=== PATIENT | male | born 1935 | race Asian ===

== ENCOUNTER 2018-10-07 18:24 | Emergency (ER) | payer MEDICARE, OTHER, SELFPAY ==
[2018-10-07 18:35] VITALS: BP 152/98; PULSE 96; RESP 18; O2SAT 98
--- NOTE | 2018-10-07 18:37 | ED.HEATRA ---
HPI - Head Injury General Chief complaint: Trauma Stated complaint: Fell and hit head on concrete Time Seen by Provider: 10/07/18 18:37 Source: patient Mode of arrival: ambulatory Limitations: no limitations History of Present Illness HPI Narrative: The patient was attempting to step across a small wall along the edge of his driveway at home prior to arrival. He slipped and fell backwards. He struck his head against the pavement. The tenderness is in the right occipital area. There is no bleeding the site. He has no LOC. Initial dizziness has improved. He has no confusion, visual changes, or neck pain. He denies trauma to the back, or extremities. Is alert and ambulatory. He is anticoagulated. He has AFib and has a pacer in place. Related Data Home Medications Medication Instructions Recorded Confirmed warfarin 3 mg PO QDAY #0 08/27/11 fluticasone [Flonase Allergy 2 spray INTRANASAL BID #0 09/05/11 Relief] alfuzosin [Uroxatral] 10 mg PO QDAY #0 05/22/17 calcium carbonate-vitamin D3 1 tab PO BID #0 05/22/17 [Oyster Shell Calcium-Vit D3] clobetasol 1 marry TOPICAL BID #0 05/22/17 diclofenac sodium [Voltaren] 1 marry TOPICAL QIDP PRN #0 05/22/17 folic acid 1 mg PO QDAY #0 05/22/17 triamcinolone acetonide 1 marry TOPICAL #0 05/22/17 warfarin [Coumadin] #0 05/22/17 Allergies Allergy/AdvReac Type Severity Reaction Status Date / Time amiodarone [AMIODARONE] Allergy Severe FACIAL Unverified 11/12/17 11:52 SWELLING codeine [CODEINE] AdvReac Intermediate N/V Unverified 11/12/17 11:52 hydromorphone [HYDROMORPHONE] AdvReac Intermediate N/V Unverified 11/12/17 11:52 oxycodone [OXYCODONE] AdvReac Intermediate N/V Unverified 11/12/17 11:52 latex [LATEX] AdvReac Mild RASH Unverified 11/12/17 11:52 Review of Systems Review of Systems ROS Unobtainable: All systems reviewed & are unremarkable except as noted in HPI and below Constitutional Denies chills, Denies lethargy, Denies weakness and Reports other (Occipital head pain) Eyes Denies change in vision and Denies loss of vision ENT Ears, Nose, Mouth, and Throat: Denies change in voice, Denies ear discharge and Denies neck pain Cardiovascular Denies chest pain, Denies irregular heart rhythm, Denies lightheadedness, Denies palpitations, Denies dyspnea and Denies dyspnea on exertion Respiratory Denies cough, Denies dyspnea, Denies dyspnea on exertion and Denies wheezing Gastrointestinal Gastrointestinal: Denies abdominal pain, Denies change in bowel habits, Denies diarrhea, Denies nausea and Denies vomiting Musculoskeletal Denies back pain, Denies neck pain, Denies numbness and Denies stiffness Integumentary/Breasts Denies rash and Denies wounds Neurologic Denies loss of vision, Denies numbness and Denies weakness Endocrine Denies palpitations Allergic/Immunologic Denies wheezing PFSH Medical History Atrial fibrillation (Acute) Hyperglycemia (Acute) Hypertension (Acute) Migraines (Acute) Pacemaker (Acute) Social History Smoking Status: Never smoker Exam Initial Vital Signs Initial Vital Signs: Vital Signs Pulse Rate 96 H 10/07/18 18:35 Respiratory Rate 18 10/07/18 18:35 Blood Pressure 152/98 H 10/07/18 18:35 Pulse Oximetry 98 10/07/18 18:35 Const General: cooperative, healthy appearing and well developed Nutritional Appearance: well nourished Orientation: alert, awake, oriented x3 and not confused [facility] Head: normal to inspection, normocephalic, No abrasion and contusion (right occipital area) Ears: TM's normal bilaterally Nose: nares normal Face and sinus: normal facial exam and sinuses tender Mouth: oral mucosae normal Throat: posterior oropharynx normal Eyes General: appearance normal, both eyes and all related structures Eyelids: eyelids normal Conjunctivae: conjunctivae normal Sclera: sclerae normal Pupils: PERRL EOM: EOM intact bilaterally Neck Neck: normal visual inspection, trachea midline, No lymphadenopathy, No midline deformity and No JVD Chest Chest: normal inspection of the chest Resp Effort & Inspection: normal respiratory effort, able to speak in complete sentences, no respiratory distress and no use of accessory muscles Auscultation: clear to auscultation bilaterally, no rales, no rhonchi and no wheezes Cardio Rate: regular rate Rhythm: regular rhythm Heart Sounds: no click, no gallops, no murmurs and no rubs Pulses: normal peripheral pulses Back/Spine/Pelvis Back: No back tenderness and No ecchymosis Skin General: no rashes or lesions noted Neuro General: alert, oriented x3 and gait normal Speech: speech normal Motor: muscle tone normal throughout Sensory Exam: no sensory deficits noted Extrem General: normal to inspection and full ROM Psych Appearance: grossly normal Course Orders Ordered: ED Orders 10/07/18 18:39 CT head/brain wo con Stat 10/07/18 19:04 Basic Metabolic Panel Stat Complete Blood Count AUTO DIFF Stat Prothrombin Time INR Stat Vital Signs - 8 hr 10/07/18 18:35 10/07/18 19:17 Pulse Rate 96 H 71 Respiratory Rate 18 18 Blood Pressure 152/98 H Blood Pressure [Left Arm] 173/86 H Pulse Oximetry 98 97 MDM - Head Injury Lab Data Result diagrams: 10/07/18 19:04 10/07/18 19:04 Lab Results 10/07/18 10/07/18 10/07/18 Range/Units 19:04 19:04 19:04 WBC 6.7 (4.5-11.0) X10^3/uL RBC 4.28 L (4.5-5.9) X10^6/uL Hgb 13.1 L (13.5-17.5) g/dL Hct 40.4 L (41-53) % MCV 94.2 (80-100) fL MCH 30.7 (26-34) PG MCHC 32.6 (30-36) % RDW 13.7 (11.6-14.8) % Plt Count 170 (150-400) X10^3/uL Neut % (Auto) 67.8 (50-75) % Lymph % (Auto) 16.1 L (25-40) % [place] % (Auto) 8.9 (3-14) % Eos % (Auto) 6.5 H (2-4) % Baso % (Auto) 0.7 (0-2) % Neut # (Auto) 4500 (3249-4327) /uL Lymph # (Auto) 1100 (8208-7251) /uL [place] # (Auto) 600 (0-900) /uL Eos # (Auto) 400 (0-450) /uL Baso # (Auto) 0 (0-100) /uL PT 23.8 H (10.1-12.7) SECONDS INR 2.0 H (0.9-1.3) Sodium 135 L (137-145) mmol/L Potassium 4.9 (3.4-5.1) mmol/L Chloride 98 (98-107) mmol/L Carbon Dioxide 25 (22-32) mmol/L BUN 18 (9-20) mg/dL Creatinine 1.10 (0.66-1.25) mg/dL Estimated GFR > 60.0 (>60) mL/min BUN/Creatinine Ratio 16.4 (6-22) Glucose 186 H (80-110) mg/dL Calcium 9.5 (8.4-10.2) mg/dL Imaging Data CT scan - head: Radiologist's impression: [address] [address] [address] Scan Report Signed Patient: Benjamin Lubin R#: [id number] : 5Acct:[id number] Age/Sex: 83 / MDate of Service: 10/07/18 Loc: ED Accession Number: [id number] Procedure: CT head/brain wo con Ordering Provider: Ash Obregon M.D. PROCEDURE: CT HEAD/BRAIN WO CON INDICATIONS: GLF hit head, warfarin TECHNIQUE: Noncontrast 4.5 mm thick angled axial sections acquired from the foramen magnum to the vertex, with coronal and sagittal reformats. For radiation dose reduction, the following was used: automated exposure control, adjustment of mA and/or kV according to patient size. COMPARISON: [facility], CT, HEAD WITHOUT CONTRAST, 08/04/2017, 13:18. FINDINGS: Image quality: Excellent. CSF spaces: Basal cisterns are patent. No extra-axial fluid collections. The ventricles are symmetric in size and shape. Brain: No intracranial bleeds or masses. There is cerebral volume loss for age, with resultant ventricular and sulcal prominence. There are periventricular and deep white matter chronic small vessel ischemic changes. There is intracranial internal carotid artery atherosclerosis. Skull and face: Calvarium and visualized facial bones appear intact, without suspicious lesions. Sinuses: Visualized sinuses and mastoids are clear. IMPRESSION: No acute intracranial abnormality. Dictated by: Merari Marley M.D. on 10/07/2018 at 19:05 Approved by: Merari Marley M.D. on 10/07/2018 at 19:06 Discharge Plan Departure Patient Disposition: Home Clinical Impression: Contusion of scalp Qualifiers: Encounter type: initial encounter Qualified Code(s): S00.03XA - Contusion of scalp, initial encounter Discharge Date/Time: 10/07/18 19:31 Interventions: ED Discharge Assessment Last Done: 10/07/18 19:30 Instructions: DI for Closed Head Injury Activity Restrictions/Additional Instructions: Apply ice packs to the back of her head as needed. Tylenol 2 tabs every 4 hr as needed for head pain. Return the ER for worsening head pain, confusion, or other concerning changes. Prescriptions: No Action warfarin 1 MG tablet 3 mg PO QDAY Qty: 0 RF: 0 fluticasone [Flonase Allergy Relief] 9.9 ML spray,suspension 2 spray Intranasal BID Qty: 0 RF: 0 clobetasol 0.05 % ointment 1 marry Topical BID Qty: 0 RF: 0 alfuzosin [Uroxatral] 10 MG tablet extended release 24 hr 10 mg PO QDAY Qty: 0 RF: 0 triamcinolone acetonide 0.025 % ointment 1 marry Topical Qty: 0 RF: 0 diclofenac sodium [Voltaren] 1 % gel 1 marry Topical QIDP PRNQty: 0 RF: 0 calcium carbonate-vitamin D3 [Oyster Shell Calcium-Vit D3] 500 MG/200 IU tablet 1 tab PO BID Qty: 0 RF: 0 folic acid 1 MG tablet 1 mg PO QDAY Qty: 0 RF: 0 warfarin [Coumadin] 2 MG tablet Qty: 0 RF: 0 Referrals: Elvira Tijerina MD [Primary Care Provider] -
[2018-10-07 19:09] LABS: Add Manual Diff / Slide Review NO; Basophils Absolute Auto 0 /uL (0-100); Basophils Percent Auto 0.7 % (0-2); Eosinophils Absolute Auto 400 /uL (0-450); Eosinophils Percent Auto 6.5 % (2-4); Hematocrit 40.4 % (41-53); Hemoglobin 13.1 g/dL (13.5-17.5); Lymphocytes Absolute Auto 1100 /uL (1100-4500); Lymphocytes Percent Auto 16.1 % (25-40); Mean Corpuscular HGB Conc 32.6 % (30-36); Mean Corpuscular Hemoglobin 30.7 PG (26-34); Mean Corpuscular Volume 94.2 fL (80-100); Monocytes Absolute Auto 600 /uL (0-900); Monocytes Percent Auto 8.9 % (3-14); Neutrophils Absolute Auto 4500 /uL (1500-7000); Neutrophils Percent Auto 67.8 % (50-75); Platelet Count 170 X10^3/uL (150-400); Red Blood Cell Count 4.28 X10^6/uL (4.5-5.9); Red Cell Distribution Width 13.7 % (11.6-14.8); White Blood Cell Count 6.7 X10^3/uL (4.5-11.0)
[2018-10-07 19:17] VITALS: BP 173/86; PULSE 71; RESP 18; O2SAT 97
[2018-10-07 19:33] LABS: Prothrombin Time 23.8 SECONDS (10.1-12.7)
[2018-10-07 19:40] LABS: BUN Creatinine Ratio 16.4 (6-22); Blood Urea Nitrogen 18 mg/dL (9-20); Calcium 9.5 mg/dL (8.4-10.2); Carbon Dioxide 25 mmol/L (22-32); Chloride 98 mmol/L (98-107); Estimated Glomerular Filt Rate > 60.0 mL/min (>60); Glucose 186 mg/dL (80-110); HEMOLYSIS 26 (0-50); Potassium 4.9 mmol/L (3.4-5.1); Sodium 135 mmol/L (137-145)
== END 2018-10-07 19:31 | disposition home or self-care (01) ==
PROVIDERS: Emergency Provider Emergency Medicine; Family Provider Family Medicine; PCP Family Medicine
DX: S00.03XA Contusion of scalp, initial encounter (principal); W01.0XXA Fall on same level from slipping, tripping and stumbling without subsequent striking against object, initial encounter
CPT/HCPCS: 70450; 80048; 85025; 85610; 99282; 99283; 99284

== ENCOUNTER 2018-10-17 17:18 | Emergency (ER) | payer MEDICARE, OTHER, SELFPAY ==
--- NOTE | 2018-10-17 17:25 | DI.CT.S_ITS ---
PROCEDURE: CT HEAD/BRAIN WO CON INDICATIONS: fell on coumadin TECHNIQUE: Noncontrast 4.5 mm thick angled axial sections acquired from the foramen magnum to the vertex, with coronal and sagittal reformats. For radiation dose reduction, the following was used: automated exposure control, adjustment of mA and/or kV according to patient size. COMPARISON: [facility], CT, CT HEAD/BRAIN WO CON, 10/07/2018, 18:37. FINDINGS: Image quality: Excellent. CSF spaces: Basal cisterns are patent. No extra-axial fluid collections. The ventricles are symmetric in size and shape. Brain: No intracranial bleeds or masses. There is cerebral volume loss for age, with resultant ventricular and sulcal prominence. There are periventricular and deep white matter chronic small vessel ischemic changes. There is intracranial internal carotid artery and vertebral artery atherosclerosis. Skull and face: Calvarium and visualized facial bones appear intact, without suspicious lesions. Sinuses: Visualized sinuses and mastoids are clear. IMPRESSION: No acute intracranial disease process. Dictated by: Josiane Vargas MD, PhD on 10/17/2018 at 18:13 Approved by: Josiane Vargas MD, PhD on 10/17/2018 at 18:15
[2018-10-17 17:26] VITALS: BP 156/88; PULSE 72; RESP 18; TEMP 36.9; O2SAT 99
[2018-10-17 18:11] LABS: Add Manual Diff / Slide Review NO; Basophils Absolute Auto 100 /uL (0-100); Basophils Percent Auto 0.9 % (0-2); Eosinophils Absolute Auto 400 /uL (0-450); Eosinophils Percent Auto 6.2 % (2-4); Hematocrit 38.5 % (41-53); Hemoglobin 12.7 g/dL (13.5-17.5); Lymphocytes Absolute Auto 1000 /uL (1100-4500); Lymphocytes Percent Auto 16.4 % (25-40); Mean Corpuscular Hemoglobin 30.8 PG (26-34); Mean Corpuscular Volume 93.6 fL (80-100); Monocytes Absolute Auto 600 /uL (0-900); Monocytes Percent Auto 9.9 % (3-14); Neutrophils Absolute Auto 4200 /uL (1500-7000); Neutrophils Percent Auto 66.6 % (50-75); Platelet Count 190 X10^3/uL (150-400); Red Blood Cell Count 4.11 X10^6/uL (4.5-5.9); Red Cell Distribution Width 13.6 % (11.6-14.8); White Blood Cell Count 6.4 X10^3/uL (4.5-11.0)
[2018-10-17 18:21] LABS: INR 2.2 (0.9-1.3); Prothrombin Time 25.6 SECONDS (10.1-12.7)
[2018-10-17 18:26] LABS: BUN Creatinine Ratio 18.3 (6-22); Blood Urea Nitrogen 22 mg/dL (9-20); Calcium 9.7 mg/dL (8.4-10.2); Carbon Dioxide 23 mmol/L (22-32); Chloride 100 mmol/L (98-107); Estimated Glomerular Filt Rate 57.8 mL/min (>60); Glucose 128 mg/dL (80-110); HEMOLYSIS < 15 (0-50); Potassium 4.7 mmol/L (3.4-5.1); Sodium 135 mmol/L (137-145)
--- NOTE | 2018-10-17 19:34 | ED.TRAUMA ---
HPI - Trauma General Chief Complaint: Trauma Stated Complaint: FALL, HIT BACK OF HIS HEAD Time Seen by Provider: 10/17/18 19:31 Source: patient and family Mode of arrival: ambulatory Limitations: no limitations History of Present Illness HPI narrative: Patient is a 83-year-old male presents after his ground level fall. He said he was in his garden picking up the garlic with this pain when he fell backwards hitting his head. No loss of consciousness no neck pain no numbness tingling nausea vomiting. He is on Coumadin for atrial fibrillation. This is actually his 2nd fall this month as he fell on 10/07/[address]. He denies any chest pain dizziness lightheadedness is or shortness of breath. He thinks he just lost his balance and fell backwards. Related Data Home Medications Medication Instructions Recorded Confirmed warfarin 3 mg PO QDAY #0 08/27/11 fluticasone [Flonase Allergy 2 spray INTRANASAL BID #0 09/05/11 Relief] alfuzosin [Uroxatral] 10 mg PO QDAY #0 05/22/17 calcium carbonate-vitamin D3 1 tab PO BID #0 05/22/17 [Oyster Shell Calcium-Vit D3] clobetasol 1 marry TOPICAL BID #0 05/22/17 diclofenac sodium [Voltaren] 1 marry TOPICAL QIDP PRN #0 05/22/17 folic acid 1 mg PO QDAY #0 05/22/17 triamcinolone acetonide 1 marry TOPICAL #0 05/22/17 warfarin [Coumadin] #0 05/22/17 Allergies Allergy/AdvReac Type Severity Reaction Status Date / Time amiodarone [AMIODARONE] Allergy Severe FACIAL Verified 10/17/18 17:32 SWELLING codeine [CODEINE] AdvReac Intermediate N/V Verified 10/17/18 17:32 hydromorphone [HYDROMORPHONE] AdvReac Intermediate N/V Verified 10/17/18 17:32 oxycodone [OXYCODONE] AdvReac Intermediate N/V Verified 10/17/18 17:32 latex [LATEX] AdvReac Mild RASH Verified 10/17/18 17:32 Review of Systems Review of Systems ROS Unobtainable: All systems reviewed & are unremarkable except as noted in HPI and below Constitutional Denies chills, Denies fever(s), Denies lethargy and Denies weakness Eyes Denies change in vision, Denies eye discharge, Denies irritation and Denies loss of vision Cardiovascular Denies chest pain, Reports irregular heart rhythm (Atrial fibrillation on Coumadin), Denies lightheadedness, Denies palpitations, Denies dyspnea, Denies dyspnea on exertion and Denies orthopnea Respiratory Denies cough, Denies dyspnea, Denies dyspnea on exertion and Denies wheezing Gastrointestinal Gastrointestinal: Denies abdominal pain, Denies change in bowel habits, Denies diarrhea, Denies nausea and Denies vomiting Musculoskeletal Denies back pain, Denies muscle weakness, Denies numbness and Denies tingling Integumentary/Breasts Comments: Abrasion noted posterior scalp Neurologic Denies loss of vision, Denies numbness, Denies tingling and Denies weakness Endocrine Denies palpitations Allergic/Immunologic Denies wheezing [facility] Medical History Atrial fibrillation (Acute) Hyperglycemia (Acute) Hypertension (Acute) Migraines (Acute) Pacemaker (Acute) Social History Smoking Status: Never smoker Social History Smoking Status: Never smoker Comment: PCP: Dr. Tijerina Exam Initial Vital Signs Initial Vital Signs: Vital Signs Temperature 98.5 F 10/17/18 17:26 Pulse Rate 72 10/17/18 17:26 Respiratory Rate 18 10/17/18 17:26 Blood Pressure 156/88 H 10/17/18 17:26 Pulse Oximetry 99 10/17/18 17:26 GENERAL: Pleasant well-appearing alert elderly male no acute distress HEENT: Head contusion noted posteriorly no depressions no crepitations, EOMI NECK: Full flexion extension and rotation no vertebral tenderness no step-offs CARDIOVASCULAR: Regular rate and rhythm without murmurs, rubs or gallops. RESPIRATORY: Breath sounds equal bilaterally, no wheezes rales or rhonchi. ABDOMEN: Soft, nontender. Normoactive bowel sounds all 4 quadrants. No guarding or rebound. EXTREMITIES: Normal range of motion, no clubbing or edema. Neurovascularly intact NEUROLOGICAL: Alert and oriented x4.Normal gait and speech. Cranial nerves II through XII grossly intact. 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 SKIN: Warm, dry, no laceration, no petechiae, no rashes or lesions. Course Orders Ordered: ED Orders 10/17/18 17:25 CT head/brain wo con Stat 10/17/18 17:55 Basic Metabolic Panel Stat Complete Blood Count AUTO DIFF Stat Prothrombin Time INR Stat Discontinued Medications Acetaminophen (Tylenol) 975 mg PO NOW ONE Stop: 10/17/18 19:40 Last Admin: 10/17/18 19:52 Dose: 975 mg Vital Signs - 8 hr 10/17/18 17:26 10/17/18 19:51 Temperature 98.5 F Pulse Rate 72 89 Respiratory Rate 18 17 Blood Pressure 156/88 H Blood Pressure [Left Arm] 137/81 Pulse Oximetry 99 97 MDM - Trauma Medical Records Attestation: I reviewed the patient's medical records. Lab Data Attestation: I reviewed the patient's lab results. Result diagrams: 10/17/18 17:55 10/17/18 17:55 Lab Results 10/17/18 10/17/18 10/17/18 Range/Units 17:55 17:55 17:55 WBC 6.4 (4.5-11.0) X10^3/uL RBC 4.11 L (4.5-5.9) X10^6/uL Hgb 12.7 L (13.5-17.5) g/dL Hct 38.5 L (41-53) % MCV 93.6 (80-100) fL MCH 30.8 (26-34) PG MCHC 33.0 (30-36) % RDW 13.6 (11.6-14.8) % Plt Count 190 (150-400) X10^3/uL Neut % (Auto) 66.6 (50-75) % Lymph % (Auto) 16.4 L (25-40) % [place] % (Auto) 9.9 (3-14) % Eos % (Auto) 6.2 H (2-4) % Baso % (Auto) 0.9 (0-2) % Neut # (Auto) 4200 (5455-2308) /uL Lymph # (Auto) 1000 L (2500-4520) /uL [place] # (Auto) 600 (0-900) /uL Eos # (Auto) 400 (0-450) /uL Baso # (Auto) 100 (0-100) /uL PT 25.6 H (10.1-12.7) SECONDS INR 2.2 H (0.9-1.3) Sodium 135 L (137-145) mmol/L Potassium 4.7 (3.4-5.1) mmol/L Chloride 100 (98-107) mmol/L Carbon Dioxide 23 (22-32) mmol/L BUN 22 H (9-20) mg/dL Creatinine 1.20 (0.66-1.25) mg/dL Estimated GFR 57.8 L (>60) mL/min BUN/Creatinine Ratio 18.3 (6-22) Glucose 128 H (80-110) mg/dL Calcium 9.7 (8.4-10.2) mg/dL Imaging Data CT scan - head: Radiologist's impression: PROCEDURE: CT HEAD/BRAIN WO CON INDICATIONS: fell on coumadin TECHNIQUE: Noncontrast 4.5 mm thick angled axial sections acquired from the foramen magnum to the vertex, with coronal and sagittal reformats. For radiation dose reduction, the following was used: automated exposure control, adjustment of mA and/or kV according to patient size. COMPARISON: [facility], CT, CT HEAD/BRAIN WO CON, 10/07/2018, 18:37. FINDINGS: Image quality: Excellent. CSF spaces: Basal cisterns are patent. No extra-axial fluid collections. The ventricles are symmetric in size and shape. Brain: No intracranial bleeds or masses. There is cerebral volume loss for age, with resultant ventricular and sulcal prominence. There are periventricular and deep white matter chronic small vessel ischemic changes. There is intracranial internal carotid artery and vertebral artery atherosclerosis. Skull and face: Calvarium and visualized facial bones appear intact, without suspicious lesions. Sinuses: Visualized sinuses and mastoids are clear. IMPRESSION: No acute intracranial disease process. Dictated by: Josiane Vargas MD, PhD on 10/17/2018 at 18:13 MDM Narrative Medical decision making narrative: This is patient's 2nd mechanical fall this month on Coumadin striking his head. He has no gross deficits both seem to be is mechanical. Blood work today is reassuring INR is 2.2. He has no complaints other than a slight headache. I discussed both with he and his being up more careful. Discharge Plan Departure Patient Disposition: Home Clinical Impression: Closed head injury Qualifiers: Encounter type: initial encounter Qualified Code(s): S09.90XA - Unspecified injury of head, initial encounter Discharge Date/Time: 10/17/18 20:05 Interventions: ED Discharge Assessment Last Done: 10/17/18 20:04 Instructions: DI for Concussion Activity Restrictions/Additional Instructions: *You have been diagnosed with closed head injury *What to do: INR today is 2.2. Try to be more careful. Avoid ladders and high risk activity *Continue to take medications as directed Tylenol 650 mg every 4-6 hours if needed for pain *Follow up with your primary care provider in 2-3 days *Return to ER if you should have worsening headache, confusion, persistent vomiting or any new, worsening or concerning symptoms Prescriptions: No Action warfarin 1 MG tablet 3 mg PO QDAY Qty: 0 RF: 0 fluticasone [Flonase Allergy Relief] 9.9 ML spray,suspension 2 spray Intranasal BID Qty: 0 RF: 0 clobetasol 0.05 % ointment 1 marry Topical BID Qty: 0 RF: 0 alfuzosin [Uroxatral] 10 MG tablet extended release 24 hr 10 mg PO QDAY Qty: 0 RF: 0 triamcinolone acetonide 0.025 % ointment 1 marry Topical Qty: 0 RF: 0 diclofenac sodium [Voltaren] 1 % gel 1 marry Topical QIDP PRNQty: 0 RF: 0 calcium carbonate-vitamin D3 [Oyster Shell Calcium-Vit D3] 500 MG/200 IU tablet 1 tab PO BID Qty: 0 RF: 0 folic acid 1 MG tablet 1 mg PO QDAY Qty: 0 RF: 0 warfarin [Coumadin] 2 MG tablet Qty: 0 RF: 0 Referrals: Elvira Tijerina MD [Primary Care Provider] -
[2018-10-17 19:51] VITALS: BP 137/81; PULSE 89; RESP 17; O2SAT 97
[2018-10-17] MEDS: ACETAMINOPHEN 325 MG TABLET 975 MG PO (19:52)
--- NOTE | 2018-10-17 19:52 | PC.NURSE ---
Charting vitals for BETH Kwon
== END 2018-10-17 20:05 | disposition home or self-care (01) ==
PROVIDERS: Emergency Medicine; Emergency Provider Emergency Medicine; Family Provider Family Medicine; PCP Family Medicine
DX: S09.90XA Unspecified injury of head, initial encounter (principal); W18.30XD Fall on same level, unspecified, subsequent encounter; Z79.01 Long term (current) use of anticoagulants
CPT/HCPCS: 36415; 70450; 80048; 85025; 85610; 99282; 99284

== ENCOUNTER → 2019-05-06 12:49 | Outpatient (CLI) | payer MEDICARE, OTHER, SELFPAY ==
--- NOTE | 2019-05-06 | DI.ECHO.S_ITS ---
[facility] +---------+ [facility] +---------+ : : [address] : : : : [id number] : : : : Phone: [phone]+ Echocardiogram Report + + :Name: ANNIE JOYCE Study Date: 05/06/2019 Height: 62 in : :[facility] Exam Location: IS Weight: 132 lb : : Gender: Male BSA: 1.6 m2 : :: 1935 Age: 84 yrs BP: 142/68 mmHg: :Reason For Study: MR : : Performed By: Nehemias Bob : :Referring: MYLES WOOD : + + Interpretation Summary The left ventricle is normal in size. The ejection fraction is estimated to be 55-60%. There is a moderate dyssynchronous contraction pattern due to the paced rhythm. There has been no significant change since the previous study. Diastolic function could not be accurately assessed due to paced rhythm. The right ventricle is mildly dilated. Right ventricular systolic function is at the lower limits of normal. Right ventricular systolic function has increased since previous exam. The right ventricular systolic pressure is estimated to be at least 31 mmHg based on an estimated right atrial pressure of 3 mm Hg. Compared to the prior echo exam, there has been no change in the severity of pulmonary hypertension. Both atria are severely dilated. There is moderate mitral regurgitation. MR has slightly increased since prior study. There is mild aortic stenosis. The peak aortic velocity is 1.48 m/sec. The calculated aortic valve area is 1.2 cm2. There is severe tricuspid regurgitation. TR has mildly increased since prior study. The ascending aorta is mildly enlarged. Procedure: A two-dimensional transthoracic echocardiogram with color flow and Doppler was performed. The study quality was technically good. Comparison is made with the echocardiogram of 12/25/15. The patient was in atrial fibrillation with controlled ventricular rate during the exam. The patient had a heart rate of 55-84 beats per minute. Left Ventricle: The left ventricle is normal in size. There is normal left ventricular wall thickness. The ejection fraction is estimated to be 55-60%. There has been no significant change since the previous study. There is a moderate dyssynchronous contraction pattern due to the paced rhythm. Diastolic function could not be accurately assessed due to paced rhythm. Right Ventricle: The right ventricle is mildly dilated. Right ventricular systolic function is at the lower limits of normal. Right ventricular systolic function has increased since previous exam. Atria: Both atria are severely dilated. The interatrial septum is intact with no evidence for an atrial septal defect. Mitral Valve: There is mild mitral annular calcification. There is moderate mitral regurgitation. Aortic Valve: The aortic valve is trileaflet. The aortic valve is mildly calcified. There is mildly reduced leaflet mobility. There is mild aortic stenosis. The peak aortic velocity is 1.48 m/sec. The aortic valve mean gradient is 5.1 mmHg. The calculated aortic valve area is 1.2 cm2. There is trace aortic regurgitation. Tricuspid Valve: The tricuspid valve is normal in structure and function. There is severe tricuspid regurgitation. The right ventricular systolic pressure is estimated to be at least 31 mmHg based on an estimated right atrial pressure of 3 mm Hg. Compared to the prior echo exam, there has been no change in the severity of pulmonary hypertension. Pulmonic Valve: The pulmonic valve is normal in structure and function. There is trace pulmonic regurgitation. Great Vessels: The aortic root is normal size. The ascending aorta is mildly enlarged. The pulmonary artery is normal size. The IVC is of normal diameter and collapses greater than 50% with a sniff. This suggests a low right atrial pressure of 3 mm Hg. Pericardium/ Pleura There is no pericardial effusion. There is no pleural effusion. MMode/2D Measurements & Calculations LVIDd: 4.0 cm LVOT diam: 1.9 cm LVIDs: 2.7 cm Ao root diam: 3.3 cm FS: 31.7 % Aortic Jxn: 2.6 cm EPSS: 0.54 cm asc Aorta Diam: 3.6 cm IVSd: 0.95 cm LVPWd: 0.80 cm LV fuller. diameter/BSA (cm/m^2): 2.5 LV sys. diameter/BSA (cm/m^2): 1.7 LA dimension: 5.0 cm RA long axis: 6.8 cm LA A2 area: 30.0 cm2 RA area: 31.7 cm2 LA A4 area: 28.3 cm2 RA vol: 124.9 ml LA length (vol): 7.3 cm RA : 78.0 ml/m2 LA vol: 98.9 ml IVC diam: 2.0 cm LA vol index: 61.8 ml/m2 RVD1 (basal): 4.2 cm RVD2 (mid): 3.5 cm DANITA (plan): 1.5 cm2 Doppler Measurements & Calculations Ao V2 max: 148.4 cm/sec LVOT Max Leo: 59.5 cm/sec Ao V2 mean: 110.5 cm/sec LV V1 max P.4 mmHg Ao max P.8 mmHg LV V1 VTI: 12.8 cm Ao mean P.1 mmHg DANITA(I,D): 1.1 cm2 Ao V2 VTI: 34.2 cm DANITA(V,D): 1.2 cm2 sev ratio: 0.37 DANITA indexed to BSA (cm^2/m^2): 0.69 MV E max leo: 70.5 cm/sec TR max leo: 264.1 cm/sec MV A max leo: 1.4 cm/sec TR max P.1 mmHg MV E/A: 49.3 PA V2 max: 64.6 cm/sec Med Peak E' Leo: 6.8 cm/sec PA V2 mean: 39.5 cm/sec E/E' med: 10.3 PA mean P.74 mmHg Lat Peak E' Leo: 13.4 cm/sec PA pr(Accel): 34.1 mmHg E/E' lat: 5.3 PA Accel Time: 0.09 sec E/e' average: 7.8 MV dec time: 0.19 sec SV(LVOT): 37.9 ml Reading Physician:07:12 PM
== END ==
PROVIDERS: Family Provider Family Medicine; PCP Family Medicine; Visit Provider Specialist
DX: I08.3 Combined rheumatic disorders of mitral, aortic and tricuspid valves (principal); I77.89 Other specified disorders of arteries and arterioles
CPT/HCPCS: 93306

== ENCOUNTER 2019-07-30 17:36 | Inpatient (IN) | payer MEDICARE, OTHER, SELFPAY ==
[2019-07-30 17:42] VITALS: BP 164/98; PULSE 87; RESP 18; TEMP 36.3; O2SAT 96
--- NOTE | 2019-07-30 18:40 | ED.EXTPRO ---
HPI - Extremity Problem General Chief complaint: Extremity Problem,Nontraumatic Stated complaint: left hand is swollen Time Seen by Provider: 07/30/19 17:54 Source: patient and family Mode of arrival: Ambulatory Limitations: no limitations History of Present Illness HPI Narrative: 84-year-old male nonsmoker with history of AFib with a pacemaker on Coumadin presents with a chief complaint of gradually worsening left hand pain, swelling and redness over the past day or 2. He states he thinks it happened when he was lifting a bag of few days ago but now is beginning to feel sick and has had a fever as high as 101. He denies any scratches, bites or obvious dental infections. He denies any history of the same. He has severe pain with any range of motion and cannot close his fist MD Complaint: extremity pain and extremity swelling Onset (ago): day(s) Pain Consistency: constant Location: right Quality: aching Radiation: none Associated symptoms: fever Related Data Home Medications Medication Instructions Recorded Confirmed warfarin 3 mg PO QDAY #0 08/27/11 07/31/19 fluticasone propionate [Flonase 2 spray INTRANASAL BID #0 09/05/11 07/31/19 Allergy Relief] alfuzosin [Uroxatral] 10 mg PO QDAY #0 05/22/17 07/31/19 calcium carbonate-vitamin D3 1 tab PO BID #0 05/22/17 07/31/19 [Oyster Shell Calcium-Vit D3] clobetasol 1 marry TOPICAL BID #0 05/22/17 07/31/19 diclofenac sodium [Voltaren] 1 marry TOPICAL QIDP PRN #0 MDD 1 05/22/17 07/31/19 warfarin [Coumadin] #0 05/22/17 Allergies Allergy/AdvReac Type Severity Reaction Status Date / Time amiodarone [AMIODARONE] Allergy Severe FACIAL Verified 07/30/19 17:47 SWELLING codeine [CODEINE] AdvReac Intermediate N/V Verified 07/30/19 17:47 hydromorphone [HYDROMORPHONE] AdvReac Intermediate N/V Verified 07/30/19 17:47 oxycodone [OXYCODONE] AdvReac Intermediate N/V Verified 07/30/19 17:47 latex [LATEX] AdvReac Mild RASH Verified 07/30/19 17:47 Review of Systems Constitutional Constitutional: Denies chills, Denies fatigue, Reports fever(s), Denies frequent falls, Denies lethargy and Reports weakness Eyes Eyes: Denies change in vision, Denies eye discharge, Denies irritation and Denies loss of vision ENT Ears, Nose, Mouth, and Throat: Denies change in voice, Denies dizziness, Denies neck pain, Denies sore throat and Denies throat swelling Cardiovascular Cardiovascular: Denies chest pain, Denies irregular heart rhythm, Denies lightheadedness, Denies palpitations, Denies dyspnea, Denies dyspnea on exertion and Denies orthopnea Respiratory Respiratory: Denies cough, Denies dyspnea, Denies dyspnea on exertion and Denies wheezing Gastrointestinal Gastrointestinal: Denies abdominal pain, Denies change in bowel habits, Denies diarrhea, Denies nausea and Denies vomiting Genitourinary Genitourinary: Denies hematuria, Denies flank pain, Denies urinary incontinence and Denies urinary urgency Musculoskeletal Musculoskeletal: Denies back pain, Denies muscle weakness, Denies neck pain, Denies numbness and Denies tingling Integumentary/Breasts Skin/Breast: Denies pruritus, Reports erythema, Denies rash, Reports skin pain, Reports skin swelling and Denies wounds Neurologic Neurologic: Denies behavioral changes, Denies confusion, Denies dizziness, Denies frequent falls, Denies loss of vision, Denies numbness, Denies tingling and Reports weakness Psychiatric Psychiatric: Denies anxiety, Denies behavioral changes, Denies confusion, Denies depression, Denies homicidal ideation and Denies suicidal ideation Endocrine Endocrine: Denies fatigue, Denies flushing and Denies palpitations Hematologic/Lymphatic Hematologic/Lymphatic: Denies easy bruising Allergic/Immunologic Allergic/Immunologic: Denies urticaria, Denies throat swelling and Denies wheezing Patient History Medical History Atrial fibrillation (Acute) Hyperglycemia (Acute) Hypertension (Acute) Migraines (Acute) Pacemaker (Acute) Social History household members: spouse Smoking Status: Never smoker Smoking Status: Never smoker alcohol intake frequency: 0-2 drinks per day Substance Use Type: does not use Exam Narrative Exam Narrative: GENERAL: [] year old patient appears stated age. Well-nourished, well-developed patient, in mild distress. HEAD: Atraumatic. Normocephalic. EYES: Pupils equal round and reactive. Extraocular motions intact. No scleral icterus. No injection or drainage. ENT: Nose without bleeding, purulent drainage. Throat without erythema, tonsillar hypertrophy or exudate. Airway patent. NECK: Trachea midline. Non tender CARDIOVASCULAR: Regular rate and rhythm without murmurs, gallops, or rubs. RESPIRATORY: Clear to auscultation. Breath sounds equal bilaterally. No wheezes, rales, or rhonchi. GASTROINTESTINAL: Abdomen soft, non-tender, nondistended. EXTREMITIES: Dorsum of left hand from wrist to MCP is erythematous and edematous and tender to palpate. It is warm to the touch. Palpation on palmar surface elicit significant pain. Patient cannot make a fist due to the pain. Fingers are spared and no signs of flexor tenosynovitis. No evidence of cuts, scrapes or breaks in the skin No edema or joint tenderness. BACK: Nontender without deformity or crepitance. No flank tenderness. NEURO: AOx3. SKIN: No rash or erythema of visible areas other than that which is mentioned above Initial Vital Signs Initial Vital Signs: Vital Signs Temperature 97.4 F L 07/30/19 17:42 Pulse Rate 87 07/30/19 17:42 Respiratory Rate 18 07/30/19 17:42 Blood Pressure 164/98 H 07/30/19 17:42 Pulse Oximetry 96 07/30/19 17:42 Course Orders Ordered: ED Orders 07/30/19 20:14 Blood Culture Stat 07/31/19 05:00 Basic Metabolic Panel Stat Complete Blood Count AUTO DIFF Stat Prothrombin Time INR Stat Sodium Chloride (Normal Saline 0.9%) 1,000 mls @ 80 mls/hr IV CONT ROLY Last Admin: 07/31/19 01:46 Dose: 80 mls/hr Documented by: GERMAN Nafcillin Sodium 1 gm/ Sodium (Chloride) 100 mls @ 200 mls/hr IV Q4H ROLY Sodium Chloride (Normal Saline 0.9% Flush) 10 ml IV PRN PRN PRN Reason: Flush Last Admin: 07/31/19 01:47 Dose: 10 ml Documented by: GERMAN Sodium Chloride (Normal Saline 0.9% Flush) 10 ml IV BID ROLY Discontinued Medications Nafcillin Sodium 2 gm/ Sodium (Chloride) 100 mls @ 200 mls/hr IV NOW ONE Stop: 07/30/19 21:42 Last Infusion: 07/30/19 22:27 Dose: 0 mls/hr Documented by: Admin: 07/30/19 21:53 Dose: 200 mls/hr Documented by: JUANITO Nafcillin Sodium 1 gm/ Sodium (Chloride) 100 mls @ 200 mls/hr IV Q4H ROLY Last Admin: 07/31/19 02:34 Dose: 200 mls/hr Documented by: GERMAN Taylor Consultation #1: Early discussion with Orthopedics regarding concern for deep space infection. We agree that CT scan with IV contrast will help determine abscess versus cellulitis, he asked that I hold off on antibiotics until receipt of CT scan. I did call him back after only cellulitis noted, he recommends nafcillin and admission to hospitalist Consultation #2: Dr. Simmons happy to accept on his service Vital Signs Vital signs: Vital Signs - 8 hr 07/30/19 21:34 07/30/19 22:51 Pulse Rate 77 87 Blood Pressure [Left Arm] 125/65 Pulse Oximetry 99 99 MDM - Extremity (Nontraumatic) Lab Data Result diagrams: 07/30/19 18:43 07/30/19 18:43 Labs: Lab Results 07/30/19 07/30/19 07/30/19 Range/Units 18:43 18:43 18:43 WBC 12.4 H (4.5-11.0) X10^3/uL RBC 3.95 L (4.5-5.9) X10^6/uL Hgb 12.1 L (13.5-17.5) g/dL Hct 36.4 L (41-53) % MCV 92.2 (80-100) fL MCH 30.5 (26-34) PG MCHC 33.1 (30-36) % RDW 14.4 (11.6-14.8) % Plt Count 198 (150-400) X10^3/uL Neut % (Auto) 75.4 H (50-75) % Lymph % (Auto) 10.3 L (25-40) % Bulloch % (Auto) 12.7 (3-14) % Eos % (Auto) 1.3 L (2-4) % Baso % (Auto) 0.3 (0-2) % Neut # (Auto) 9300 H (4179-8889) /uL Lymph # (Auto) 1300 (3325-3666) /uL Bulloch # (Auto) 1600 H (0-900) /uL Eos # (Auto) 200 (0-450) /uL Baso # (Auto) 0 (0-100) /uL ESR 42 H (0-15) MM/HR PT 52.2 H (10.1-12.7) SECONDS INR 4.4 H (0.9-1.3) Sodium 132 L (137-145) mmol/L Potassium 5.6 H (3.4-5.1) mmol/L Chloride 95 L (98-107) mmol/L Carbon Dioxide 26 (22-32) mmol/L BUN 19 (9-20) mg/dL Creatinine 1.00 (0.66-1.25) mg/dL Estimated GFR > 60.0 (>60) mL/min BUN/Creatinine Ratio 19.0 (6-22) Glucose 154 H (80-110) mg/dL Lactate (0.7-2.1) mmol/L Uric Acid 5.8 (3.5-8.5) mg/dL Calcium 9.6 (8.4-10.2) mg/dL C-Reactive Protein 5.3 H (<1.0) mg/dL 07/30/19 Range/Units 18:43 WBC (4.5-11.0) X10^3/uL RBC (4.5-5.9) X10^6/uL Hgb (13.5-17.5) g/dL Hct (41-53) % MCV (80-100) fL MCH (26-34) PG MCHC (30-36) % RDW (11.6-14.8) % Plt Count (150-400) X10^3/uL Neut % (Auto) (50-75) % Lymph % (Auto) (25-40) % Bulloch % (Auto) (3-14) % Eos % (Auto) (2-4) % Baso % (Auto) (0-2) % Neut # (Auto) (0558-6054) /uL Lymph # (Auto) (6109-4419) /uL Bulloch # (Auto) (0-900) /uL Eos # (Auto) (0-450) /uL Baso # (Auto) (0-100) /uL ESR (0-15) MM/HR PT (10.1-12.7) SECONDS INR (0.9-1.3) Sodium (137-145) mmol/L Potassium (3.4-5.1) mmol/L Chloride (98-107) mmol/L Carbon Dioxide (22-32) mmol/L BUN (9-20) mg/dL Creatinine (0.66-1.25) mg/dL Estimated GFR (>60) mL/min BUN/Creatinine Ratio (6-22) Glucose (80-110) mg/dL Lactate 1.8 (0.7-2.1) mmol/L Uric Acid (3.5-8.5) mg/dL Calcium (8.4-10.2) mg/dL C-Reactive Protein (<1.0) mg/dL Imaging Data Left Hand CT: Radiologist's Impression: Benjamin Lubin 84 M 1935 [place] [address] CT Scan Report Signed Patient: Benjamin Lubin UMR#: [id number] : 5Acct:[id number] Age/Sex: 84 / MDate of Service: 07/30/19 Loc: ED Accession Number: [id number] Procedure: CT UE LT w con Ordering Provider: Hiram Sales D.O. PROCEDURE: CT UE LT W CON INDICATIONS: pain, swelling, concern for deep space infection hand TECHNIQUE: After the administration of intravenous contrast, 3 mm axial sections acquired of the left hand and distal forearm, with coronal and sagittal reformats. COMPARISON: None. FINDINGS: Image quality: Excellent. Bones: No fracture or dislocation. Degenerative changes are present. Soft tissues: There is diffuse soft tissue edema, consistent with cellulitis. No organized fluid collection to suggest abscess. IMPRESSION: 1. Diffuse soft tissue edema consistent with cellulitis. 2. No abscess. Dictated by: Barbara Abbasi M.D. on 07/30/2019 at 20:58 Approved by: Barbara Abbasi M.D. on 07/30/2019 at 21:04 Discharge Plan Departure Patient Disposition: Admitted As Inpatient Clinical Impression: Cellulitis of hand, left Discharge Date/Time: 07/31/19 00:11 Admit Date/Time: 07/30/19 23:01 Admit Provider: Juanito Simmons
[2019-07-30 18:54] LABS: Add Manual Diff / Slide Review NO; Basophils Absolute Auto 0 /uL (0-100); Basophils Percent Auto 0.3 % (0-2); Eosinophils Absolute Auto 200 /uL (0-450); Eosinophils Percent Auto 1.3 % (2-4); Hematocrit 36.4 % (41-53); Hemoglobin 12.1 g/dL (13.5-17.5); Lymphocytes Absolute Auto 1300 /uL (1100-4500); Lymphocytes Percent Auto 10.3 % (25-40); Mean Corpuscular HGB Conc 33.1 % (30-36); Mean Corpuscular Hemoglobin 30.5 PG (26-34); Mean Corpuscular Volume 92.2 fL (80-100); Monocytes Absolute Auto 1600 /uL (0-900); Monocytes Percent Auto 12.7 % (3-14); Neutrophils Absolute Auto 9300 /uL (1500-7000); Neutrophils Percent Auto 75.4 % (50-75); Platelet Count 198 X10^3/uL (150-400); Red Blood Cell Count 3.95 X10^6/uL (4.5-5.9); Red Cell Distribution Width 14.4 % (11.6-14.8); White Blood Cell Count 12.4 X10^3/uL (4.5-11.0)
[2019-07-30 19:04] LABS: INR 4.4 (0.9-1.3); Prothrombin Time 52.2 SECONDS (10.1-12.7)
[2019-07-30 19:05] VITALS: BP 121/69; PULSE 78; O2SAT 99
[2019-07-30 19:09] LABS: Blood Urea Nitrogen 19 mg/dL (9-20); Calcium 9.6 mg/dL (8.4-10.2); Carbon Dioxide 26 mmol/L (22-32); Chloride 95 mmol/L (98-107); Estimated Glomerular Filt Rate > 60.0 mL/min (>60); Glucose 154 mg/dL (80-110); Sodium 132 mmol/L (137-145); Uric Acid 5.8 mg/dL (3.5-8.5)
[2019-07-30 19:10] LABS: HEMOLYSIS 119 (0-50)
[2019-07-30 19:11] LABS: Potassium 5.6 mmol/L (3.4-5.1)
[2019-07-30 19:20] LABS: C-Reactive Protein Quant 5.3 mg/dL (<1.0); Erythrocyte Sedimentation Rate 42 MM/HR (0-15)
--- NOTE | 2019-07-30 19:52 | DI.CT.S_ITS ---
PROCEDURE: CT UE LT W CON INDICATIONS: pain, swelling, concern for deep space infection hand TECHNIQUE: After the administration of intravenous contrast, 3 mm axial sections acquired of the left hand and distal forearm, with coronal and sagittal reformats. COMPARISON: None. FINDINGS: Image quality: Excellent. Bones: No fracture or dislocation. Degenerative changes are present. Soft tissues: There is diffuse soft tissue edema, consistent with cellulitis. No organized fluid collection to suggest abscess. IMPRESSION: 1. Diffuse soft tissue edema consistent with cellulitis. 2. No abscess. Dictated by: Barbara Abbasi M.D. on 07/30/2019 at 20:58 Approved by: Barbara Abbasi M.D. on 07/30/2019 at 21:04
[2019-07-30 20:05] LABS: Lactate (Lactic Acid) 1.8 mmol/L (0.7-2.1)
--- NOTE | 2019-07-30 20:13 | PC.NURSE ---
second set of cultures drawn by lab
[2019-07-30 21:34] VITALS: PULSE 77; O2SAT 99
[2019-07-30] MEDS: NAFCILLIN 2 GM in SODIUM CHLORIDE 0.9% 100 ML 200 ML IV (21:53)
[2019-07-30 22:51] VITALS: BP 125/65; PULSE 87; O2SAT 99
[2019-07-31] VITALS (7 sets, daily range): BP systolic 115–136; BP diastolic 71–79; PULSE 66–85; RESP 16–20; TEMP 36.4–37.1; O2SAT 96–98; BMI 21.9
[2019-07-31] MEDS: SODIUM CHLORIDE 0.9% 1,000 ML 80 ML IV ×2 (01:46→16:18)
[2019-07-31] MEDS: SODIUM CHLORIDE 0.9% FLUSH 10 ML IV (01:47)
[2019-07-31] MEDS: SODIUM CHLORIDE 0.9% IV ×6 (02:34→22:48)
[2019-07-31] MEDS: NAFCILLIN IV ×6 (02:34→22:48)
--- NOTE | 2019-07-31 05:17 | PC.NURSE ---
Pt admitted from ER at 0030 for cellulitis of left hand. Pt reports pain OK, denies need for pain medication, left arm elevated on pillow. Pt tagalog speaking, understands latvian easily. Pt A&Ox4. Denies SOB, lung sounds clear. Denies chest pain or palpitations. Heart rate regular. Pt with implanted pacemaker. Will confirm need for tele monitoring while inpt. Pt skin intact, no open areas, rashes, old scars are well healed. Pt on coumadin for AFib, PT/INR elevated. Await next value at 0500. Pt high fall risk and high risk for injury if falls. Yellow gown on, red socks on. Red door marker place. Strong discussion with pt and spouse at bedside regarding risk of fall, how to use call light, and bed alarm on for safety. Pt did make one attempt to get OOB unassisted. Needs strong reminders to call for assist. Pt NPO, con't IVF of NS @80cc/hr. On q4hr IV Nafcillin for cellulitis. Monitor for increased infection, sepsis, uncontrolled pain at left hand, bleeding due to elevated PT/INR.
[2019-07-31 05:45] LABS: Add Manual Diff / Slide Review NO; Basophils Absolute Auto 0 /uL (0-100); Basophils Percent Auto 0.3 % (0-2); Eosinophils Absolute Auto 200 /uL (0-450); Eosinophils Percent Auto 1.8 % (2-4); Hematocrit 34.2 % (41-53); Hemoglobin 11.5 g/dL (13.5-17.5); Lymphocytes Absolute Auto 1600 /uL (1100-4500); Lymphocytes Percent Auto 17.9 % (25-40); Mean Corpuscular HGB Conc 33.6 % (30-36); Mean Corpuscular Hemoglobin 30.6 PG (26-34); Mean Corpuscular Volume 91.1 fL (80-100); Monocytes Absolute Auto 1200 /uL (0-900); Neutrophils Absolute Auto 5800 /uL (1500-7000); Platelet Count 160 X10^3/uL (150-400); Red Blood Cell Count 3.76 X10^6/uL (4.5-5.9); Red Cell Distribution Width 14.2 % (11.6-14.8); White Blood Cell Count 8.7 X10^3/uL (4.5-11.0)
[2019-07-31 05:47] LABS: INR 3.6 (0.9-1.3); Prothrombin Time 42.2 SECONDS (10.1-12.7)
[2019-07-31 05:49] LABS: Blood Urea Nitrogen 17 mg/dL (9-20); Carbon Dioxide 29 mmol/L (22-32); Chloride 98 mmol/L (98-107); Estimated Glomerular Filt Rate > 60.0 mL/min (>60); Glucose 134 mg/dL (80-110); HEMOLYSIS < 15 (0-50); Potassium 4.3 mmol/L (3.4-5.1); Sodium 134 mmol/L (137-145)
--- NOTE | 2019-07-31 10:46 | PM.HP.1 ---
History of Present Illness History of Present Illness Date Patient Seen: 07/31/19 Time Patient Seen: 10:00 Chief complaint: left hand is swollen Narrative: Patient is a 84-year-old gentleman nonsmoker with chronic atrial fibrillation controlled with pacemaker in Coumadin neck presented to the emergency room with severe left hand pain worsening over 2 days to 3 days prior to arrival. He has had a fever as high as 101 no trauma or wound to the hand no bites that he is aware of denies night sweats is has been nauseous. Primarily as really swollen red hot and extremely painful left hand. Lab work showed elevated white blood count in the emergency room blood pressure stable other labs showed no evidence of sepsis and he was evaluated with extremity CT scan with contrast which showed no abscess or clots. Reviewed with orthopedics who suggested the BN on IV nafcillin and would follow in case there were any need for surgical drainage or invasive procedures. Patient was kept NPO overnight case something worsened and needed in vent intervention Patient also on Coumadin and pacemaker for his atrial fibrillation denies any bleeding or bruising. No INR is at 3.6 Patient has family history positive for some blood sugar abnormalities and coronary artery disease negative otherwise Social history patient lives at home with spouse well tended by family members and functional within the home and safe Patient History Medical History Atrial fibrillation (Acute) Hyperglycemia (Acute) Hypertension (Acute) Migraines (Acute) Pacemaker (Acute) Family & Social History Social History: household members spouse Prior Living Arrangements House Safety & Behavioral: Feels Safe in Current Yes Environment Been Physically Hurt or No Threatened By a Person Suicidal Ideation Description None Suicide Plan Description No Plan Tobacco & Substance use: Smoking Status Never smoker alcohol intake frequency 0-2 drinks per day Substance Use Type does not use Meds Home Medications and Allergies Home Medications Medication Instructions Recorded Confirmed Type warfarin 3 mg PO QDAY #0 08/27/11 07/31/19 History fluticasone propionate [Flonase 2 spray INTRANASAL BID #0 09/05/11 07/31/19 History Allergy Relief] alfuzosin [Uroxatral] 10 mg PO QDAY #0 05/22/17 07/31/19 History calcium carbonate-vitamin D3 1 tab PO BID #0 05/22/17 07/31/19 History [Oyster Shell Calcium-Vit D3] clobetasol 1 marry TOPICAL BID #0 05/22/17 07/31/19 History diclofenac sodium [Voltaren] 1 marry TOPICAL QIDP PRN #0 MDD 1 05/22/17 07/31/19 History warfarin [Coumadin] #0 05/22/17 History Allergies Allergy/AdvReac Type Severity Reaction Status Date / Time amiodarone [AMIODARONE] Allergy Severe FACIAL Verified 07/30/19 17:47 SWELLING codeine [CODEINE] AdvReac Intermediate N/V Verified 07/30/19 17:47 hydromorphone [HYDROMORPHONE] AdvReac Intermediate N/V Verified 07/30/19 17:47 oxycodone [OXYCODONE] AdvReac Intermediate N/V Verified 07/30/19 17:47 latex [LATEX] AdvReac Mild RASH Verified 07/30/19 17:47 Review of Systems Review of Systems Narrative: Patient reports a constitutional symptoms with fever weakness pain and is been quite fatigued Eyes not had any change in vision ENT has no change in voice swallowing ear pain or throat pain Cardiovascular no chest pain lightheadedness shortness of breath doesn't report palpitations but is in chronic atrial fibrillation GI no abdominal pain nausea vomiting diarrhea or mass Musculoskeletal without back pain muscle weakness. Patient does have left hand and wrist swelling redness and heat with per some very severe pain negative CT scan for abscess or blood clot Neuro patient is alert and and doesn't complain of confusion disorientation focal neurologic finding her weakness Hematology G no bleeding or bruising although he is on Coumadin for his atrial fibrillation Social history tended by his spouse lives at home caring family involved All other review of systems categories are reviewed and discussed and negative except as mentioned above Exam Vital Signs (past 8 hours): - 07/31/19 05:23 07/31/19 10:00 Temperature 98.2 F 98.6 F Pulse Rate 66 85 Respiratory Rate 17 16 Blood Pressure 116/71 121/74 Pulse Oximetry 96 98 Oxygen Delivery Method Room Air Oxygen Flow Rate 0 Narrative Exam Narrative: Comfortable gentleman lying in bed breathing easily speaking clearly. PERRLA EOMs intact ENT shows no mass swelling ear pain Skin redness Neck without node is supple and rotates and moves with good range of motion for age next heart shows irregular rate and rhythm we does have pacer in place is so not his Sir irregularity in terms of his fib no significant edema Lungs to auscultation and percussion GI abdomen is nontender no hepatosplenomegaly or mass no rebound or guarding Back no abnormality soreness pain or significant inappropriate decrease in range of motion in skin left wrist is extremely hot to touch and with significant swelling. Patient has intact neuro tendon function and circulation distal to that. CT scan shows no abscess or mass there Neuro patient has sensation motor symmetrical and intact speech clear cranial nerves intact Neck except for his hand no abnormalities noted Psych his mental status seems good he is comfortable and asking for food and seems to be in a good mood overall Objective Labs Result Diagrams: 07/31/19 05:15 07/31/19 05:15 Labs: Laboratory Results - last 24 hr 07/30/19 07/30/19 07/30/19 18:43 18:43 18:43 WBC 12.4 H RBC 3.95 L Hgb 12.1 L Hct 36.4 L MCV 92.2 MCH 30.5 MCHC 33.1 RDW 14.4 Plt Count 198 Neut % (Auto) 75.4 H Lymph % (Auto) 10.3 L Burke % (Auto) 12.7 Eos % (Auto) 1.3 L Baso % (Auto) 0.3 Neut # (Auto) 9300 H Lymph # (Auto) 1300 Burke # (Auto) 1600 H Eos # (Auto) 200 Baso # (Auto) 0 ESR 42 H PT 52.2 H INR 4.4 H Sodium 132 L Potassium 5.6 H Chloride 95 L Carbon Dioxide 26 BUN 19 Creatinine 1.00 Estimated GFR > 60.0 BUN/Creatinine Ratio 19.0 Glucose 154 H Lactate Uric Acid 5.8 Calcium 9.6 C-Reactive Protein 5.3 H 07/30/19 07/31/19 07/31/19 18:43 05:15 05:15 WBC 8.7 RBC 3.76 L Hgb 11.5 L Hct 34.2 L MCV 91.1 MCH 30.6 MCHC 33.6 RDW 14.2 Plt Count 160 Neut % (Auto) 66.0 Lymph % (Auto) 17.9 L Burke % (Auto) 14.0 Eos % (Auto) 1.8 L Baso % (Auto) 0.3 Neut # (Auto) 5800 Lymph # (Auto) 1600 Burke # (Auto) 1200 H Eos # (Auto) 200 Baso # (Auto) 0 ESR PT 42.2 H D INR 3.6 H Sodium Potassium Chloride Carbon Dioxide BUN Creatinine Estimated GFR BUN/Creatinine Ratio Glucose Lactate 1.8 Uric Acid Calcium C-Reactive Protein 07/31/19 05:15 WBC RBC Hgb Hct MCV MCH MCHC RDW Plt Count Neut % (Auto) Lymph % (Auto) Burke % (Auto) Eos % (Auto) Baso % (Auto) Neut # (Auto) Lymph # (Auto) Burke # (Auto) Eos # (Auto) Baso # (Auto) ESR PT INR Sodium 134 L Potassium 4.3 D Chloride 98 Carbon Dioxide 29 BUN 17 Creatinine 1.00 Estimated GFR > 60.0 BUN/Creatinine Ratio 17.0 Glucose 134 H Lactate Uric Acid Calcium 9.0 C-Reactive Protein Assessment & Plan Assessment & Plan narrative: Assessment 1. Left hand cellulitis. This is significant and and brings him in through the emergency room white count elevated to 12 8 and and severe pain. Workup showed no mass abscess clot on CT scan. Reviewed with orthopedist who suggest treating it as cellulitis with nafcillin that's initiated. Skin kept NPO overnight case invasive procedure to remove pressure at cetera was required. Assessment 2. Atrial fibrillation patient unable to take some AFib meds but has good rate control now with the his pacemaker is also on Coumadin. Current INR is 3.6 so will hold that for today. Patient not having chest pain or significant dyspnea secondary to this Assessment 3. History of hyperglycemia is not not inappropriate this point will continue to do AC glucose checks and if that rises we can institute insulin sliding scale at this point will watch closely. Assessment 3 hypertension patient's blood pressure good this morning will continue monitor if that increases will initiate antihypertensive medications but for now I think he has good worries that. Appropriate labs reviewed with patient and spouse Assessment 4. History of migraines no headache at this point. Have Tylenol ordered for mild pain and if he develops migraine and can treat acutely episodically. Time Spent With Patient Time with patient: Greater than 35 minutes Quality VTE Deep Vein Thrombosis/Pulmonary Embolism Present on Admission: No
--- NOTE | 2019-07-31 14:48 | CM.DANOTE ---
Addendum entered by Megan Zayas LPN 07/31/19 15:08: Met as planned with pt and his Brandy. Introduced self and role. Brandy says they are wondering what the source of his hand swelling is. She wonders about gout as she says he had the gout very badly in his R foot last month and it finally got better after taking oral medicine for a few weeks. She notes this all came on very suddenly but that at this time the hand does look much better. She confirms prior level of physical and mental function: says her does have some memory impairment but he does very well around the house and without use of assistive device. She manages all of his medication. She says they do have extended family in the area. Brandy has window bed made up in pt's room and will be spending the night. Agreed to check in again tomorrow and follow prn. P: at this point do expect pt will d/c to home setting once he is stable to leave the hospital. Original Note: Discharge Planning/Care Management DCP: assessment: case received, EMR reviewed and Discussed in Team Rounds. Pt is an 84 year old male who admitted last night 2300 to care of [facility] team. PCP: Dr. Elvira Simmons saw pt today. Payer: Medicare and [employer]. Admission status: INPT: confirmed by [facility] Senior. Pt is currently on IV antibiotics for painful and swollen and hot L hand. Dr. Simmons consulted orthopedic team/no consult note is available and reports that they will follow prn in case I&D or other procedure is needs. Dr. Simmons says they advise treating this as cellulitis at this time. P: Check in with pt and his Brandy Tristian: [phone] to continue the d/c plan assessment process. CM Discharge Assessment Start: 07/31/19 14:47 Freq: Status: Active Protocol: Document 07/31/19 14:47 ITV (Rec: 07/31/19 14:48 ITV [id number]) Discharge Planning Assessment Advance Directives? No History Provided By Medical Record Prior Living Arrangements House Household Members spouse White board Updated in Patient Room with Yes name and ext. # of Park Attendant Review Status In Process
[2019-07-31] MEDS: ACETAMINOPHEN 325 MG TABLET 650 MG PO (17:10)
--- NOTE | 2019-07-31 17:56 | PC.NURSE ---
Assumed care of pt at 1500. Pt resting in bed during bedside hand-off. Supportive at bedside. IVF infusing per orders. L. hand noted to have edema, erythema and warmth. Elevated on pillow. Denies numbness, able to wiggle fingers. H&P notes to state blood glucose fingersticks to be completed, no order in chart. Called Dr. Simmons to clarify, VTO rec. Pt states he is able to reposition independently in bed. Advised to do so for pressure injury prevention. Bed alarm on. Calling appropriately for needs.
[2019-07-31] MEDS: Alfuzosin [Uroxatral] 10 MG 10 EACH PO (20:19)
[2019-08-01] VITALS (12 sets, daily range): BP systolic 111–149; BP diastolic 61–89; PULSE 80–105; RESP 16–18; TEMP 36.4–37.3; O2SAT 95–99
[2019-08-01] MEDS: ACETAMINOPHEN 325 MG TABLET 650 MG PO ×3 (02:27→17:59)
[2019-08-01] MEDS: SODIUM CHLORIDE 0.9% IV ×6 (02:28→21:16)
[2019-08-01] MEDS: NAFCILLIN IV ×6 (02:28→21:16)
--- NOTE | 2019-08-01 03:21 | PC.NURSE ---
Patient complaining of pain 10/10 radiating up arm. Patient VSS, no fever. Dr. Simmons notified at 0320, Dr. Simmons gave verbal order for Q2 Morphine 1mg PRN. Patient also previously had not had cellulitis markings on hand, initiated markings for cellulitis boundaries.
[2019-08-01] MEDS: SODIUM CHLORIDE 0.9% 1,000 ML 80 ML IV (03:37)
[2019-08-01] MEDS: MORPHINE 2 MG/ML INJ 1 MG IV ×4 (03:37→15:53)
[2019-08-01 06:07] LABS: INR 3.1 (0.9-1.3); Prothrombin Time 36.7 SECONDS (10.1-12.7)
[2019-08-01 06:10] LABS: Add Manual Diff / Slide Review NO; Basophils Absolute Auto 100 /uL (0-100); Basophils Percent Auto 0.8 % (0-2); Eosinophils Absolute Auto 300 /uL (0-450); Eosinophils Percent Auto 3.6 % (2-4); Hematocrit 35.3 % (41-53); Hemoglobin 11.9 g/dL (13.5-17.5); Lymphocytes Absolute Auto 1300 /uL (1100-4500); Lymphocytes Percent Auto 14.5 % (25-40); Mean Corpuscular HGB Conc 33.8 % (30-36); Mean Corpuscular Volume 91.7 fL (80-100); Monocytes Absolute Auto 1000 /uL (0-900); Monocytes Percent Auto 10.8 % (3-14); Neutrophils Absolute Auto 6300 /uL (1500-7000); Neutrophils Percent Auto 70.3 % (50-75); Platelet Count 173 X10^3/uL (150-400); Red Blood Cell Count 3.85 X10^6/uL (4.5-5.9); Red Cell Distribution Width 13.9 % (11.6-14.8)
[2019-08-01 06:13] LABS: Alanine Aminotransferase 13 IU/L (<50); Albumin 3.6 g/dL (3.5-5.0); Albumin Globulin Ratio 1.2 (1.0-2.8); Alkaline Phosphatase 74 U/L (38-126); Aspartate Aminotransferase 18 IU/L (17-59); BUN Creatinine Ratio 15.5 (6-22); Blood Urea Nitrogen 17 mg/dL (9-20); Calcium 8.7 mg/dL (8.4-10.2); Carbon Dioxide 25 mmol/L (22-32); Chloride 99 mmol/L (98-107); Estimated Glomerular Filt Rate > 60.0 mL/min (>60); Globulin 3.1 g/dL (1.7-4.1); Glucose 150 mg/dL (80-110); HEMOLYSIS < 15 (0-50); Sodium 134 mmol/L (137-145); Total Protein 6.7 g/dL (6.3-8.2)
--- NOTE | 2019-08-01 10:31 | P.PN_ITS ---
Subjective Subjective Date Patient Seen: 08/01/19 Time Patient Seen: 10:00 Interval history: Patient 84-year-old male admitted with cellulitis of and seemed a little bit improved yesterday little bit more pain this morning. needed to initiate pain medications because of increasing pain. No Fever no chills white count continues to be low, no signs of abscess Oneil. CT scan in ER showed no abscess mass or other changes. Initiated and MS because of allergies to other pain meds. That helps some. Will try warm packs continue antibiotic today. Also patient's initial med listed not have on board and that he takes metformin and metoprolol for rate control. Current oxygenation is good. Blood sugars in the 150 range BC. Will initiate metformin. 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 No other complaints or changes. Vital signs are stable oxygen saturation good. Patient does have appearance of improvement in his left hand there's slight swelling less redness and less warmth but he is perceiving increased pain Lungs clear to auscultation percussion Cardiovascular shows in slightly irregular rate and rhythm no murmur no edema pulses good Abdomen nontender no mass no hepatosplenomegaly skin without changes except for the redness and swelling in his left hand Neuro shows patient alert oriented speech clear sensory and motor intact and symmetrical Psych shows patient tired tired this morning in apparent discourage mint. Back without any CVA area tenderness PERRLA EOMs are intact Speech clear Objective Labs Result Diagrams: 08/01/19 05:35 08/01/19 05:35 Labs: Laboratory Results - last 24 hr 08/01/19 08/01/19 08/01/19 05:35 05:35 05:35 WBC 9.0 RBC 3.85 L Hgb 11.9 L Hct 35.3 L MCV 91.7 MCH 31.0 MCHC 33.8 RDW 13.9 Plt Count 173 Neut % (Auto) 70.3 Lymph % (Auto) 14.5 L Power % (Auto) 10.8 Eos % (Auto) 3.6 Baso % (Auto) 0.8 Neut # (Auto) 6300 Lymph # (Auto) 1300 Power # (Auto) 1000 H Eos # (Auto) 300 Baso # (Auto) 100 PT 36.7 H D INR 3.1 H Sodium 134 L Potassium 4.0 Chloride 99 Carbon Dioxide 25 BUN 17 Creatinine 1.10 Estimated GFR > 60.0 BUN/Creatinine Ratio 15.5 Glucose 150 H Calcium 8.7 Total Bilirubin 1.0 AST 18 ALT 13 Alkaline Phosphatase 74 Total Protein 6.7 Albumin 3.6 Globulin 3.1 Albumin/Globulin Ratio 1.2 Assessment & Plan Assessment & Plan narrative: Assessment 1. Left arm cellulitis. Patient reports increased pain today although there seems to be slightly less swelling and redness and heat on exam. Tendon and neuro function intact distally into the fingers increased pain with with Puneet of finger stomach. Patient can't make a fist. No fever white count is stated 9 oxygen saturation excellent. Has required and MS for pain management this morning. Plan to continue with aggressive IV antibiotics as recommended by Orthopedics. If he worsens in terms of pain or other symptoms will have ortho re-evaluate. Assessment 2. Diabetes patient historically is on metformin this was not on his initial medication list. Reinstituting that today at his usual dose of 1000 mg b.i.d.. Will continue monitoring glucose as we have a.c. and HS. Assessment 3. Atrial fibrillation patient has been in good rate control slightly irregular but is asymptomatic. Will have him stay on a medicine that also was not on his presentation list from the emergency room which was metoprolol at 75 mg a day will continue that monitor pressure and heart rate. Will also get lab in the morning to look at renal function and electrolytes. Assessment 4. Anticoagulation patient's INR is still at 3.1 so will not give him Coumadin today look at his INR in the morning when he drops into the 2-3 range we can reinstitute that probably it is usual dose. His current level he is adequately protected against DVT is on calf compression devices as well. Assessment 5 no history of migraines no more migraine management at this point required. Assessment 6 increasing pain with apparent in improvement in his infection will by white count and exam I have initiated MS will watch closely for over-sedation and of any into of allergic reaction. Quality VTE Deep Vein Thrombosis/Pulmonary Embolism Present on Admission: No
[2019-08-01] MEDS: METOPROLOL ER 25 MG TABLET 75 MG PO (11:58)
[2019-08-01] MEDS: METFORMIN HCL 500 MG TABLET 1000 MG PO (16:50)
[2019-08-01] MEDS: Alfuzosin [Uroxatral] 10 MG 10 EACH PO (20:12)
[2019-08-01] MEDS: FLUTICASONE 120 SPRAY/16 GM SPRAY.SUSP NASAL (20:12)
[2019-08-01] MEDS: CLOBETASOL 0.05% OINTMENT 15 GM 1 APPLIC TOP (20:12)
[2019-08-01] MEDS: SODIUM CHLORIDE 0.9% FLUSH 10 ML IV (20:13)
[2019-08-01] MEDS: DOCUSATE 100 MG CAPSULE PO (23:24)
[2019-08-01] MEDS: SENNOSIDES 8.6 MG TABLET 17.2 MG PO (23:24)
[2019-08-02] VITALS (10 sets, daily range): BP systolic 109–136; BP diastolic 65–90; PULSE 76–105; RESP 16–18; TEMP 36.8–37.5; O2SAT 95–99; BMI 21.4
[2019-08-02] MEDS: SODIUM CHLORIDE 0.9% IV ×6 (02:10→22:13)
[2019-08-02] MEDS: NAFCILLIN IV ×6 (02:10→22:13)
[2019-08-02 06:14] LABS: Add Manual Diff / Slide Review NO; Basophils Absolute Auto 0 /uL (0-100); Basophils Percent Auto 0.3 % (0-2); Eosinophils Absolute Auto 300 /uL (0-450); Eosinophils Percent Auto 3.3 % (2-4); Hematocrit 32.9 % (41-53); Hemoglobin 10.8 g/dL (13.5-17.5); Lymphocytes Absolute Auto 1000 /uL (1100-4500); Mean Corpuscular HGB Conc 32.9 % (30-36); Mean Corpuscular Hemoglobin 30.3 PG (26-34); Mean Corpuscular Volume 92.1 fL (80-100); Monocytes Absolute Auto 1000 /uL (0-900); Monocytes Percent Auto 13.1 % (3-14); Neutrophils Absolute Auto 5300 /uL (1500-7000); Neutrophils Percent Auto 70.3 % (50-75); Platelet Count 169 X10^3/uL (150-400); Red Blood Cell Count 3.57 X10^6/uL (4.5-5.9); Red Cell Distribution Width 13.7 % (11.6-14.8); White Blood Cell Count 7.6 X10^3/uL (4.5-11.0)
[2019-08-02 06:15] LABS: INR 2.3 (0.9-1.3)
--- NOTE | 2019-08-02 06:16 | PC.NURSE ---
REAL Steele aware with orthostatic VS, ordered to bolus him with 500 cc NS bolus, will implement order once it's entered in E-MAR & verified with Night Pharmacist.
[2019-08-02 06:21] LABS: Alanine Aminotransferase 13 IU/L (<50); Albumin 3.4 g/dL (3.5-5.0); Albumin Globulin Ratio 1.2 (1.0-2.8); Alkaline Phosphatase 72 U/L (38-126); Aspartate Aminotransferase 21 IU/L (17-59); Bilirubin Total 1.2 mg/dL (0.2-1.3); Blood Urea Nitrogen 13 mg/dL (9-20); Calcium 8.4 mg/dL (8.4-10.2); Carbon Dioxide 26 mmol/L (22-32); Chloride 99 mmol/L (98-107); Estimated Glomerular Filt Rate > 60.0 mL/min (>60); Globulin 2.9 g/dL (1.7-4.1); Glucose 135 mg/dL (80-110); HEMOLYSIS < 15 (0-50); Potassium 3.9 mmol/L (3.4-5.1); Sodium 133 mmol/L (137-145); Total Protein 6.3 g/dL (6.3-8.2)
[2019-08-02] MEDS: ACETAMINOPHEN 325 MG TABLET 650 MG PO ×2 (07:00→14:42)
[2019-08-02] MEDS: METFORMIN HCL 500 MG TABLET 1000 MG PO ×2 (08:21→17:08)
[2019-08-02] MEDS: METOPROLOL ER 25 MG TABLET 75 MG PO (08:22)
[2019-08-02] MEDS: DOCUSATE 100 MG CAPSULE PO (08:23)
[2019-08-02] MEDS: POLYETHYLENE GLYCOL 3350 17 GM POWD.PACK PO (08:24)
--- NOTE | 2019-08-02 08:58 | PC.NURSE ---
Addendum entered by Teri Tian R.N. 08/02/19 14:50: MS/PAIN/PO - pt becoming restless in bed, wanted scd off, slowly repositioned to dangle, pt is weak and leaning backward, stood, voided and took few steps to chair, per spouse, pt is weaker than his baseline home, pt denied pain but did wince with mobilization, did agree to tylenol 650mg po given and enc sips water, po intake. Original Note: AM NOTE - awakens easily at bedside shift report, l hand elev pillow support w/ice pack, edema hand and fingers , hrnoted, warm to touch, pink has receded from previous marking, hr irreg 62, active bt, given miralax and stool softener this am and later up x1 person assist w/fww, general weakness, to br w/large bm, ret to chair w/l arm supported.
[2019-08-02] MEDS: SODIUM CHLORIDE 0.9% 1,000 ML 80 ML IV (09:26)
--- NOTE | 2019-08-02 13:38 | P.PN_ITS ---
Subjective Subjective Date Patient Seen: 08/02/19 Time Patient Seen: 13:38 Interval history: Patient is lying in hospital bed in no apparent distress. is at bedside. Met with both of them and reviewed the notes. They feel that his hand is better from yesterday. The morphine caused confusion and they do not want this any longer. Currently his pain is better and he is just being treated with Tylenol and has ice pack on. He is also having some left upper extremity pain and is also very weak diffusely. He denies any shortness of breath or chest pain. He did eat 100% of his lunch. His says he is not eating much. He has fluids running at 80 cc an hour. He is on IV nafcillin. Overall he is markedly better. There's no precipitating incident or injury other than caring a heavy bag for very short period of time prior to this occurring. Review of systems is negative other than HPI Exam Vital Signs (past 8 hours): - 08/02/19 05:58 08/02/19 07:00 08/02/19 07:05 Temperature 99.5 F 98.4 F Pulse Rate 105 H Respiratory Rate 16 Blood Pressure 136/90 Pulse Oximetry 96 97 08/02/19 08:00 08/02/19 12:00 Temperature 98.2 F 98.4 F Pulse Rate 87 76 Respiratory Rate 18 16 Blood Pressure 116/65 109/74 Pulse Oximetry 98 99 Oxygen Delivery Method Room Air Oxygen Flow Rate 0 Narrative Exam Narrative: Afebrile, vital signs are stable HEENT unremarkable Neck is supple Chest: Clear to auscultation without wheezes Rhonchi or crackles Cor: Irregularly irregular rhythm at a well-controlled rate in the 70s. Distant S1-S2 Abdomen: Positive bowel sounds soft nontender nondistended Extremities: No lower extremity edema, pulses intact, left upper extremity with sub cutaneous nodules unclear if this is muscle or some other soft tissue abnormality. No swelling of the left upper extremity but his left hand show significant swelling over the dorsum as well as all fingers there is minimal erythema and this seems diminished from where the markings were placed. He has good mobility of all the digits as well as the wrist without pain. Normal sensation and strength. Objective Labs Result Diagrams: 08/02/19 05:20 08/02/19 05:20 Labs: Laboratory Results - last 24 hr 1208/02/19 08/02/19 05:20 05:20 05:20 WBC 7.6 RBC 3.57 L Hgb 10.8 L Hct 32.9 L MCV 92.1 MCH 30.3 MCHC 32.9 RDW 13.7 Plt Count 169 Neut % (Auto) 70.3 Lymph % (Auto) 13.0 L [place] % (Auto) 13.1 Eos % (Auto) 3.3 Baso % (Auto) 0.3 Neut # (Auto) 5300 Lymph # (Auto) 1000 L [place] # (Auto) 1000 H Eos # (Auto) 300 Baso # (Auto) 0 PT 27.0 H D INR 2.3 H Sodium 133 L Potassium 3.9 Chloride 99 Carbon Dioxide 26 BUN 13 Creatinine 1.00 Estimated GFR > 60.0 BUN/Creatinine Ratio 13.0 Glucose 135 H Calcium 8.4 Total Bilirubin 1.2 AST 21 ALT 13 Alkaline Phosphatase 72 Total Protein 6.3 Albumin 3.4 L Globulin 2.9 Albumin/Globulin Ratio 1.2 Assessment & Plan Assessment & Plan narrative: 84-year-old male admitted for left hand cellulitis improving with IV nafcillin but still significant swelling Plan: Continue with IV nafcillin. Will stop IV fluids and push oral fluids. Assessment 2. Left proximal upper extremity with subcutaneous nodules that are painful unclear if this is muscular or other. Will do nonvascular ultrasound. He had a previous vascular ultrasound that rule out clot. Will apply heat. Assessment 3. Extreme deconditioning with diffuse degenerative joint disease and degenerative disc disease Plan: PT to evaluate and treat Assessment 4. Atrial fibrillation with well controlled rate on chronic anticoagulation now with a normal INR Plan: Continue same meds and restart Coumadin. Continue with daily INR Assessment 5. Type 2 diabetes well control Plan: Continue with diabetic diet as well as current medications and blood sugar monitoring Assessment 6. Hyperlipidemia without current issues Plan: Continue outpatient medications. Patient currently is very weak. We will consult PT but we may need to consider skilled care facility at discharge Quality VTE Deep Vein Thrombosis/Pulmonary Embolism Present on Admission: No
--- NOTE | 2019-08-02 13:40 | DI.US.S_ITS ---
PROCEDURE: US PERIPH VENOUS UP EXTREM LT INDICATIONS: EDEMA TECHNIQUE: Real-time imaging, as well as color and pulse Doppler interrogation, was performed of the left upper extremity deep veins from the inferior neck to the antecubital fossa. COMPARISON: [facility], CT, CT UE LT W CON, 07/30/2019, 20:07. FINDINGS: The internal jugular vein, visualized portions of the subclavian vein, axillary, and brachial veins are free of intraluminal thrombus. Where physically possible, the veins are normally compressible. Color and pulse Doppler demonstrate normal intraluminal flow, with expected phasicity and pulsatility. Additional scanning of the cephalic and basilic veins of the superficial system demonstrate normal compressibility, without thrombus. IMPRESSION: No deep venous thrombosis. Dictated by: Chaparrita Maxwell M.D. on 08/02/2019 at 14:28 Approved by: Chaparrita Maxwell M.D. on 08/02/2019 at 14:28
--- NOTE | 2019-08-02 14:16 | CM.DPC ---
Addendum entered by Gita Boggs R.N. 08/02/19 15:08: Was able to meet with in patient's room. Patient was semi-awake. Brought her Medicare Choice List, named some facilities in the area. Discussed benefit of potential custodial. stated, I'm not sure that he will go. She feels he is weaker since he has been mostly in bed. Mentioned [facility] and [facility]. stated, that would be better than having to drive to [facility] or [place]. Asked her if she had additional family support, and mentioned that they have a son that is also involved. Placed phone number of care management on Medicare Choice form for questions. At this time referrals are in. Original Note: DCP Cont: Attempted to go into room and speak to patient's . She was on the phone the first time, second time, patient having an ultra sound done. Went ahead and started initiating some referrals for custodial, and can follow up with . Spoke to Beth at [facility]. Stated that they do have availabilities, but unsure how many that they will be taking tomorrow. She will review referral. Let her know that this potential, still have to talk to . Dr. Tijerina indicated in today's note that patient is weak, and may need custodial. Spoke to Charity at [facility], since patient resides in [place]. They do have availabilities. Went ahead and faxed her over face sheet, today's prog note, and H&P, included print out of medication. Let both facilities know what current IV antibiotic he is on, but could change. P: DCP to follow closely, and will follow up with regarding need for custodial. Will also collaborate with P.T. team on findings. Gita Boggs RN/Plant Superintendent
--- NOTE | 2019-08-02 16:53 | PT.IIE ---
Current Diagnoses Cellulitis of left upper limb (07/30/19) Medical History (Last Reviewed 07/31/19 @ 04:54 by Hiram Sales DO) Atrial fibrillation (Acute) Hyperglycemia (Acute) Hypertension (Acute) Migraines (Acute) Pacemaker (Acute) Physical Therapy Inpatient Evaluation/Re-Eval M1 PT/OT-IP Prior Functional Status Start: 08/02/19 15:21 Freq: NEEDED Status: Active Protocol: Document 08/02/19 16:16 AW (Rec: 08/02/19 16:53 AW [id number]) Medical Review Prior Functional Status Medical History Reviewed Yes Communication Pt speaks Tagalog, Slovak is a second language. Mobility and Gait Pt reports he is an independent ambulator without assistive device but admits he tends to stay near furniture or gregory for support. Activities of Daily Living and IADL's Independent including cooking, shopping, driving. Social History Household Members spouse Living Arrangements House Number of Floors (Floors) Two Floors Number of Stairs To Enter/Railing? 3 TIP with narrow bilateral rails. Pt must climb 6 + 9 stairs inside the house but it is unclear if or where there are railings. 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 He lives with his spouse, Brandy, in [place]. M2 PT-IP Current Condition Start: 08/02/19 15:21 Freq: NEEDED Status: Active Protocol: Document 08/02/19 16:16 AW (Rec: 08/02/19 16:53 AW [id number]) Physical Therapy Current Condition Current Condition Evaluation Date 08/02/19 Treatment Diagnosis left hand cellulitis, impaired strength and balance, difficulty in walking Weight Bearing Status Weight Bearing Status Full Weight Bearing M3 PT-IP Subjective Start: 08/02/19 15:21 Freq: NEEDED Status: Active Protocol: Document 08/02/19 16:16 AW (Rec: 08/02/19 16:53 AW [id number]) Subjective Physical Therapy Visit Type Type Initial Evaluation Visit Start Time 15:40 Visit Stop Time 16:14 Total Visit Minutes 34 Physical Therapy Visit Comments Patient Comments I'm old but strong. Therapy Pain Assessment Pain When Pain Assessed During Mobility Pain Present Pain Present Pain Reported Location L shoulder Scale Used not quantified Pain Behaviors Facial Grimacing,Guarding, Holding Area,Wincing Pain Management Techniques Apply Heat M4 PT-IP Mobility and Gait Start: 08/02/19 15:21 Freq: NEEDED Status: Active Protocol: Document 08/02/19 16:16 AW (Rec: 08/02/19 16:53 AW [id number]) PT-Bed Mobility Assessment Supine to Sit Supine to Sit Contact Guard Assistance,1 Person Assistance Sit to Supine Sit to Supine Minimal Assistance,1 Person Assistance Scooting Scooting to Edge of Bed Contact Guard Assistance PT-Transfer Assessment Sit to and From Stand Sit to and from Stand Minimal Assistance Equipment Transfer Assistive Device Gait Belt Orthotic/Prosthetic Devices or Brace: No Transfers Transfer Destination Bed,Chair Transfer Technique pt ambulated with min A x 1, no AD Transfer Ability Level of Assist Contact Guard Assistance, Minimal Assistance Comments Mobility Comments Pt sitting up in chair upon therapist entry to room. He required min A x 1 for sit <> stand, requesting return to chair one minute after standing due to weakness. Subsequent sit to stand and transfer to bed also required min A x 1. Pt completed sit to supine with min A x 1 to move the legs toward the center of the bed and supine to sit CGA for seated balance. Pt stood again min A and ambulated in the room and hallway, returning to the chair after gait assessment. Pt was positioned reclined in the chair with alarm on for safety , call light and table within reach. Gait Assessment Gait Gait Assistance Required: Minimum Assistance Distance (Feet) 50 Able to Maintain Weight Bearing Status Yes During Gait Assistive Devices Assistive Device Gait Belt Orthotic/Prosthetic Devices or Brace: No Gait Deviations General Gait Pattern Antalgic,Decreased Stride Length,Decreased Feet Clearance,Flexed Trunk,Lateral Trunk Lean Factors Limiting Gait Function Factors Limiting Gait Function Decreased Activity Tolerance, Decreased Strength,Pain,Poor Balance,Poor Safety Awareness Comments Gait Comments Pt ambulated in the room and in the lima without assistive device but required min A x 1 for support/balance. He also had consistent need to contact the bed, sink, rail in hallway for support. He was markedly unsteady and unsafe even with UE support. Stair Climbing Assessment Comments Stair Climbing Comments Not assessed due to safety concerns PT-Balance Assessment Sitting Balance and Reactions Static Sitting Balance Ability Fair Dynamic Sitting Balance Ability Fair Standing Balance and Reactions Static Standing Balance Ability Poor Dynamic Standing Balance Ability Poor Device Used none M5 PT-IP Objective Assessments Start: 08/02/19 15:21 Freq: NEEDED Status: Active Protocol: Document 08/02/19 16:16 AW (Rec: 08/02/19 16:53 AW [id number]) Orientation Orientation/Cognition Level of Alertness Confusional State Orientation Name,Birthday,Place Language Function Ability Slovak as Second Language Safety Awareness Decreased Safety Awareness Memory Description Short Term Impaired,Driller'S Assistant Impaired Comments Pt repeatedly referenced his as if she were in the room, reported the year as 1930, and could not explain the reason for being in the hospital. Gross Range of Motion Upper Extremity ROM Assessment Left Impaired Impairments Pt unwilling to move left shoulder or elbow due to pain. R finger flexion painful with inability to form a fist. R wrist and hand WFL Lower Extremity ROM Assessment Within Functional Limits Strength Upper Extremity Strength Assessment Left Impaired Lower Extremity Strength Assessment Bilaterally Impaired Comments Strength Comments R UE grossly 4/5. B LE grossly 3+/5 to 4-/5 (right slightly weaker than left). Coordination Assessment Gross Coordination Gross Coordination WNL Sensation Assessment Sensation Gross Sensation WNL M6 PT-IP Treatment Start: 08/02/19 15:21 Freq: NEEDED Status: Active Protocol: Document 08/02/19 16:16 AW (Rec: 08/02/19 16:53 AW [id number]) Physical Therapy Treatment Education Education Provided Precautions,Safety Other Treatments Other Treatment Performed Educated pt on role of PT, plan of care, and safety with transfers/gait. M7 PT-IP Assessment and Plan Start: 08/02/19 15:21 Freq: NEEDED Status: Active Protocol: Document 08/02/19 16:16 AW (Rec: 08/02/19 16:53 AW [id number]) PT Summary Assessment and Plan Potential Rehabilitation Potential Good Status of Condition at Evaluation Evolving Summary Impairments Pain,ROM,Strength,Balance, Cognition,Bed Mobility, Transfers,Gait,Activity Tolerance Assessment Summary Benjamin is an 84 yo man admitted with left hand cellulitis. At baseline, he reports ambulation without assistive device but likely dependence on furniture or gregory for support. On evaluation, he required CGA to min assist for most mobility, was markedly unsteady during ambulation without AD, and demonstrated impaired B LE strength in addition to cognitive disturbance. In addition to limited range of motion with his left hand, he is limiting movement with his left shoulder and due to pain. It is unclear whether this L UE pain is new onset or more chronic in nature. With pt requiring assistance that exceeds his 's ability, PT is recommending SNF rehab for increased independence and improved strength in order to promote safe return to home. Goals Bed Mobility Goal Independent Transfer Goal Independent Gait Goal Standby Assistance Gait Distance 200 Other Goals - up/down 15 stairs with unilateral railing SBA Days to Meet Goals 10 Frequency of Treatment Frequency Of Treatment Once a Day Treatment Plan Physical Therapy Treatment Plan Bed Mobility Training,Transfer Training,Gait Training, Therapeutic Exercise,Balance Retraining,Discharge Planning, Hot or Cold Pack,Neuromuscular Re-ed Other Recommendations and Next Treatment - formal balance testing ( Focus consider Natalia) - gait training potentially with assistive device - trial stairs if able Recommendations To Nursing Amount of Assist Needed 1 Person Assist Discharge Recommendations PT Discharge Recommendations SNF Rehab Other Discharge Recommendations Recommendation for SNF at this time. Will continue to assess as pt progresses. Equipment Needed for Home Before assess for assistive device if Discharge d/c to home
[2019-08-02] MEDS: WARFARIN 3 MG TABLET 1.5 MG PO (17:08)
[2019-08-02] MEDS: Alfuzosin [Uroxatral] 10 MG 10 EACH PO (20:53)
[2019-08-02] MEDS: SENNOSIDES 8.6 MG TABLET 17.2 MG PO (20:53)
[2019-08-02] MEDS: SODIUM CHLORIDE 0.9% FLUSH 10 ML IV (20:54)
[2019-08-03] VITALS (11 sets, daily range): BP systolic 92–127; BP diastolic 56–79; PULSE 70–93; RESP 15–18; TEMP 36.4–36.9; O2SAT 94–100
[2019-08-03] MEDS: ACETAMINOPHEN 325 MG TABLET 650 MG PO ×2 (01:04→11:03)
[2019-08-03] MEDS: NAFCILLIN IV ×6 (02:38→22:20)
[2019-08-03] MEDS: SODIUM CHLORIDE 0.9% IV ×6 (02:38→22:20)
--- NOTE | 2019-08-03 03:50 | PC.NURSE ---
Patient VSS, Patient continues to have some pain in arm and hand 5/10. Medicated w/ Tylenol and allowed to sleep. Patient's is at bedside. SCD's applied, bed is low and locked, call light within reach, bed alarm on.
[2019-08-03 06:22] LABS: Add Manual Diff / Slide Review NO; Basophils Absolute Auto 100 /uL (0-100); Basophils Percent Auto 0.8 % (0-2); Eosinophils Absolute Auto 400 /uL (0-450); Eosinophils Percent Auto 6.1 % (2-4); Hematocrit 30.6 % (41-53); Hemoglobin 10.3 g/dL (13.5-17.5); Lymphocytes Absolute Auto 1500 /uL (1100-4500); Lymphocytes Percent Auto 21.1 % (25-40); Mean Corpuscular HGB Conc 33.6 % (30-36); Mean Corpuscular Hemoglobin 30.8 PG (26-34); Mean Corpuscular Volume 91.6 fL (80-100); Monocytes Absolute Auto 900 /uL (0-900); Monocytes Percent Auto 13.2 % (3-14); Neutrophils Absolute Auto 4200 /uL (1500-7000); Neutrophils Percent Auto 58.8 % (50-75); Platelet Count 168 X10^3/uL (150-400); Red Blood Cell Count 3.34 X10^6/uL (4.5-5.9); White Blood Cell Count 7.1 X10^3/uL (4.5-11.0)
[2019-08-03 06:36] LABS: Blood Urea Nitrogen 20 mg/dL (9-20); Calcium 8.2 mg/dL (8.4-10.2); Carbon Dioxide 26 mmol/L (22-32); Chloride 100 mmol/L (98-107); Estimated Glomerular Filt Rate > 60.0 mL/min (>60); Glucose 116 mg/dL (80-110); HEMOLYSIS < 15 (0-50); Potassium 3.9 mmol/L (3.4-5.1); Sodium 134 mmol/L (137-145)
[2019-08-03 08:16] LABS: Uric Acid 4.4 mg/dL (3.5-8.5)
[2019-08-03 08:50] LABS: INR 1.3 (0.9-1.3); Prothrombin Time 15.4 SECONDS (10.1-12.7)
--- NOTE | 2019-08-03 09:30 | PT.IPTN ---
Current Diagnoses Cellulitis of left upper limb (07/30/19) Physical Therapy Treatment Note M2 PT-IP Current Condition Start: 08/02/19 15:21 Freq: NEEDED Status: Active Protocol: Document 08/02/19 16:16 AW (Rec: 08/02/19 16:53 AW [id number]) Physical Therapy Current Condition Current Condition Evaluation Date 08/02/19 Treatment Diagnosis left hand cellulitis, impaired strength and balance, difficulty in walking Weight Bearing Status Weight Bearing Status Full Weight Bearing M3 PT-IP Subjective Start: 08/02/19 15:21 Freq: NEEDED Status: Active Protocol: Document 08/03/19 09:30 CLB (Rec: 08/03/19 11:33 CLB [id number]) Subjective Physical Therapy Visit Type Type Treatment Note Visit Start Time 09:30 Visit Stop Time 10:07 Total Visit Minutes 37 Notes Pt present for tx. Number of GENERAL LEDGER ACCOUNTANT Visits 1 Physical Therapy Visit Comments Patient Comments pt agreeable to do therapy. Pts states she wants to take pt home because she can't sleep with him at SNF. Therapy Pain Assessment Pain When Pain Assessed During Mobility Pain Present Pain Present Pain Reported Location L shoulder Scale Used not quantified Pain Behaviors Facial Grimacing,Guarding, Holding Area,Wincing Pain Management Techniques Apply Heat M4 PT-IP Mobility and Gait Start: 08/02/19 15:21 Freq: NEEDED Status: Active Protocol: Document 08/03/19 09:30 CLB (Rec: 08/03/19 11:33 CLB [id number]) PT-Transfer Assessment Sit to and From Stand Sit to and from Stand Contact Guard Assistance,1 Person Assistance,Use of Upper Extremities Equipment Transfer Assistive Device Gait Belt,Straight Cane,Front Wheeled Walker Orthotic/Prosthetic Devices or Brace: No Transfers Transfer Destination Chair Transfer Technique Stand Step Pivot Transfer Ability Level of Assist Contact Guard Assistance,1 Person Assistance,Use of Upper Extremities Comments Mobility Comments Pt required Min A to scoot to edge of chair, Pt the able to stand from chair CGA. Pt requires cues for hand placement able to only use RUE due to pain of LUE. Pt left in chair with legs reclined, chair alarm on and call light and all other needs within reach, present. Gait Assessment Gait Gait Assistance Required: Contact Guard Assist,Minimum Assistance,1 Person Assist Distance (Feet) 220 Able to Maintain Weight Bearing Status Yes During Gait Assistive Devices Assistive Device Gait Belt,Straight Cane,Front Wheeled Walker Orthotic/Prosthetic Devices or Brace: No Gait Deviations General Gait Pattern Antalgic,Decreased Stride Length,Decreased Feet Clearance,Flexed Trunk,Lateral Trunk Lean Factors Limiting Gait Function Factors Limiting Gait Function Decreased Activity Tolerance, Decreased Strength,Pain,Poor Balance,Poor Safety Awareness Comments Gait Comments Pt ambulated in room with SPC with Min A and cues for proper cane sequencing. Pt then ambulated in lima ~200ft with FWW/CGA with one standing rest break. Pt with improved posture, speed and step length while using FWW. Pt able to put LUE onto walker w/o increased pain in hand or shoulder. Recommend pt use FWW for home use to improve safety. Stair Climbing Assessment Comments Stair Climbing Comments not assessed M5 PT-IP Objective Assessments Start: 08/02/19 15:21 Freq: NEEDED Status: Active Protocol: Document 08/02/19 16:16 AW (Rec: 08/02/19 16:53 AW [id number]) Orientation Orientation/Cognition Level of Alertness Confusional State Orientation Name,Birthday,Place Language Function Ability Greenlandic as Second Language Safety Awareness Decreased Safety Awareness Memory Description Short Term Impaired,Jail Impaired Comments Pt repeatedly referenced his as if she were in the room, reported the year as 1930, and could not explain the reason for being in the hospital. Gross Range of Motion Upper Extremity ROM Assessment Left Impaired Impairments Pt unwilling to move left shoulder or elbow due to pain. R finger flexion painful with inability to form a fist. R wrist and hand WFL Lower Extremity ROM Assessment Within Functional Limits Strength Upper Extremity Strength Assessment Left Impaired Lower Extremity Strength Assessment Bilaterally Impaired Comments Strength Comments R UE grossly 4/5. B LE grossly 3+/5 to 4-/5 (right slightly weaker than left). Coordination Assessment Gross Coordination Gross Coordination WNL Sensation Assessment Sensation Gross Sensation WNL M6 PT-IP Treatment Start: 08/02/19 15:21 Freq: NEEDED Status: Active Protocol: Document 08/02/19 16:16 AW (Rec: 08/02/19 16:53 AW [id number]) Physical Therapy Treatment Education Education Provided Precautions,Safety Other Treatments Other Treatment Performed Educated pt on role of PT, plan of care, and safety with transfers/gait. M7 PT-IP Assessment and Plan Start: 08/02/19 15:21 Freq: NEEDED Status: Active Protocol: Document 08/03/19 09:30 CLB (Rec: 08/03/19 11:33 CLB [id number]) PT Summary Assessment and Plan Potential Rehabilitation Potential Good Status of Condition at Evaluation Evolving Summary Impairments Pain,ROM,Strength,Balance, Cognition,Bed Mobility, Transfers,Gait,Activity Tolerance Assessment Summary Pt with improved activity tolerance was able to ambulate in lima with FWW/CGA ~200ft requiring one standing rest break. Pt improved with sit- stand with cues for hand placement. Pt with improved posture, gait speed and step length with FWW with improved steadiness. Pt would benefit from using FWW for all transfers and ambulation. Pt would benefit from SNF rehab to improve strength and activity tolerance but pt would like to take him home. Pt will need to climb stairs before d/c home and CG training with . Goals Bed Mobility Goal Independent Transfer Goal Independent Gait Goal Standby Assistance Gait Distance 200 Other Goals - up/down 15 stairs with unilateral railing SBA Days to Meet Goals 10 Frequency of Treatment Frequency Of Treatment Once a Day Treatment Plan Physical Therapy Treatment Plan Bed Mobility Training,Transfer Training,Gait Training, Therapeutic Exercise,Balance Retraining,Discharge Planning, Hot or Cold Pack,Neuromuscular Re-ed Other Recommendations and Next Treatment gait with FWW Focus CG training if going home stair training before d/c home Recommendations To Nursing Amount of Assist Needed 1 Person Assist Discharge Recommendations PT Discharge Recommendations SNF Rehab Other Discharge Recommendations Pt would like to take pt home, if pt d/c home pt would benefit from HH. Equipment Needed for Home Before Pt has FWW but unsure if Discharge its proper height as pt is 5'1 .
--- NOTE | 2019-08-03 10:33 | CM.DPC ---
Addendum entered by Gita Boggs R.N. 08/03/19 13:55: Was able to speak to Dr. Tijerina, she called back. Inquired if patient could be discharged, medically stable? Let her know that two skilled facilities were willing to accept, but wanting to be with patient at all times. Let her know that patient has improved mobility with P.T, and that he passed stairs. Asked if patient would need to continue to be on IV antibiotics, labs improved? She mentioned, she is concerned, for patient has been weak, and that she is also concerned about his left arm. Let Dr. Tijerina know that home health can be ordered, and if she can sign a face to face. She stated that she would be coming by today to see patient and , and can sign then. It is uncertain if she will discharge patient today. Addendum entered by Gita Boggs R.N. 08/03/19 13:22: Have called over to Dr. Tijerina, message left on her cell phone regarding plan, to see if patient can discharge home today. At this point, home health would be feasible. In message also updated her on plan, that original was for skilled, which could have accepted, now, home health. Patient passed stairs according to P.T, and has been walking. ABO IV is in question, and inquiring if he can go home on oral antibiotics. Awaiting to hear back from provider. Original Note: DCP Cont: Have already confirmed acceptance to [facility], with January in admissions this morning. Confirmed acceptance with Charity at [facility] as well. Spoke to patient's , Brandy. She has been at patient's bedside continuous. She mentioned, we are always together, and I'm concerned about him going to a alf because I can't be with him all of the time. At this time, is unclear as to how long patient will need IV antibiotics. Discussed with , that if patient needs prolonged IV antibiotics, will need either skilled or outpatient infusion. mentioned that she had conversed early this morning with Dr. Tijerina, who stated, he should discharge home tomorrow. Patient will need a walker, and will have to be able to clear several stairs. Mentioned to the benefit of patient going to [facility], for short term, especially if he needs to use the stairs, and that he can be accepted to skilled today as well. stated, she will continue to think about it, but really wants him to go home. Mentioned home health as other option, which stated, she thinks is a good idea. P: DCP to continue to follow, patient can go to [facility] or [facility], and will also discuss with primary care provider regarding having a safe discharge plan for patient. Gita Boggs RN/Drug And Alcohol Counselor
--- NOTE | 2019-08-03 10:42 | DIET.PN ---
Dietary Progress Note RD f/u finding pt enjoying Jadon bid, drinking 100%, will continue while inpatient to support PRO intake and DM cellulitis.
[2019-08-03] MEDS: DOCUSATE 100 MG CAPSULE PO (10:56)
[2019-08-03] MEDS: METOPROLOL ER 25 MG TABLET 75 MG PO (10:56)
[2019-08-03] MEDS: POLYETHYLENE GLYCOL 3350 17 GM POWD.PACK PO (10:57)
[2019-08-03] MEDS: METFORMIN HCL 500 MG TABLET 1000 MG PO ×2 (11:02→17:07)
--- NOTE | 2019-08-03 11:40 | OT.IP.EVAL ---
Current Diagnoses Cellulitis of left upper limb (07/30/19) Past Medical History (Last Reviewed 07/31/19 @ 04:54 by Hiram Sales DO) Atrial fibrillation (Acute) Hyperglycemia (Acute) Hypertension (Acute) Migraines (Acute) Pacemaker (Acute) Occupational Therapy Inpatient Evaluation/Re-Eval M1 PT/OT-IP Prior Functional Status Start: 08/03/19 15:43 Freq: NEEDED Status: Active Protocol: Document 08/03/19 11:40 [facility] (Rec: 08/03/19 16:06 [facility] [id number]) Medical Review Prior Functional Status Medical History Reviewed Yes Communication Pt speaks Tagalog, Japanese is a second language. Mobility and Gait Pt reports he is an independent ambulator without assistive device but admits he tends to stay near furniture or gregory for support. Activities of Daily Living and IADL's Independent including cooking, shopping, driving. Social History Household Members spouse Living Arrangements House Number of Floors (Floors) Two Floors Number of Stairs To Enter/Railing? 3 TIP with narrow bilateral rails. Pt must climb 6 + 9 stairs inside the house but it is unclear if or where there are railings. 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 He lives with his spouse, Brandy, in [place]. M2 OT-IP Current Condition Start: 08/03/19 15:43 Freq: Status: Active Protocol: Document 08/03/19 11:40 [facility] (Rec: 08/03/19 16:06 [facility] [id number]) Occupational Therapy Current Condition Current Condition Evaluation Date 08/03/19 Treatment Diagnosis Left hand cellulitis Diagnosis Onset Date 07/30/19 M3 OT- IP Subjective and Pain Start: 08/03/19 15:43 Freq: Status: Active Protocol: Document 08/03/19 11:40 [facility] (Rec: 08/03/19 16:06 [facility] [id number]) OT- Subjective Occupational Therapy Visit Type Type Initial Evaluation Visit Start Time 11:40 Visit Stop Time 11:57 Total Visit Minutes 32 Notes Pt also seen from 1440 - 1455. Occupational Therapy Visit Comments Patient Comments Pt's present for OT eval. Pt not wanting to get up but able to assess pt's left UE and talk to pt's for OT needs. Patient/Caregiver Goals To go home. OT Pain Assessment Pain When Pain Assessed At Rest Pain Present Pain Present Pain Reported M4 OT- IP ADL's Start: 08/03/19 15:43 Freq: Status: Active Protocol: Document 08/03/19 11:40 [facility] (Rec: 08/03/19 16:06 [facility] [id number]) OT [id number] Comments OT Self-Feeding Comments Not at meal time. OT ADL-Grooming Comments OT Grooming Comments Pt declining at this time. OT ADL-Dressing General Eval Lower Body Dressing Ability Maximum Assistance Comments OT Dressing Comments Due to left hand swelling, stiffness and pain with left shoulder pt requires MAXA for LB dressing needs. Pt's states will be able to assist pt for needs at home. OT ADL-Toileting Comments OT Toileting Comments Pt not having to use the toilet. M5 OT- IP IADL's Start: 08/03/19 15:43 Freq: Status: Active Protocol: Document 08/03/19 11:40 [facility] (Rec: 08/03/19 16:06 [facility] [id number]) OT-Instrumental Activities of Daily Living Home Safety Awareness Home Safety Comments Pt's able to assist pt for all needs at home. M6 OT- IP Functional Cognition Start: 08/03/19 15:43 Freq: Status: Active Protocol: Document 08/03/19 11:40 [facility] (Rec: 08/03/19 16:06 [facility] [id number]) Cognitive Factors Limiting Selfcare Function Cognitive Ability Level of Alertness Alert Patient Orientation Name,Place,Situation Attention Span Ability Capable of Focused Attention, Capable of Sustained Attention Cognitive Comments Cognitive Assessment Comments Japanese is pt's second language, but able to follow commands for OT eval. OT- Vision and Hearing OT- Hearing Assessment OT- Hearing Assessment WFL M7 OT- IP Mobility and Balance Start: 08/03/19 15:43 Freq: Status: Active Protocol: Document 08/03/19 11:40 [facility] (Rec: 08/03/19 16:06 [facility] [id number]) OT-Transfer Assessment Comments Mobility Comments Not able to assess due to pt's too tired to get up at this time. Per PT notes, pt requiring CGA with FWW. Pt's states has a walker but may not be youth size. Asked if pt wanted to get youth walker through the hospital and states will just use the one from home. Pt's was worried that the FWW would not be covered by insurance. Spoke to case management and she suggested to have them call their insurance to see if Youth FWW is covered or not. Passed information on to the pt and . M8 OT- IP Objective Assessments Start: 08/03/19 15:43 Freq: Status: Active Protocol: Document 08/03/19 11:40 [facility] (Rec: 08/03/19 16:06 [facility] [id number]) OT Gross Range of Motion Upper Extremity Range of Motion Assessment Bilaterally Impaired ROM Impairments RUE 0-100 shoulder flexion, pt not able to move LUE against gravity due to pain and weakness. OT Strength Comments Strength Comments RUE 4-/5, LUE 3-/5 shoulder flexion. OT- Coordination Assessment Comments Coordination Comments Arthritic changes in hands. Pt unable to fully close right hand 80%. Left hand not able to bend his fingers at all at this time. OT Sensation Assessment Edema Edema Present Edema Comments Left hand swollen. Able to work with pt on AAROM to left shoulder and left hand. After gentle carpal mobs and AAROM for pt help pt with shoulder flexion and horizontal abduction, pt able to close his fist 50% and shoulder flexion LUE 0-60 now. M9 OT- IP Assessment and Plan Start: 08/03/19 15:43 Freq: Status: Active Protocol: Document 08/03/19 11:40 [facility] (Rec: 08/03/19 16:06 [facility] [id number]) OT Summary Assessment and Plan Potential Rehabilitation Potential Good Analytic Complexity at Evaluation Low Summary OT Impairments Pain,Range of Motion,Strength, Grooming,Dressing,Toileting, Bathing,Toilet Transfers, Shower Transfers Progress Towards Goals Progressing Toward Goals,Slow Progress due to Medical Issues Assessment Summary Pt low complexity and main barriers are swelling, stiffness in left hand and shoulder which results in needing more assist for ADl and functional mobility needs. Pt's adamant for pt to go home and able to provide assist for pt for all needs. Recommended since pt refusing skilled rehab to have home health OT to help regain AROM/ strength for LUE so able to return to being independent for all ADL and IADL needs. Goals Grooming Goal Independent Dressing Goal Independent Toileting Goal Independent Bathing Goal Standby Assistance Toilet Transfer Goal Independent Shower Transfer Goal Contact Guard Assistance Patient/Caregiver Education Goal Caregiver Independent Assisting Patient Days to Meet Goals 5 Frequency of Treatment Frequency Of Treatment Once a Day Treatment Plan OT Treatment Plan ADL Training,Functional Mobility,Therapeutic Exercises ,Patient/Family Education, Discharge Planning Other Treatment Recommendations and Next shower, FMS for LUE Treatment Focus Discharge Recommendations OT Discharge Recommendations Home with Assistance,Home Health
--- NOTE | 2019-08-03 12:35 | PT.IPTN ---
Current Diagnoses Cellulitis of left upper limb (07/30/19) Physical Therapy Treatment Note M2 PT-IP Current Condition Start: 08/02/19 15:21 Freq: NEEDED Status: Active Protocol: Document 08/02/19 16:16 AW (Rec: 08/02/19 16:53 AW [id number]) Physical Therapy Current Condition Current Condition Evaluation Date 08/02/19 Treatment Diagnosis left hand cellulitis, impaired strength and balance, difficulty in walking Weight Bearing Status Weight Bearing Status Full Weight Bearing M3 PT-IP Subjective Start: 08/02/19 15:21 Freq: NEEDED Status: Active Protocol: Document 08/03/19 12:35 [facility] (Rec: 08/03/19 13:09 [facility] [id number]) Subjective Physical Therapy Visit Type Type Treatment Note Visit Start Time 12:35 Visit Stop Time 12:56 Total Visit Minutes 21 Notes Second therapy session required for stair training as pt may d/c home today. Number of VETERINARY ASSISTANT TECHNICIAN Visits 2 Physical Therapy Visit Comments Patient Comments pt agreeable to do therapy. Pts states she wants to take pt home because she can't sleep with him at SNF. Therapy Pain Assessment Pain When Pain Assessed During Mobility Pain Present Pain Present Pain Reported Location L shoulder Scale Used not quantified Pain Behaviors Facial Grimacing,Guarding, Holding Area,Wincing Pain Management Techniques Apply Heat M4 PT-IP Mobility and Gait Start: 08/02/19 15:21 Freq: NEEDED Status: Active Protocol: Document 08/03/19 12:35 [facility] (Rec: 08/03/19 13:09 [facility] [id number]) PT-Transfer Assessment Sit to and From Stand Sit to and from Stand Contact Guard Assistance Equipment Transfer Assistive Device Gait Belt,Front Wheeled Walker Orthotic/Prosthetic Devices or Brace: No Transfers Transfer Destination Chair,Toilet Transfer Technique Stand Step Pivot Transfer Ability Level of Assist Contact Guard Assistance Comments Mobility Comments Pt required CGA for sit<>stand from chair and toilet. Pt required assist with brief due to inability to use LUE. Pt required cues to push FWW in front of sink and stand inside walker while washing hands. Pt able to reach for faucet, soap and paper towel w/o LOB. Pt left in chair with all needs within reach, alarm on and present. Gait Assessment Gait Gait Assistance Required: Contact Guard Assist Distance (Feet) 220 Able to Maintain Weight Bearing Status Yes During Gait Assistive Devices Assistive Device Gait Belt,Front Wheeled Walker Gait Deviations General Gait Pattern Antalgic,Decreased Stride Length,Decreased Feet Clearance,Flexed Trunk,Lateral Trunk Lean Factors Limiting Gait Function Factors Limiting Gait Function Decreased Activity Tolerance, Decreased Strength,Pain,Poor Balance,Poor Safety Awareness Comments Gait Comments Pt climbed stairs then ambulated around [facility] ~220ft. Pt able to provide CGA with ambulation . Stair Climbing Assessment Evaluation Level of Assist On Stairs Contact Guard Assistance Devices Stair Climbing Assistive Devices Right Railing Technique/Endurance Stair Climbing Direction Ascend and Descend Stair Climbing Technique Step to Step Number of Steps Climbed 3 Stair Climbing Set # Repetitions (reps) 2 Comments Stair Climbing Comments Pt able to climb steps once with therapist for demonstration then able to assist pt with CGA. M5 PT-IP Objective Assessments Start: 08/02/19 15:21 Freq: NEEDED Status: Active Protocol: Document 08/02/19 16:16 AW (Rec: 08/02/19 16:53 AW [id number]) Orientation Orientation/Cognition Level of Alertness Confusional State Orientation Name,Birthday,Place Language Function Ability Mongolian as Second Language Safety Awareness Decreased Safety Awareness Memory Description Short Term Impaired,Intermediate Impaired Comments Pt repeatedly referenced his as if she were in the room, reported the year as 1930, and could not explain the reason for being in the hospital. Gross Range of Motion Upper Extremity ROM Assessment Left Impaired Impairments Pt unwilling to move left shoulder or elbow due to pain. R finger flexion painful with inability to form a fist. R wrist and hand WFL Lower Extremity ROM Assessment Within Functional Limits Strength Upper Extremity Strength Assessment Left Impaired Lower Extremity Strength Assessment Bilaterally Impaired Comments Strength Comments R UE grossly 4/5. B LE grossly 3+/5 to 4-/5 (right slightly weaker than left). Coordination Assessment Gross Coordination Gross Coordination WNL Sensation Assessment Sensation Gross Sensation WNL M6 PT-IP Treatment Start: 08/02/19 15:21 Freq: NEEDED Status: Active Protocol: Document 08/02/19 16:16 AW (Rec: 08/02/19 16:53 AW [id number]) Physical Therapy Treatment Education Education Provided Precautions,Safety Other Treatments Other Treatment Performed Educated pt on role of PT, plan of care, and safety with transfers/gait. M7 PT-IP Assessment and Plan Start: 08/02/19 15:21 Freq: NEEDED Status: Active Protocol: Document 08/03/19 12:35 [facility] (Rec: 08/03/19 13:09 [facility]B [id number]) PT Summary Assessment and Plan Potential Rehabilitation Potential Good Status of Condition at Evaluation Evolving Summary Impairments Pain,ROM,Strength,Balance, Cognition,Bed Mobility, Transfers,Gait,Activity Tolerance Assessment Summary Pt with improved activity tolerance was able to ambulate in [place] with FWW/CGA ~200ft requiring one standing rest break. Pt improved with sit- stand with cues for hand placement. Pt with improved posture, gait speed and step length with FWW with improved steadiness. Pt would benefit from using FWW for all transfers and ambulation. Pt would benefit from SNF rehab to improve strength and activity tolerance but pt would like to take him home. Pt will need to climb stairs before d/c home and CG training with . Goals Bed Mobility Goal Independent Transfer Goal Independent Gait Goal Standby Assistance Gait Distance 200 Other Goals - up/down 15 stairs with unilateral railing SBA Days to Meet Goals 10 Frequency of Treatment Frequency Of Treatment Twice a Day Treatment Plan Physical Therapy Treatment Plan Bed Mobility Training,Transfer Training,Gait Training, Therapeutic Exercise,Balance Retraining,Discharge Planning, Hot or Cold Pack,Neuromuscular Re-ed Other Recommendations and Next Treatment gait, stairs, bed mobility Focus Recommendations To Nursing Amount of Assist Needed 1 Person Assist Discharge Recommendations PT Discharge Recommendations SNF Rehab Other Discharge Recommendations Pt would like to take pt home, if pt d/c home pt would benefit from HH. Equipment Needed for Home Before Pt has FWW but unsure if Discharge its proper height as pt is 5'1 .
--- NOTE | 2019-08-03 14:24 | CM.DPC ---
Addendum entered by Gita Boggs R.N. 08/03/19 14:55: Attempted to see Dr. Tijerina to have her sign face to face. Nurse, Sushila, stated that Dr. Tijerina was already here, and is planning on patient being here tonight for one more IV antibiotic, and will discharge home tomorrow on p.o antibiotic, which is being ordered at [facility]. Will leave face to face behind face sheet, and Jasmyne will be at DCP desk tomorrow and will send over early with patient's chart for signature. Jadyn has already received referral, pending face to face, orders, and DC summary. O.T. is working on getting patient a walker, and has asked if covers. Encouraged her to have contact [facility] to see if covered. Would potentially need notes from P.T. for coverage. Original Note: DCP Cont: Had Barb call and check status on home health agencies, to see when the soonest visits could be. [facility] does not have any openings until 08/11. [facility] does not have availabilities until Friday, if nursing is needed. Jadyn has opening in the next 24-48 hours. Will have Barb send H&P to [facility], and face sheet, to start referral. Face to face not yet signed. P: DCP to continue to follow. Dr. Tijerina should be here to see patient. Will have her sign face to face. Gita Boggs RN/Hospital Recruiter
--- NOTE | 2019-08-03 14:34 | P.PN_ITS ---
Subjective Subjective Date Patient Seen: 08/03/19 Time Patient Seen: 08:00 Interval history: Met with patient and his today was at bedside. Patient lying in hospital bed. He states that the pain in his hand is better but he is having lot of pain in his left shoulder and difficulty with movement. He had a venous Doppler which was negative for clot yesterday. He is using heat the area in the not seem smaller. He still is having difficulty with mobility of his left hand. He met with physical therapy yesterday and did ambulate in the hallway. He had a bowel movement yesterday. He is eating but not much of an appetite. T-max was 99.0? Review of systems is negative other than above Exam Vital Signs (past 8 hours): - 08/03/19 08:00 08/03/19 08:49 08/03/19 08:56 Temperature 97.6 F Pulse Rate 83 76 Respiratory Rate 18 Blood Pressure 92/67 123/79 Pulse Oximetry 98 97 08/03/19 10:40 08/03/19 10:56 08/03/19 11:27 Temperature 98.3 F Pulse Rate 91 H 93 H 81 Respiratory Rate 18 Blood Pressure 125/69 125/69 127/62 Pulse Oximetry 99 Oxygen Delivery Method Room Air Oxygen Flow Rate 0 Narrative Exam Narrative: Patient is alert and oriented x3 but sleepy and slow to answer. Blood pressure in the low 90s over 60s. Fasting blood sugar today is 100 Mucous membranes moist and pink Neck is supple without adenopathy or jugular venous distention Chest: Clear to auscultation without wheezes rhonchi or crackles Cor: Regular rate and rhythm with distant S1-S2 Abdomen: Positive bowel sounds, soft, nontender, nondistended Extremities: Bilateral lower extremities show no edema and pulses 2+ bilaterally. Left hand she still shows significant swelling of the dorsum of the hand and the digits. It is slightly less than yesterday. Erythema is decreased. Left upper extremity area of what felt like muscular spasm is d ecreased and less tender.. Sensations intact to light touch. There's no swelling of the forearm or the upper arm Objective Labs Result Diagrams: 08/03/19 06:00 08/03/19 06:00 Labs: Laboratory Results - last 24 hr 08/03/19 08/03/19 08/03/19 06:00 06:00 06:00 WBC 7.1 RBC 3.34 L Hgb 10.3 L Hct 30.6 L MCV 91.6 MCH 30.8 MCHC 33.6 RDW 14.0 Plt Count 168 Neut % (Auto) 58.8 Lymph % (Auto) 21.1 L Swisher % (Auto) 13.2 Eos % (Auto) 6.1 H Baso % (Auto) 0.8 Neut # (Auto) 4200 Lymph # (Auto) 1500 Swisher # (Auto) 900 Eos # (Auto) 400 Baso # (Auto) 100 PT INR Sodium 134 L Potassium 3.9 Chloride 100 Carbon Dioxide 26 BUN 20 Creatinine 1.00 Estimated GFR > 60.0 BUN/Creatinine Ratio 20.0 Glucose 116 H Uric Acid 4.4 Calcium 8.2 L 08/03/19 08:30 WBC RBC Hgb Hct MCV MCH MCHC RDW Plt Count Neut % (Auto) Lymph % (Auto) Swisher % (Auto) Eos % (Auto) Baso % (Auto) Neut # (Auto) Lymph # (Auto) Swisher # (Auto) Eos # (Auto) Baso # (Auto) PT 15.4 H D INR 1.3 Sodium Potassium Chloride Carbon Dioxide BUN Creatinine Estimated GFR BUN/Creatinine Ratio Glucose Uric Acid Calcium Assessment & Plan Assessment & Plan narrative: 84-year-old type 2 diabetic admitted with a cellulitis of the hand done precipitated. Assessment 1. Cellulitis. Uric acid is negative. Story is a little atypical and he is very slow to improve. He is showing very slow improvement but is improving. He requires continued inpatient due to need for further IV antibiotics. The plan will be to give another 24 hours of IV antibiotics and if he is continues to show improvement then will discharge home tomorrow. His white count has stabilized. He has not had a significant fever. Assessment 2. Left upper arm pain I think this is muscular. It's improved with a warm pack. We will continue the same. A venous Doppler yesterday ruled out blood clot. Assessment 3. Atrial fibrillation with well-controlled rate but subtherapeutic INR Plan will give 3 mg of Coumadin today. Will continue on same other medications. Will recheck INR tomorrow. Will hold metoprolol for systolic blood pressure less than 90 or heart rate less than 60 Assessment 4. Type 2 diabetes with stable blood sugars Plan: Continue on same medications. Continue to monitor. Continue on diabetic diet Assessment 5. Hypo magnesemia Plan continue same replacement. Assessment 6. Deconditioning Plan continue with physical therapy. May need home health physical therapy Quality VTE Deep Vein Thrombosis/Pulmonary Embolism Present on Admission: No
[2019-08-03] MEDS: WARFARIN 3 MG TABLET PO (17:07)
[2019-08-03] MEDS: Alfuzosin [Uroxatral] 10 MG 10 EACH PO (20:29)
[2019-08-03] MEDS: SODIUM CHLORIDE 0.9% FLUSH 10 ML IV (20:30)
[2019-08-03] MEDS: SENNOSIDES 8.6 MG TABLET 17.2 MG PO (20:32)
[2019-08-04] VITALS: BP 121/74; PULSE 79; RESP 16; TEMP 37.2; O2SAT 97
[2019-08-04] MEDS: SODIUM CHLORIDE 0.9% IV ×3 (02:45→10:16)
[2019-08-04] MEDS: NAFCILLIN IV ×3 (02:45→10:16)
--- NOTE | 2019-08-04 03:01 | PC.NURSE ---
PERSONAL INJURY LITIGATION PARALEGAL note: I saw something at pt's door. I thought it was Trinity, his , at the door. I walked in, patient was outside of bed, wandering around bedside with SCDs dismantled. Patient's was in the day bed asleep. Patient's bed alarm wasn't on, because patient's has been sleeping at bedside and requests alarm not to be on. Patient's IV pole was still attached to the wall. I got him unplugged from wall, patient needed to void. Got him to the bathroom, patient's woke up. Patient told me this looks like my room when I was at the hospital. I said you are at the hospital. He nodded oh yeah. Patient voided. Called AVA Emerson to note what happened. Showed her the SCDs he took apart. Was taking patient back to bed when he said this looks like my bed when I was at the hospital. Got him back into his bed. He told his don't get mad don't get mad. Patient's told him You could've fallen on the cement. He kept saying don't get mad. Call light within reach, bed alarm on. RN alerted.
[2019-08-04 06:00] VITALS: BP 105/57; PULSE 65; RESP 16; TEMP 36.8; O2SAT 97
[2019-08-04 06:21] LABS: Add Manual Diff / Slide Review NO; Basophils Absolute Auto 0 /uL (0-100); Basophils Percent Auto 0.5 % (0-2); Eosinophils Absolute Auto 500 /uL (0-450); Eosinophils Percent Auto 6.3 % (2-4); Hematocrit 30.9 % (41-53); Hemoglobin 10.4 g/dL (13.5-17.5); Lymphocytes Absolute Auto 1200 /uL (1100-4500); Mean Corpuscular HGB Conc 33.8 % (30-36); Mean Corpuscular Hemoglobin 30.8 PG (26-34); Mean Corpuscular Volume 91.3 fL (80-100); Monocytes Absolute Auto 900 /uL (0-900); Monocytes Percent Auto 11.5 % (3-14); Neutrophils Absolute Auto 5100 /uL (1500-7000); Neutrophils Percent Auto 66.7 % (50-75); Platelet Count 204 X10^3/uL (150-400); Red Blood Cell Count 3.39 X10^6/uL (4.5-5.9); Red Cell Distribution Width 14.3 % (11.6-14.8); White Blood Cell Count 7.7 X10^3/uL (4.5-11.0)
[2019-08-04 06:29] LABS: Alanine Aminotransferase 12 IU/L (<50); Albumin 3.3 g/dL (3.5-5.0); Albumin Globulin Ratio 1.1 (1.0-2.8); Alkaline Phosphatase 67 U/L (38-126); Aspartate Aminotransferase 17 IU/L (17-59); Bilirubin Total 0.9 mg/dL (0.2-1.3); Blood Urea Nitrogen 17 mg/dL (9-20); Calcium 8.3 mg/dL (8.4-10.2); Carbon Dioxide 25 mmol/L (22-32); Chloride 100 mmol/L (98-107); Estimated Glomerular Filt Rate > 60.0 mL/min (>60); Globulin 2.9 g/dL (1.7-4.1); Glucose 119 mg/dL (80-110); HEMOLYSIS < 15 (0-50); Potassium 3.8 mmol/L (3.4-5.1); Sodium 134 mmol/L (137-145); Total Protein 6.2 g/dL (6.3-8.2)
[2019-08-04 08:00] VITALS: BP 90/56; PULSE 83; RESP 16; TEMP 37.2; O2SAT 97
[2019-08-04] MEDS: SODIUM CHLORIDE 0.9% FLUSH 10 ML IV ×2 (08:24→10:17)
[2019-08-04 08:26] VITALS: BP 110/64; PULSE 87
[2019-08-04] MEDS: POLYETHYLENE GLYCOL 3350 17 GM POWD.PACK PO (08:26)
[2019-08-04] MEDS: METOPROLOL ER 25 MG TABLET 75 MG PO (08:26)
[2019-08-04] MEDS: METFORMIN HCL 500 MG TABLET 1000 MG PO (08:26)
--- NOTE | 2019-08-04 08:50 | PC.NURSE ---
Patient up to chair this morning for breakfast with walker and assistance. Denies pain at this time. LEft hand remains swollen, mild erythemia and warmth remain within previously outlined borders, skin in area is intact. Patient's is at bedside assisting her . Chair alarm in place for safety, with call light within reach. Patient's states patient is suppose to go home today. Continue to monitor
--- NOTE | 2019-08-04 09:19 | P.DS_ITS ---
History of Present Illness History of Present Illness Chief complaint: left hand is swollen Discharge Providers Provider Date of admission: 07/30/19 23:01 Discharge Date: 08/04/19 Primary care physician: Elvira Tijerina MD Consults: 07/31/19 02:08 Consult to Dietitian, Adult Routine Comment: per pt Reason For Exam: diet change to diabetic 08/02/19 13:33 Consult to Physical Therapy Evaluate & Treat Comment: deconditioning Physician Instructions: Evaluate and Treat 08/03/19 09:50 Consult to Occupational Therapy Evaluate & Treat Comment: Physician Instructions: Evaluate and treat Discharge provider: Elvira Tijerina MD Summary Hospital Course Discharge Diagnosis: Left upper extremity cellulitis Deltoid muscle spasm Atrial fibrillation with well controlled rate on chronic anticoagulation Hypertension Hyperlipidemia Anemia Type 2 diabetes, stable no issues during hospitalization Hospital Course: Patient was found have a left upper extremity cellulitis on presentation to ER. Phone consultation was done with orthopedics. Patient was started on nafcillin. Patient had slow improvement and developed left shoulder spasm and pain. Patient was immobile the 1st 48 hours in the hospital and received morphine for pain and had cognitive dysfunction secondary to this. This has cleared. He continued to slowly progress with IV nafcillin and was maintained on his outpatient medications for his other chronic medical problems. His INR was supratherapeutic when he came in and his Coumadin was held. Unf ortunately his INR recur turn to close to normal. He was restarted on outpatient dosing. INR is pending today. Patient will be discharged home on Augmentin 875 mg twice daily for 10 days. He already has a prescription. He will take Tylenol for pain. He will continue all his outpatient medications. He will have home health come in. PT and OT. He will follow-up with me next week with CBC, BMP and INR Status at Discharge Cognitive/behavioral status at discharge: oriented Functional status at discharge: uses cane/walker Overall status at discharge: patient is progressing back to baseline Time Spent with Patient Time spent: Greater than 30 minutes Exam Vital Signs (past 8 hours): - 08/04/19 06:00 08/04/19 08:00 08/04/19 08:26 Temperature 98.2 F 99.0 F Pulse Rate 65 83 87 Respiratory Rate 16 16 Blood Pressure 105/57 L 90/56 L 110/64 Pulse Oximetry 97 97 Oxygen Delivery Method Room Air Oxygen Flow Rate 0 Narrative Exam Narrative: Patient alert and awake sitting in hospital chair eating breakfast. He is feeling much better today. He is cognitively is more clear. He passed stairs with physical therapy yesterday. His hand is not painful for t he most part and swelling is decreased. HEENT unremarkable Neck is supple without adenopathy or thyromegaly Chest: Clear to auscultation without wheezes rhonchi or crackles Cor: Irregularly irregular rhythm with a well-controlled rate with distant S1- S2 Abdomen: Positive bowel sounds, soft, nontender, nondistended Extremities: Trace lower extremity edema, nonpitting, pulses intact. Left upper extremity shows no tenderness to palpation. Shows increased mobility of fingers. Shows decreased swelling. Shows no erythema. The muscular spasm in the distal deltoid is markedly improved and no longer tender. No pain to palpation of the left shoulder. Skin: Unremarkable Objective Labs Result Diagrams: 08/04/19 05:54 08/04/19 05:54 Labs: Laboratory Results - last 24 hr 08/04/19 08/04/19 05:54 05:54 WBC 7.7 RBC 3.39 L Hgb 10.4 L Hct 30.9 L MCV 91.3 MCH 30.8 MCHC 33.8 RDW 14.3 Plt Count 204 Neut % (Auto) 66.7 Lymph % (Auto) 15.0 L [place] % (Auto) 11.5 Eos % (Auto) 6.3 H Baso % (Auto) 0.5 Neut # (Auto) 5100 Lymph # (Auto) 1200 [place] # (Auto) 900 Eos # (Auto) 500 H Baso # (Auto) 0 Sodium 134 L Potassium 3.8 Chloride 100 Carbon Dioxide 25 BUN 17 Creatinine 1.00 Estimated GFR > 60.0 BUN/Creatinine Ratio 17.0 Glucose 119 H Calcium 8.3 L Total Bilirubin 0.9 AST 17 ALT 12 Alkaline Phosphatase 67 Total Protein 6.2 L Albumin 3.3 L Globulin 2.9 Albumin/Globulin Ratio 1.1 Discharge Plan Discharge Plan Patient Disposition: Home Health Service Discharge orders & Medications Prescriptions: Continued warfarin 1 MG tablet 1.5 mg PO SEEINSTR Qty: 0 RF: 0 fluticasone propionate [Flonase Allergy Relief] 9.9 ML spray,suspension 2 spray Intranasal BID Qty: 0 RF: 0 alfuzosin [Uroxatral] 10 MG tablet extended release 24 hr 10 mg PO QDAY Qty: 0 RF: 0 Move Free [facility] Health 750 mg-100 mg- 1.65 mg-108 mg Tablet 2 tab PO DAILY RF: 0 cholecalciferol (vitamin D3) [Vitamin D3] 1,000 unit Capsule 1,000 unit PO DAILY RF: 0 cyanocobalamin (vitamin B-12) [Vitamin B-12] 100 mcg Tablet 100 mcg PO BID RF: 0 magnesium citrate 100 mg Tablet 500 mg PO BID RF: 0 metoprolol succinate 25 mg Tablet Extended Release 24 Hr 75 mg PO DAILY RF: 0 metformin 1,000 mg Tablet 1,000 mg PO BID RF: 0 atorvastatin 10 mg Tablet 10 mg PO BEDTIME RF: 0 ferrous sulfate 324 mg (65 mg iron) Tablet,Delayed Release (Dr/Ec) 324 mg PO DAILY RF: 0 calcium carbonate-vitamin D3 [Calcium 500 + D] 500 mg(1,250mg) -400 unit Tablet 1 tab PO BID RF: 0 warfarin 3 mg Tablet 3 mg PO SEEINSTR RF: 0 Follow up/Referrals: Elvira Tijerina MD [Primary Care Provider] - Diet/Activity/Treatments Diet: Carb-consistent/Diabetic, Low-sodium and Low-cholesterol Visit Report/Discharge Packet Instructions: Cellulitis Discharge Data Primary Care Provider: Elvira Tijerina Quality VTE Deep Vein Thrombosis/Pulmonary Embolism Present on Admission: No
[2019-08-04 09:52] LABS: INR 1.6 (0.9-1.3); Prothrombin Time 18.4 SECONDS (10.1-12.7)
--- NOTE | 2019-08-04 10:25 | CM.DPC ---
Addendum entered by MAXI Rankin 08/04/19 11:07: ADD: SW met bedside with pt and spouse and updated that [facility] aware that they will be d/c home today and they confirm that they are still comfortable with plan of d/c home with [facility] to begin providing service. SW provided them with the pt's Medicare Rights and they acknowledged understanding and pt's spouse signed his Medicare Message again. BF Original Note: DCP Discharge Home with HH Per MD, pt stable for d/c home on oral Abx and HH with no identified barriers to discharge and signed the F2F for HH. SW called [facility] with update on pt d/c today and they confirm that they are set to open pt to service and SW faxed signed F2F, MD orders, and d/c summary to [facility] to review. Plan: Pt to d/c home via family POV today and [facility] to open the pt to service. MAXI Rankin
[2019-08-04] MEDS: ACETAMINOPHEN 325 MG TABLET 650 MG PO (11:38)
--- NOTE | 2019-08-04 12:21 | PT.IPTN ---
Current Diagnoses Cellulitis of left upper limb (07/30/19) Physical Therapy Treatment Note M2 PT-IP Current Condition Start: 08/02/19 15:21 Freq: NEEDED Status: Discharge Protocol: Document 08/02/19 16:16 AW (Rec: 08/02/19 16:53 AW [id number]) Physical Therapy Current Condition Current Condition Evaluation Date 08/02/19 Treatment Diagnosis left hand cellulitis, impaired strength and balance, difficulty in walking Weight Bearing Status Weight Bearing Status Full Weight Bearing M3 PT-IP Subjective Start: 08/02/19 15:21 Freq: NEEDED Status: Discharge Protocol: Document 08/04/19 12:03 SP (Rec: 08/04/19 12:54 SP [id number]) Subjective Physical Therapy Visit Type Type Treatment Note Visit Start Time 12:03 Visit Stop Time 12:21 Total Visit Minutes 18 Physical Therapy Visit Comments Patient Comments Pt agreeable to PT today. Patient Goals Go home today with his . Therapy Pain Assessment Pain When Pain Assessed During Mobility Pain Present Pain Present Pain Reported Location L shoulder Scale Used not quantified Pain Behaviors Facial Grimacing,Guarding, Holding Area Pain Management Techniques Re-positioning L hand Scale Used not quantifed Description Tender,Tightness Pain Behaviors Facial Grimacing Pain Management Techniques Re-positioning M4 PT-IP Mobility and Gait Start: 08/02/19 15:21 Freq: NEEDED Status: Discharge Protocol: Document 08/04/19 12:03 SP (Rec: 08/04/19 12:54 SP [id number]) PT-Bed Mobility Assessment Supine to Sit Supine to Sit Standby Assistance,Head of Bed Elevated Sit to Supine Sit to Supine Standby Assistance Scooting Scooting to Edge of Bed Standby Assistance Scooting Up and Down in Bed Standby Assistance PT-Transfer Assessment Sit to and From Stand Sit to and from Stand Standby Assistance Equipment Transfer Assistive Device Gait Belt,Front Wheeled Walker Orthotic/Prosthetic Devices or Brace: No Transfers Transfer Destination Bed,Chair Transfer Technique Stand Step Pivot Transfer Ability Level of Assist Standby Assistance Comments Mobility Comments Pt was up in chair when arrived, in room. Pt completed caregiver training with including don/ doff gait belt use for safety, bed mob, transfer, gait and stair management. Pt was able to complete all mobility sit < > supine, sit to stand and step pivot transfer chair to bed using FWW and transfer to bed SBA with occasional cuing for safety hand placement prior to sitting. Pt reported L shld was hurting and L hand tight tender feeling and already called the nurse for some tylenol, no pain scale rating provided. Gait Assessment Gait Gait Assistance Required: Standby Assistance,Contact Guard Assist Distance (Feet) 240 Able to Maintain Weight Bearing Status Yes During Gait Assistive Devices Assistive Device Gait Belt,Front Wheeled Walker Orthotic/Prosthetic Devices or Brace: No Gait Deviations General Gait Pattern Antalgic,Decreased Stride Length,Decreased Feet Clearance,Flexed Trunk Factors Limiting Gait Function Factors Limiting Gait Function Decreased Activity Tolerance, Decreased Strength,Pain,Poor Balance,Poor Safety Awareness Comments Gait Comments Pt was able to ambulate L side of the bed to stairs and around the nursing quad hallway and back to his room chair approx 240ft using FWW and CGA- SBA provided by during career and transition teacher training. Pt took 2 stopped breaks secondary to decreased activity tolerance and decreased strength, demonstrated static standing with no hands on FWW with no LOB, stable during conversation of testing done for L hand swelling. Pt did require occasional cuing provided by for obstacle management with FWW around end of bed and in hallway nursing carts with good patient corrections. Stair Climbing Assessment Evaluation Level of Assist On Stairs Contact Guard Assistance Devices Stair Climbing Assistive Devices Right Railing Technique/Endurance Stair Climbing Direction Ascend and Descend Stair Climbing Technique Step to Step Number of Steps Climbed 3 Stair Climbing Set # Repetitions (reps) 5 Comments Stair Climbing Comments Pt was able to climb 15 steps using R HR to assimulate home (RUE only ascending, BUE descending) step to gait patterning CGA with no LOB or deviations. did cue patient safety foot placement fully on the step. PT-Balance Assessment Sitting Balance and Reactions Static Sitting Balance Ability Fair Dynamic Sitting Balance Ability Fair Standing Balance and Reactions Static Standing Balance Ability Fair Dynamic Standing Balance Ability Poor Device Used FWW M5 PT-IP Objective Assessments Start: 08/02/19 15:21 Freq: NEEDED Status: Discharge Protocol: Document 08/02/19 16:16 AW (Rec: 08/02/19 16:53 AW [id number]) Orientation Orientation/Cognition Level of Alertness Confusional State Orientation Name,Birthday,Place Language Function Ability Swedish as Second Language Safety Awareness Decreased Safety Awareness Memory Description Short Term Impaired,Chcf Impaired Comments Pt repeatedly referenced his as if she were in the room, reported the year as 1930, and could not explain the reason for being in the hospital. Gross Range of Motion Upper Extremity ROM Assessment Left Impaired Impairments Pt unwilling to move left shoulder or elbow due to pain. R finger flexion painful with inability to form a fist. R wrist and hand WFL Lower Extremity ROM Assessment Within Functional Limits Strength Upper Extremity Strength Assessment Left Impaired Lower Extremity Strength Assessment Bilaterally Impaired Comments Strength Comments R UE grossly 4/5. B LE grossly 3+/5 to 4-/5 (right slightly weaker than left). Coordination Assessment Gross Coordination Gross Coordination WNL Sensation Assessment Sensation Gross Sensation WNL M6 PT-IP Treatment Start: 08/02/19 15:21 Freq: NEEDED Status: Discharge Protocol: Document 08/02/19 16:16 AW (Rec: 08/02/19 16:53 AW [id number]) Physical Therapy Treatment Education Education Provided Precautions,Safety Other Treatments Other Treatment Performed Educated pt on role of PT, plan of care, and safety with transfers/gait. M7 PT-IP Assessment and Plan Start: 08/02/19 15:21 Freq: NEEDED Status: Discharge Protocol: Document 08/04/19 12:03 SP (Rec: 08/04/19 12:54 SP [id number]) PT Summary Assessment and Plan Potential Rehabilitation Potential Good Status of Condition at Evaluation Evolving Summary Impairments Pain,ROM,Strength,Balance, Cognition,Bed Mobility, Transfers,Gait,Activity Tolerance Assessment Summary Pt with improved activity tolerance was able to ambulate in [place] with FWW/CGA ~240ft requiring 2 standing rest break. Pt improved with sit- stand with one cues for hand placement prior to sitting. Pt with improved posture, gait speed and step length with FWW with improved steadiness. Pt would benefit from using FWW for all transfers and ambulation. Pt would benefit from home health improve strength and activity tolerance at home with his . Pt completed caregiver training with including bed mobility, tranfers, gait SBA and stairs CGA. Pt was sitting in chair with in room when left. Pt is ok to go home with services with his when medically stable . Goals Bed Mobility Goal Independent Transfer Goal Independent Gait Goal Standby Assistance Gait Distance 200 Other Goals - up/down 15 stairs with unilateral railing SBA Days to Meet Goals 10 Frequency of Treatment Frequency Of Treatment Twice a Day Treatment Plan Physical Therapy Treatment Plan Bed Mobility Training,Transfer Training,Gait Training, Therapeutic Exercise,Balance Retraining,Discharge Planning, Hot or Cold Pack,Neuromuscular Re-ed Other Recommendations and Next Treatment Recommend HH. Focus Recommendations To Nursing Amount of Assist Needed 1 Person Assist Discharge Recommendations PT Discharge Recommendations Home Health Other Discharge Recommendations Pt would benefit from HH services to improve strength and independence in mobility. Equipment Needed for Home Before Pt and stated his FWW at Discharge home is the same as here.
--- NOTE | 2019-08-04 12:41 | PC.NURSE ---
Discharge instructions and home care handout reviewed with patient and his , they state understanding and have no further questions at this time. Patient's states she will call Dr. Tijerina's office tomorrow to ensure follow up appointment and next INR level is scheduled. IV dc'd intact. picked up prescription for antibiotic yesterday, patient instructed to start this evening. Patient escorted out via wheelchair with all belongings by [employer] SEGMENT LEADER to be discharged to home with Home health and .
== END 2019-08-04 12:44 | disposition home health service (06) | DRG 603 ==
LOC: ED 22:37 → AC 23:03
PROVIDERS: Admitting Provider Family Medicine; Emergency Provider Emergency Medicine; Family Provider Family Medicine; PCP Family Medicine; Visit Provider Family Medicine
DX: L03.114 Cellulitis of left upper limb (principal); I48.20 Chronic atrial fibrillation, unspecified; Z79.01 Long term (current) use of anticoagulants; E11.9 Type 2 diabetes mellitus without complications; Z79.84 Long term (current) use of oral hypoglycemic drugs; Z95.0 Presence of cardiac pacemaker; I10 Essential (primary) hypertension; E78.5 Hyperlipidemia, unspecified; E83.42 Hypomagnesemia; R25.2 Cramp and spasm
CPT/HCPCS: 36415; 73201; 80048; 80053; 82962; 83605; 84550; 85025; 85610; 85651; 86140; 87040; 93971; 96365; 97110; 97116; 97162; 97165; 97530; 99284; J2270

== ENCOUNTER → 2019-08-10 15:50 | Outpatient (ROUT) | payer MEDICARE, OTHER, SELFPAY ==
[2019-07-31 01:53] VITALS: BMI 21.9
[2019-08-10 16:11] LABS: INR 2.4 (0.9-1.3); Prothrombin Time 27.8 SECONDS (10.1-12.7)
== END ==
PROVIDERS: Family Provider Family Medicine; PCP Family Medicine; Visit Provider Family Medicine
DX: I48.0 Paroxysmal atrial fibrillation (principal); L03.114 Cellulitis of left upper limb; Z95.0 Presence of cardiac pacemaker
CPT/HCPCS: 85610

== ENCOUNTER → 2020-05-03 13:05 | Outpatient (CLI) | payer MEDICARE, OTHER, SELFPAY ==
[2019-07-31 01:53] VITALS: BMI 21.9
--- NOTE | 2020-05-03 13:10 | DI.RAD.S_ITS ---
PROCEDURE: XR CHEST 2V INDICATIONS: SHORTNESS OF BREATH TECHNIQUE: 2 views of the chest were acquired. COMPARISON: [facility], , CHEST 1 VIEW, 05/22/2017, 12:04. FINDINGS: Surgical changes and devices: Partially visualized cervical spinal fixation. Dual lead cardiac pacer. Lungs and pleura: Lungs are clear. No pleural effusions or pneumothorax. Mediastinum: Mediastinal contours are normal. Heart size is normal. Bones and chest wall: No vertebral body compression fracture. Spondylytic changes and facet arthropathy. IMPRESSION: No acute disease Dictated by: Scooter Rizvi M.D. on 05/03/2020 at 14:13 Approved by: Scooter Rizvi M.D. on 05/03/2020 at 14:14
== END ==
PROVIDERS: Family Provider Family Medicine; PCP Family Medicine; Referring Provider Family Medicine; Visit Provider Family Medicine
DX: R06.02 Shortness of breath (principal); R06.2 Wheezing
CPT/HCPCS: 71046

== ENCOUNTER → 2020-10-10 12:15 | Outpatient (ROUT) | payer MEDICARE, OTHER, SELFPAY ==
[2019-07-31 01:53] VITALS: BMI 21.9
[2020-10-10 12:40] LABS: Prothrombin Time 34.5 SECONDS (10.1-12.7)
== END ==
PROVIDERS: Family Provider Family Medicine; PCP Family Medicine; Visit Provider Family Medicine
DX: Z79.01 Long term (current) use of anticoagulants (principal); I48.0 Paroxysmal atrial fibrillation; M10.9 Gout, unspecified; I10 Essential (primary) hypertension; E78.5 Hyperlipidemia, unspecified; E11.9 Type 2 diabetes mellitus without complications
CPT/HCPCS: 85610

== ENCOUNTER → 2020-11-22 08:31 | Outpatient (CLI) | payer MEDICARE, OTHER, SELFPAY ==
[2019-07-31 01:53] VITALS: BMI 21.9
--- NOTE | 2020-11-22 | DI.ECHO.S_ITS ---
[facility]---------+ [facility] +---------+ : : [address] [place] : : : : [id number] : : : : Phone: [phone] Echocardiogram Report + + :Name: ANNIE JOYCE Study Date: 11/22/2020 Height: 62 in : :[facility] ReadingLocation: Weight: 132 lb : : Gender: Male BSA: 1.6 m2 : :: 1935 Age: 85 yrs BP: 123/72 mmHg: :Reason For Study: MITRAL INSUFFICIENCY : :Ordering Physician: NINA, : :MYLES Performed By: Niesha Presley : :Referring: MYLES WOOD : + + Interpretation Summary Left ventricular systolic function remains normal with an estimated ejection fraction of 60 to 65% with a mild dyssynchronous contraction pattern but no significant regional wall motion abnormality and appears slightly more dynamic compared to the previous study. Left ventricular volumes remain normal with borderline LVH which is slightly more prominent. Diastolic function remains challenging to assess but there is no evidence for significantly elevated filling pressures and there has been no significant change since the previous study. The right ventricle appears borderline enlarged with systolic function at the lower limits of normal but slightly smaller and slightly more dynamic since the previous study. Right ventricular systolic pressure is estimated at 28 to 33 mmHg with a CVP likely between 3 and 8 mmHg and both are likely similar to the previous study. There is severe biatrial enlargement that is unchanged. There is mild to moderate mitral regurgitation and moderate to severe tricuspid regurgitation and both appear slightly less prominent compared to the previous study. The aortic valve is moderately calcified with minimal aortic stenosis that is slightly progressive with a peak velocity of 1.6 m/s and a mean gradient of 6 mmHg compared to 1.5 m/s and 5 mmHg previously. The severity ratio has decreased from 0.37 down to 0.34. There is trace aortic regurgitation. The ascending aorta is mildly enlarged at 3.7 cm but unchanged from the previous study. Procedure: A two-dimensional transthoracic echocardiogram with color flow and Doppler was performed. The study quality was technically adequate. Comparison is made with the echocardiogram of 05/06/2019. The patient has a paced rhythm. The heart rate ranged between 56-86 bpm during the study. Left Ventricle: The left ventricle is normal in size. There is borderline concentric left ventricular hypertrophy. Left ventricular systolic function appears normal without focal wall motion abnormalities. The ejection fraction is estimated to be 60-65%. Diastolic function could not be accurately assessed due to paced rhythm. This is unchanged compared to the previous study. There has been no significant change since the previous study. Right Ventricle: The right ventricle is normal in size and function. There is a pacemaker lead in the right ventricle. The right ventricle is borderline dilated. Right ventricular systolic function is at the lower limits of normal. This is slightly smaller and more dynamic compared to the previous study. Atria: Both atria are severely dilated. This is unchanged compared to the previous study. There is no Doppler evidence for an interatrial shunt. Mitral Valve: There is mild mitral annular calcification. The mitral valve leaflets appear mildly thickened, but open well. There is mild to moderate mitral regurgitation. This is less prominent compared to the previous study. Aortic Valve: The aortic valve is trileaflet. The aortic valve is moderately calcified. There is mildly reduced leaflet mobility. There is no hemodynamically significant valvular aortic stenosis. The peak aortic velocity is 1.6 m/sec. The aortic valve mean gradient is 5.5 mmHg. The calculated aortic valve area is 1.1 cm2. The severity ratio is 0.34 compared to 0.37 previously. There is trace aortic regurgitation. Tricuspid Valve: The tricuspid valve leaflets are thin and pliable. There is moderate to severe tricuspid regurgitation. This is slightly less prominent compared to the previous study. The right ventricular systolic pressure is estimated to be at least 28-33 mmHg based on an estimated right atrial pressure of 8 mm Hg. This is unchanged compared to the previous study. Pulmonic Valve: The pulmonic valve leaflets are thin and pliable; valve motion is normal. There is trace pulmonic regurgitation. Great Vessels: The aortic root is normal size. The ascending aorta is mildly enlarged. This is unchanged compared to the previous study. The IVC is dilated (diameter is greater than 2.1 cm) yet it collapses greater than 50% with a sniff. This suggests a right atrial pressure of 8 mm Hg. Pericardium/ Pleura There is no pericardial effusion. There is no pleural effusion. MMode/2D Measurements & Calculations LVIDd: 3.9 cm LVOT diam: 1.9 cm LVIDs: 2.8 cm Ao root diam: 3.2 cm FS: 29.9 % asc Aorta Diam: 3.7 cm EPSS: 0.74 cm Ao Arch Diam (Prox Trans): 2.7 cm IVSd: 1.1 cm LVPWd: 0.99 cm LV fuller. diameter/BSA (cm/m^2): 2.5 LV sys. diameter/BSA (cm/m^2): 1.7 LA A2 area: 25.5 cm2 RA long axis: 7.0 cm LA A4 area: 27.7 cm2 RA area: 31.5 cm2 LA length (vol): 6.7 cm RA vol: 120.1 ml LA vol: 89.8 ml RA : 75.0 ml/m2 LA vol index: 56.0 ml/m2 IVC diam: 2.2 cm RVD1 (basal): 3.1 cm TAPSE: 1.8 cm Doppler Measurements & Calculations Ao V2 max: 157.5 cm/sec LVOT Max Leo: 56.4 cm/sec Ao V2 mean: 110.6 cm/sec LV V1 max P.3 mmHg Ao max P.9 mmHg LV V1 VTI: 10.6 cm Ao mean P.5 mmHg DANITA(I,D): 0.99 cm2 Ao V2 VTI: 31.4 cm DANITA(V,D): 1.1 cm2 sev ratio: 0.34 DANITA indexed to BSA (cm^2/m^2): 0.62 MV E max leo: 69.9 cm/sec TR max leo: 249.6 cm/sec MV A max leo: 2.2 cm/sec TR max P.9 mmHg MV E/A: 31.1 PA V2 max: 76.9 cm/sec Med Peak E' Leo: 8.0 cm/sec PA V2 mean: 52.4 cm/sec E/E' med: 8.8 PA mean P.3 mmHg Lat Peak E' Leo: 12.4 cm/sec PA pr(Accel): 41.3 mmHg E/E' lat: 5.6 E/e' average: 7.2 MV dec time: 0.17 sec SV(LVOT): 31.0 ml Reading Physician:01:12 PM
== END ==
PROVIDERS: Family Provider Family Medicine; PCP Family Medicine; Referring Provider Family Medicine; Visit Provider Specialist
DX: I08.1 Rheumatic disorders of both mitral and tricuspid valves (principal); I77.89 Other specified disorders of arteries and arterioles; Z95.0 Presence of cardiac pacemaker
CPT/HCPCS: 93306

== ENCOUNTER → 2022-02-27 12:31 | Outpatient (CLI) | payer MEDICARE, OTHER, SELFPAY ==
[2019-07-31 01:53] VITALS: BMI 21.9
--- NOTE | 2022-02-27 12:35 | DI.ECHO.S_ITS ---
[facility]---------+ [facility] +---------+ : : [address] : : : : [id number] : : : : Phone: [phone]---------+ Echocardiogram Report + + :Name: ANNIE JOYCE Study Date: 02/27/2022 Height: 62 in : :[facility] ReadingLocation: Weight: 132 lb : : Gender: Male BSA: 1.6 m2 : :: 1935 Age: 86 yrs BP: 144/90 mmHg: :Reason For Study: NONRHEUMATIC TRICUSPID VALVE INSUFFICIENCY : :Ordering Physician: NINA, : :MYLES Performed By: Niesha Presley : :Referring: MYLES WOOD : + + Interpretation Summary Left ventricular systolic function remains normal with an estimated ejection fraction of 55 to 60% without any regional wall motion abnormality and appears unchanged from the previous study. Diastolic function remains challenging to assess but is likely unchanged from the previous exam. The right ventricle is mildly enlarged and mildly hypokinetic and appears slightly larger and less dynamic compared to the previous study. Right ventricular systolic pressure is estimated at 43 mmHg with a CVP of 8 mmHg, and is likely slightly higher compared to the previous exam. There is severe biatrial enlargement that is unchanged from the previous study. There is mild to moderate mitral valve regurgitation that appears unchanged. There is probable severe tricuspid regurgitation with hepatic vein systolic flow reversal and is likely unchanged from the previous exam. There is aortic valve calcific sclerosis with trivial aortic regurgitation but no aortic stenosis. The ascending aorta remains enlarged at 3.7 cm but is unchanged from the previous exam. Procedure: A two-dimensional transthoracic echocardiogram with color flow and Doppler was performed. The study quality was technically adequate. Comparison is made with the echocardiogram of 11/22/2020. The patient has a paced rhythm. The heart rate ranged between 60-83 bpm during the study. Left Ventricle: The left ventricle is normal in size and wall thickness. This is unchanged compared to the previous study. The ejection fraction is estimated to be 55-60%. Left ventricular systolic function appears normal without focal wall motion abnormalities. There is a mild dyssynchronous contraction pattern due to the paced rhythm. Diastolic function could not be accurately assessed due to atrial fibrillation. This is unchanged compared to the previous study. Right Ventricle: The right ventricle is mildly dilated. There is a pacemaker lead in the right ventricle. Right ventricular systolic function is mildly reduced. This is slightly larger and slightly less dynamic compared to the previous study. Atria: The left atrium is severely dilated. The right atrium is severely dilated. This is unchanged compared to the previous study. There is a catheter/pacemaker lead seen in the right atrium. The interatrial septum grossly appears intact with no obvious evidence for an atrial septal defect. There is no Doppler evidence for an interatrial shunt. Mitral Valve: The mitral valve leaflets appear moderately thickened, but open well. There is mild mitral annular calcification. There is mild to moderate mitral regurgitation. There is an eccentric jet of mitral regurgitation that is directed posteriorly. This is unchanged compared to the previous study. Aortic Valve: The aortic valve is trileaflet. There is moderate aortic valve sclerosis. The aortic valve is moderately calcified. There is mildly reduced leaflet mobility. There is no hemodynamically significant valvular aortic stenosis. There is trace aortic regurgitation. Tricuspid Valve: The tricuspid valve leaflets are thin and pliable. There is severe tricuspid regurgitation. This is likely unchanged compared to the previous study. The right ventricular systolic pressure is estimated to be at least 43 mmHg based on an estimated right atrial pressure of 8 mm Hg. This is likely higher compared to the previous study. Pulmonic Valve: The pulmonic valve leaflets are thin and pliable; valve motion is normal. There is trace pulmonic regurgitation. Great Vessels: The aortic root is normal size. The ascending aorta is mildly enlarged. This is unchanged compared to the previous study. The IVC is of normal diameter and collapses less than 50% with a sniff. This suggests a right atrial pressure of 8 mm Hg. Pericardium/ Pleura There is no pericardial effusion. There is no pleural effusion. MMode/2D Measurements & Calculations LVIDd: 3.9 cm LVOT diam: 2.1 cm LVIDs: 2.9 cm Ao root diam: 3.2 cm FS: 24.7 % asc Aorta Diam: 3.7 cm EPSS: 0.65 cm IVSd: 0.92 cm LVPWd: 0.98 cm LV fuller. diameter/BSA (cm/m^2): 2.4 LV sys. diameter/BSA (cm/m^2): 1.8 LA A2 area: 25.0 cm2 RA long axis: 6.9 cm LA A4 area: 27.6 cm2 RA area: 30.2 cm2 LA length (vol): 6.7 cm RA vol: 111.8 ml LA vol: 87.2 ml RA : 69.8 ml/m2 LA vol index: 54.4 ml/m2 IVC diam: 1.9 cm RVD1 (basal): 4.2 cm RVD2 (mid): 3.0 cm TAPSE: 1.6 cm Doppler Measurements & Calculations Ao V2 max: 144.1 cm/sec LVOT Max Leo: 54.5 cm/sec Ao V2 mean: 106.2 cm/sec LV V1 max P.2 mmHg Ao max P.3 mmHg LV V1 VTI: 11.5 cm Ao mean P.0 mmHg DANITA(I,D): 1.2 cm2 Ao V2 VTI: 31.1 cm DANITA(V,D): 1.3 cm2 sev ratio: 0.37 DANITA indexed to BSA (cm^2/m^2): 0.77 MV E max leo: 67.6 cm/sec TR max leo: 294.0 cm/sec MV A max leo: 12.3 cm/sec TR max P.6 mmHg MV E/A: 5.5 PA V2 max: 78.7 cm/sec Med Peak E' Leo: 8.9 cm/sec PA V2 mean: 56.9 cm/sec E/E' med: 7.6 PA mean P.4 mmHg Lat Peak E' Leo: 11.3 cm/sec PA pr(Accel): 39.6 mmHg E/E' lat: 6.0 E/e' average: 6.8 MV dec time: 0.24 sec SV(LVOT): 38.5 ml Reading Physician:[id number] PM
== END ==
PROVIDERS: Family Provider Family Medicine; PCP Family Medicine; Visit Provider Specialist
DX: I08.3 Combined rheumatic disorders of mitral, aortic and tricuspid valves (principal); I77.89 Other specified disorders of arteries and arterioles; Z95.0 Presence of cardiac pacemaker
CPT/HCPCS: 93306

== ENCOUNTER 2022-10-31 11:44 | Emergency (ER) | payer MEDICARE, OTHER, SELFPAY ==
[2019-07-31 01:53] VITALS: BMI 21.9
[2022-10-31] VITALS (12 sets, daily range): BP systolic 113–175; BP diastolic 67–87; PULSE 64–93; RESP 15–23; TEMP 36.4; O2SAT 98–100
--- NOTE | 2022-10-31 12:07 | DI.RAD.S_ITS ---
PROCEDURE: XR CHEST 1V INDICATIONS: chest pain TECHNIQUE: One view of the chest was acquired. COMPARISON: [facility], CT, CT ANGIO HEAD AND NECK, 10/31/2022, 12:47. [facility], CR, XR CHEST 2V, 05/03/2020, 12:59. [facility], CR, CHEST 1 VIEW, 05/22/2017, 12:04. FINDINGS: Surgical changes and devices: Cervical spine hardware. Left pacemaker with right atrial and right ventricular leads. Lungs and pleura: Lungs are clear. No pleural effusions or pneumothorax. Mediastinum: Mediastinal contours appear unchanged. Heart size is normal. Bones and chest wall: No suspicious bony lesions. Right shoulder DJD. Overlying soft tissues appear unremarkable. IMPRESSION: No acute cardiopulmonary abnormality. Dictated by: Ray Olivia M.D. on 10/31/2022 at 13:59 Approved by: Ray Olivia M.D. on 10/31/2022 at 14:00
--- NOTE | 2022-10-31 12:08 | DI.CT.S_ITS ---
PROCEDURE: CT ANGIO HEAD AND NECK INDICATIONS: confusion since last night TECHNIQUE: Pre-contrast 4.5 mm thick sections acquired from the foramen magnum to the vertex. After the administration of intravenous contrast, 1 mm thick sections acquired from the aortic arch through the [place] of [place]. Post-contrast 4.5 mm thick sections then re-acquired from the foramen magnum to the vertex. 3-dimensional uugsnrc-ihoxikekt-eskbxnumcr (MIP) and/or volume rendering reformats were acquired of the central intracranial vasculature and neck separately. For radiation dose reduction, the following was used: automated exposure control, adjustment of mA and/or kV according to patient size. COMPARISON: [facility], MR, STROKE PROTOCOL A, 03/26/2010, 19:35. [facility], CT, CT HEAD/BRAIN WO CON, 10/07/2018, 18:37. [facility], CT, CT HEAD/BRAIN WO CON, 10/17/2018, 17:34. FINDINGS: Image quality: Mild streak artifact can be seen through the skull base. BRAIN: CSF spaces: Ventricles are normal in size and shape. Basal cisterns are patent. No extra-axial fluid collections. Brain: No midline shift. No intracranial bleeds or masses. Araujo-white matter interface appears intact. Skull and face: Calvarium and facial bones appear intact, without suspicious lesions. Orbits appear normal. Sinuses: Sinuses and mastoids are clear. HEAD CT ANGIOGRAPHY: Anterior circulation: Intracranial internal carotid arteries are normal in size and flow. There is a diminutive left A1 segment, with a corresponding robust right A1 segment. This is considered to be a normal developmental variant of the [place], of typically no clinical consequence. The flow within the paired anterior cerebral arteries is otherwise within normal limits. The flow within the middle cerebral arteries is normal and symmetric, with note made of focal atherosclerotic calcification of the right M1 segment, as on series 9, image 89. The anterior communicating artery is seen. No aneurysms are seen. Posterior circulation: The right V4 segment is within normal limits. The left V4 segment largely terminates in the left posterior inferior cerebellar artery. There is a normal appearing basilar artery. Flow within the posterior cerebral arteries is normal and symmetric. No aneurysms are seen. NECK CT ANGIOGRAPHY: Carotid system: Atherosclerotic calcification is noted. The great vessels demonstrate a conventional anatomy as they arise from the aortic arch. The origins of the common carotid arteries appear patent. The common carotid arteries demonstrate normal caliber and courses. The bifurcation regions demonstrate generalized atherosclerotic irregularity and calcification, yet without a hemodynamically significant stenosis. The more distal internal carotid arteries demonstrate normal course and caliber. Posterior circulation: The origins of the vertebral arteries both appear widely patent. The more superior extracranial portions of both vertebral arteries also demonstrate normal courses and calibers. The right vertebral artery is dominant to the left. Soft tissues: Visualized neck soft tissues demonstrate no suspicious abnormalities. A left-sided pacer device is seen. Bones: No suspicious bony lesions. Visualized cervical spine appears normally aligned. Extensive postoperative and degenerative changes can be seen of the cervical spine. IMPRESSION: No acute intracranial process is seen. No significant intracranial arterial abnormality is seen. Within the arteries of the neck, no hemodynamically significant stenosis can be seen. Additional findings: Cdysns-ju-[id number] developmental anomalies Extensive cervical spine postoperative and degenerative change. Any quantitative measurements of stenosis were performed using NASCET criteria. Dictated by: Aldo Henry M.D. on 10/31/2022 at 12:25 Approved by: Aldo Henry M.D. on 10/31/2022 at 12:30
[2022-10-31 12:17] LABS: Add Manual Diff / Slide Review NO; Basophils Absolute Auto 100 /uL (0-100); Basophils Percent Auto 0.9 % (0-2); Eosinophils Absolute Auto 400 /uL (0-450); Eosinophils Percent Auto 6.5 % (2-4); Hematocrit 38.7 % (41-53); Lymphocytes Absolute Auto 1000 /uL (1100-4500); Lymphocytes Percent Auto 17.8 % (25-40); Mean Corpuscular HGB Conc 33.7 % (30-36); Mean Corpuscular Hemoglobin 32.7 PG (26-34); Monocytes Absolute Auto 500 /uL (0-900); Monocytes Percent Auto 9.1 % (3-14); Neutrophils Absolute Auto 3800 /uL (1500-7000); Neutrophils Percent Auto 65.7 % (50-75); Platelet Count 169 X10^3/uL (150-400); Red Blood Cell Count 3.98 X10^6/uL (4.5-5.9); Red Cell Distribution Width 14.4 % (11.6-14.8); White Blood Cell Count 5.8 X10^3/uL (4.5-11.0)
[2022-10-31 12:37] LABS: Alanine Aminotransferase 21 IU/L (<50); Albumin Globulin Ratio 1.3 (1.0-2.8); Alkaline Phosphatase 83 U/L (38-126); Aspartate Aminotransferase 30 IU/L (17-59); BUN Creatinine Ratio 23.6 (6-22); Blood Urea Nitrogen 29 mg/dL (9-20); Calcium 9.9 mg/dL (8.4-10.2); Carbon Dioxide 27 mmol/L (22-32); Chloride 99 mmol/L (98-107); Creatine Kinase 112 U/L (55-170); Estimated Glomerular Filt Rate 57 mL/min (>60); Glucose 145 mg/dL (80-110); Lactate (Lactic Acid) 2.6 mmol/L (0.7-2.1); Lipase 379 U/L (23-300); Potassium 4.7 mmol/L (3.4-5.1); Sodium 137 mmol/L (137-145)
[2022-10-31 12:38] LABS: HEMOLYSIS 56 (0-50)
--- NOTE | 2022-10-31 12:41 | ED.NEUROSD ---
HPI - Neuro Symptoms/Deficit General Chief Complaint: Neuro Symptoms/Deficit Stated Complaint: sent by DR oliva he had a stroke Time Seen by Provider: 10/31/22 12:07 Source: family Mode of arrival: Ambulatory History of Present Illness HPI Narrative: Patient 87-year-old male history of atrial fibrillation on warfarin, presents today with confusion that started last night. states that he may have some confusion however last night it got significantly worse seems to remain the same today. No fever chills he does not of any chest pain or shortness of breath. He is able to follow commands but is confused. No abdominal pain no nausea or vomiting. He apparently was sent here by his PCP for rule out of stroke On Anticoagulants: Yes Related Data Home Medications Medication Instructions Recorded Confirmed warfarin 1 mg tablet 1.5 mg PO SEEINSTR ##0 08/27/11 07/31/19 fluticasone propionate 50 2 spray intranasal BID ##0 09/05/11 07/31/19 mcg/actuation nasal spray,suspension (Flonase Allergy Relief) alfuzosin 10 mg tablet,extended 10 mg PO QDAY ##0 05/22/17 07/31/19 release 24 hr (Uroxatral) atorvastatin 10 mg tablet 10 mg PO BEDTIME 07/31/19 07/31/19 calcium carbonate 500 mg-vitamin 1 tab PO BID 07/31/19 07/31/19 D3 10 mcg (400 unit) tablet (Calcium 500 + D) cholecalciferol (vitamin D3) 25 1,000 unit PO DAILY 07/31/19 07/31/19 mcg (1,000 unit) capsule (Vitamin D3) cyanocobalamin (vitamin B-12) 100 100 mcg PO BID 07/31/19 07/31/19 mcg tablet (Vitamin B-12) ferrous sulfate 324 mg (65 mg 324 mg PO DAILY 07/31/19 07/31/19 iron) tablet,delayed release glucosam 750 mg-chondroi 100 2 tab PO DAILY 07/31/19 07/31/19 mg-hyalur 1.65 mg-CF borate 108 mg tablet (Move Free [email or web address]) magnesium citrate 100 mg tablet 500 mg PO BID 07/31/19 07/31/19 metformin 1,000 mg tablet 1,000 mg PO BID 07/31/19 07/31/19 metoprolol succinate 25 mg 75 mg PO DAILY 07/31/19 07/31/19 tablet,extended release 24 hr warfarin 3 mg tablet 3 mg PO SEEINSTR 07/31/19 07/31/19 Allergies Allergy/AdvReac Type Severity Reaction Status Date / Time amiodarone [AMIODARONE] Allergy Severe FACIAL Verified 07/30/19 17:47 SWELLING codeine [CODEINE] AdvReac Intermediate N/V Verified 07/30/19 17:47 hydromorphone [HYDROMORPHONE] AdvReac Intermediate N/V Verified 07/30/19 17:47 oxycodone [OXYCODONE] AdvReac Intermediate N/V Verified 07/30/19 17:47 latex [LATEX] AdvReac Mild RASH Verified 07/30/19 17:47 Review of Systems Review of Systems ROS Unobtainable: All systems reviewed & are unremarkable except as noted in HPI and below Hematologic/Lymphatic On Anticoagulants: Yes Patient History Medical History (Updated 10/31/22 @ 15:38 by Lou Ramírez DO) Atrial fibrillation Hyperglycemia Hypertension Migraines Pacemaker Social History household members: spouse Smoking Status: Never smoker Smoking Status: Never smoker alcohol intake frequency: 0-2 drinks per day Substance Use Type: does not use Exam Initial Vital Signs Initial Vital Signs: Vital Signs Temperature 97.6 F 10/31/22 11:55 Pulse Rate 80 10/31/22 11:55 Respiratory Rate 16 10/31/22 11:55 Blood Pressure 139/74 10/31/22 11:55 Pulse Oximetry 98 10/31/22 11:55 Oxygen Delivery Method Room Air 10/31/22 11:55 GENERAL: Alert pleasantly confused 87-year-old male and in no acute distress. HEENT: Head atraumatic,EOMI, pupils reactive, face symmetric, moist mucous membranes CARDIOVASCULAR: Regular rate and rhythm without murmurs, rubs or gallops. RESPIRATORY: Breath sounds equal bilaterally, no wheezes rales or rhonchi. ABDOMEN: Soft, nontender. Normoactive bowel sounds all 4 quadrants. No guarding or rebound. EXTREMITIES: Normal range of motion, no clubbing or edema. Neurovascularly intact NEUROLOGICAL: Alert and oriented x1.Normal gait and speech. Cranial nerves II through XII grossly intact. Good pkahcg-bl-mebg, good iryd-ml-tegp, strength equal bilaterally, no dysarthria or aphasia, sensation in tact to soft touch bilaterally, no visual changes, no facial droop SKIN: Warm, dry, no laceration, no petechiae, no rashes or lesions. Course Orders Ordered: ED Orders 10/31/22 12:02 EKG-12 Lead Stat 10/31/22 12:05 Complete Blood Count AUTO DIFF Stat Comprehensive Metabolic Panel Stat Lactate (Lactic Acid) Stat Lipase Stat PTT Partial Thromboplastin Chavez Stat Procalcitonin Stat Prothrombin Time INR Stat Troponin & CK Cardiac Panel Stat 10/31/22 12:07 XR chest 1V Stat 10/31/22 12:08 CT angio head and neck Stat 10/31/22 12:30 Blood Culture Stat 10/31/22 13:52 Urinalysis and Microscopic Stat Discontinued Medications Sodium Chloride (Normal Saline 0.9%) 1,000 mls @ 150 mls/hr IV CONT ROLY Last Infusion: 10/31/22 16:00 Dose: 0 mls/hr Documented By: Admin: 10/31/22 13:43 Dose: 150 mls/hr Documented By: DONALD Vital Signs Vital signs: Vital Signs - 8 hr 10/31/22 11:55 10/31/22 11:55 10/31/22 12:00 Temperature 97.6 F Pulse Rate 80 78 82 Respiratory Rate 16 18 18 Blood Pressure 139/74 Pulse Oximetry 98 99 99 Oxygen Delivery Method Room Air 10/31/22 12:30 10/31/22 12:30 10/31/22 13:00 Temperature Pulse Rate 72 68 Respiratory Rate 17 15 Blood Pressure 121/68 Pulse Oximetry 98 100 Oxygen Delivery Method Room Air 10/31/22 13:30 10/31/22 13:47 10/31/22 13:47 Temperature Pulse Rate 69 64 Respiratory Rate 23 16 Blood Pressure 113/71 Pulse Oximetry 100 100 Oxygen Delivery Method 10/31/22 14:00 10/31/22 14:00 10/31/22 14:30 Temperature Pulse Rate 70 Respiratory Rate 15 Blood Pressure 123/67 124/87 Pulse Oximetry 100 Oxygen Delivery Method 10/31/22 14:30 10/31/22 15:00 10/31/22 15:00 Temperature Pulse Rate 73 77 Respiratory Rate 17 17 Blood Pressure 136/80 Pulse Oximetry 100 99 Oxygen Delivery Method 10/31/22 15:21 10/31/22 15:21 10/31/22 15:30 Temperature Pulse Rate 93 H Respiratory Rate 22 Blood Pressure 175/77 H 134/72 Pulse Oximetry Oxygen Delivery Method 10/31/22 15:30 10/31/22 16:00 Temperature Pulse Rate 78 79 Respiratory Rate 15 19 Blood Pressure Pulse Oximetry 98 Oxygen Delivery Method MDM - Neuro Symptoms/Deficit Lab Data 10/31/22 12:05 10/31/22 12:05 Labs: Lab Results 10/31/22 10/31/22 10/31/22 Range/Units 12:05 12:05 12:05 WBC 5.8 (4.5-11.0) X10^3/uL RBC 3.98 L (4.5-5.9) X10^6/uL Hgb 13.0 L (13.5-17.5) g/dL Hct 38.7 L (41-53) % MCV 97.0 (80-100) fL MCH 32.7 (26-34) PG MCHC 33.7 (30-36) % RDW 14.4 (11.6-14.8) % Plt Count 169 (150-400) X10^3/uL Neut % (Auto) 65.7 (50-75) % Lymph % (Auto) 17.8 L (25-40) % [place] % (Auto) 9.1 (3-14) % Eos % (Auto) 6.5 H (2-4) % Baso % (Auto) 0.9 (0-2) % Neut # (Auto) 3800 (6907-7798) /uL Lymph # (Auto) 1000 L (4651-7549) /uL [place] # (Auto) 500 (0-900) /uL Eos # (Auto) 400 (0-450) /uL Baso # (Auto) 100 (0-100) /uL PT 21.0 H (10.1-12.7) SECONDS INR 1.8 H (0.9-1.3) APTT 40 H (26-36) SECONDS Sodium 137 (137-145) mmol/L Potassium 4.7 (3.4-5.1) mmol/L Chloride 99 (98-107) mmol/L Carbon Dioxide 27 (22-32) mmol/L BUN 29 H (9-20) mg/dL Creatinine 1.23 (0.66-1.25) mg/dL Estimated GFR 57 L (>60) mL/min BUN/Creatinine Ratio 23.6 H (6-22) Glucose 145 H (80-110) mg/dL Lactate (0.7-2.1) mmol/L Calcium 9.9 (8.4-10.2) mg/dL Total Bilirubin 1.0 (0.2-1.3) mg/dL AST 30 (17-59) IU/L ALT 21 (<50) IU/L Alkaline Phosphatase 83 (38-126) U/L Total Creatine Kinase 112 (55-170) U/L CK-MB (CK-2) 1.33 (<2.37) ng/mL CK-MB (CK-2) Rel Index 1.2 L (1.5-5.0) % Troponin I < 0.012 (0.01-0.034) ng/mL Total Protein 9.0 H (6.3-8.2) g/dL Albumin 5.0 (3.5-5.0) g/dL Globulin 4.0 (1.7-4.1) g/dL Albumin/Globulin Ratio 1.3 (1.0-2.8) Lipase 379 H (23-300) U/L Procalcitonin (<0.5) ng/mL Urine Color Urine Appearance Urine pH (4.5-8.0) Ur Specific [place] (1.000-1.035) Urine Protein (Negative) Urine Glucose (UA) (Negative) g/dL Urine Ketones (NEGATIVE) Urine Occult Blood (Negative) Urine Nitrate (Negative) Urine Bilirubin (NEGATIVE) Urine Urobilinogen (0.2) E.U./dL Ur Leukocyte Esterase (NEGATIVE) Urine RBC (0-5/HPF) Urine WBC (0-5/HPF) Urine Bacteria (None) Ur Culture Indicated? 10/31/22 10/31/22 10/31/22 Range/Units 12:05 12:05 13:52 WBC (4.5-11.0) X10^3/uL RBC (4.5-5.9) X10^6/uL Hgb (13.5-17.5) g/dL Hct (41-53) % MCV (80-100) fL MCH (26-34) PG MCHC (30-36) % RDW (11.6-14.8) % Plt Count (150-400) X10^3/uL Neut % (Auto) (50-75) % Lymph % (Auto) (25-40) % [place] % (Auto) (3-14) % Eos % (Auto) (2-4) % Baso % (Auto) (0-2) % Neut # (Auto) (0610-3186) /uL Lymph # (Auto) (3410-4405) /uL [place] # (Auto) (0-900) /uL Eos # (Auto) (0-450) /uL Baso # (Auto) (0-100) /uL PT (10.1-12.7) SECONDS INR (0.9-1.3) APTT (26-36) SECONDS Sodium (137-145) mmol/L Potassium (3.4-5.1) mmol/L Chloride (98-107) mmol/L Carbon Dioxide (22-32) mmol/L BUN (9-20) mg/dL Creatinine (0.66-1.25) mg/dL Estimated GFR (>60) mL/min BUN/Creatinine Ratio (6-22) Glucose (80-110) mg/dL Lactate 2.6 H (0.7-2.1) mmol/L Calcium (8.4-10.2) mg/dL Total Bilirubin (0.2-1.3) mg/dL AST (17-59) IU/L ALT (<50) IU/L Alkaline Phosphatase (38-126) U/L Total Creatine Kinase (55-170) U/L CK-MB (CK-2) (<2.37) ng/mL CK-MB (CK-2) Rel Index (1.5-5.0) % Troponin I (0.01-0.034) ng/mL Total Protein (6.3-8.2) g/dL Albumin (3.5-5.0) g/dL Globulin (1.7-4.1) g/dL Albumin/Globulin Ratio (1.0-2.8) Lipase (23-300) U/L Procalcitonin 0.04 (<0.5) ng/mL Urine Color Yellow Urine Appearance Clear Urine pH 6.0 (4.5-8.0) Ur Specific [place] <=1.005 (1.000-1.035) Urine Protein Negative (Negative) Urine Glucose (UA) Negative (Negative) g/dL Urine Ketones Negative (NEGATIVE) Urine Occult Blood Negative (Negative) Urine Nitrate Negative (Negative) Urine Bilirubin Negative (NEGATIVE) Urine Urobilinogen 0.2 (0.2) E.U./dL Ur Leukocyte Esterase Negative (NEGATIVE) Urine RBC None seen (0-5/HPF) Urine WBC None seen (0-5/HPF) Urine Bacteria None seen (None) Ur Culture Indicated? Cult not indicated 10/31/22 Range/Units 15:02 WBC (4.5-11.0) X10^3/uL RBC (4.5-5.9) X10^6/uL Hgb (13.5-17.5) g/dL Hct (41-53) % MCV (80-100) fL MCH (26-34) PG MCHC (30-36) % RDW (11.6-14.8) % Plt Count (150-400) X10^3/uL Neut % (Auto) (50-75) % Lymph % (Auto) (25-40) % [place] % (Auto) (3-14) % Eos % (Auto) (2-4) % Baso % (Auto) (0-2) % Neut # (Auto) (8096-6856) /uL Lymph # (Auto) (7012-8480) /uL [place] # (Auto) (0-900) /uL Eos # (Auto) (0-450) /uL Baso # (Auto) (0-100) /uL PT (10.1-12.7) SECONDS INR (0.9-1.3) APTT (26-36) SECONDS Sodium (137-145) mmol/L Potassium (3.4-5.1) mmol/L Chloride (98-107) mmol/L Carbon Dioxide (22-32) mmol/L BUN (9-20) mg/dL Creatinine (0.66-1.25) mg/dL Estimated GFR (>60) mL/min BUN/Creatinine Ratio (6-22) Glucose (80-110) mg/dL Lactate 1.5 (0.7-2.1) mmol/L Calcium (8.4-10.2) mg/dL Total Bilirubin (0.2-1.3) mg/dL AST (17-59) IU/L ALT (<50) IU/L Alkaline Phosphatase (38-126) U/L Total Creatine Kinase (55-170) U/L CK-MB (CK-2) (<2.37) ng/mL CK-MB (CK-2) Rel Index (1.5-5.0) % Troponin I (0.01-0.034) ng/mL Total Protein (6.3-8.2) g/dL Albumin (3.5-5.0) g/dL Globulin (1.7-4.1) g/dL Albumin/Globulin Ratio (1.0-2.8) Lipase (23-300) U/L Procalcitonin (<0.5) ng/mL Urine Color Urine Appearance Urine pH (4.5-8.0) Ur Specific [place] (1.000-1.035) Urine Protein (Negative) Urine Glucose (UA) (Negative) g/dL Urine Ketones (NEGATIVE) Urine Occult Blood (Negative) Urine Nitrate (Negative) Urine Bilirubin (NEGATIVE) Urine Urobilinogen (0.2) E.U./dL Ur Leukocyte Esterase (NEGATIVE) Urine RBC (0-5/HPF) Urine WBC (0-5/HPF) Urine Bacteria (None) Ur Culture Indicated? Imaging Data CTA - brain/neck: Radiologist's Impression: PROCEDURE:? CT ANGIO HEAD AND NECK ? INDICATIONS:? confusion since last night ? TECHNIQUE:? Pre-contrast 4.5 mm thick sections acquired from the foramen magnum to the vertex.? After the administration of intravenous contrast, 1 mm thick sections acquired from the aortic arch through the [place] of [place].? Post-contrast 4.5 mm thick sections then re-acquired from the foramen magnum to the vertex.? 3-dimensional rrwoyws-qzxncflfe-ssihyuobtp (MIP) and/or volume rendering reformats were acquired of the central intracranial vasculature and neck separately. For radiation dose reduction, the following was used:? automated exposure control, adjustment of mA and/or kV according to patient size.? ? COMPARISON:? [facility], MR, STROKE PROTOCOL A, 03/26/2010, 19:35.? [facility], CT, CT HEAD/BRAIN WO CON, 10/07/2018, 18:37.? [facility], CT, CT HEAD/BRAIN WO CON, 10/17/2018, 17:34. ? FINDINGS:? Image quality:? Mild streak artifact can be seen through the skull base. ? BRAIN:? CSF spaces:? Ventricles are normal in size and shape.? Basal cisterns are patent.? No extra-axial fluid collections.? ? Brain:? No midline shift.? No intracranial bleeds or masses.? [place]-white matter interface appears intact.? ? Skull and face:? Calvarium and facial bones appear intact, without suspicious lesions.? Orbits appear normal.? ? Sinuses:? Sinuses and mastoids are clear.? ? HEAD CT ANGIOGRAPHY:? Anterior circulation:? Intracranial internal carotid arteries are normal in size and flow.? There is a diminutive left A1 segment, with a corresponding robust right A1 segment.? This is considered to be a normal developmental variant of the [place] of [place], of typically no clinical consequence.? The flow within the paired anterior cerebral arteries is otherwise within normal limits.? The flow within the middle cerebral arteries is normal and symmetric, with note made of focal atherosclerotic calcification of the right M1 segment, as on series 9, image 89.? The anterior communicating artery is seen.? No aneurysms are seen.? ? Posterior circulation:? The right V4 segment is within normal limits.? The left V4 segment largely terminates in the left posterior inferior cerebellar artery.? There is a normal appearing basilar artery. Flow within the posterior cerebral arteries is normal and symmetric.? No aneurysms are seen.? ? NECK CT ANGIOGRAPHY:? Carotid system:? Atherosclerotic calcification is noted.? The great vessels demonstrate a conventional anatomy as they arise from the aortic arch.? The origins of the common carotid arteries appear patent.? The common carotid arteries demonstrate normal caliber and courses.? The bifurcation regions demonstrate generalized atherosclerotic irregularity and calcification, yet without a hemodynamically significant stenosis. The more distal internal carotid arteries demonstrate normal course and caliber.? ? Posterior circulation:? The origins of the vertebral arteries both appear widely patent.? The more superior extracranial portions of both vertebral arteries also demonstrate normal courses and calibers.? The right vertebral artery is dominant to the left. ? Soft tissues:? Visualized neck soft tissues demonstrate no suspicious abnormalities.? A left-sided pacer device is seen. ? Bones:? No suspicious bony lesions.? Visualized cervical spine appears normally aligned.? Extensive postoperative and degenerative changes can be seen of the cervical spine. ? ? IMPRESSION:? ? No acute intracranial process is seen.? ? No significant intracranial arterial abnormality is seen.? ? Within the arteries of the neck, no hemodynamically significant stenosis can be seen. ? Additional findings:? Mbcssl-ub-[id number] developmental anomalies Extensive cervical spine postoperative and degenerative change.? ? Any quantitative measurements of stenosis were performed using NASCET criteria.? ? ? Dictated by: Aldo Henry M.D. on 10/31/2022 at 12:25 ? ? Approved by: Aldo Henry M.D. on 10/31/2022 at 12:30 ? Chest x-ray: Radiologist's Impression: PROCEDURE:? XR CHEST 1V ? INDICATIONS:? chest pain ? TECHNIQUE:? One view of the chest was acquired.? ? COMPARISON:? [facility], CT, CT ANGIO HEAD AND NECK, 10/31/2022, 12:47.? [facility], CR, XR CHEST 2V, 05/03/2020, 12:59.? [facility], CR, CHEST 1 VIEW, 05/22/2017, 12:04. ? FINDINGS:? ? Surgical changes and devices:? Cervical spine hardware.? Left pacemaker with right atrial and right ventricular leads. ? Lungs and pleura:? Lungs are clear.? No pleural effusions or pneumothorax.? ? Mediastinum:? Mediastinal contours appear unchanged.? Heart size is normal.? ? Bones and chest wall:? No suspicious bony lesions.? Right shoulder DJD.? Overlying soft tissues appear unremarkable.? ? IMPRESSION:? No acute cardiopulmonary abnormality. ? ? ? Dictated by: Ray Olivia M.D. on 10/31/2022 at 13:59 ? ? ECG Data Interpretation: Atrial fibrillation rate 78 ST depression and T-wave inversion noted in lead [address] elevations previous EKG showed a paced rhythm. That was 2017 reports that he still has a pacemaker. [facility] Narrative Medical decision making narrative: Patient 87-year-old male who actually does have some cognitive deficits presenting today with increased confusion. I called and spoke with Dr. Cho who sent him here concern for worsening confusion he apparently woke up and did not recognize his . On the chart there is diagnosis of memory and cognition impairment. Today he has no focal deficits he is confused about time and place. CT angio is negative chest x-ray is negative no leukocytosis no electrolyte abnormality no sign of infection. Lactate however is mildly elevated at 2.6 but improves with some mild fluids 1 point. Not significantly concerned for acute CVA this is probably worsening of disease dementia I do not see reason to admit to hospital at this time. Recommend outpatient follow-up. Discharge Plan Departure Patient Disposition: Home Clinical Impression: Dementia Instructions: Dementia Activity Restrictions/Additional Instructions: *You have been diagnosed with dementia *What to do: This time I do not find any evidence of infection. CT was negative *Continue to take medications as directed *Follow up with your primary care provider in 2-3 days or call [phone] *Return to ER if you should have increased confusion weakness numbness tingling facial droop or any new, worsening or concerning symptoms Prescriptions: No Action warfarin 1 MG tablet 1.5 mg PO SEEINSTR Qty: 0 Patient Comments: Takes 1.5 mg on Tuesdays and Saturdays fluticasone propionate [Flonase Allergy Relief] 9.9 ML spray,suspension 2 spray Intranasal BID Qty: 0 alfuzosin [Uroxatral] 10 MG tablet extended release 24 hr 10 mg PO QDAY Qty: 0 [facility] 750 mg-100 mg- 1.65 mg-108 mg Tablet 2 tab PO DAILY cholecalciferol (vitamin D3) [Vitamin D3] 1,000 unit Capsule 1,000 unit PO DAILY cyanocobalamin (vitamin B-12) [Vitamin B-12] 100 mcg Tablet 100 mcg PO BID magnesium citrate 100 mg Tablet 500 mg PO BID metoprolol succinate 25 mg Tablet Extended Release 24 Hr 75 mg PO DAILY metformin 1,000 mg Tablet 1,000 mg PO BID atorvastatin 10 mg Tablet 10 mg PO BEDTIME ferrous sulfate 324 mg (65 mg iron) Tablet,Delayed Release (Dr/Ec) 324 mg PO DAILY calcium carbonate-vitamin D3 [Calcium 500 + D] 500 mg(1,250mg) -400 unit Tablet 1 tab PO BID warfarin 3 mg Tablet 3 mg PO SEEINSTR Rx Instructions: Takes 3 mg on Friday, Friday, , Friday and Friday Referrals: Elvira Tijerina MD [Primary Care Provider] - Stand Alone Forms: Patient Portal/API
[2022-10-31 12:44] LABS: INR 1.8 (0.9-1.3)
[2022-10-31 12:47] LABS: PTT Partial Thromboplastin Tim 40 SECONDS (26-36)
[2022-10-31 12:48] LABS: Troponin I < 0.012 ng/mL (0.01-0.034)
[2022-10-31 12:54] LABS: Procalcitonin 0.04 ng/mL (<0.5)
[2022-10-31 13:04] LABS: CKMB % Relative Index 1.2 % (1.5-5.0); Creatine Kinase MB 1.33 ng/mL (<2.37)
[2022-10-31] MEDS: SODIUM CHLORIDE 0.9% 1,000 ML 150 ML IV (13:43)
[2022-10-31 14:09] LABS: Appearance Urine UA CLEAR; Bilirubin Urine UA NEGATIVE (NEGATIVE); Color Urine UA YELLOW; Glucose Urine UA NEGATIVE (Negative); Ketones Urine UA NEGATIVE (NEGATIVE); Leukocyte Esterase Urine UA NEGATIVE (NEGATIVE); Nitrite Urine UA NEGATIVE (Negative); Occult Blood Urine UA NEGATIVE (Negative); Protein Urine UA NEGATIVE (Negative); Specific Gravity Urine UA <=1.005 (1.000-1.035); Urobilinogen Urine UA 0.2 E.U./dL (0.2)
[2022-10-31 14:11] LABS: Reflexed Lactate in 2 Hours Y
[2022-10-31 14:17] LABS: Bacteria Urine None Seen; RBC Urine None Seen (0-5/HPF); WBC Urine None Seen (0-5/HPF)
[2022-10-31 14:18] LABS: Culture Indicated Urine Cult Not Indicated
[2022-10-31 15:25] LABS: Lactate 2HR (Lactic Acid Rflx) 1.5 mmol/L (0.7-2.1)
== END 2022-10-31 16:10 | disposition home or self-care (01) ==
PROVIDERS: Emergency Provider Emergency Medicine; Family Provider Family Medicine; PCP Family Medicine
DX: F03.90 Unspecified dementia, unspecified severity, without behavioral disturbance, psychotic disturbance, mood disturbance, and anxiety (principal); R07.9 Chest pain, unspecified; Z79.01 Long term (current) use of anticoagulants; Z79.899 Other long term (current) drug therapy
CPT/HCPCS: 36415; 70496; 70498; 71045; 80053; 81001; 82550; 82553; 83605; 83690; 84145; 84484; 85025; 85610; 85730; 87040; 93005; 99284; Q9967

== ENCOUNTER 2023-03-14 17:26 | Emergency (ER) | payer MEDICARE, OTHER, SELFPAY ==
[2019-07-31 01:53] VITALS: BMI 21.9
[2023-03-14 18:04] VITALS: BP 124/61; PULSE 61; RESP 20; TEMP 36.7; O2SAT 99; BMI 23.0
--- NOTE | 2023-03-14 18:12 | DI.RAD.S_ITS ---
PROCEDURE: XR CHEST 1V INDICATIONS: chest pain TECHNIQUE: One view of the chest was acquired. COMPARISON: [facility], CR, XR CHEST 1V, 10/31/2022, 12:38. FINDINGS: Surgical changes and devices: Cervical fusion hardware. Left-sided Lungs and pleura: Pacer. Mild diffuse perihilar reticulonodular opacity. No pleural effusions or pneumothorax. Mediastinum: Mediastinal contours appear normal. Heart size is normal. Bones and chest wall: No suspicious bony lesions. Overlying soft tissues appear unremarkable. IMPRESSION: Mild atypical pneumonia. Dictated by: Merari Marley M.D. on 03/14/2023 at 19:12 Approved by: Merari Marley M.D. on 03/14/2023 at 19:12
[2023-03-14 18:56] LABS: Add Manual Diff / Slide Review NO; Basophils Absolute Auto 0 /uL (0-100); Basophils Percent Auto 0.7 % (0-2); Eosinophils Absolute Auto 600 /uL (0-450); Eosinophils Percent Auto 9.8 % (2-4); Hematocrit 37.4 % (41-53); Hemoglobin 12.5 g/dL (13.5-17.5); Lymphocytes Absolute Auto 1300 /uL (1100-4500); Lymphocytes Percent Auto 19.2 % (25-40); Mean Corpuscular HGB Conc 33.5 % (30-36); Mean Corpuscular Hemoglobin 31.3 PG (26-34); Mean Corpuscular Volume 93.5 fL (80-100); Monocytes Absolute Auto 600 /uL (0-900); Monocytes Percent Auto 9.3 % (3-14); Neutrophils Absolute Auto 4000 /uL (1500-7000); Platelet Count 171 X10^3/uL (150-400); Red Cell Distribution Width 14.4 % (11.6-14.8); White Blood Cell Count 6.6 X10^3/uL (4.5-11.0)
[2023-03-14 19:03] LABS: INR 2.3 (0.9-1.3); Prothrombin Time 26.4 SECONDS (10.1-12.7)
[2023-03-14 19:06] LABS: PTT Partial Thromboplastin Tim 42 SECONDS (26-36)
[2023-03-14 19:12] LABS: Alanine Aminotransferase 19 IU/L (<50); Albumin 4.3 g/dL (3.5-5.0); Albumin Globulin Ratio 1.4 (1.0-2.8); Alkaline Phosphatase 84 U/L (38-126); Aspartate Aminotransferase 25 IU/L (17-59); BUN Creatinine Ratio 16.1 (6-22); Bilirubin Total 0.5 mg/dL (0.2-1.3); Blood Urea Nitrogen 18 mg/dL (9-20); Calcium 8.9 mg/dL (8.4-10.2); Carbon Dioxide 26 mmol/L (22-32); Chloride 94 mmol/L (98-107); Creatine Kinase 72 U/L (55-170); Estimated Glomerular Filt Rate > 60 mL/min (>60); Globulin 3.1 g/dL (1.7-4.1); Glucose 127 mg/dL (80-110); HEMOLYSIS < 15 (0-50); Magnesium 1.7 mg/dL (1.6-2.3); Potassium 4.4 mmol/L (3.4-5.1); Sodium 128 mmol/L (137-145); Total Protein 7.4 g/dL (6.3-8.2)
[2023-03-14 19:22] LABS: Lipase 2494 U/L (23-300)
[2023-03-14 19:23] VITALS: PULSE 73; O2SAT 100
[2023-03-14 19:24] VITALS: BP 155/87; PULSE 70; O2SAT 100
[2023-03-14 19:26] LABS: Troponin I < 0.012 ng/mL (0.01-0.034)
[2023-03-14 19:30] VITALS: PULSE 65; O2SAT 100
[2023-03-14 19:31] VITALS: BP 155/77; PULSE 66; O2SAT 99
--- NOTE | 2023-03-14 19:53 | PC.NURSE ---
Patient wanting to leave, has diagnosis of dementia and on medications. Educated and other person present in the room that the decision to leave must come from spouse to make that decision. Spouse asked for time to make decision and would inform this RN.
== END 2023-03-14 20:07 | disposition left against medical advice (07) ==
PROVIDERS: Emergency Provider Emergency Medicine; Family Provider Family Medicine; PCP Family Medicine
DX: R07.9 Chest pain, unspecified (principal); J02.9 Acute pharyngitis, unspecified; R19.7 Diarrhea, unspecified
CPT/HCPCS: 36415; 71045; 80053; 82550; 83690; 83735; 84484; 85025; 85610; 85730; 99283

== ENCOUNTER 2023-03-20 11:57 | Emergency (ER) | payer MEDICARE, OTHER, SELFPAY ==
[2019-07-31 01:53] VITALS: BMI 21.9
[2023-03-20 12:07] VITALS: BP 136/65; PULSE 68; RESP 15; TEMP 36.3; O2SAT 99; BMI 22.3
--- NOTE | 2023-03-20 12:12 | DI.US.S_ITS ---
PROCEDURE: US ABDOMEN LIMITED INDICATIONS: ELEVATED LIPASE RUQ TECHNIQUE: Real-time scanning was performed of the abdominal and retroperitoneal organs, with image documentation. COMPARISON: None. FINDINGS: Liver: Liver is normal in size and homogeneous in echotexture. Gallbladder: Not visualized, probably surgically absent. Biliary ducts: Intrahepatic bile ducts are non-dilated. Extrahepatic bile duct caliber measures 4 mm. Normal is 6-7 mm or less in diameter, or 10 mm or less post-cholecystectomy. Pancreas: Visualized portions of the pancreas are sonographically normal. Right kidney: Multi-cystic. Miscellaneous: No free abdominal fluid. IMPRESSION: No acute abnormality of the right upper quadrant. Dictated by: Terrence Parsons M.D. on 03/20/2023 at 13:18 Approved by: Terrence Parsons M.D. on 03/20/2023 at 13:19
--- NOTE | 2023-03-20 12:12 | DI.RAD.S_ITS ---
PROCEDURE: XR CHEST 2V INDICATIONS: pneumonia TECHNIQUE: 2 views of the chest were acquired. COMPARISON: [facility], CR, XR CHEST 1V, 03/14/2023, 18:37. [facility], CR, XR CHEST 1V, 10/31/2022, 12:38. FINDINGS: Surgical changes and devices: Left chest wall dual lead pacemaking device. Lungs and pleura: Lungs are clear. No pleural effusions or pneumothorax. Mediastinum: Mediastinal contours are normal. Heart size is normal. Bones and chest wall: No suspicious bony abnormalities. Soft tissues appear unremarkable. IMPRESSION: No acute cardiopulmonary process. Dictated by: Callum Saldaña M.D. on 03/20/2023 at 12:41 Approved by: Callum Saldaña M.D. on 03/20/2023 at 12:42
[2023-03-20 13:06] LABS: Add Manual Diff / Slide Review NO; Basophils Absolute Auto 100 /uL (0-100); Basophils Percent Auto 1.4 % (0-2); Eosinophils Absolute Auto 400 /uL (0-450); Eosinophils Percent Auto 6.4 % (2-4); Hematocrit 39.1 % (41-53); Hemoglobin 13.2 g/dL (13.5-17.5); Lymphocytes Absolute Auto 1400 /uL (1100-4500); Mean Corpuscular HGB Conc 33.7 % (30-36); Mean Corpuscular Hemoglobin 31.6 PG (26-34); Mean Corpuscular Volume 93.8 fL (80-100); Monocytes Absolute Auto 500 /uL (0-900); Monocytes Percent Auto 8.6 % (3-14); Neutrophils Absolute Auto 3800 /uL (1500-7000); Neutrophils Percent Auto 61.6 % (50-75); Platelet Count 181 X10^3/uL (150-400); Red Blood Cell Count 4.16 X10^6/uL (4.5-5.9); Red Cell Distribution Width 14.8 % (11.6-14.8); White Blood Cell Count 6.2 X10^3/uL (4.5-11.0)
[2023-03-20 13:15] LABS: Alanine Aminotransferase 18 IU/L (<50); Albumin 4.7 g/dL (3.5-5.0); Albumin Globulin Ratio 1.4 (1.0-2.8); Alkaline Phosphatase 77 U/L (38-126); Aspartate Aminotransferase 30 IU/L (17-59); Bilirubin Total 0.9 mg/dL (0.2-1.3); Blood Urea Nitrogen 17 mg/dL (9-20); Calcium 9.8 mg/dL (8.4-10.2); Carbon Dioxide 28 mmol/L (22-32); Chloride 94 mmol/L (98-107); Estimated Glomerular Filt Rate 58 mL/min (>60); Globulin 3.4 g/dL (1.7-4.1); Glucose 139 mg/dL (80-110); HEMOLYSIS 19 (0-50); Lipase 443 U/L (23-300); Potassium 4.4 mmol/L (3.4-5.1); Sodium 133 mmol/L (137-145); Total Protein 8.1 g/dL (6.3-8.2)
[2023-03-20 16:29] VITALS: BP 145/68; PULSE 62; O2SAT 100
[2023-03-20 17:58] VITALS: PULSE 66; O2SAT 97
[2023-03-20 18:00] VITALS: PULSE 66; O2SAT 98
[2023-03-20 18:02] VITALS: BP 160/75; PULSE 70; O2SAT 99
--- NOTE | 2023-03-20 18:21 | ED_ITS ---
HPI - Recheck/Abnormal Lab/Rx General Chief Complaint: Recheck/Abnormal Lab/Rx Stated Complaint: advised to bring pt to ER Time Seen by Provider: 03/20/23 12:46 Source: patient and family Mode of arrival: Wheelchair History of Present Illness HPI narrative: Patient is an 80-year-old female. He is here with his and other family members. He was here in the emergency department a couple days ago and had labs drawn but left without actually being seen. Upon review those labs show that his lipase was significantly elevated so he was contacted to return to the emergency department. He returns today because of that. He states they symptoms he was having prior to his visit a couple days ago have all resolved. He is not having any belly pain. No vomiting. No fevers. He does not drink alcohol. Has never had any issues with his pancreas in the past. Patient states he is not diabetic. Related Data Home Medications Medication Instructions Recorded Confirmed warfarin 1 mg tablet 1.5 mg PO SEEINSTR ##0 08/27/11 07/31/19 fluticasone propionate 50 2 spray intranasal BID ##0 09/05/11 07/31/19 mcg/actuation nasal spray,suspension (Flonase Allergy Relief) alfuzosin 10 mg tablet,extended 10 mg PO QDAY ##0 05/22/17 07/31/19 release 24 hr (Uroxatral) atorvastatin 10 mg tablet 10 mg PO BEDTIME 07/31/19 07/31/19 calcium carbonate 500 mg-vitamin 1 tab PO BID 07/31/19 07/31/19 D3 10 mcg (400 unit) tablet (Calcium 500 + D) cholecalciferol (vitamin D3) 25 1,000 unit PO DAILY 07/31/19 07/31/19 mcg (1,000 unit) capsule (Vitamin D3) cyanocobalamin (vitamin B-12) 100 100 mcg PO BID 07/31/19 07/31/19 mcg tablet (Vitamin B-12) ferrous sulfate 324 mg (65 mg 324 mg PO DAILY 07/31/19 07/31/19 iron) tablet,delayed release glucosam 750 mg-chondroi 100 2 tab PO DAILY 07/31/19 07/31/19 mg-hyalur 1.65 mg-CF borate 108 mg tablet ([facility] Free revoPT) magnesium citrate 100 mg tablet 500 mg PO BID 07/31/19 07/31/19 metformin 1,000 mg tablet 1,000 mg PO BID 07/31/19 07/31/19 metoprolol succinate 25 mg 75 mg PO DAILY 07/31/19 07/31/19 tablet,extended release 24 hr warfarin 3 mg tablet 3 mg PO SEEINSTR 07/31/19 07/31/19 Allergies Allergy/AdvReac Type Severity Reaction Status Date / Time amiodarone [AMIODARONE] Allergy Severe FACIAL Verified 03/20/23 12:07 SWELLING codeine [CODEINE] AdvReac Intermediate N/V Verified 03/20/23 12:07 hydromorphone [HYDROMORPHONE] AdvReac Intermediate N/V Verified 03/20/23 12:07 oxycodone [OXYCODONE] AdvReac Intermediate N/V Verified 03/20/23 12:07 latex [LATEX] AdvReac Mild RASH Verified 03/20/23 12:07 Review of Systems Constitutional Constitutional: Reports system reviewed and no additional complaints, except as documented Gastrointestinal Gastrointestinal: Reports system reviewed and no additional complaints, except as documented Genitourinary Genitourinary: Reports system reviewed and no additional complaints, except as documented Integumentary/Breasts Skin/Breast: Reports system reviewed and no additional complaints, except as documented Patient History Medical History Atrial fibrillation Hyperglycemia Hypertension Migraines Pacemaker Social History household members: spouse Smoking Status: Never smoker Smoking Status: Never smoker alcohol intake frequency: 0-2 drinks per day Substance Use Type: does not use Exam Initial Vital Signs Initial Vital Signs: Vital Signs Temperature 97.3 F L 03/20/23 12:07 Pulse Rate 68 03/20/23 12:07 Respiratory Rate 15 03/20/23 12:07 Blood Pressure 136/65 03/20/23 12:07 Pulse Oximetry 99 03/20/23 12:07 Oxygen Delivery Method Room Air 03/20/23 12:07 Resp Effort & Inspection: normal respiratory effort Auscultation: clear to auscultation bilaterally Cardio Rate: regular rate Rhythm: regular rhythm GI Inspection: normal to inspection and non-distended Palpation: soft, No firm and No tender Skin General: no rashes or lesions noted Neuro General: patient alert, patient awake and moves all extremities Extrem General: capillary refill normal Course Orders Ordered: ED Orders 03/20/23 12:12 US abdomen limited Stat XR chest 2V Stat 03/20/23 12:53 Complete Blood Count AUTO DIFF Stat Comprehensive Metabolic Panel Stat Lipase Stat Vital Signs Vital signs: Vital Signs - 8 hr 03/20/23 12:07 03/20/23 16:29 Temperature 97.3 F L Pulse Rate 68 62 Respiratory Rate 15 Blood Pressure 136/65 145/68 H Pulse Oximetry 99 100 Oxygen Delivery Method Room Air Room Air MDM - Recheck/Abnormal Lab/Rx Medical Records Attestation: I reviewed the patient's medical records. Lab Data Attestation: I reviewed the patient's lab results. 03/20/23 12:53 03/20/23 12:53 Labs: Lab Results 03/20/23 03/20/23 Range/Units 12:53 12:53 WBC 6.2 (4.5-11.0) X10^3/uL RBC 4.16 L (4.5-5.9) X10^6/uL Hgb 13.2 L (13.5-17.5) g/dL Hct 39.1 L (41-53) % MCV 93.8 (80-100) fL MCH 31.6 (26-34) PG MCHC 33.7 (30-36) % RDW 14.8 (11.6-14.8) % Plt Count 181 (150-400) X10^3/uL Neut % (Auto) 61.6 (50-75) % Lymph % (Auto) 22.0 L (25-40) % [place] % (Auto) 8.6 (3-14) % Eos % (Auto) 6.4 H (2-4) % Baso % (Auto) 1.4 (0-2) % Neut # (Auto) 3800 (1629-4663) /uL Lymph # (Auto) 1400 (8093-0439) /uL [place] # (Auto) 500 (0-900) /uL Eos # (Auto) 400 (0-450) /uL Baso # (Auto) 100 (0-100) /uL Sodium 133 L (137-145) mmol/L Potassium 4.4 (3.4-5.1) mmol/L Chloride 94 L (98-107) mmol/L Carbon Dioxide 28 (22-32) mmol/L BUN 17 (9-20) mg/dL Creatinine 1.21 (0.66-1.25) mg/dL Estimated GFR 58 L (>60) mL/min BUN/Creatinine Ratio 14.0 (6-22) Glucose 139 H (80-110) mg/dL Calcium 9.8 (8.4-10.2) mg/dL Total Bilirubin 0.9 (0.2-1.3) mg/dL AST 30 (17-59) IU/L ALT 18 (<50) IU/L Alkaline Phosphatase 77 (38-126) U/L Total Protein 8.1 (6.3-8.2) g/dL Albumin 4.7 (3.5-5.0) g/dL Globulin 3.4 (1.7-4.1) g/dL Albumin/Globulin Ratio 1.4 (1.0-2.8) Lipase 443 H D (23-300) U/L Imaging Data US - abdomen: Radiologist's Impression: PROCEDURE:? US ABDOMEN LIMITED ? INDICATIONS:? ELEVATED LIPASE RUQ ? TECHNIQUE:? Real-time scanning was performed of the abdominal and retroperitoneal organs, with image documentation.? ? COMPARISON:? None. ? FINDINGS:? ? Liver:? Liver is normal in size and homogeneous in echotexture.? ? Gallbladder:? Not visualized, probably surgically absent.? ? Biliary ducts:? Intrahepatic bile ducts are non-dilated.? Extrahepatic bile duct caliber measures 4 mm.? Normal is 6-7 mm or less in diameter, or 10 mm or less post-cholecystectomy.? ? Pancreas:? Visualized portions of the pancreas are sonographically normal.? ? 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 ? Miscellaneous:? No free abdominal fluid.? ? ? IMPRESSION:? No acute abnormality of the right upper quadrant. Chest x-ray: Radiologist's Impression: PROCEDURE:? XR CHEST 2V ? INDICATIONS:? pneumonia ? TECHNIQUE:? 2 views of the chest were acquired.? ? COMPARISON:? [facility], CR, XR CHEST 1V, 03/14/2023, 18:37.? [facility], CR, XR CHEST 1V, 10/31/2022, 12:38. ? FINDINGS:? ? Surgical changes and devices:? Left chest wall dual lead pacemaking device. ? Lungs and pleura:? Lungs are clear.? No pleural effusions or pneumothorax.? ? Mediastinum:? Mediastinal contours are normal.? Heart size is normal.? ? Bones and chest wall:? No suspicious bony abnormalities.? Soft tissues appear unremarkable.? ? IMPRESSION:? No acute cardiopulmonary process. MDM Narrative Medical decision making narrative: Patient has no specific complaints today although he states that he occasionally has some diarrhea. He is no belly pain. His lipase today is improved although still slightly elevated. I have low suspicion for pancreatitis. His right upper quadrant ultrasound is unremarkable. I would a discussion with the family regarding why we asked him to return. Unsure as to why his lipase was elevated a couple days ago. No indication for admission in the hospital. He was given return precautions. He expressed understanding and agreement. Discharge Plan Departure Patient Disposition: Home Clinical Impression: Diarrhea Instructions: Diarrhea Activity Restrictions/Additional Instructions: I do recommend that you try to increase your fluid intake. You can try a medicine called Imodium/loperamide if you have persistent diarrhea or diarrhea multiple times a day. Contact your primary doctor for follow-up. Return to the emergency department for new symptoms. Prescriptions: No Action warfarin 1 MG tablet 1.5 mg PO SEEINSTR Qty: 0 Patient Comments: Takes 1.5 mg on Tuesdays and Saturdays fluticasone propionate [Flonase Allergy Relief] 9.9 ML spray,suspension 2 spray Intranasal BID Qty: 0 alfuzosin [Uroxatral] 10 MG tablet extended release 24 hr 10 mg PO QDAY Qty: 0 [facility] 750 mg-100 mg- 1.65 mg-108 mg Tablet 2 tab PO DAILY cholecalciferol (vitamin D3) [Vitamin D3] 1,000 unit Capsule 1,000 unit PO DAILY cyanocobalamin (vitamin B-12) [Vitamin B-12] 100 mcg Tablet 100 mcg PO BID magnesium citrate 100 mg Tablet 500 mg PO BID metoprolol succinate 25 mg Tablet Extended Release 24 Hr 75 mg PO DAILY metformin 1,000 mg Tablet 1,000 mg PO BID atorvastatin 10 mg Tablet 10 mg PO BEDTIME ferrous sulfate 324 mg (65 mg iron) Tablet,Delayed Release (Dr/Ec) 324 mg PO DAILY calcium carbonate-vitamin D3 [Calcium 500 + D] 500 mg(1,250mg) -400 unit Tablet 1 tab PO BID warfarin 3 mg Tablet 3 mg PO SEEINSTR Rx Instructions: Takes 3 mg on Friday, Friday, , Friday and Friday Referrals: Elvira Tijerina MD [Primary Care Provider] - Stand Alone Forms: Patient Portal/API
== END 2023-03-20 18:49 | disposition home or self-care (01) ==
PROVIDERS: Emergency Medicine; Emergency Provider Emergency Medicine; Family Provider Family Medicine; PCP Family Medicine
DX: R19.7 Diarrhea, unspecified (principal); J18.9 Pneumonia, unspecified organism; Z79.01 Long term (current) use of anticoagulants; Z79.899 Other long term (current) drug therapy
CPT/HCPCS: 36415; 71046; 76705; 80053; 83690; 85025; 99283; 99284

== ENCOUNTER 2023-03-29 12:53 | Emergency (ER) | payer MEDICARE, OTHER, SELFPAY ==
[2019-07-31 01:53] VITALS: BMI 21.9
--- NOTE | 2023-03-29 12:59 | DI.RAD.S_ITS ---
PROCEDURE: XR CHEST 1V INDICATIONS: cough x 4 days TECHNIQUE: One view of the chest was acquired. COMPARISON: [facility], CR, XR CHEST 1V, 10/31/2022, 12:38. [facility], CR, XR CHEST 1V, 03/14/2023, 18:37. [facility], CR, XR CHEST 2V, 03/20/2023, 12:22. FINDINGS: Surgical changes and devices: A pacer device is seen. The leads are seen in stable positions. Lungs and pleura: Lungs are clear. No pleural effusions or pneumothorax. Mediastinum: The cardiac contours are moderately enlarged. The aorta demonstrates calcification and tortuosity. Bones and chest wall: No suspicious bony lesions. Age-appropriate bony degenerative changes are seen, particularly involving the right shoulder. Overlying soft tissues appear unremarkable. IMPRESSION: No focal infiltrates are seen. Cardiomegaly, without pulmonary edema seen. Postoperative and degenerative changes are seen. Dictated by: Aldo Henry M.D. on 03/29/2023 at 12:59 Approved by: Aldo Henry M.D. on 03/29/2023 at 12:59
[2023-03-29 13:25] VITALS: BP 112/67; PULSE 69; RESP 18; TEMP 36.9; O2SAT 98; BMI 21.9
[2023-03-29 14:10] LABS: Influenza A - CEPHEID Flu A NEGATIVE (NEGATIVE); Influenza B - CEPHEID Flu B NEGATIVE (NEGATIVE); Respiratory Syncytial Virus Negative (Negative)
--- NOTE | 2023-03-29 14:19 | ED_ITS ---
HPI - URI/Sore Throat <Angelica Fernández, [facility] - Last Filed: 03/29/23 16:14> General Chief Complaint: Upper Respiratory Symptoms Stated Complaint: flem for t-4/cough Time Seen by Provider: 03/29/23 12:59 Source: patient Mode of arrival: Wheelchair History of Present Illness HPI Narrative: This is an 88-year-old gentlemanwho presents to the emergency department with 4 days of a cough, generalized weakness, decreased appetite with a sore throat. Complains of muscle aches, states it feels tired. Denies shortness of breath wheezing or chest pain. Denies vomiting or diarrhea. He is sitting in the wheelchair and minimally conversant, has low energy, denies shortness of breath or wheezing. Reports that he is anticoagulated on warfarin for atrial fibrillation with history of pacemaker. Related Data Home Medications Medication Instructions Recorded Confirmed warfarin 1 mg tablet 1.5 mg PO SEEINSTR ##0 08/27/11 07/31/19 fluticasone propionate 50 2 spray intranasal BID ##0 09/05/11 07/31/19 mcg/actuation nasal spray,suspension (Flonase Allergy Relief) alfuzosin 10 mg tablet,extended 10 mg PO QDAY ##0 05/22/17 07/31/19 release 24 hr (Uroxatral) atorvastatin 10 mg tablet 10 mg PO BEDTIME 07/31/19 07/31/19 calcium carbonate 500 mg-vitamin 1 tab PO BID 07/31/19 07/31/19 D3 10 mcg (400 unit) tablet (Calcium 500 + D) cholecalciferol (vitamin D3) 25 1,000 unit PO DAILY 07/31/19 07/31/19 mcg (1,000 unit) capsule (Vitamin D3) cyanocobalamin (vitamin B-12) 100 100 mcg PO BID 07/31/19 07/31/19 mcg tablet (Vitamin B-12) ferrous sulfate 324 mg (65 mg 324 mg PO DAILY 07/31/19 07/31/19 iron) tablet,delayed release glucosam 750 mg-chondroi 100 2 tab PO DAILY 07/31/19 07/31/19 mg-hyalur 1.65 mg-CF borate 108 mg tablet ([facility]) magnesium citrate 100 mg tablet 500 mg PO BID 07/31/19 07/31/19 metformin 1,000 mg tablet 1,000 mg PO BID 07/31/19 07/31/19 metoprolol succinate 25 mg 75 mg PO DAILY 07/31/19 07/31/19 tablet,extended release 24 hr warfarin 3 mg tablet 3 mg PO SEEINSTR 07/31/19 07/31/19 Allergies Allergy/AdvReac Type Severity Reaction Status Date / Time amiodarone [AMIODARONE] Allergy Severe FACIAL Verified 03/20/23 12:07 SWELLING codeine [CODEINE] AdvReac Intermediate N/V Verified 03/20/23 12:07 hydromorphone [HYDROMORPHONE] AdvReac Intermediate N/V Verified 03/20/23 12:07 oxycodone [OXYCODONE] AdvReac Intermediate N/V Verified 03/20/23 12:07 latex [LATEX] AdvReac Mild RASH Verified 03/20/23 12:07 Review of Systems <REAL Garcia - Last Filed: 03/29/23 16:14> Review of Systems ROS Unobtainable: All systems reviewed & are unremarkable except as noted in HPI and below Patient History <REAL Garcia - Last Filed: 03/29/23 16:14> Medical History (Updated 03/29/23 @ 15:59 by REAL Garcia) Atrial fibrillation Hyperglycemia Hypertension Migraines Pacemaker Social History household members: spouse Smoking Status: Never smoker Smoking Status: Never smoker alcohol intake frequency: 0-2 drinks per day Substance Use Type: does not use Exam <REAL Garcia - Last Filed: 03/29/23 16:14> Narrative Exam Narrative: Reviewed vitals signs and nursing notes. General: Pleasant, appears weak and tired sitting in wheelchair, in no acute distress, well groomed, afebrile HEENT: symmetrical facial expressions, moist mucous membranes, neck is supple CV: regular rate and rhythm, warm extremities, S1-S2, without fever or lower extremity edema, denies chest pain Respiratory: normal work of breathing, without tachypnea or hypoxia, rhonchi to right lower base, pulse oximetry currently at 14:50 is 99% on room air, GI: abdomen soft, nondistended, without CVA tenderness bilaterally. MSK: moves all extremities, no weakness, normal tone, ambulatory without deficit Skin: brisk capillary refill, without rash or wound Neuro: clear speech and normal cognition, A&O x3, GCS 15, no focal motor or sensation deficits Initial Vital Signs Initial Vital Signs: Vital Signs Temperature 98.4 F 03/29/23 13:25 Pulse Rate 69 03/29/23 13:25 Respiratory Rate 18 03/29/23 13:25 Blood Pressure 112/67 03/29/23 13:25 Pulse Oximetry 98 03/29/23 13:25 Oxygen Delivery Method Room Air 03/29/23 13:25 <Hiram Sales DO - Last Filed: 03/30/23 06:51> Initial Vital Signs Initial Vital Signs: Vital Signs Temperature 98.4 F 03/29/23 13:25 Pulse Rate 69 03/29/23 13:25 Respiratory Rate 18 03/29/23 13:25 Blood Pressure 112/67 03/29/23 13:25 Pulse Oximetry 98 03/29/23 13:25 Oxygen Delivery Method Room Air 03/29/23 13:25 Course <Angelica Fernández [facility] - Last Filed: 03/29/23 16:14> Orders Ordered: Discontinued Medications Lactated Ringer's (Lactated Ringers) 1,000 mls @ 1,000 mls/hr IV BOLUS ONE Stop: 03/29/23 15:56 Last Infusion: 03/29/23 16:04 Dose: 0 mls/hr Documented By: Admin: 03/29/23 15:20 Dose: 1,000 mls/hr Documented By: DESTINEE Vital Signs Vital signs: Vital Signs - 8 hr 03/29/23 13:25 03/29/23 15:21 Temperature 98.4 F Pulse Rate 69 81 Respiratory Rate 18 20 Blood Pressure 112/67 109/57 L Pulse Oximetry 98 99 Oxygen Delivery Method Room Air Room Air <Hiram Sales DO - Last Filed: 03/30/23 06:51> Orders Ordered: Discontinued Medications Lactated Ringer's (Lactated Ringers) 1,000 mls @ 1,000 mls/hr IV BOLUS ONE Stop: 03/29/23 15:56 Last Infusion: 03/29/23 16:04 Dose: 0 mls/hr Documented By: Admin: 03/29/23 15:20 Dose: 1,000 mls/hr Documented By: DESTINEE Vital Signs Vital signs: Vital Signs - 8 hr 03/29/23 13:25 03/29/23 15:21 Temperature 98.4 F Pulse Rate 69 81 Respiratory Rate 18 20 Blood Pressure 112/67 109/57 L Pulse Oximetry 98 99 Oxygen Delivery Method Room Air Room Air MDM - URI/Sore Throat <REAL Garcia - Last Filed: 03/29/23 16:14> Lab Data 03/29/23 15:15 03/29/23 15:15 Labs: Lab Results 03/29/23 03/29/23 03/29/23 Range/Units 13:25 15:15 15:15 WBC 5.8 (4.5-11.0) X10^3/uL RBC 4.18 L (4.5-5.9) X10^6/uL Hgb 13.3 L (13.5-17.5) g/dL Hct 39.4 L (41-53) % MCV 94.2 (80-100) fL MCH 31.8 (26-34) PG MCHC 33.8 (30-36) % RDW 14.3 (11.6-14.8) % Plt Count 168 (150-400) X10^3/uL Neut % (Auto) 61.7 (50-75) % Lymph % (Auto) 18.8 L (25-40) % [place] % (Auto) 17.6 H (3-14) % Eos % (Auto) 1.3 L (2-4) % Baso % (Auto) 0.6 (0-2) % Neut # (Auto) 3600 (9522-0741) /uL Lymph # (Auto) 1100 (7204-8179) /uL [place] # (Auto) 1000 H (0-900) /uL Eos # (Auto) 100 (0-450) /uL Baso # (Auto) 0 (0-100) /uL PT 25.6 H (10.1-12.7) SECONDS INR 2.2 H (0.9-1.3) Sodium (137-145) mmol/L Potassium (3.4-5.1) mmol/L Chloride (98-107) mmol/L Carbon Dioxide (22-32) mmol/L BUN (9-20) mg/dL Creatinine (0.66-1.25) mg/dL Estimated GFR (>60) mL/min BUN/Creatinine Ratio (6-22) Glucose (80-110) mg/dL Calcium (8.4-10.2) mg/dL Total Bilirubin (0.2-1.3) mg/dL AST (17-59) IU/L ALT (<50) IU/L Alkaline Phosphatase (38-126) U/L Troponin I (0.01-0.034) ng/mL Total Protein (6.3-8.2) g/dL Albumin (3.5-5.0) g/dL Globulin (1.7-4.1) g/dL Albumin/Globulin Ratio (1.0-2.8) Procalcitonin (<0.5) ng/mL SARS-CoV-2 (PCR) Positive H (Negative) Influenza A (RT-PCR) Flu a negative (NEGATIVE) Influenza B (RT-PCR) Flu b negative (NEGATIVE) RSV (PCR) Negative (Negative) 03/29/23 Range/Units 15:15 WBC (4.5-11.0) X10^3/uL RBC (4.5-5.9) X10^6/uL Hgb (13.5-17.5) g/dL Hct (41-53) % MCV (80-100) fL MCH (26-34) PG MCHC (30-36) % RDW (11.6-14.8) % Plt Count (150-400) X10^3/uL Neut % (Auto) (50-75) % Lymph % (Auto) (25-40) % [place] % (Auto) (3-14) % Eos % (Auto) (2-4) % Baso % (Auto) (0-2) % Neut # (Auto) (3977-7040) /uL Lymph # (Auto) (7498-8389) /uL [place] # (Auto) (0-900) /uL Eos # (Auto) (0-450) /uL Baso # (Auto) (0-100) /uL PT (10.1-12.7) SECONDS INR (0.9-1.3) Sodium 128 L (137-145) mmol/L Potassium 4.7 (3.4-5.1) mmol/L Chloride 92 L (98-107) mmol/L Carbon Dioxide 24 (22-32) mmol/L BUN 18 (9-20) mg/dL Creatinine 1.13 (0.66-1.25) mg/dL Estimated GFR > 60 (>60) mL/min BUN/Creatinine Ratio 15.9 (6-22) Glucose 136 H (80-110) mg/dL Calcium 9.2 (8.4-10.2) mg/dL Total Bilirubin 0.6 (0.2-1.3) mg/dL AST 30 (17-59) IU/L ALT 17 (<50) IU/L Alkaline Phosphatase 79 (38-126) U/L Troponin I 0.015 (0.01-0.034) ng/mL Total Protein 8.1 (6.3-8.2) g/dL Albumin 4.6 (3.5-5.0) g/dL Globulin 3.5 (1.7-4.1) g/dL Albumin/Globulin Ratio 1.3 (1.0-2.8) Procalcitonin 0.05 (<0.5) ng/mL SARS-CoV-2 (PCR) (Negative) Influenza A (RT-PCR) (NEGATIVE) Influenza B (RT-PCR) (NEGATIVE) RSV (PCR) (Negative) Imaging Data Chest x-ray: Radiologist's Impression: [address] [address] XRay Report Signed Patient: Benjamin Lubin MR#: [id number] : 1935 Acct:[id number] Age/Sex: 88 / M Date of Service: 03/29/23 Loc: ED Accession Number: [id number] ?? Procedure: XR chest 1V Ordering Provider: Angelica Fernández PROCEDURE:? XR CHEST 1V ? INDICATIONS:? cough x 4 days ? TECHNIQUE:? One view of the chest was acquired.? ? COMPARISON:? [facility], CR, XR CHEST 1V, 10/31/2022, 12:38.? [facility], CR, XR CHEST 1V, 03/14/2023, 18:37.? [facility], CR, XR CHEST 2V, 03/20/2023, 12:22. ? FINDINGS:? ? Surgical changes and devices:? A pacer device is seen.? The leads are seen in stable positions.? ? Lungs and pleura:? Lungs are clear.? No pleural effusions or pneumothorax.? ? Mediastinum:? The cardiac contours are moderately enlarged. The aorta demonstrates calcification and tortuosity. ? Bones and chest wall:? No suspicious bony lesions.? Age-appropriate bony degenerative changes are seen, particularly involving the right shoulder.? Overlying soft tissues appear unremarkable.? ? ? IMPRESSION:? No focal infiltrates are seen. ? Cardiomegaly, without pulmonary edema seen. ? Postoperative and degenerative changes are seen.? ? Dictated by: Aldo Henry M.D. on 03/29/2023 at 12:59 ? ? Approved by: Aldo Henry M.D. on 03/29/2023 at 12:59 ? ECG Data Interpretation: EKG independently reviewed by myself at [1530] reveals atrial fibrillation at 79 bpm with regular axis and intervals. No STEMI, ST segment changes, arrhythmia, or acute ischemic changes. Nonspecific ST and T-wave abnormality. MDM Narrative Medical decision making narrative: Chief Complaint: cough x 4 days Multiple etiologies for patient's complaint considered including, but not limited to: COVID, bacterial pneumonia, CHF, pulmonary edema, other acute viral illness I have independently reviewed the patient's vital signs and nursing notes as well as prior records if available. Plan: COVID is positive via PCR, rapid strep negative, x-ray shows cardiomegaly without patchy infiltrate or pulmonary edema, pacemaker device seen and leads in stable positions. Course of Care: Patient appears dehydrated, generally weak and tired, will treat with IV fluid, he endorses having chills. Exam had some mild rhonchi to the right lower lobe but good aeration throughout without wheezing or hypoxia. Patient was given 500 mL of LR for rehydration, we discussed nutrition and hydration at length and his low sodium level however patient has had this in the past and reports poor PO intake for a while. Troponin is negative, patient's lab work otherwise does not show any significant findings. He has chronic anemia with a hemoglobin of 13.3 and hematocrit of 39.4, lymphopenia 18.8, no left shift, INR is 2.2 in his INR goal is 2-3. Sodium is 128, patient has had this level of hyponatremia in the past without significant abnormalities otherwise. Procalcitonin is negative for elevation. Troponin is 0.015 but patient does not complain of chest pain, shortness of breath or chest pressure. His COVID PCR is positive but his PCR for influenza a, B and RSV is negative. We discussed strict return precautions, hydration and nutrition, he feels better and reports that he looks at his baseline and they feel comfortable going home. Social considerations that may affect disposition: none Questions are addressed and there is agreement with the plan and for follow-up. I consulted with the ED attending physician Dr. Sales as needed for higher level of care considerations and they were available for discussion and recommendations regarding plan of care and diagnostic testing. Patient is appropriate for outpatient management. <Hiram Sales, DO - Last Filed: 03/30/23 06:51> Lab Data Labs: Lab Results 03/29/23 03/29/23 03/29/23 Range/Units 13:25 15:15 15:15 WBC 5.8 (4.5-11.0) X10^3/uL RBC 4.18 L (4.5-5.9) X10^6/uL Hgb 13.3 L (13.5-17.5) g/dL Hct 39.4 L (41-53) % MCV 94.2 (80-100) fL MCH 31.8 (26-34) PG MCHC 33.8 (30-36) % RDW 14.3 (11.6-14.8) % Plt Count 168 (150-400) X10^3/uL Neut % (Auto) 61.7 (50-75) % Lymph % (Auto) 18.8 L (25-40) % [place] % (Auto) 17.6 H (3-14) % Eos % (Auto) 1.3 L (2-4) % Baso % (Auto) 0.6 (0-2) % Neut # (Auto) 3600 (3741-4737) /uL Lymph # (Auto) 1100 (7071-6228) /uL [place] # (Auto) 1000 H (0-900) /uL Eos # (Auto) 100 (0-450) /uL Baso # (Auto) 0 (0-100) /uL PT 25.6 H (10.1-12.7) SECONDS INR 2.2 H (0.9-1.3) Sodium (137-145) mmol/L Potassium (3.4-5.1) mmol/L Chloride (98-107) mmol/L Carbon Dioxide (22-32) mmol/L BUN (9-20) mg/dL Creatinine (0.66-1.25) mg/dL Estimated GFR (>60) mL/min BUN/Creatinine Ratio (6-22) Glucose (80-110) mg/dL Calcium (8.4-10.2) mg/dL Total Bilirubin (0.2-1.3) mg/dL AST (17-59) IU/L ALT (<50) IU/L Alkaline Phosphatase (38-126) U/L Troponin I (0.01-0.034) ng/mL Total Protein (6.3-8.2) g/dL Albumin (3.5-5.0) g/dL Globulin (1.7-4.1) g/dL Albumin/Globulin Ratio (1.0-2.8) Procalcitonin (<0.5) ng/mL SARS-CoV-2 (PCR) Positive H (Negative) Influenza A (RT-PCR) Flu a negative (NEGATIVE) Influenza B (RT-PCR) Flu b negative (NEGATIVE) RSV (PCR) Negative (Negative) 03/29/23 Range/Units 15:15 WBC (4.5-11.0) X10^3/uL RBC (4.5-5.9) X10^6/uL Hgb (13.5-17.5) g/dL Hct (41-53) % MCV (80-100) fL MCH (26-34) PG MCHC (30-36) % RDW (11.6-14.8) % Plt Count (150-400) X10^3/uL Neut % (Auto) (50-75) % Lymph % (Auto) (25-40) % [place] % (Auto) (3-14) % Eos % (Auto) (2-4) % Baso % (Auto) (0-2) % Neut # (Auto) (9064-2564) /uL Lymph # (Auto) (4749-7385) /uL [place] # (Auto) (0-900) /uL Eos # (Auto) (0-450) /uL Baso # (Auto) (0-100) /uL PT (10.1-12.7) SECONDS INR (0.9-1.3) Sodium 128 L (137-145) mmol/L Potassium 4.7 (3.4-5.1) mmol/L Chloride 92 L (98-107) mmol/L Carbon Dioxide 24 (22-32) mmol/L BUN 18 (9-20) mg/dL Creatinine 1.13 (0.66-1.25) mg/dL Estimated GFR > 60 (>60) mL/min BUN/Creatinine Ratio 15.9 (6-22) Glucose 136 H (80-110) mg/dL Calcium 9.2 (8.4-10.2) mg/dL Total Bilirubin 0.6 (0.2-1.3) mg/dL AST 30 (17-59) IU/L ALT 17 (<50) IU/L Alkaline Phosphatase 79 (38-126) U/L Troponin I 0.015 (0.01-0.034) ng/mL Total Protein 8.1 (6.3-8.2) g/dL Albumin 4.6 (3.5-5.0) g/dL Globulin 3.5 (1.7-4.1) g/dL Albumin/Globulin Ratio 1.3 (1.0-2.8) Procalcitonin 0.05 (<0.5) ng/mL SARS-CoV-2 (PCR) (Negative) Influenza A (RT-PCR) (NEGATIVE) Influenza B (RT-PCR) (NEGATIVE) RSV (PCR) (Negative) Discharge Plan Departure Patient Disposition: Home Clinical Impression: COVID-19, Acute hyponatremia Instructions: COVID-19 Activity Restrictions/Additional Instructions: *You have been diagnosed with COVID, dehydration and a low sodium level. I want you to eat salty foods and drink at least 1 L of water each day. Please try and eat for nutrition to help keep your body strong. Your INR is within normal limits for you. Please continue on your normal warfarin dosing. It is risk your to start a new medication for COVID then to continue with your symptoms. If you have any worsening, shortness of breath, worsening weakness, please come back to the emergency department as soon as possible. You are on the border today but your vital signs look good and you are still keeping normal blood levels. I hope you feel better soon, please rest as much as you need 2, please come back if you have worsening and I am sorry for the long delay here today. No evidence of bacterial pneumonia on your chest x-ray. *What to do: *Please continue to take your regular medications as directed. [ ] New medication prescriptions sent to your pharmacy: [ ] [ ] New medication written as a paper prescription [ x] No new medications given *Please call and schedule follow up with your primary care provider in 2-3 days, at least for an update. Let them know you were seen in the Emergency Department for the above problem. We will electronically transmit a record of today's note if your PCP or specialist is in our system. *If you do not have a primary care provider please contact [phone] to establish care with one of the [facility] primary care providers. *Return to the Emergency Department for worsening symptoms, inability to keep liquids down, fever greater than 101F, chills, or other concerning symptom. Prescriptions: No Action warfarin 1 MG tablet 1.5 mg PO SEEINSTR Qty: 0 Patient Comments: Takes 1.5 mg on Tuesdays and Saturdays fluticasone propionate [Flonase Allergy Relief] 9.9 ML spray,suspension 2 spray Intranasal BID Qty: 0 alfuzosin [Uroxatral] 10 MG tablet extended release 24 hr 10 mg PO QDAY Qty: 0 [facility] 750 mg-100 mg- 1.65 mg-108 mg Tablet 2 tab PO DAILY cholecalciferol (vitamin D3) [Vitamin D3] 1,000 unit Capsule 1,000 unit PO DAILY cyanocobalamin (vitamin B-12) [Vitamin B-12] 100 mcg Tablet 100 mcg PO BID magnesium citrate 100 mg Tablet 500 mg PO BID metoprolol succinate 25 mg Tablet Extended Release 24 Hr 75 mg PO DAILY metformin 1,000 mg Tablet 1,000 mg PO BID atorvastatin 10 mg Tablet 10 mg PO BEDTIME ferrous sulfate 324 mg (65 mg iron) Tablet,Delayed Release (Dr/Ec) 324 mg PO DAILY calcium carbonate-vitamin D3 [Calcium 500 + D] 500 mg(1,250mg) -400 unit T ablet 1 tab PO BID warfarin 3 mg Tablet 3 mg PO SEEINSTR Rx Instructions: Takes 3 mg on Friday, Friday, , Friday and Friday Referrals: Elvira Tijerina MD [Primary Care Provider] - Stand Alone Forms: Patient Portal/API <Hiram Sales DO - Last Filed: 03/30/23 06:51> Cosign ED Attending [place] Attestation: I was immediately available in the department for consultation. Documentation has been reviewed. I agree with assessment and plan.
[2023-03-29 14:30] LABS: COVID-19 CEPHEID 4-PLEX PCR POSITIVE (Negative)
[2023-03-29] MEDS: LACTATED RINGERS 1,000 ML 1000 ML IV (15:20)
[2023-03-29 15:21] VITALS: BP 109/57; PULSE 81; RESP 20; O2SAT 99
[2023-03-29 15:25] LABS: Add Manual Diff / Slide Review NO; Basophils Absolute Auto 0 /uL (0-100); Basophils Percent Auto 0.6 % (0-2); Eosinophils Absolute Auto 100 /uL (0-450); Eosinophils Percent Auto 1.3 % (2-4); Hematocrit 39.4 % (41-53); Hemoglobin 13.3 g/dL (13.5-17.5); Lymphocytes Absolute Auto 1100 /uL (1100-4500); Lymphocytes Percent Auto 18.8 % (25-40); Mean Corpuscular HGB Conc 33.8 % (30-36); Mean Corpuscular Hemoglobin 31.8 PG (26-34); Mean Corpuscular Volume 94.2 fL (80-100); Monocytes Absolute Auto 1000 /uL (0-900); Monocytes Percent Auto 17.6 % (3-14); Neutrophils Absolute Auto 3600 /uL (1500-7000); Neutrophils Percent Auto 61.7 % (50-75); Platelet Count 168 X10^3/uL (150-400); Red Blood Cell Count 4.18 X10^6/uL (4.5-5.9); Red Cell Distribution Width 14.3 % (11.6-14.8); White Blood Cell Count 5.8 X10^3/uL (4.5-11.0)
[2023-03-29 15:31] LABS: INR 2.2 (0.9-1.3); Prothrombin Time 25.6 SECONDS (10.1-12.7)
[2023-03-29 15:36] LABS: Alanine Aminotransferase 17 IU/L (<50); Albumin 4.6 g/dL (3.5-5.0); Albumin Globulin Ratio 1.3 (1.0-2.8); Alkaline Phosphatase 79 U/L (38-126); Aspartate Aminotransferase 30 IU/L (17-59); BUN Creatinine Ratio 15.9 (6-22); Bilirubin Total 0.6 mg/dL (0.2-1.3); Blood Urea Nitrogen 18 mg/dL (9-20); Calcium 9.2 mg/dL (8.4-10.2); Carbon Dioxide 24 mmol/L (22-32); Chloride 92 mmol/L (98-107); Estimated Glomerular Filt Rate > 60 mL/min (>60); Globulin 3.5 g/dL (1.7-4.1); Glucose 136 mg/dL (80-110); HEMOLYSIS 49 (0-50); Potassium 4.7 mmol/L (3.4-5.1); Sodium 128 mmol/L (137-145); Total Protein 8.1 g/dL (6.3-8.2)
[2023-03-29 15:47] LABS: Troponin I 0.015 ng/mL (0.01-0.034)
[2023-03-29 15:52] LABS: Procalcitonin 0.05 ng/mL (<0.5)
[2023-03-29 16:15] VITALS: BP 181/96; PULSE 78; RESP 19; O2SAT 100
== END 2023-03-29 16:18 | disposition home or self-care (01) ==
PROVIDERS: Emergency Provider Nurse Practitioner Critical Care Medicine; Family Provider Family Medicine; PCP Family Medicine
DX: U07.1 COVID-19 (principal); E87.1 Hypo-osmolality and hyponatremia; R07.9 Chest pain, unspecified; Z79.01 Long term (current) use of anticoagulants; Z79.899 Other long term (current) drug therapy
CPT/HCPCS: 0241U; 36415; 71045; 80053; 84145; 84484; 85025; 85610; 93005; 96360; 99284

== ENCOUNTER → 2023-04-16 12:28 | Outpatient (ROUT) | payer MEDICARE, OTHER, SELFPAY ==
[2019-07-31 01:53] VITALS: BMI 21.9
[2023-04-16 13:24] LABS: Prothrombin Time 141.1 SECONDS (10.1-12.7)
== END ==
PROVIDERS: Family Provider Family Medicine; PCP Family Medicine; Visit Provider Family Medicine
DX: I48.0 Paroxysmal atrial fibrillation (principal); I10 Essential (primary) hypertension; F02.C0 Dementia in other diseases classified elsewhere, severe, without behavioral disturbance, psychotic disturbance, mood disturbance, and anxiety; J44.1 Chronic obstructive pulmonary disease with (acute) exacerbation; G30.1 Alzheimer's disease with late onset; N18.31 Chronic kidney disease, stage 3a
CPT/HCPCS: 85610

== ENCOUNTER 2023-04-16 16:22 | Emergency (ER) | payer MEDICARE, OTHER, SELFPAY ==
[2019-07-31 01:53] VITALS: BMI 21.9
[2023-04-16] VITALS (9 sets, daily range): BP systolic 114–154; BP diastolic 61–75; PULSE 74–89; RESP 16–23; TEMP 36.6–36.7; O2SAT 97–99
[2023-04-16 17:28] LABS: Prothrombin Time 139.7 SECONDS (10.1-12.7)
[2023-04-16 17:30] LABS: INR 11.9 (0.9-1.3)
--- NOTE | 2023-04-16 18:03 | DI.CT.S_ITS ---
PROCEDURE: CT CERVICAL SPINE WO CON INDICATIONS: critical INR, head/neck pain TECHNIQUE: Noncontrast 3 mm thick sections acquired from the skull base to the T4 level. Sagittal and coronal reformats were then constructed. For radiation dose reduction, the following was used: automated exposure control, adjustment of mA and/or kV according to patient size. COMPARISON: [facility], CT, C-SPINE WITHOUT CONTRAST, 08/04/2017, 13:18. FINDINGS: Image quality: Excellent. Bones: No fractures or dislocations. Visualized superior ribs are intact. Multilevel posterior fusion as well as anterior fusion at C3-4. Multilevel degenerative changes are present. Soft tissues: Prevertebral soft tissues are normal in thickness. No paravertebral hematomas. No apical pneumothoraces. IMPRESSION: Multilevel degenerative and postsurgical change. No visualized fracture. Dictated by: Chaparrita Maxwell M.D. on 04/16/2023 at 19:27 Approved by: Chaparrita Maxwell M.D. on 04/16/2023 at 19:29
--- NOTE | 2023-04-16 18:03 | DI.CT.S_ITS ---
PROCEDURE: CT HEAD/BRAIN WO CON INDICATIONS: critical INR, head/neck pain TECHNIQUE: Noncontrast 4.5 mm thick angled axial sections acquired from the foramen magnum to the vertex, with coronal and sagittal reformats. For radiation dose reduction, the following was used: automated exposure control, adjustment of mA and/or kV according to patient size. COMPARISON: [facility], CT, CT HEAD/BRAIN WO CON, 10/17/2018, 17:34. FINDINGS: Image quality: Excellent. CSF spaces: Basal cisterns are patent. No extra-axial fluid collections. The ventricles are symmetric in size and shape. Brain: No intracranial bleeds or masses. There is cerebral volume loss for age, with resultant ventricular and sulcal prominence. There are periventricular and deep white matter chronic small vessel ischemic changes. There is intracranial internal carotid artery atherosclerosis. Skull and face: Calvarium and visualized facial bones appear intact, without suspicious lesions. Sinuses: Visualized sinuses and mastoids are clear. IMPRESSION: 1. No acute intracranial process. 2. Moderate atrophy and chronic microvascular ischemic changes. Dictated by: Chaparrita Maxwell M.D. on 04/16/2023 at 19:26 Approved by: Chaparrita Maxwell M.D. on 04/16/2023 at 19:27
[2023-04-16 18:18] LABS: Add Manual Diff / Slide Review NO; Basophils Absolute Auto 0 /uL (0-100); Basophils Percent Auto 0.3 % (0-2); Eosinophils Absolute Auto 100 /uL (0-450); Eosinophils Percent Auto 1.2 % (2-4); Hematocrit 38.6 % (41-53); Hemoglobin 12.9 g/dL (13.5-17.5); Lymphocytes Absolute Auto 800 /uL (1100-4500); Lymphocytes Percent Auto 8.5 % (25-40); Mean Corpuscular HGB Conc 33.3 % (30-36); Mean Corpuscular Hemoglobin 30.8 PG (26-34); Mean Corpuscular Volume 92.4 fL (80-100); Monocytes Absolute Auto 1200 /uL (0-900); Monocytes Percent Auto 12.6 % (3-14); Neutrophils Absolute Auto 7000 /uL (1500-7000); Neutrophils Percent Auto 77.4 % (50-75); Platelet Count 222 X10^3/uL (150-400); Red Blood Cell Count 4.18 X10^6/uL (4.5-5.9); Red Cell Distribution Width 15.5 % (11.6-14.8); White Blood Cell Count 9.1 X10^3/uL (4.5-11.0)
[2023-04-16 18:25] LABS: Alanine Aminotransferase 18 IU/L (<50); Albumin 4.3 g/dL (3.5-5.0); Albumin Globulin Ratio 1.3 (1.0-2.8); Alkaline Phosphatase 62 U/L (38-126); Aspartate Aminotransferase 37 IU/L (17-59); Blood Urea Nitrogen 11 mg/dL (9-20); Calcium 9.4 mg/dL (8.4-10.2); Carbon Dioxide 26 mmol/L (22-32); Chloride 95 mmol/L (98-107); Estimated Glomerular Filt Rate > 60 mL/min (>60); Globulin 3.3 g/dL (1.7-4.1); Glucose 148 mg/dL (80-110); HEMOLYSIS 16 (0-50); Lipase 407 U/L (23-300); Magnesium 1.6 mg/dL (1.6-2.3); Potassium 4.2 mmol/L (3.4-5.1); Sodium 130 mmol/L (137-145); Total Protein 7.6 g/dL (6.3-8.2)
[2023-04-16] MEDS: PHYTONADIONE (VIT K1) 5 MG TABLET PO (18:51)
--- NOTE | 2023-04-16 20:00 | ED_ITS ---
HPI - Recheck/Abnormal Lab/Rx General Chief Complaint: Recheck/Abnormal Lab/Rx Stated Complaint: dr ref/high INR/abnormal blood work results Time Seen by Provider: 04/16/23 17:59 Source: patient and family Mode of arrival: Wheelchair History of Present Illness HPI narrative: 88-year-old male nonsmoker with history of AFib, pacemaker, anticoagulation presents at the request of his primary care provider for evaluation of critically elevated INR. He does not report any evidence of bleeding, no nosebleed, cough with hemoptysis, nausea, vomiting. He has no chest pain or shortness of breath. He is had episodes of some neck pain in the absence of trauma. He denies any headache or blurred vision, no trouble swallowing. No fever or chills. He had recently been on a few rounds of antibiotics for an intestinal infection. He denies any other new medications or change in the dosing of his Coumadin. Related Data Home Medications Medication Instructions Recorded Confirmed warfarin 1 mg tablet 1.5 mg PO SEEINSTR ##0 08/27/11 07/31/19 fluticasone propionate 50 2 spray intranasal BID ##0 09/05/11 07/31/19 mcg/actuation nasal spray,suspension (Flonase Allergy Relief) alfuzosin 10 mg tablet,extended 10 mg PO QDAY ##0 05/22/17 07/31/19 release 24 hr (Uroxatral) atorvastatin 10 mg tablet 10 mg PO BEDTIME 07/31/19 07/31/19 calcium carbonate 500 mg-vitamin 1 tab PO BID 07/31/19 07/31/19 D3 10 mcg (400 unit) tablet (Calcium 500 + D) cholecalciferol (vitamin D3) 25 1,000 unit PO DAILY 07/31/19 07/31/19 mcg (1,000 unit) capsule (Vitamin D3) cyanocobalamin (vitamin B-12) 100 100 mcg PO BID 07/31/19 07/31/19 mcg tablet (Vitamin B-12) ferrous sulfate 324 mg (65 mg 324 mg PO DAILY 07/31/19 07/31/19 iron) tablet,delayed release glucosam 750 mg-chondroi 100 2 tab PO DAILY 07/31/19 07/31/19 mg-hyalur 1.65 mg-CF borate 108 mg tablet ([facility]) magnesium citrate 100 mg tablet 500 mg PO BID 07/31/19 07/31/19 metformin 1,000 mg tablet 1,000 mg PO BID 07/31/19 07/31/19 metoprolol succinate 25 mg 75 mg PO DAILY 07/31/19 07/31/19 tablet,extended release 24 hr warfarin 3 mg tablet 3 mg PO SEEINSTR 07/31/19 07/31/19 Allergies Allergy/AdvReac Type Severity Reaction Status Date / Time amiodarone [AMIODARONE] Allergy Severe FACIAL Verified 03/20/23 12:07 SWELLING codeine [CODEINE] AdvReac Intermediate N/V Verified 03/20/23 12:07 hydromorphone [HYDROMORPHONE] AdvReac Intermediate N/V Verified 03/20/23 12:07 oxycodone [OXYCODONE] AdvReac Intermediate N/V Verified 03/20/23 12:07 latex [LATEX] AdvReac Mild RASH Verified 03/20/23 12:07 Review of Systems Review of Systems Narrative: GENERAL: Denies chills, fatigue, malaise, fever, sweats. HEENT: Denies sinus pain, ear pain, sore throat, difficulty swallowing, dizziness. RESPIRATORY: Denies dyspnea, cough, wheezing, hemoptysis, sputum. CARDIOVASCULAR: Denies chest pain, palpitations, orthopnea, edema, GASTROINTESTINAL: Denies nausea, vomiting, abdominal pain, diarrhea, constipati on, melena. : Denies dysuria, frequency, incontinence, hematuria, urinary retention. MUSCULOSKELETAL: denies weakness, joint pain, or bony pain SKIN: Denies rash, skin lesions, or other NEUROLOGIC: Denies weakness, headache, numbness, change in speech, confusion, seizures, incoordination. PSYCHIATRIC: No concerning psychosocial issues. 12 point review of systems is negative except for those stated above Patient History Medical History (Updated 04/16/23 @ 20:10 by Hiram Sales DO) Atrial fibrillation Hyperglycemia Hypertension Migraines Pacemaker Social History household members: spouse Smoking Status: Never smoker Smoking Status: Never smoker alcohol intake frequency: 0-2 drinks per day Substance Use Type: does not use Exam Narrative Exam Narrative: GENERAL: [88] year old patient appears stated age. Well-developed patient, in mild distress. HEAD: Atraumatic. Normocephalic. EYES: Pupils equal round and reactive. Extraocular motions intact. No scleral icterus. No injection or drainage. ENT: Nose without bleeding, purulent drainage. Throat without erythema, tonsillar hypertrophy or exudate. Airway patent. NECK: Trachea midline. Non tender CARDIOVASCULAR: Regular rate and rhythm without murmurs, gallops, or rubs. RESPIRATORY: Clear to auscultation. Breath sounds equal bilaterally. No wheezes, rales, or rhonchi. GASTROINTESTINAL: Abdomen soft, non-tender, nondistended. RECTAL: No bleeding. Heme NEG. EXTREMITIES: No edema or joint tenderness. BACK: Nontender without deformity or crepitance. No flank tenderness. NEURO: AOx3. SKIN: No rash or erythema of visible areas Initial Vital Signs Initial Vital Signs: Vital Signs Temperature 98.0 F 04/16/23 16:27 Pulse Rate 89 04/16/23 16:27 Respiratory Rate 16 04/16/23 16:27 Blood Pressure 114/67 04/16/23 16:27 Pulse Oximetry 97 04/16/23 16:27 Oxygen Delivery Method Room Air 04/16/23 16:27 Course Orders Ordered: ED Orders 04/16/23 19:38 Type and Screen Stat Discontinued Medications Phytonadione (Phytonadione (Vit K1) 5 Mg Tablet) 5 mg PO NOW ONE Stop: 04/16/23 18:03 Last Admin: 04/16/23 18:51 Dose: 5 mg Documented By: CLARI Vital Signs Vital signs: Vital Signs - 8 hr 04/16/23 16:27 04/16/23 17:59 04/16/23 18:00 Temperature 98.0 F Pulse Rate 89 81 Respiratory Rate 16 17 Blood Pressure 114/67 121/75 Pulse Oximetry 97 99 Oxygen Delivery Method Room Air Room Air 04/16/23 18:00 04/16/23 18:30 04/16/23 18:46 Temperature Pulse Rate 84 75 Respiratory Rate 18 18 Blood Pressure 147/65 H Pulse Oximetry 98 99 Oxygen Delivery Method 04/16/23 18:46 Temperature Pulse Rate 80 Respiratory Rate 18 Blood Pressure Pulse Oximetry 98 Oxygen Delivery Method Room Air MDM - Recheck/Abnormal Lab/Rx Lab Data 04/16/23 16:55 04/16/23 16:55 Labs: Lab Results 04/16/23 04/16/2304/16/23 Range/Units 16:55 16:55 16:55 WBC 9.1 (4.5-11.0) X10^3/uL RBC 4.18 L (4.5-5.9) X10^6/uL Hgb 12.9 L (13.5-17.5) g/dL Hct 38.6 L (41-53) % MCV 92.4 (80-100) fL MCH 30.8 (26-34) PG MCHC 33.3 (30-36) % RDW 15.5 H (11.6-14.8) % Plt Count 222 (150-400) X10^3/uL Neut % (Auto) 77.4 H (50-75) % Lymph % (Auto) 8.5 L (25-40) % [place] % (Auto) 12.6 (3-14) % Eos % (Auto) 1.2 L (2-4) % Baso % (Auto) 0.3 (0-2) % Neut # (Auto) 7000 (4009-8615) /uL Lymph # (Auto) 800 L (6674-1926) /uL [place] # (Auto) 1200 H (0-900) /uL Eos # (Auto) 100 (0-450) /uL Baso # (Auto) 0 (0-100) /uL PT 139.7 H (10.1-12.7) SECONDS INR 11.9 H* (0.9-1.3) Sodium 130 L (137-145) mmol/L Potassium 4.2 (3.4-5.1) mmol/L Chloride 95 L (98-107) mmol/L Carbon Dioxide 26 (22-32) mmol/L BUN 11 (9-20) mg/dL Creatinine 1.00 (0.66-1.25) mg/dL Estimated GFR > 60 (>60) mL/min BUN/Creatinine Ratio 11.0 (6-22) Glucose 148 H (80-110) mg/dL Calcium 9.4 (8.4-10.2) mg/dL Magnesium 1.6 (1.6-2.3) mg/dL Total Bilirubin 1.0 (0.2-1.3) mg/dL AST 37 (17-59) IU/L ALT 18 (<50) IU/L Alkaline Phosphatase 62 (38-126) U/L Total Protein 7.6 (6.3-8.2) g/dL Albumin 4.3 (3.5-5.0) g/dL Globulin 3.3 (1.7-4.1) g/dL Albumin/Globulin Ratio 1.3 (1.0-2.8) Lipase 407 H (23-300) U/L Blood Type Antibody Screen 04/16/23 Range/Units 19:38 WBC (4.5-11.0) X10^3/uL RBC (4.5-5.9) X10^6/uL Hgb (13.5-17.5) g/dL Hct (41-53) % MCV (80-100) fL MCH (26-34) PG MCHC (30-36) % RDW (11.6-14.8) % Plt Count (150-400) X10^3/uL Neut % (Auto) (50-75) % Lymph % (Auto) (25-40) % [place] % (Auto) (3-14) % Eos % (Auto) (2-4) % Baso % (Auto) (0-2) % Neut # (Auto) (0295-3868) /uL Lymph # (Auto) (1444-3950) /uL [place] # (Auto) (0-900) /uL Eos # (Auto) (0-450) /uL Baso # (Auto) (0-100) /uL PT (10.1-12.7) SECONDS INR (0.9-1.3) Sodium (137-145) mmol/L Potassium (3.4-5.1) mmol/L Chloride (98-107) mmol/L Carbon Dioxide (22-32) mmol/L BUN (9-20) mg/dL Creatinine (0.66-1.25) mg/dL Estimated GFR (>60) mL/min BUN/Creatinine Ratio (6-22) Glucose (80-110) mg/dL Calcium (8.4-10.2) mg/dL Magnesium (1.6-2.3) mg/dL Total Bilirubin (0.2-1.3) mg/dL AST (17-59) IU/L ALT (<50) IU/L Alkaline Phosphatase (38-126) U/L Total Protein (6.3-8.2) g/dL Albumin (3.5-5.0) g/dL Globulin (1.7-4.1) g/dL Albumin/Globulin Ratio (1.0-2.8) Lipase (23-300) U/L Blood Type O Positive Antibody Screen Negative Point of Care Testing Stool Occult Blood Negative MDM Narrative Medical decision making narrative: [88] year old patient presents with asymptomatic supratherapeutic INR over 10 Multiple etiologies for patient's symptoms considered including, but not limited to: [Supratherapeutic INR versus bleeding complications versus other] Prior Charts reviewed in our EMR Primary Historian: patient Labs reviewed and interpreted by myself: No leukocytosis or left shift, no signs of anemia, INR 11.9 Imaging reviewed: Head / CSpine CT without abnormal findings Patient's history and physical exam are very reassuring. Patient denies any headaches or blurred vision, no chest pain or shortness of breath, no abdominal pain, no evidence of bleeding. He denies weakness, lightheadedness or fatigue, no syncope. He states he feels completely fine and denies any symptoms whatsoever. Patient asymptomatic with elevated INR. Given lack of evidence of bleeding there is no indication for FFP or Kcentra, no need to admit. Given INR greater than 10 patient is given oral vitamin K. patient encouraged to hold Coumadin for at least the next 3 days, follow closely with primary care provider to arrange for repeat INR. Given extensive return precautions regarding bleeding complications that would prompt a return Findings and discharge diagnosis discussed with patient/family followed by verbalization of understanding Return precautions discussed with patient/family whom verbalize understanding of diagnosis and plan Discharge Plan Departure Patient Disposition: Home Clinical Impression: Supratherapeutic INR Activity Restrictions/Additional Instructions: *You have been diagnosed with [elevated INR. As we discussed there is no evidence of bleeding. Labs are otherwise reassuring, CT scan showed no abnormal findings.] *What to do: *Please DO NOT TAKE your Coumadin (Warfarin) for the next 3--4 days. Otherwise take your medications as previously written [ ] New medication prescriptions sent to your pharmacy: [ ] [ ] New medication written as a paper prescription [ ] No new medications given *Please follow up with your primary care provider in 2-3 days, call for an appointment. It is very important that you get a repeat INR 2-3 days from now. The result will then go to Dr. Tijerina and she will advise how to proceed with your Coumadin. *Return to Emergency Department if you should have any new, worsening or con cerning symptoms, such as weakness, abnormal bleeding, shortness of breath or other concerning symptoms Prescriptions: No Action warfarin 1 MG tablet 1.5 mg PO SEEINSTR Qty: 0 Patient Comments: Takes 1.5 mg on Tuesdays and Saturdays fluticasone propionate [Flonase Allergy Relief] 9.9 ML spray,suspension 2 spray Intranasal BID Qty: 0 alfuzosin [Uroxatral] 10 MG tablet extended release 24 hr 10 mg PO QDAY Qty: 0 [facility] 750 mg-100 mg- 1.65 mg-108 mg Tablet 2 tab PO DAILY cholecalciferol (vitamin D3) [Vitamin D3] 1,000 unit Capsule 1,000 unit PO DAILY cyanocobalamin (vitamin B-12) [Vitamin B-12] 100 mcg Tablet 100 mcg PO BID magnesium citrate 100 mg Tablet 500 mg PO BID metoprolol succinate 25 mg Tablet Extended Release 24 Hr 75 mg PO DAILY metformin 1,000 mg Tablet 1,000 mg PO BID atorvastatin 10 mg Tablet 10 mg PO BEDTIME ferrous sulfate 324 mg (65 mg iron) Tablet,Delayed Release (Dr/Ec) 324 mg PO DAILY calcium carbonate-vitamin D3 [Calcium 500 + D] 500 mg(1,250mg) -400 unit Tablet 1 tab PO BID warfarin 3 mg Tablet 3 mg PO SEEINSTR Rx Instructions: Takes 3 mg on Friday, Friday, , Friday and Friday Referrals: Elvira Tijerina MD [Primary Care Provider] - Stand Alone Forms: Patient Portal/API
== END 2023-04-16 20:30 | disposition home or self-care (01) ==
PROVIDERS: Emergency Medicine; Emergency Provider Emergency Medicine; Family Provider Family Medicine; PCP Family Medicine
DX: R79.1 Abnormal coagulation profile (principal); I48.0 Paroxysmal atrial fibrillation; I10 Essential (primary) hypertension; F02.C0 Dementia in other diseases classified elsewhere, severe, without behavioral disturbance, psychotic disturbance, mood disturbance, and anxiety; J44.1 Chronic obstructive pulmonary disease with (acute) exacerbation; G30.1 Alzheimer's disease with late onset; N18.31 Chronic kidney disease, stage 3a
CPT/HCPCS: 70450; 72125; 80053; 82272; 83690; 83735; 85025; 85610; 86850; 86900; 86901; 99284

== ENCOUNTER 2023-05-16 13:53 | Emergency (ER) | payer MEDICARE, OTHER, SELFPAY ==
[2019-07-31 01:53] VITALS: BMI 21.9
[2023-05-16 13:58] VITALS: BP 105/59; PULSE 88; RESP 17; TEMP 36.6; O2SAT 100
[2023-05-16 14:38] LABS: INR 1.5 (0.9-1.3); Prothrombin Time 16.7 SECONDS (10.1-12.7)
[2023-05-16 14:41] LABS: Add Manual Diff / Slide Review NO; Basophils Absolute Auto 0 /uL (0-100); Basophils Percent Auto 0.4 % (0-2); Eosinophils Absolute Auto 200 /uL (0-450); Eosinophils Percent Auto 1.6 % (2-4); Hematocrit 37.3 % (41-53); Hemoglobin 12.3 g/dL (13.5-17.5); Lymphocytes Absolute Auto 800 /uL (1100-4500); Lymphocytes Percent Auto 6.9 % (25-40); Mean Corpuscular HGB Conc 32.9 % (30-36); Mean Corpuscular Hemoglobin 31.1 PG (26-34); Mean Corpuscular Volume 94.5 fL (80-100); Monocytes Absolute Auto 700 /uL (0-900); Monocytes Percent Auto 6.5 % (3-14); Neutrophils Absolute Auto 9400 /uL (1500-7000); Neutrophils Percent Auto 84.6 % (50-75); PTT Partial Thromboplastin Tim 35 SECONDS (26-36); Platelet Count 169 X10^3/uL (150-400); Red Blood Cell Count 3.95 X10^6/uL (4.5-5.9); Red Cell Distribution Width 16.2 % (11.6-14.8); White Blood Cell Count 11.2 X10^3/uL (4.5-11.0)
--- NOTE | 2023-05-16 18:10 | ED.GIBLEED ---
HPI - GI Bleed <Mani Gallagher PA-C - Last Filed: 05/16/23 18:36> General Chief complaint: GI Bleed Stated complaint: hemroids bleeding take Warfin Time Seen by Provider: 05/16/23 17:41 Source: patient Mode of arrival: Wheelchair History of Present Illness HPI Narrative: This is a 88-year-old male presents to the emergency department due to rectal bleeding from known hemorrhoids. Patient's family states that the patient has a history of hemorrhoids and he reported some mild discomfort to his anus earlier while having a bowel movement. Denies any abdominal pain, chest pain, shortness of breath, or any other concerning signs or symptoms. INR taken last week at his primary care provider's office was 1.2. Blood was bright red. Related Data Home Medications Medication Instructions Recorded Confirmed warfarin 1 mg tablet 1.5 mg PO SEEINSTR ##0 08/27/11 07/31/19 fluticasone propionate 50 2 spray intranasal BID ##0 09/05/11 07/31/19 mcg/actuation nasal spray,suspension (Flonase Allergy Relief) alfuzosin 10 mg tablet,extended 10 mg PO QDAY ##0 05/22/17 07/31/19 release 24 hr (Uroxatral) atorvastatin 10 mg tablet 10 mg PO BEDTIME 07/31/19 07/31/19 calcium carbonate 500 mg-vitamin 1 tab PO BID 07/31/19 07/31/19 D3 10 mcg (400 unit) tablet (Calcium 500 + D) cholecalciferol (vitamin D3) 25 1,000 unit PO DAILY 07/31/19 07/31/19 mcg (1,000 unit) capsule (Vitamin D3) cyanocobalamin (vitamin B-12) 100 100 mcg PO BID 07/31/19 07/31/19 mcg tablet (Vitamin B-12) ferrous sulfate 324 mg (65 mg 324 mg PO DAILY 07/31/19 07/31/19 iron) tablet,delayed release glucosam 750 mg-chondroi 100 2 tab PO DAILY 07/31/19 07/31/19 mg-hyalur 1.65 mg-CF borate 108 mg tablet ([facility] [employer] [facility]) magnesium citrate 100 mg tablet 500 mg PO BID 07/31/19 07/31/19 metformin 1,000 mg tablet 1,000 mg PO BID 07/31/19 07/31/19 metoprolol succinate 25 mg 75 mg PO DAILY 07/31/19 07/31/19 tablet,extended release 24 hr warfarin 3 mg tablet 3 mg PO SEEINSTR 07/31/19 07/31/19 Previous Rx's Medication Instructions Recorded phenylephrine 0.25 %-mineral oil 1 applic MS QAM AND QHS #57 grams 05/16/23 14 %-petrolatm 74.9 % rectal ointment (Preparation H) Allergies Allergy/AdvReac Type Severity Reaction Status Date / Time amiodarone [AMIODARONE] Allergy Severe FACIAL Verified 05/16/23 14:01 SWELLING codeine [CODEINE] AdvReac Intermediate N/V Verified 05/16/23 14:01 hydromorphone [HYDROMORPHONE] AdvReac Intermediate N/V Verified 05/16/23 14:01 oxycodone [OXYCODONE] AdvReac Intermediate N/V Verified 05/16/23 14:01 latex [LATEX] AdvReac Mild RASH Verified 05/16/23 14:01 Review of Systems <Mani Gallagher PA-C - Last Filed: 05/16/23 18:36> Review of Systems Narrative: GENERAL: Denies chills, fatigue, malaise, fever, sweats. HEENT: Denies sinus pain, ear pain, sore throat, difficulty swallowing, dizziness. RESPIRATORY: Denies dyspnea, cough, wheezing, hemoptysis, sputum. CARDIOVASCULAR: Denies chest pain, palpitations, orthopnea, edema, GASTROINTESTINAL: Denies nausea, vomiting, abdominal pain, diarrhea, constipation, melena. : Reports rectal discomfort and hematochezia Denies dysuria, frequency, incontinence, hematuria, urinary retention. MUSCULOSKELETAL: denies weakness, joint pain, or bony pain SKIN: Denies rash, skin lesions, or other NEUROLOGIC: Denies weakness, headache, numbness, change in speech, confusion, seizures, incoordination. PSYCHIATRIC: No concerning psychosocial issues. 12 point review of systems is negative except for those stated above Patient History <Mani Gallagher PA-C - Last Filed: 05/16/23 18:36> Medical History (Updated 05/16/23 @ 18:34 by Mani Gallagher PA-C) Migraines Hyperglycemia Hypertension Pacemaker Atrial fibrillation Social History household members: spouse Smoking Status: Never smoker Smoking Status: Never smoker alcohol intake frequency: 0-2 drinks per day Substance Use Type: does not use Exam <Mani Gallagher PA-C - Last Filed: 05/16/23 18:36> Narrative Exam Narrative: GENERAL: Well-developed patient, in mild distress. HEAD: Atraumatic. Normocephalic. EYES: Pupils equal round and reactive. Extraocular motions intact. No scleral icterus. No injection or drainage. ENT: Nose without bleeding, purulent drainage. Throat without erythema, tonsillar hypertrophy or exudate. Airway patent. NECK: Trachea midline. Non tender CARDIOVASCULAR: Regular rate and rhythm without murmurs, gallops, or rubs. RESPIRATORY: Clear to auscultation. Breath sounds equal bilaterally. No wheezes, rales, or rhonchi. GASTROINTESTINAL: Abdomen soft, non-tender, nondistended. Rectal exam performed with recreation clerk in room. Small external hemorrhoids as well as palpable internal hemorrhoids. EXTREMITIES: No edema or joint tenderness. BACK: Nontender without deformity or crepitance. No flank tenderness. NEURO: AOx3. SKIN: No rash or erythema of visible areas Initial Vital Signs Initial Vital Signs: Vital Signs Temperature 98 F 05/16/23 13:58 Pulse Rate 88 05/16/23 13:58 Respiratory Rate 17 05/16/23 13:58 Blood Pressure 105/59 L 05/16/23 13:58 Pulse Oximetry 100 05/16/23 13:58 Oxygen Delivery Method Room Air 05/16/23 13:58 <Hiram Sales DO - Last Filed: 05/17/23 09:01> Initial Vital Signs Initial Vital Signs: Vital Signs Temperature 98 F 05/16/23 13:58 Pulse Rate 88 05/16/23 13:58 Respiratory Rate 17 05/16/23 13:58 Blood Pressure 105/59 L 05/16/23 13:58 Pulse Oximetry 100 05/16/23 13:58 Oxygen Delivery Method Room Air 05/16/23 13:58 Course <Mani Gallagher PA-C - Last Filed: 05/16/23 18:36> Orders Ordered: ED Orders 05/16/23 14:25 CBC Auto Diff [Complete Blood Count AUTO DIFF] Stat PTT Partial Thromboplastin Chavez Stat Prothrombin Time INR Stat Vital Signs Vital signs: Vital Signs - 8 hr 05/16/23 13:58 Temperature 98 F Pulse Rate 88 Respiratory Rate 17 Blood Pressure 105/59 L Pulse Oximetry 100 Oxygen Delivery Method Room Air <Hiram Sales DO - Last Filed: 05/17/23 09:01> Orders Ordered: ED Orders 05/16/23 14:25 CBC Auto Diff [Complete Blood Count AUTO DIFF] Stat PTT Partial Thromboplastin Chavez Stat Prothrombin Time INR Stat Vital Signs Vital signs: Vital Signs - 8 hr 05/16/23 13:58 Temperature 98 F Pulse Rate 88 Respiratory Rate 17 Blood Pressure 105/59 L Pulse Oximetry 100 Oxygen Delivery Method Room Air MDM - GI Bleed <Mani Gallagher PA-C - Last Filed: 05/16/23 18:36> Lab Data 05/16/23 14:25 Labs: Lab Results 05/16/23 Range/Units 14:25 WBC 11.2 H (4.5-11.0) X10^3/uL RBC 3.95 L (4.5-5.9) X10^6/uL Hgb 12.3 L (13.5-17.5) g/dL Hct 37.3 L (41-53) % MCV 94.5 (80-100) fL MCH 31.1 (26-34) PG MCHC 32.9 (30-36) % RDW 16.2 H (11.6-14.8) % Plt Count 169 (150-400) X10^3/uL Neut % (Auto) 84.6 H (50-75) % Lymph % (Auto) 6.9 L (25-40) % [place] % (Auto) 6.5 (3-14) % Eos % (Auto) 1.6 L (2-4) % Baso % (Auto) 0.4 (0-2) % Neut # (Auto) 9400 H (1039-4998) /uL Lymph # (Auto) 800 L (1026-8223) /uL [place] # (Auto) 700 (0-900) /uL Eos # (Auto) 200 (0-450) /uL Baso # (Auto) 0 (0-100) /uL PT 16.7 H (10.1-12.7) SECONDS INR 1.5 H (0.9-1.3) APTT 35 (26-36) SECONDS MDM Narrative Medical decision making narrative: MDM * differential diagnosis includes but not limited to hemorrhoids, diverticulosis, diverticulitis, upper GI bleed * Prior records reviewed: Patient was last seen here a month ago for a supratherapeutic INR. History of AFib, pacemaker, on warfarin. No evidence of bleeding. Patient had INR greater than 10 and given oral vitamin K. * My lab interpretation: CBC showed mild anemia, unchanged from prior. INR 1.5 * My imgaing interpretation: None obtained * Clinical Decision Rules/Scores evaluated: None * Independent discussions with: None ED Course: This is a 88-year-old male presenting to the emergency department due to rectal bleeding suspect to be due from hemorrhoids. On physical exam external and some internal hemorrhoids were palpated. Patient describes blood to be bright red. Mildly anemic although this appears baseline for the patient. INR 1.5 and recommended patient's speak with primary care provider for further follow up. Also recommended patient follow up with the primary care provider for long-term management of the hemorrhoids. Shared Decision Making: Discussed plan with patient who is comfortable with the plan. Social Considerations: None Disposition: Discharged to home <Hiram Sales, - Last Filed: 05/17/23 09:01> Lab Data Labs: Lab Results 05/16/23 Range/Units 14:25 WBC 11.2 H (4.5-11.0) X10^3/uL RBC 3.95 L (4.5-5.9) X10^6/uL Hgb 12.3 L (13.5-17.5) g/dL Hct 37.3 L (41-53) % MCV 94.5 (80-100) fL MCH 31.1 (26-34) PG MCHC 32.9 (30-36) % RDW 16.2 H (11.6-14.8) % Plt Count 169 (150-400) X10^3/uL Neut % (Auto) 84.6 H (50-75) % Lymph % (Auto) 6.9 L (25-40) % [place] % (Auto) 6.5 (3-14) % Eos % (Auto) 1.6 L (2-4) % Baso % (Auto) 0.4 (0-2) % Neut # (Auto) 9400 H (4124-2956) /uL Lymph # (Auto) 800 L (4582-5275) /uL [place] # (Auto) 700 (0-900) /uL Eos # (Auto) 200 (0-450) /uL Baso # (Auto) 0 (0-100) /uL PT 16.7 H (10.1-12.7) SECONDS INR 1.5 H (0.9-1.3) APTT 35 (26-36) SECONDS Discharge Plan Departure Patient Disposition: Home Clinical Impression: Hemorrhoids Instructions: DI for Hemorrhoids Activity Restrictions/Additional Instructions: Thank you for coming to the [facility] Emergency Department today. On exam there does appear to be some hemorrhoids around your anus. Please use the medication as prescribed to help with these. I also recommend you follow up with the primary care provider for long-term management of these. The blood work today showed no changes from previous. I hope you feel better soon. Please follow up with your primary care provider within a week if your symptoms continue. If you do not have a primary care provider please contact the [facility] Resource line at [phone]. They will ask some questions about your medical history and help you get set up with a provider in the community. Prescriptions: New Preparation H 0.25-14-74.9 % ointment 1 applic MS QAM AND QHS Qty: 57 0RF No Action warfarin 1 MG tablet 1.5 mg PO SEEINSTR Qty: 0 Patient Comments: Takes 1.5 mg on Tuesdays and Saturdays fluticasone propionate [Flonase Allergy Relief] 9.9 ML spray,suspension 2 spray Intranasal BID Qty: 0 alfuzosin [Uroxatral] 10 MG tablet extended release 24 hr 10 mg PO QDAY Qty: 0 [facility] 750 mg-100 mg- 1.65 mg-108 mg Tablet 2 tab PO DAILY cholecalciferol (vitamin D3) [Vitamin D3] 1,000 unit Capsule 1,000 unit PO DAILY cyanocobalamin (vitamin B-12) [Vitamin B-12] 100 mcg Tablet 100 mcg PO BID magnesium citrate 100 mg Tablet 500 mg PO BID metoprolol succinate 25 mg Tablet Extended Release 24 Hr 75 mg PO DAILY metformin 1,000 mg Tablet 1,000 mg PO BID atorvastatin 10 mg Tablet 10 mg PO BEDTIME ferrous sulfate 324 mg (65 mg iron) Tablet,Delayed Release (Dr/Ec) 324 mg PO DAILY calcium carbonate-vitamin D3 [Calcium 500 + D] 500 mg(1,250mg) -400 unit Tablet 1 tab PO BID warfarin 3 mg Tablet 3 mg PO SEEINSTR Rx Instructions: Takes 3 mg on Friday, Friday, , Friday and Friday Referrals: Elvira Tijerina MD [Primary Care Provider] - Stand Alone Forms: Patient Portal/API ED Sign-out <Hiram Sales DO - Last Filed: 05/17/23 09:01> Cosign ED Attending [place] Attestation: I was immediately available in the department for consultation. Documentation has been reviewed. I agree with assessment and plan.
[2023-05-16 18:43] VITALS: BP 123/80; PULSE 82; RESP 18; O2SAT 98
== END 2023-05-16 18:47 | disposition home or self-care (01) ==
PROVIDERS: Emergency Medicine; Emergency Provider Physician Assistant Medical; Family Provider Family Medicine; PCP Family Medicine
DX: K64.9 Unspecified hemorrhoids (principal); Z79.01 Long term (current) use of anticoagulants
CPT/HCPCS: 36415; 85025; 85610; 85730; 99283

== ENCOUNTER 2023-09-22 13:04 | Emergency (ER) | payer MEDICARE, OTHER, SELFPAY ==
[2019-07-31 01:53] VITALS: BMI 21.9
[2023-09-22] VITALS (11 sets, daily range): BP systolic 108–140; BP diastolic 66–86; PULSE 60–73; RESP 12–22; O2SAT 94–100
--- NOTE | 2023-09-22 13:31 | PC.NURSE ---
Patient family states that he has not been eating drinking normally for a week. He sleeps a lot and is confused at baseline. He is alert to his name and he knows he's in the hospital but can't recall his , or age. He lives with his but states that he is single and not . He stated that he lives at home with his mommy.
[2023-09-22 13:53] LABS: Add Manual Diff / Slide Review NO; Basophils Absolute Auto 100 /uL (0-100); Basophils Percent Auto 1.1 % (0-2); Eosinophils Absolute Auto 600 /uL (0-450); Eosinophils Percent Auto 11.6 % (2-4); Hematocrit 37.4 % (41-53); Hemoglobin 12.5 g/dL (13.5-17.5); Lymphocytes Absolute Auto 1600 /uL (1100-4500); Lymphocytes Percent Auto 28.9 % (25-40); Mean Corpuscular HGB Conc 33.3 % (30-36); Mean Corpuscular Hemoglobin 32.8 PG (26-34); Mean Corpuscular Volume 98.2 fL (80-100); Monocytes Absolute Auto 500 /uL (0-900); Monocytes Percent Auto 8.1 % (3-14); Neutrophils Absolute Auto 2800 /uL (1500-7000); Neutrophils Percent Auto 50.3 % (50-75); Platelet Count 163 X10^3/uL (150-400); Red Blood Cell Count 3.81 X10^6/uL (4.5-5.9); Red Cell Distribution Width 14.6 % (11.6-14.8); White Blood Cell Count 5.6 X10^3/uL (4.5-11.0)
[2023-09-22 14:09] LABS: Alanine Aminotransferase 23 IU/L (<50); Albumin 3.9 g/dL (3.5-5.0); Albumin Globulin Ratio 1.2 (1.0-2.8); Alkaline Phosphatase 79 U/L (38-126); Ammonia (NH3) < 9 umol/L (9-30); Aspartate Aminotransferase 38 IU/L (17-59); BUN Creatinine Ratio 19.4 (6-22); Bilirubin Total 0.7 mg/dL (0.2-1.3); Blood Urea Nitrogen 19 mg/dL (9-20); Carbon Dioxide 22 mmol/L (22-32); Chloride 102 mmol/L (98-107); Estimated Glomerular Filt Rate > 60 mL/min (>60); Globulin 3.3 g/dL (1.7-4.1); Glucose 133 mg/dL (80-110); HEMOLYSIS 19 (0-50); Potassium 4.5 mmol/L (3.4-5.1); Sodium 136 mmol/L (137-145); Total Protein 7.2 g/dL (6.3-8.2)
[2023-09-22 14:32] LABS: Urine Volume 10mL (spun)
[2023-09-22 14:34] LABS: Bacteria Urine None Seen; Culture Indicated Urine Cult Not Indicated; RBC Urine None Seen (0-5/HPF); Squamous Epithelial Cell Urine None Seen (0-5/HPF); WBC Urine None Seen (0-5/HPF)
--- NOTE | 2023-09-22 14:48 | ED.GENADULT ---
HPI - General Adult General Chief complaint: Weakness Stated complaint: weakness Time Seen by Provider: 09/22/23 13:25 Source: patient and EMS Mode of arrival: EMS History of Present Illness HPI narrative: 88-year-old male with history of dementia, AFib, pacemaker, anticoagulated on warfarin until recently presents for weakness and labile blood pressure. Patient states he feels fine he has no complaints. His notes that he does have dementia. She states caregiver encouraged them to come to the ED to be evaluated. Patient has had increased weakness today according to his . She states he mostly sat on the couch. Blood pressure was up and down but not his glucose. Patient and both state no fevers or chills, no cold cough or congestion, no difficulty with breathing, no complaints of chest pain or shortness of breath. No nausea or vomiting. No diarrhea constipation, no other GI or urinary symptoms. does note he does not drink water it is hard to keep him hydrated. She states that she believes they did recently stop his warfarin but is currently on metformin, metoprolol, atorvastatin, alfuzosin, allopurinol for home medications. Has pacemaker but no other reported surgeries. No tobacco, alcohol or illicit. Does have allergies to amiodarone and narcotics. Patient has a caregiver at home as well as living with his . Dr. Tijerina as his primary care physician. Related Data Home Medications Medication Instructions Recorded Confirmed warfarin 1 mg tablet 1.5 mg PO SEEINSTR ##0 08/27/11 07/31/19 fluticasone propionate 50 2 spray intranasal BID ##0 09/05/11 07/31/19 mcg/actuation nasal spray,suspension (Flonase Allergy Relief) alfuzosin 10 mg tablet,extended 10 mg PO QDAY ##0 05/22/17 07/31/19 release 24 hr (Uroxatral) atorvastatin 10 mg tablet 10 mg PO BEDTIME 07/31/19 07/31/19 calcium carbonate 500 mg-vitamin 1 tab PO BID 07/31/19 07/31/19 D3 10 mcg (400 unit) tablet (Calcium 500 + D) cholecalciferol (vitamin D3) 25 1,000 unit PO DAILY 07/31/19 07/31/19 mcg (1,000 unit) capsule (Vitamin D3) cyanocobalamin (vitamin B-12) 100 100 mcg PO BID 07/31/19 07/31/19 mcg tablet (Vitamin B-12) ferrous sulfate 324 mg (65 mg 324 mg PO DAILY 07/31/19 07/31/19 iron) tablet,delayed release glucosam 750 mg-chondroi 100 2 tab PO DAILY 07/31/19 07/31/19 mg-hyalur 1.65 mg-CF borate 108 mg tablet (Move Free [facility]) magnesium citrate 100 mg tablet 500 mg PO BID 07/31/19 07/31/19 metformin 1,000 mg tablet 1,000 mg PO BID 07/31/19 07/31/19 metoprolol succinate 25 mg 75 mg PO DAILY 07/31/19 07/31/19 tablet,extended release 24 hr warfarin 3 mg tablet 3 mg PO SEEINSTR 07/31/19 07/31/19 Previous Rx's Medication Instructions Recorded phenylephrine 0.25 %-mineral oil 1 applic PA QAM AND QHS #57 grams 05/16/23 14 %-petrolatm 74.9 % rectal ointment (Preparation H) Allergies Allergy/AdvReac Type Severity Reaction Status Date / Time amiodarone [AMIODARONE] Allergy Severe FACIAL Verified 09/22/23 15:06 SWELLING codeine [CODEINE] AdvReac Intermediate N/V Verified 09/22/23 15:06 hydromorphone [HYDROMORPHONE] AdvReac Intermediate N/V Verified 09/22/23 15:06 oxycodone [OXYCODONE] AdvReac Intermediate N/V Verified 09/22/23 15:06 latex [LATEX] AdvReac Mild RASH Verified 09/22/23 15:06 Review of Systems Review of Systems ROS Unobtainable: All systems reviewed & are unremarkable except as noted in HPI and below Patient History Medical History (Updated 09/22/23 @ 17:40 by Carmelita Fletcher DO) Migraines Hyperglycemia Hypertension Pacemaker Atrial fibrillation Social History household members: spouse Smoking Status: Never smoker Smoking Status: Never smoker alcohol intake frequency: 0-2 drinks per day Substance Use Type: does not use Exam Narrative Exam Narrative: GENERAL: Alert and oriented x three, male in no acute distress. HEENT: Head normocephalic, atraumatic, EOMI, pupils reactive, face symmetric, moist mucous membranes NECK: Supple, full range of motion CARDIOVASCULAR: Regular rate and rhythm without murmurs, rubs or gallops. No JVD. No swelling bilateral lower extremities. RESPIRATORY: Breath sounds equal bilaterally, no wheezes rales or rhonchi. No tachypnea or accessory muscle use. ABDOMEN: Soft, nontender. Normoactive bowel sounds all 4 quadrants. No guarding or rebound, rigidity, no mass : No CVA tenderness EXTREMITIES: Normal range of motion, no clubbing or edema. Neurovascularly intact NEUROLOGICAL: Cranial nerves II through XII grossly intact. Moving all extremities SKIN: Warm, dry, no petechiae, no rashes or lesions. Initial Vital Signs Initial Vital Signs: Vital Signs Pulse Rate 60 09/22/23 13:14 Respiratory Rate 17 09/22/23 13:14 Blood Pressure 134/85 09/22/23 13:14 Pulse Oximetry 100 09/22/23 13:14 Oxygen Delivery Method Room Air 09/22/23 13:14 Course Orders Ordered: Discontinued Medications Sodium Chloride (Normal Saline 0.9%) 1,000 mls @ 1,000 mls/hr IV BOLUS ONE Stop: 09/22/23 16:53 Last Infusion: 09/22/23 17:00 Dose: Infused Documented By: Admin: 09/22/23 15:57 Dose: 1,000 mls/hr Documented By: HARRIETT Vital Signs Vital signs: Vital Signs - 8 hr 09/22/23 13:14 09/22/23 13:34 09/22/23 14:00 Pulse Rate 60 60 60 Respiratory Rate 17 17 18 Blood Pressure 134/85 Pulse Oximetry 100 100 96 Oxygen Delivery Method Room Air 09/22/23 14:00 09/22/23 14:30 09/22/23 14:30 Pulse Rate 60 Respiratory Rate 14 Blood Pressure 111/70 109/66 Pulse Oximetry 94 Oxygen Delivery Method 09/22/23 15:00 09/22/23 15:00 09/22/23 15:30 Pulse Rate 60 Respiratory Rate 18 Blood Pressure 117/71 108/77 Pulse Oximetry 99 Oxygen Delivery Method 09/22/23 15:30 09/22/23 16:00 09/22/23 16:00 Pulse Rate 61 60 Respiratory Rate 12 16 Blood Pressure 119/68 Pulse Oximetry 100 100 Oxygen Delivery Method Room Air 09/22/23 16:30 09/22/23 16:30 09/22/23 17:00 Pulse Rate 62 60 Respiratory Rate 22 15 Blood Pressure 130/77 Pulse Oximetry 98 99 Oxygen Delivery Method 09/22/23 17:00 Pulse Rate Respiratory Rate Blood Pressure 120/69 Pulse Oximetry Oxygen Delivery Method Medical Decision Making Lab Data 09/22/23 13:45 09/22/23 13:45 Labs: Lab Results 09/22/23 09/22/23 09/22/23 Range/Units 13:45 14:07 16:40 WBC 5.6 (4.5-11.0) X10^3/uL RBC 3.81 L (4.5-5.9) X10^6/uL Hgb 12.5 L (13.5-17.5) g/dL Hct 37.4 L (41-53) % MCV 98.2 (80-100) fL MCH 32.8 (26-34) PG MCHC 33.3 (30-36) % RDW 14.6 (11.6-14.8) % Plt Count 163 (150-400) X10^3/uL Neut % (Auto) 50.3 (50-75) % Lymph % (Auto) 28.9 (25-40) % [place] % (Auto) 8.1 (3-14) % Eos % (Auto) 11.6 H (2-4) % Baso % (Auto) 1.1 (0-2) % Neut # (Auto) 2800 (9226-2965) /uL Lymph # (Auto) 1600 (0303-9252) /uL [place] # (Auto) 500 (0-900) /uL Eos # (Auto) 600 H (0-450) /uL Baso # (Auto) 100 (0-100) /uL PT 11.3 (9.4-12.5) SECONDS INR 1.0 (0.9-1.3) APTT 34 (25.1-36.5) SECONDS Sodium 136 L (137-145) mmol/L Potassium 4.5 (3.4-5.1) mmol/L Chloride 102 (98-107) mmol/L Carbon Dioxide 22 (22-32) mmol/L BUN 19 (9-20) mg/dL Creatinine 0.98 (0.66-1.25) mg/dL Estimated GFR > 60 (>60) mL/min BUN/Creatinine Ratio 19.4 (6-22) Glucose 133 H (80-110) mg/dL Calcium 9.0 (8.4-10.2) mg/dL Total Bilirubin 0.7 (0.2-1.3) mg/dL AST 38 (17-59) IU/L ALT 23 (<50) IU/L Alkaline Phosphatase 79 (38-126) U/L Ammonia < 9 L (9-30) umol/L Total Protein 7.2 (6.3-8.2) g/dL Albumin 3.9 (3.5-5.0) g/dL Globulin 3.3 (1.7-4.1) g/dL Albumin/Globulin Ratio 1.2 (1.0-2.8) Urine RBC None seen (0-5/HPF) Urine WBC None seen (0-5/HPF) Ur Squamous Epith Cells None seen (0-5/HPF) Urine Bacteria None seen (None) Ur Culture Indicated? Cult not indicated Vol Urine Centrifuged 10ml (spun) Urine Dip Bedside Urine Glucose Negative Bedside Urine Bilirubin - Negative Bedside Urine Ketone - Negative Urine Specific [place] 1.010 Bedside Urine Occult Blood - Negative Bedside Urine pH 6.5 Bedside Urine Protein +/- 15 Bedside Urine Urobilinogen - Negative Bedside Urine Nitrite - Negative Bedside Urine Leukocytes - Negative Esterase Point of care testing: Urine Dip Bedside Urine Glucose Negative Bedside Urine Bilirubin - Negative Bedside Urine Ketone - Negative Urine Specific [place] 1.010 Bedside Urine Occult Blood - Negative Bedside Urine pH 6.5 Bedside Urine Protein +/- 15 Bedside Urine Urobilinogen - Negative Bedside Urine Nitrite - Negative Bedside Urine Leukocytes - Negative Esterase ECG Data Attestation: I personally reviewed and interpreted this ECG as follows: Interpretation: Paced rhythm rate of 61 QRS 86 QTC of 426. MDM Narrative Medical decision making narrative: This is an 88-year-old male with known dementia, atrial fibrillation, hypertension dyslipidemia, diabetes patient's workup thus far shows a paced rhythm with EKG. Labs show a stable hemoglobin at 12.5, normal platelets and white count. INR is 1.5, sodium is 136 electrolytes otherwise appropriate, creatinine 0.98, glucose of 133, LFTs are negative with the pneumonia that is less than 9. Point of care urine is negative for obvious infection, micro is negative. Chest x-ray shows no acute change. Blood pressure has been somewhat labile here in the department, 117-105 systolic. Patient is on several medications that can lower blood pressure. Otherwise no acute causes appreciated. Patient had a L of fluids blood pressure somewhat improved. Patient had ambulation trial with nursing and patient and family are comfortable returning home. Discharge Plan Departure Patient Disposition: Home Clinical Impression: Weakness Activity Restrictions/Additional Instructions: Please follow-up for recheck. If your blood pressure continues to be low please hold your alfuzosin. Please return for new or worsening symptoms, new chest pain, shortness of breath, increasing weakness, persistent vomiting, new swelling of your extremities or other new or concerning changes. Prescriptions: No Action warfarin 1 MG tablet 1.5 mg PO SEEINSTR Qty: 0 Patient Comments: Takes 1.5 mg on Tuesdays and Saturdays fluticasone propionate [Flonase Allergy Relief] 9.9 ML spray,suspension 2 spray Intranasal BID Qty: 0 alfuzosin [Uroxatral] 10 MG tablet extended release 24 hr 10 mg PO QDAY Qty: 0 [facility] 750 mg-100 mg- 1.65 mg-108 mg Tablet 2 tab PO DAILY cholecalciferol (vitamin D3) [Vitamin D3] 1,000 unit Capsule 1,000 unit PO DAILY cyanocobalamin (vitamin B-12) [Vitamin B-12] 100 mcg Tablet 100 mcg PO BID magnesium citrate 100 mg Tablet 500 mg PO BID metoprolol succinate 25 mg Tablet Extended Release 24 Hr 75 mg PO DAILY metformin 1,000 mg Tablet 1,000 mg PO BID atorvastatin 10 mg Tablet 10 mg PO BEDTIME ferrous sulfate 324 mg (65 mg iron) Tablet,Delayed Release (Dr/Ec) 324 mg PO DAILY calcium carbonate-vitamin D3 [Calcium 500 + D] 500 mg(1,250mg) -400 unit Tablet 1 tab PO BID warfarin 3 mg Tablet 3 mg PO SEEINSTR Rx Instructions: Takes 3 mg on Friday, Friday, , Friday and Friday Preparation H 0.25-14-74.9 % ointment 1 applic PA QAM AND QHS Qty: 57 0RF Referrals: Elvira Tijerina MD [Primary Care Provider] - Stand Alone Forms: Patient Portal/API
--- NOTE | 2023-09-22 15:54 | DI.RAD.S_ITS ---
PROCEDURE: XR CHEST 1V INDICATIONS: weakness TECHNIQUE: One view of the chest was acquired. COMPARISON: [facility], CR, XR CHEST 1V, 03/29/2023, 13:35. FINDINGS: Surgical changes and devices: Cervical fixation rods and pacemaker. Lungs and pleura: Lungs are clear. No pleural effusions or pneumothorax. Mediastinum: Mediastinal contours appear normal. Heart size is enlarged. Bones and chest wall: No suspicious bony lesions. Overlying soft tissues appear unremarkable. IMPRESSION: No acute pulmonary process. Dictated by: Chaparrita Maxwell M.D. on 09/22/2023 at 16:57 Approved by: Chaparrita Maxwell M.D. on 09/22/2023 at 16:58
[2023-09-22] MEDS: SODIUM CHLORIDE 0.9% 1,000 ML 1000 ML IV (15:57)
[2023-09-22 16:54] LABS: Prothrombin Time 11.3 SECONDS (9.4-12.5)
[2023-09-22 16:56] LABS: PTT Partial Thromboplastin Tim 34 SECONDS (25.1-36.5)
== END 2023-09-22 18:01 | disposition home or self-care (01) ==
PROVIDERS: Emergency Provider Emergency Medicine; Family Provider Family Medicine; PCP Family Medicine
DX: R53.1 Weakness (principal); I10 Essential (primary) hypertension
CPT/HCPCS: 36415; 71045; 80053; 81003; 81015; 82140; 85025; 85610; 85730; 93005; 99284

== ENCOUNTER → 2024-05-21 12:14 | Outpatient (CLI) | payer MEDICARE, OTHER, SELFPAY ==
[2019-07-31 01:53] VITALS: BMI 21.9
[2024-05-21 15:25] LABS: Alanine Aminotransferase 14 IU/L (<50); Albumin 4.8 g/dL (3.5-5.0); Albumin Globulin Ratio 1.4 (1.0-2.8); Alkaline Phosphatase 79 U/L (38-126); Aspartate Aminotransferase 22 IU/L (17-59); BUN Creatinine Ratio 21.9 (6-22); Bilirubin Total 0.6 mg/dL (0.2-1.3); Blood Urea Nitrogen 25 mg/dL (9-20); Calcium 9.8 mg/dL (8.4-10.2); Carbon Dioxide 23 mmol/L (22-32); Chloride 102 mmol/L (98-107); Cholesterol 145 mg/dL (140-199); Estimated Glomerular Filt Rate > 60 mL/min (>60); Globulin 3.4 g/dL (1.7-4.1); Glucose 111 mg/dL (80-110); HDL Cholesterol 48 mg/dL (40-60); HEMOLYSIS 20 (0-50); LDL Cholesterol Calculated 62 mg/dL (<100); Magnesium 1.4 mg/dL (1.6-2.3); Sodium 138 mmol/L (137-145); Total Protein 8.2 g/dL (6.3-8.2); Triglycerides 176 mg/dL (35-150)
[2024-05-21 15:27] LABS: Potassium 5.6 mmol/L (3.4-5.1)
[2024-05-21 15:54] LABS: Thyroid Stimulating Hormone 2.49 uIU/mL (0.47-4.68)
== END ==
LOC: LAB 12:16
PROVIDERS: Family Provider Family Medicine; PCP Family Medicine; Referring Provider Specialist; Visit Provider Specialist
DX: I48.19 Other persistent atrial fibrillation (principal); E78.5 Hyperlipidemia, unspecified
CPT/HCPCS: 36415; 80053; 80061; 83735; 84443

== ENCOUNTER 2024-07-31 22:13 | Emergency (ER) | payer MEDICARE, OTHER, SELFPAY ==
[2019-07-31 01:53] VITALS: BMI 21.9
--- NOTE | 2024-07-31 22:37 | PC.NURSE ---
Called pt for nisha; was informed by superintendent stations that he is in the bathroom.
[2024-07-31 22:44] VITALS: BP 143/88; PULSE 108; RESP 22; TEMP 36.6; O2SAT 98; BMI 22.1
--- NOTE | 2024-07-31 23:05 | DI.US.S_ITS ---
PROCEDURE: US PERIPH VENOUS LOW EXTREM BI INDICATIONS: Swollen purple cold extremeties TECHNIQUE: Real-time imaging, as well as color and pulse Doppler interrogation, were performed of the deep veins of both legs from the inguinal ligament to the popliteal fossa, with documentation of the visualized calf veins. COMPARISON: None. FINDINGS: Right: The common femoral, femoral, popliteal, and the visualized calf veins are normally compressible, and free of intraluminal thrombus. Color and pulse Doppler demonstrate normal phasic intravascular flow. There is normal augmentation response to distal compression maneuver. Left: The common femoral, femoral, popliteal, and the visualized calf veins are normally compressible, and free of intraluminal thrombus. Color and pulse Doppler demonstrate normal phasic intravascular flow. There is normal augmentation response to distal compression maneuver. Diffuse subcutaneous edema is present at the lower extremities bilaterally. IMPRESSION: No findings of deep venous thrombosis in either lower extremity. Dictated by: Artemio Solis M.D. on 08/01/2024 at 2:09 Approved by: Artemio Solis M.D. on 08/01/2024 at 2:10
--- NOTE | 2024-07-31 23:07 | DI.RAD.S_ITS ---
PROCEDURE: XR CHEST 1V INDICATIONS: chest pain TECHNIQUE: One view of the chest was acquired. COMPARISON: [facility], CR, XR CHEST 1V, 09/22/2023, 16:14. [facility], CR, XR CHEST 1V, 03/29/2023, 13:35. FINDINGS: Surgical changes and devices: Left pacemaker with right atrial and right ventricular leads. Cholecystectomy clips. Cervical spine fixation hardware. Lungs and pleura: Lungs are clear. No pleural effusions or pneumothorax. Mediastinum: Mediastinal contours appear normal. Heart size is enlarged. Bones and chest wall: No suspicious bony lesions. Overlying soft tissues appear unremarkable. IMPRESSION: No acute cardiopulmonary abnormality is seen. Cardiomegaly. Dictated by: Ray Olivia M.D. on 08/01/2024 at 2:32 Approved by: Ray Olivia M.D. on 08/01/2024 at 2:33
[2024-07-31 23:35] VITALS: BP 135/95; PULSE 121; RESP 33
[2024-07-31 23:50] LABS: Add Manual Diff / Slide Review NO; Basophils Absolute Auto 0 /uL (0-100); Basophils Percent Auto 0.3 % (0-2); Eosinophils Absolute Auto 100 /uL (0-450); Eosinophils Percent Auto 0.9 % (2-4); Hematocrit 39.5 % (41-53); Hemoglobin 12.9 g/dL (13.5-17.5); Lymphocytes Absolute Auto 1200 /uL (1100-4500); Lymphocytes Percent Auto 8.8 % (25-40); Mean Corpuscular HGB Conc 32.7 % (30-36); Mean Corpuscular Hemoglobin 30.8 PG (26-34); Mean Corpuscular Volume 94.1 fL (80-100); Monocytes Absolute Auto 1200 /uL (0-900); Monocytes Percent Auto 8.7 % (3-14); Neutrophils Absolute Auto 10700 /uL (1500-7000); Neutrophils Percent Auto 81.3 % (50-75); Platelet Count 244 X10^3/uL (150-400); Red Cell Distribution Width 13.3 % (11.6-14.8); White Blood Cell Count 13.2 X10^3/uL (4.5-11.0)
[2024-07-31 23:58] LABS: Alanine Aminotransferase 23 IU/L (<50); Albumin 4.3 g/dL (3.5-5.0); Alkaline Phosphatase 111 U/L (38-126); Aspartate Aminotransferase 34 IU/L (17-59); BUN Creatinine Ratio 19.2 (6-22); Bilirubin Total 1.2 mg/dL (0.2-1.3); Blood Urea Nitrogen 25 mg/dL (9-20); Carbon Dioxide 28 mmol/L (22-32); Chloride 95 mmol/L (98-107); Creatine Kinase 89 U/L (55-170); Estimated Glomerular Filt Rate 53 mL/min (>60); Globulin 4.1 g/dL (1.7-4.1); Glucose 247 mg/dL (80-110); HEMOLYSIS 37 (0-50); Lipase 273 U/L (23-300); Magnesium 1.4 mg/dL (1.6-2.3); Potassium 4.3 mmol/L (3.4-5.1); Sodium 131 mmol/L (137-145); Total Protein 8.4 g/dL (6.3-8.2)
[2024-08-01] VITALS (11 sets, daily range): BP systolic 161–175; BP diastolic 80–98; PULSE 96–141; RESP 21–34; TEMP 37.3; O2SAT 97–99
[2024-08-01 00:10] LABS: NT-proBNP (BNP-Adult 18+) 4260 pg/mL (<450); Troponin I 0.018 ng/mL (0.01-0.034)
--- NOTE | 2024-08-01 00:22 | DI.RAD.S_ITS ---
PROCEDURE: XR FOOT LT MIN 3V INDICATIONS: swelling and pain eval for fracture TECHNIQUE: 3 views of the foot were acquired. COMPARISON: None. FINDINGS: No acute fracture or dislocation. 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 Vascular calcifications. The Lisfranc interval is preserved on nonweightbearing view. Nonspecific soft tissue edema at the dorsal aspect of the forefoot. IMPRESSION: No acute fracture or dislocation. Dictated by: Artemio Solis M.D. on 08/01/2024 at 2:10 Approved by: Artemio Solis M.D. on 08/01/2024 at 2:11
--- NOTE | 2024-08-01 00:22 | ED.EXTPRO ---
HPI - Extremity Problem General Chief complaint: Extremity Problem,Nontraumatic Stated complaint: purple and swollen feet t-1 Time Seen by Provider: 07/31/24 23:51 Source: patient and family Mode of arrival: Wheelchair History of Present Illness HPI Narrative: Patient is an 89-year-old male. Has a history of high blood pressure and gout. Is here for evaluation of a swollen left foot. Patient states this does not feel like his prior history of gout. There was no specific trauma. He was discomfort to the left foot and swelling to the left foot. He also reports that his right foot is somewhat discolored compared to the left. No fevers. He reports no discomfort in his ankles. No discomfort in his calf muscle. He has been taking all his medications as directed. Related Data Home Medications Medication Instructions Recorded Confirmed warfarin 1 mg tablet 1.5 mg PO SEEINSTR ##0 08/27/11 07/31/19 fluticasone propionate 50 2 spray intranasal BID ##0 09/05/11 07/31/19 mcg/actuation nasal spray,suspension (Flonase Allergy Relief) alfuzosin 10 mg tablet,extended 10 mg PO QDAY ##0 05/22/17 07/31/19 release 24 hr (Uroxatral) atorvastatin 10 mg tablet 10 mg PO BEDTIME 07/31/19 07/31/19 calcium carbonate 500 mg-vitamin 1 tab PO BID 07/31/19 07/31/19 D3 10 mcg (400 unit) tablet (Calcium 500 + D) cholecalciferol (vitamin D3) 25 1,000 unit PO DAILY 07/31/19 07/31/19 mcg (1,000 unit) capsule (Vitamin D3) cyanocobalamin (vitamin B-12) 100 100 mcg PO BID 07/31/19 07/31/19 mcg tablet (Vitamin B-12) ferrous sulfate 324 mg (65 mg 324 mg PO DAILY 07/31/19 07/31/19 iron) tablet,delayed release glucosam 750 mg-chondroi 100 2 tab PO DAILY 07/31/19 07/31/19 mg-hyalur 1.65 mg-CF borate 108 mg tablet (Move Free Acopio) magnesium citrate 100 mg tablet 500 mg PO BID 07/31/19 07/31/19 metformin 1,000 mg tablet 1,000 mg PO BID 07/31/19 07/31/19 metoprolol succinate 25 mg 75 mg PO DAILY 07/31/19 07/31/19 tablet,extended release 24 hr warfarin 3 mg tablet 3 mg PO SEEINSTR 07/31/19 07/31/19 Previous Rx's Medication Instructions Recorded phenylephrine 0.25 %-mineral oil 1 applic AR QAM AND QHS #57 grams 05/16/23 14 %-petrolatm 74.9 % rectal ointment (Preparation H) cephalexin 500 mg capsule 500 mg PO QID 7 days #28 caps 08/01/24 Allergies Allergy/AdvReac Type Severity Reaction Status Date / Time amiodarone [AMIODARONE] Allergy Severe FACIAL Verified 07/31/24 22:43 SWELLING codeine [CODEINE] AdvReac Intermediate N/V Verified 07/31/24 22:43 hydromorphone [HYDROMORPHONE] AdvReac Intermediate N/V Verified 07/31/24 22:43 oxycodone [OXYCODONE] AdvReac Intermediate N/V Verified 07/31/24 22:43 latex [LATEX] AdvReac Mild RASH Verified 07/31/24 22:43 Review of Systems Review of Systems ROS Unobtainable: All systems reviewed & are unremarkable except as noted in HPI and below Patient History Medical History Migraines Hyperglycemia Hypertension Pacemaker Atrial fibrillation Social History household members: spouse Smoking Status: Never smoker Smoking Status: Never smoker alcohol intake frequency: 0-2 drinks per day Exam Initial Vital Signs Initial Vital Signs: Vital Signs Temperature 97.9 F 07/31/24 22:44 Pulse Rate 108 H 07/31/24 22:44 Respiratory Rate 22 07/31/24 22:44 Blood Pressure 143/88 H 07/31/24 22:44 Pulse Oximetry 98 07/31/24 22:44 Oxygen Delivery Method Room Air 07/31/24 22:44 Const General: cooperative, comfortable and No ill appearing HENSC Head: normal to inspection and normocephalic Cardio Other: Patient has dopplerable DP and PT pulses bilateral, tachycardic Skin Other: Patient has skin discoloration of his lower extremities consistent with chronic venous stasis changes/atherosclerotic disease. He does have some erythema to the left foot that is warm to the touch. Located from the base of his toes to his midfoot. Neuro Other: Patient reports no change in his sensation of bilateral lower extremities. Extrem Other: Patient was no discomfort with palpation of the right foot of the right ankle or the right calf. His right knee is unremarkable. He does have discomfort with palpation of the left foot. He can flex and extend his ankle with minimal discomfort of the left foot. His left knee is unremarkable. Course Orders Ordered: ED Orders 07/31/24 23:05 US periph venous low extrem bi Stat 07/31/24 23:07 XR chest 1V Stat EKG-12 Lead Stat 07/31/24 23:30 Complete Blood Count AUTO DIFF Stat Comprehensive Metabolic Panel Stat Lipase Stat Magnesium Stat NT-proBNP (BNP-Adult 18+) Stat Troponin & CK Cardiac Panel Stat 08/01/24 00:22 XR foot LT min 3V Stat 08/01/24 00:23 Uric Acid Stat Discontinued Medications Cephalexin HCl (Cephalexin 250 Mg Capsule) 500 mg PO NOW ONE Stop: 08/01/24 03:14 Last Admin: 08/01/24 03:51 Dose: 500 mg Documented By: DINESH Vital Signs Vital signs: Vital Signs - 8 hr 07/31/24 22:44 07/31/24 23:35 07/31/24 23:35 Temperature 97.9 F Pulse Rate 108 H 121 H Respiratory Rate 22 33 H Blood Pressure 143/88 H 135/95 H Pulse Oximetry 98 Oxygen Delivery Method Room Air 08/01/24 00:00 08/01/24 00:30 08/01/24 01:00 Temperature Pulse Rate 122 H 139 H 128 H Respiratory Rate 25 H 28 H 28 H Blood Pressure Pulse Oximetry 99 99 99 Oxygen Delivery Method 08/01/24 01:30 08/01/24 02:00 08/01/24 02:02 Temperature Pulse Rate 126 H 118 H Respiratory Rate 25 H 34 H Blood Pressure 161/98 H Pulse Oximetry 98 98 Oxygen Delivery Method 08/01/24 02:02 08/01/24 02:30 08/01/24 03:00 Temperature Pulse Rate 116 H 96 H 141 H Respiratory Rate 32 H 21 27 H Blood Pressure Pulse Oximetry 97 98 99 Oxygen Delivery Method 08/01/24 03:01 08/01/24 03:01 08/01/24 03:30 Temperature Pulse Rate 135 H 103 H Respiratory Rate 27 H 30 H Blood Pressure 175/80 H Pulse Oximetry 99 99 Oxygen Delivery Method 08/01/24 04:12 Temperature 99.2 F Pulse Rate Respiratory Rate Blood Pressure Pulse Oximetry Oxygen Delivery Method MDM - Extremity (Nontraumatic) Lab Data 07/31/24 23:30 07/31/24 23:30 Labs: Lab Results 07/31/24 Range/Units 23:30 WBC 13.2 H (4.5-11.0) X10^3/uL RBC 4.20 L (4.5-5.9) X10^6/uL Hgb 12.9 L (13.5-17.5) g/dL Hct 39.5 L (41-53) % MCV 94.1 (80-100) fL MCH 30.8 (26-34) PG MCHC 32.7 (30-36) % RDW 13.3 (11.6-14.8) % Plt Count 244 (150-400) X10^3/uL Neut % (Auto) 81.3 H (50-75) % Lymph % (Auto) 8.8 L (25-40) % [place] % (Auto) 8.7 (3-14) % Eos % (Auto) 0.9 L (2-4) % Baso % (Auto) 0.3 (0-2) % Neut # (Auto) 30357 H (3671-1574) /uL Lymph # (Auto) 1200 (9147-5032) /uL [place] # (Auto) 1200 H (0-900) /uL Eos # (Auto) 100 (0-450) /uL Baso # (Auto) 0 (0-100) /uL Sodium 131 L (137-145) mmol/L Potassium 4.3 (3.4-5.1) mmol/L Chloride 95 L (98-107) mmol/L Carbon Dioxide 28 (22-32) mmol/L BUN 25 H (9-20) mg/dL Creatinine 1.30 H (0.66-1.25) mg/dL Estimated GFR 53 L (>60) mL/min BUN/Creatinine Ratio 19.2 (6-22) Glucose 247 H (80-110) mg/dL Uric Acid 6.3 (3.5-8.5) mg/dL Calcium 9.0 (8.4-10.2) mg/dL Magnesium 1.4 L (1.6-2.3) mg/dL Total Bilirubin 1.2 (0.2-1.3) mg/dL AST 34 (17-59) IU/L ALT 23 (<50) IU/L Alkaline Phosphatase 111 (38-126) U/L Total Creatine Kinase 89 (55-170) U/L Troponin I 0.018 (0.01-0.034) ng/mL NT-Pro-B Natriuret Pep 4260 H (<450) pg/mL Total Protein 8.4 H (6.3-8.2) g/dL Albumin 4.3 (3.5-5.0) g/dL Globulin 4.1 (1.7-4.1) g/dL Albumin/Globulin Ratio 1.0 (1.0-2.8) Lipase 273 (23-300) U/L Imaging Data US - DVT: Radiologist's Impression: PROCEDURE: US PERIPH VENOUS LOW EXTREM BI INDICATIONS: Swollen purple cold extremeties TECHNIQUE: Real-time imaging, as well as color and pulse Doppler interrogation, were performed of the deep veins of both legs from the inguinal ligament to the popliteal fossa, with documentation of the visualized calf veins. COMPARISON: None. FINDINGS: Right: The common femoral, femoral, popliteal, and the visualized calf veins are normally compressible, and free of intraluminal thrombus. Color and pulse Doppler demonstrate normal phasic intravascular flow. There is normal augmentation response to distal compression maneuver. Left: The common femoral, femoral, popliteal, and the visualized calf veins are normally compressible, and free of intraluminal thrombus. Color and pulse Doppler demonstrate normal phasic intravascular flow. There is normal augmentation response to distal compression maneuver. Diffuse subcutaneous edema is present at the lower extremities bilaterally. IMPRESSION: No findings of deep venous thrombosis in either lower extremity. Chest x-ray: Radiologist's Impression: PROCEDURE: XR CHEST 1V INDICATIONS: chest pain TECHNIQUE: One view of the chest was acquired. COMPARISON: [facility], CR, XR CHEST 1V, 09/22/2023, 16:14. [facility], CR, XR CHEST 1V, 03/29/2023, 13:35. FINDINGS: Surgical changes and devices: Left pacemaker with right atrial and right ventricular leads. Cholecystectomy clips. Cervical spine fixation hardware. Lungs and pleura: Lungs are clear. No pleural effusions or pneumothorax. Mediastinum: Mediastinal contours appear normal. Heart size is enlarged. Bones and chest wall: No suspicious bony lesions. Overlying soft tissues appear unremarkable. IMPRESSION: No acute cardiopulmonary abnormality is seen. Cardiomegaly. Extremity x-ray #1: Radiologist's Impression: PROCEDURE: XR FOOT LT MIN 3V INDICATIONS: swelling and pain eval for fracture TECHNIQUE: 3 views of the foot were acquired. COMPARISON: None. FINDINGS: No acute fracture or dislocation. 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 Vascular calcifications. The Lisfranc interval is preserved on nonweightbearing view. Nonspecific soft tissue edema at the dorsal aspect of the forefoot. IMPRESSION: No acute fracture or dislocation. ECG Data Attestation EKG: I personally reviewed and interpreted this ECG as follows: Interpretation: Atrial fibrillation Ventricular rate 117 Normal axis Normal QRS No ST T wave changes MDM Narrative Medical decision making narrative: Patient does have a leukocytosis of 13. He was afebrile. He does have discoloration to both of his feet however I believe the issues with his left foot and not his right. His right lower extremities consistent with chronic venous stasis/atherosclerotic disease. He does have a warm left foot. It was tender to the touch. He has a history of gout and has had gout in his feet in the past but he feels that this is different than that. X-ray shows no fractures. He was no DVT. I have low suspicion that this is a arterial occlusion. Given the leukocytosis in the warm red of his left foot I have suspicion that this is a cellulitis. Will place the patient on antibiotics. First dose given here in the emergency department and a prescription was sent to pharmacy of his choice. Patient and family were given strict return precautions. They expressed understanding and agreement. Discharge Plan Departure Patient Disposition: Home Clinical Impression: Cellulitis Instructions: DI for Cellulitis -- Adult Activity Restrictions/Additional Instructions: Take the antibiotics as directed. Continue to take all of your medications as directed. Return to the emergency department for new or worsening symptoms. Prescriptions: New cephalexin 500 mg capsule 500 mg PO QID 7 Days Qty: 28 0RF No Action warfarin 1 MG tablet 1.5 mg PO SEEINSTR Qty: 0 Patient Comments: Takes 1.5 mg on Tuesdays and Saturdays fluticasone propionate [Flonase Allergy Relief] 9.9 ML spray,suspension 2 spray Intranasal BID Qty: 0 alfuzosin [Uroxatral] 10 MG tablet extended release 24 hr 10 mg PO QDAY Qty: 0 Move Free [facility] 750 mg-100 mg- 1.65 mg-108 mg Tablet 2 tab PO DAILY cholecalciferol (vitamin D3) [Vitamin D3] 1,000 unit Capsule 1,000 unit PO DAILY cyanocobalamin (vitamin B-12) [Vitamin B-12] 100 mcg Tablet 100 mcg PO BID magnesium citrate 100 mg Tablet 500 mg PO BID metoprolol succinate 25 mg Tablet Extended Release 24 Hr 75 mg PO DAILY metformin 1,000 mg Tablet 1,000 mg PO BID atorvastatin 10 mg Tablet 10 mg PO BEDTIME ferrous sulfate 324 mg (65 mg iron) Tablet,Delayed Release (Dr/Ec) 324 mg PO DAILY calcium carbonate-vitamin D3 [Calcium 500 + D] 500 mg(1,250mg) -400 unit Tablet 1 tab PO BID warfarin 3 mg Tablet 3 mg PO SEEINSTR Rx Instructions: Takes 3 mg on Friday, Friday, , Friday and Friday Preparation H 0.25-14-74.9 % ointment 1 applic AR QAM AND QHS Qty: 57 0RF Referrals: Elvira Tijerina MD [Primary Care Provider] - Stand Alone Forms: Patient Portal/API/Survey
[2024-08-01 00:40] LABS: Uric Acid 6.3 mg/dL (3.5-8.5)
[2024-08-01] MEDS: cephALEXin 250 MG CAPSULE 500 MG PO (03:51)
--- NOTE | 2024-08-01 06:57 | EKG_ITS ---
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
== END 2024-08-01 04:13 | disposition home or self-care (01) ==
PROVIDERS: Emergency Provider Emergency Medicine; Family Provider Family Medicine; PCP Family Medicine
DX: L03.116 Cellulitis of left lower limb (principal)
CPT/HCPCS: 36415; 71045; 73630; 80053; 82550; 83690; 83735; 83880; 84484; 84550; 85025; 93005; 93970; 99284

== ENCOUNTER 2025-02-16 20:06 | Observation (INO) | payer MEDICARE, OTHER, SELFPAY ==
[2019-07-31 01:53] VITALS: BMI 21.9
[2025-02-16 20:28] VITALS: BP 95/54; PULSE 72; RESP 16; TEMP 36.1; O2SAT 97; BMI 23.0
--- NOTE | 2025-02-16 20:52 | DI.CT.S_ITS ---
PROCEDURE: CT CERVICAL SPINE WO CON INDICATIONS: fall, unwitnessed GLF TECHNIQUE: Noncontrast 3 mm thick sections acquired from the skull base to the T4 level. Sagittal and coronal reformats were then constructed. For radiation dose reduction, the following was used: automated exposure control, adjustment of mA and/or kV according to patient size. COMPARISON: [facility], CT, CT CERVICAL SPINE WO CON, 11/19/2024, 11:02. FINDINGS: Image quality: Excellent. Bones: No fractures or dislocations. Visualized superior ribs are intact. C3- 4 anterior fusion with C3 through C7 posterior fusion. Hardware is intact without hardware fracture or periprosthetic lucency to suggest loosening. Alignment is stable. Multilevel degenerative change. Soft tissues: Prevertebral soft tissues are normal in thickness. No paravertebral hematomas. No apical pneumothoraces. IMPRESSION: No displaced fracture or traumatic subluxation. Dictated by: Chaparrita Maxwell M.D. on 02/16/2025 at 21:22 Approved by: Chaparrita Maxwell M.D. on 02/16/2025 at 21:23
--- NOTE | 2025-02-16 20:52 | DI.CT.S_ITS ---
PROCEDURE: CT CHEST ABD PEL WO CON INDICATIONS: fall, unwitnessed GLF TECHNIQUE: After the administration of oral contrast, 5 mm thick sections acquired from the lung apices to the symphysis pubis. 5 mm thick coronal and sagittal reformats acquired, with additional 7 mm coronal MIP reformats through the lungs. For radiation dose reduction, the following was used: automated exposure control, adjustment of mA and/or kV according to patient size. COMPARISON: [facility], CR, XR CHEST 2V, 11/14/2024, 11:26. [facility], CT, CT TRAUMA CHEST ABDOMEN PELVIS, 11/19/2024, 11:02. FINDINGS: Image quality: Diagnostic. CHEST: Lower Neck: No enlarged lymph nodes. Thyroid: No thyroid nodules which require sonographic follow up, per consensus guidelines. Axillae: No enlarged lymph nodes. Chest Wall: Left-sided pacemaker. Bones: Unremarkable. Lungs and Pleura: No pneumothorax or pleural effusions. No consolidation or suspicious nodules. Heart: Heart size is . No pericardial effusion. Thoracic Vessels: The aorta and pulmonary arteries demonstrate normal size. Mediastinum and Jess: No enlarged lymph nodes. Esophagus: No wall thickening. Minimal hiatal hernia. ABDOMEN: Liver: No solid mass. Gallbladder: Removed. Biliary ducts: No biliary dilation. Pancreas: No ductal dilation. Spleen: Size is within normal limits. Adrenal Glands: No adrenal nodules. Kidneys and Ureters: No hydronephrosis. Bilateral simple cysts with the largest located on right measuring 5.0 cm Stomach and Bowel: Normal colonic caliber, without significant wall thickening. Minimal diverticula. Peritoneum: No abnormal intraperitoneal fluid. No free air. Ventral Wall: Trace containing hernia. Abdominal Nodes: No retroperitoneal or mesenteric adenopathy by size criteria. Vessels: Aorta and inferior vena cava are normal in size. PELVIS: Pelvic Organs: Prostate is markedly enlarged. Bladder: Tissue density is present in the posterior inferior bladder. Bladder is incompletely distended a diffusely. Pelvic Nodes: No enlarged lymph nodes. Miscellaneous: No inguinal hernias are seen. Bones: No aggressive osseous abnormality. IMPRESSION: No visualized visceral or osseous injury. Soft tissue density within the posterior inferior bladder suspected to be related to hypertrophy prostate tissue. However, exam is limited without contrast and further urologic consultation is recommended as indicated. Dictated by: Chaparrita Maxwell M.D. on 02/16/2025 at 21:26 Approved by: Chaparrita Maxwell M.D. on 02/16/2025 at 21:35
--- NOTE | 2025-02-16 20:52 | DI.CT.S_ITS ---
PROCEDURE: CT HEAD/BRAIN WO CON INDICATIONS: fall, unwitnessed GLF TECHNIQUE: Noncontrast 4.5 mm thick angled axial sections acquired from the foramen magnum to the vertex, with coronal and sagittal reformats. For radiation dose reduction, the following was used: automated exposure control, adjustment of mA and/or kV according to patient size. COMPARISON: [facility], CT, CT HEAD/BRAIN WO CON, 11/19/2024, 11:02. FINDINGS: Image quality: Diagnostic. CSF spaces: Basal cisterns are patent. No extra-axial fluid collections. The ventricles are symmetric in size and shape. Brain: No intracranial bleeds or mass effect. There is cerebral volume loss, with resultant ventricular and sulcal prominence. There are periventricular and deep white matter chronic small vessel ischemic changes. There is intracranial internal carotid artery atherosclerosis. Skull and face: Calvarium and visualized facial bones appear intact, without suspicious lesions. Sinuses: Visualized sinuses and mastoids are clear. IMPRESSION: 1. No acute intracranial process. 2. Moderate atrophy and chronic microvascular ischemic changes. Dictated by: Chaparrita Maxwell M.D. on 02/16/2025 at 21:22 Approved by: Chaparrita Maxwell M.D. on 02/16/2025 at 21:22
--- NOTE | 2025-02-16 20:53 | EKG_ITS ---
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
[2025-02-16 21:59] LABS: Add Manual Diff / Slide Review NO; Hematocrit 40.1 % (41-53); Hemoglobin 13.5 g/dL (13.5-17.5); Lymphocytes Absolute Auto 1700 /uL (1100-4500); Mean Corpuscular HGB Conc 33.6 % (30-36); Mean Corpuscular Hemoglobin 31.6 PG (26-34); Mean Corpuscular Volume 94.1 fL (80-100); Platelet Count 203 X10^3/uL (150-400)
[2025-02-16 22:01] LABS: Appearance Urine UA CLEAR; Bilirubin Urine UA NEGATIVE (NEGATIVE); Color Urine UA YELLOW; Glucose Urine UA TRACE g/dL (Negative); Ketones Urine UA TRACE (NEGATIVE); Leukocyte Esterase Urine UA NEGATIVE (NEGATIVE); Nitrite Urine UA NEGATIVE (Negative); Occult Blood Urine UA NEGATIVE (Negative); Protein Urine UA 1+ (Negative); Specific Gravity Urine UA 1.025 (1.000-1.035); Urobilinogen Urine UA 0.2 E.U./dL (0.2); pH Urine UA 5.5 (4.5-8.0)
[2025-02-16 22:09] LABS: INR 0.9 (0.9-1.3); Prothrombin Time 10.7 SECONDS (9.4-12.5)
[2025-02-16 22:12] LABS: PTT Partial Thromboplastin Tim 27 SECONDS (25.1-36.5)
[2025-02-16 22:13] LABS: Culture Indicated Urine Cult Not Indicated
[2025-02-16 22:18] LABS: Alanine Aminotransferase 17 IU/L (<50); Albumin 4.8 g/dL (3.5-5.0); Albumin Globulin Ratio 1.4 (1.0-2.8); Alkaline Phosphatase 70 U/L (38-126); Blood Urea Nitrogen 40 mg/dL (9-20); Calcium 9.3 mg/dL (8.4-10.2); Carbon Dioxide 23 mmol/L (22-32); Chloride 101 mmol/L (98-107); Estimated Glomerular Filt Rate 36 mL/min (>60); Globulin 3.5 g/dL (1.7-4.1); Glucose 180 mg/dL (70-99); HEMOLYSIS < 15 (0-50); Potassium 5.2 mmol/L (3.4-5.1); Sodium 136 mmol/L (137-145); Total Protein 8.3 g/dL (6.3-8.2)
[2025-02-16 22:28] LABS: UR Morphine/Opiate cutoff 300 Negative (Negative); Ur Specific Gravity Normal (Normal); Urine MDMA Negative (Negative); Urine Methamphetamines Negative (Negative); Urine Tetrahydrocannabinol Negative (Negative); Urine Tricyclic Antidepressant Negative (Negative)
[2025-02-16 23:14] VITALS: BP 161/92; PULSE 72; O2SAT 98
[2025-02-16 23:30] VITALS: PULSE 73; O2SAT 100
[2025-02-16 23:31] VITALS: BP 165/87; PULSE 69; O2SAT 100
--- NOTE | 2025-02-17 00:22 | PC.NURSE ---
Pt continues to get worked up and wants to go home. Pt pulling monitor off, and attempting to pull IV. Niece got upset and had to walk out of room. and pt remain in room at this time. Had fork lift technician remove IV for safety.
[2025-02-17 00:28] VITALS: BP 203/99; PULSE 73; O2SAT 99
[2025-02-17 00:30] VITALS: BP 195/105; PULSE 70; O2SAT 99
--- NOTE | 2025-02-17 00:35 | PC.NURSE ---
removed pt IV due to patient trying to take it out constantly. RN November aware and stated it was okay for IV to be removed at this time
[2025-02-17 01:41] LABS: Magnesium 1.9 mg/dL (1.6-2.3)
[2025-02-17] MEDS: SODIUM CHLORIDE 0.9% 1,000 ML 1000 ML IV (01:41)
[2025-02-17 01:54] LABS: NT-proBNP (BNP-Adult 18+) 2120 pg/mL (<450); Troponin I 0.013 ng/mL (0.01-0.034)
--- NOTE | 2025-02-17 02:13 | DI.CT.S_ITS ---
PROCEDURE: CT ANGIO CHEST PE PROTOCOL INDICATIONS: syncope/dimer TECHNIQUE: After the administration of intravenous contrast, 2 mm thick sections acquired from the pulmonary apices to the posterior costophrenic angles. 3-dimensional maximum intensity projection (MIP) coronal and sagittal reformats were then acquired through the thorax. For radiation dose reduction, the following was used: automated exposure control, adjustment of mA and/or kV according to patient size. COMPARISON: None. FINDINGS: Image quality: Diagnostic. Pulmonary arteries: Pulmonary arteries are normal in size, and demonstrate no intraluminal filling defects to suggest central pulmonary embolism. Lower Neck: No enlarged lymph nodes. Thyroid: No thyroid nodules which require sonographic follow up, per consensus guidelines. Axillae: No enlarged lymph nodes. Chest Wall: Unremarkable. Bones: Unremarkable. Lungs and Pleura: No pneumothorax or pleural effusions. No consolidation or suspicious nodules. Heart: Moderate cardiomegaly with left atrial enlargement and marked right atrial enlargement. Severe coronary artery calcifications. Extensive reflux of contrast into the hepatic veins suggests a degree of right heart failure. Thoracic Vessels: No aortic aneurysm. Mediastinum and Jess: No enlarged lymph nodes. Esophagus: No wall thickening. No hiatal hernia. Upper Abdomen: Visualized upper abdomen solid organs and bowel loops appear normal. IMPRESSION: No pulmonary embolus. No acute pulmonary process. Moderate cardiomegaly, severe coronary artery calcifications, significant biatrial enlargement, presence of a degree of right heart failure. Comment: Final report is concordant with preliminary interpretation provided by [facility]. Dictated by: Dylan Driver M.D. on 02/17/2025 at 8:08 Approved by: Dylan Driver M.D. on 02/17/2025 at 8:12
--- NOTE | 2025-02-17 03:12 | PC.NURSE ---
Patient got out of bed confused. Patient was mumbling about not driving a car and expressed that he wants to go home. This LAUNCHMAN repositioned the patient back into bed comfortably and stated that we need to be patient about waiting for some test results.
[2025-02-17 03:21] LABS: Thyroid Stimulating Hormone 1.46 uIU/mL (0.47-4.68)
[2025-02-17 03:25] LABS: Troponin I < 0.012 ng/mL (0.01-0.034)
--- NOTE | 2025-02-17 04:38 | PC.NURSE ---
Pt stated they needed to use the restroom. The patient's and I tried to help the patient use the urinal when the patient got combative. Patient was advised to calm down and use the urinal, but he refused. Patient also attempted to bite the 's hand and patient was advised to stop. Nurse notified.
--- NOTE | 2025-02-17 04:53 | ED.FALL ---
HPI - Fall General Chief Complaint: Fall Stated Complaint: Fall; Head Injury, No Thinners Time Seen by Provider: 02/16/25 20:52 Source: patient and family Mode of arrival: Wheelchair History of Present Illness HPI Narrative: 89-year-old man with advanced dementia is brought to the ER by his family because of an unwitnessed fall at home where he fell up against the sliding door and likely hit his head after trying to get out of the wheelchair by himself which he is not supposed to do. They were able to respond to the patient within seconds of hearing and fall. The patient does not complain of any pain but he clearly has advanced dementia and does not seem to answer all questions appropriately. He has a known history of AFib but was taken off of Eliquis by his doctor his states. She does not know why. He remains on metoprolol to control his AFib. No other concerns or complaints per his family at this time. Related Data Home Medications ?Medication ?Instructions ?Recorded ?Confirmed alfuzosin 10 mg tablet,extended 10 mg PO QDAY ##0 05/22/17 02/17/25 release 24 hr (Uroxatral) atorvastatin 10 mg tablet 10 mg PO BEDTIME 07/31/19 02/17/25 cholecalciferol (vitamin D3) 25 1,000 unit PO DAILY 07/31/19 02/17/25 mcg (1,000 unit) capsule (Vitamin D3) cyanocobalamin (vitamin B-12) 100 100 mcg PO BID 07/31/19 02/17/25 mcg tablet (Vitamin B-12) ferrous sulfate 324 mg (65 mg 324 mg PO DAILY 07/31/19 02/17/25 iron) tablet,delayed release magnesium citrate 100 mg tablet 500 mg PO BID 07/31/19 02/17/25 metformin 1,000 mg tablet See Rx Instructions PO .COMPLEX 07/31/19 02/17/25 metoprolol succinate 25 mg 50 mg PO DAILY 07/31/19 02/17/25 tablet,extended release 24 hr blood sugar diagnostic (FreeStyle 02/17/25 02/17/25 Lite Strips) lancets 28 gauge (FreeStyle 02/17/25 02/17/25 Lancets) memantine 10 mg tablet 10 mg PO DAILY 02/17/25 02/17/25 Allergies Allergy/AdvReac Type Severity Reaction Status Date / Time amiodarone (AMIODARONE) Allergy Severe FACIAL Verified 02/16/25 20:27 SWELLING codeine (CODEINE) AdvReac Intermediate N/V Verified 02/16/25 20:27 hydromorphone (HYDROMORPHONE) AdvReac Intermediate N/V Verified 02/16/25 20:27 oxycodone (OXYCODONE) AdvReac Intermediate N/V Verified 02/16/25 20:27 latex (LATEX) AdvReac Mild RASH Verified 02/16/25 20:27 Patient History Medical History (Updated 02/17/25 @ 04:58 by Elijah Lucio MD) Migraines Hyperglycemia Hypertension Pacemaker Atrial fibrillation Social History household members: spouse Smoking Status: Never smoker Smoking Status: Never smoker alcohol intake frequency: 0-2 drinks per day Exam Initial Vital Signs Initial Vital Signs: Vital Signs Temperature 97.0 F L 02/16/25 20:28 Pulse Rate 72 02/16/25 20:28 Respiratory Rate 16 02/16/25 20:28 Blood Pressure 95/54 L 02/16/25 20:28 Pulse Oximetry 97 02/16/25 20:28 Oxygen Delivery Method Room Air 02/16/25 20:28 Const General: cooperative, No acute distress, frail appearing and No lethargic HENWY Head: normocephalic Ears: TM's normal bilaterally Mouth: oral mucosae normal and No mouth trauma Eyes Pupils: PERRL EOM: EOM intact bilaterally Neck Neck: normal visual inspection and No tender Carotids: no bruits Resp Effort & Inspection: normal respiratory effort and no respiratory distress Auscultation: clear to auscultation bilaterally Cardio Rate: regular rate Rhythm: regular rhythm Heart Sounds: S1 normal and S2 normal GI Palpation: soft and No tender Auscultation: normal bowel sounds General: No CVA tenderness Neuro General: patient alert, patient awake, not oriented x3 and moves all extremities Cranial Nerves: CN's II-XI intact bilaterally and PERRL Course Course Course Narrative: Patient seen and examined by myself upon being roomed in the ER. When I was informed about him being in the waiting room after the fall I ordered all of his trauma imaging prior to him arriving in the ER room. This was negative for any acute fractures. I was strongly suspicious that the patient had syncopized since his fall was also unwitnessed. I did a syncope workup. This was significant for an elevated D-dimer which was followed up with CTA of the chest which was negative for PE. Troponin was negative x2. He did have a MICHELLE and mild hyperkalemia. I discussed the case with the hospitalist on-call who then accepted the patient for admission. Orders Ordered: ED Orders 02/16/25 20:52 CT cervical spine wo con Stat CT chest abd pel wo con Stat CT head/brain wo con Stat 02/16/25 20:53 EKG-12 Lead Stat 02/16/25 21:47 Complete Blood Count AUTO DIFF Stat Comprehensive Metabolic Panel Stat PTT Partial Thromboplastin Chavez Stat Prothrombin Time INR Stat Type and Screen Stat Urinalysis and Microscopic Stat Urine Drug Screen, Rapid Stat 02/17/25 00:37 BNP [NT-proBNP (BNP-Adult 18+)] Stat Trop I [Troponin I] Stat 02/17/25 00:47 MAG [Magnesium] Stat TSH [Thyroid Stimulating Hormone] Stat 02/17/25 01:10 D Dimer Stat 02/17/25 02:13 CT angio chest PE protocol Stat 02/17/25 02:55 Trop I [Troponin I] Stat Discontinued Medications Sodium Chloride (Normal Saline 0.9%) 1,000 mls @ 1,000 mls/hr IV BOLUS ONE Stop: 02/17/25 01:35 Last Infusion: 02/17/25 03:15 Dose: Infused Documented By: Admin: 02/17/25 01:41 Dose: 1,000 mls/hr Documented By: HNG Vital Signs Vital signs: Vital Signs - 8 hr 02/16/25 23:14 02/16/25 23:14 02/16/25 23:30 Pulse Rate 72 73 Blood Pressure 161/92 H Pulse Oximetry 98 100 Oxygen Delivery Method 02/16/25 23:31 02/16/25 23:31 02/17/25 00:28 Pulse Rate 69 73 Blood Pressure 165/87 H Pulse Oximetry 100 99 Oxygen Delivery Method Room Air Room Air 02/17/25 00:28 02/17/25 00:30 02/17/25 00:30 Pulse Rate 70 Blood Pressure 203/99 H 195/105 H Pulse Oximetry 99 Oxygen Delivery Method MDM - Fall Differential Diagnosis Differential diagnosis: Likely syncope, compression fracture and other (fractures) Lab Data 02/16/25 21:47 02/16/25 21:47 Labs: Lab Results 02/16/25 02/16/25 02/16/25 Range/Units 21:47 21:47 21:58 WBC 7.6 (4.5-11.0) X10^3/uL RBC 4.27 L (4.5-5.9) X10^6/uL Hgb 13.5 (13.5-17.5) g/dL Hct 40.1 L (41-53) % MCV 94.1 (80-100) fL MCH 31.6 (26-34) PG MCHC 33.6 (30-36) % RDW 13.7 (11.6-14.8) % Plt Count 203 (150-400) X10^3/uL Neut % (Auto) 53.4 (50-75) % Lymph % (Auto) 22.1 L (25-40) % [place] % (Auto) 7.6 (3-14) % Eos % (Auto) 15.8 H (2-4) % Baso % (Auto) 1.1 (0-2) % Neut # (Auto) 4000 (0804-3688) /uL Lymph # (Auto) 1700 (8578-4811) /uL [place] # (Auto) 600 (0-900) /uL Eos # (Auto) 1200 H (0-450) /uL Baso # (Auto) 100 (0-100) /uL PT 10.7 (9.4-12.5) SECONDS INR 0.9 (0.9-1.3) APTT 27 (25.1-36.5) SECONDS D-Dimer (<500) ng/ml Sodium 136 L (137-145) mmol/L Potassium 5.2 H (3.4-5.1) mmol/L Chloride 101 (98-107) mmol/L Carbon Dioxide 23 (22-32) mmol/L BUN 40 H (9-20) mg/dL Creatinine 1.78 H (0.66-1.25) mg/dL Estimated GFR 36 L (>60) mL/min BUN/Creatinine Ratio 22.5 H (6-22) Glucose 180 H (70-99) mg/dL POC Whole Bld Glucose 160 H (70-99) mg/dL Calcium 9.3 (8.4-10.2) mg/dL Magnesium 1.9 (1.6-2.3) mg/dL Total Bilirubin 0.8 (0.2-1.3) mg/dL AST 23 (17-59) IU/L ALT 17 (<50) IU/L Alkaline Phosphatase 70 (38-126) U/L Troponin I 0.013 (0.01-0.034) ng/mL NT-Pro-B Natriuret Pep 2120 H (<450) pg/mL Total Protein 8.3 H (6.3-8.2) g/dL Albumin 4.8 (3.5-5.0) g/dL Globulin 3.5 (1.7-4.1) g/dL Albumin/Globulin Ratio 1.4 (1.0-2.8) TSH 1.46 (0.47-4.68) uIU/mL Urine Color Yellow Urine Appearance Clear Urine pH 5.5 Normal (4.5-8.0) Ur Specific [place] 1.025 (1.000-1.035) Urine Protein 1+ H (Negative) Urine Glucose (UA) Trace H (Negative) g/dL Urine Ketones Trace H (NEGATIVE) Urine Occult Blood Negative (Negative) Urine Nitrate Negative (Negative) Urine Bilirubin Negative (NEGATIVE) Urine Urobilinogen 0.2 (0.2) E.U./dL Ur Leukocyte Esterase Negative (NEGATIVE) Urine RBC None seen (0-5/HPF) Urine WBC None seen (0-5/HPF) Ur Squamous Epith Cells None seen (0-5/HPF) Ur Renal Epithelial Cell 0-1/hpf (0-1/HPF) Urine Bacteria None seen (None) Urine Mucus 1+ H (Negative) Ur Culture Indicated? Cult not indicated Vol Urine Centrifuged 10ml (spun) U Opiates 300ng/mL cut Negative (Negative) Ur Oxycodone Screen Negative (Negative) Urine Methadone Screen Negative (Negative) Ur Barbiturates Screen Negative (Negative) U Tricyclic Antidepress Negative (Negative) Ur Phencyclidine Scrn Negative (Negative) Ur Amphetamines Screen Negative (Negative) U Methamphetamines Scrn Negative (Negative) Ur MDMA Scrn (Ecstasy) Negative (Negative) U Benzodiazepines Scrn Negative (Negative) Urine Cocaine Screen Negative (Negative) U Marijuana (THC) Screen Negative (Negative) Urine Specific [place] Normal (Normal) Ur Creatinine Normal (Normal) Blood Type O Positive Antibody Screen Negative 02/17/25 02/17/25 Range/Units 01:10 02:55 WBC (4.5-11.0) X10^3/uL RBC (4.5-5.9) X10^6/uL Hgb (13.5-17.5) g/dL Hct (41-53) % MCV (80-100) fL MCH (26-34) PG MCHC (30-36) % RDW (11.6-14.8) % Plt Count (150-400) X10^3/uL Neut % (Auto) (50-75) % Lymph % (Auto) (25-40) % [place] % (Auto) (3-14) % Eos % (Auto) (2-4) % Baso % (Auto) (0-2) % Neut # (Auto) (3859-7366) /uL Lymph # (Auto) (9873-1056) /uL [place] # (Auto) (0-900) /uL Eos # (Auto) (0-450) /uL Baso # (Auto) (0-100) /uL PT (9.4-12.5) SECONDS INR (0.9-1.3) APTT (25.1-36.5) SECONDS D-Dimer 1201 H (<500) ng/ml Sodium (137-145) mmol/L Potassium (3.4-5.1) mmol/L Chloride (98-107) mmol/L Carbon Dioxide (22-32) mmol/L BUN (9-20) mg/dL Creatinine (0.66-1.25) mg/dL Estimated GFR (>60) mL/min BUN/Creatinine Ratio (6-22) Glucose (70-99) mg/dL POC Whole Bld Glucose (70-99) mg/dL Calcium (8.4-10.2) mg/dL Magnesium (1.6-2.3) mg/dL Total Bilirubin (0.2-1.3) mg/dL AST (17-59) IU/L ALT (<50) IU/L Alkaline Phosphatase (38-126) U/L Troponin I < 0.012 (0.01-0.034) ng/mL NT-Pro-B Natriuret Pep (<450) pg/mL Total Protein (6.3-8.2) g/dL Albumin (3.5-5.0) g/dL Globulin (1.7-4.1) g/dL Albumin/Globulin Ratio (1.0-2.8) TSH (0.47-4.68) uIU/mL Urine Color Urine Appearance Urine pH (4.5-8.0) Ur Specific [place] (1.000-1.035) Urine Protein (Negative) Urine Glucose (UA) (Negative) g/dL Urine Ketones (NEGATIVE) Urine Occult Blood (Negative) Urine Nitrate (Negative) Urine Bilirubin (NEGATIVE) Urine Urobilinogen (0.2) E.U./dL Ur Leukocyte Esterase (NEGATIVE) Urine RBC (0-5/HPF) Urine WBC (0-5/HPF) Ur Squamous Epith Cells (0-5/HPF) Ur Renal Epithelial Cell (0-1/HPF) Urine Bacteria (None) Urine Mucus (Negative) Ur Culture Indicated? Vol Urine Centrifuged U Opiates 300ng/mL cut (Negative) Ur Oxycodone Screen (Negative) Urine Methadone Screen (Negative) Ur Barbiturates Screen (Negative) U Tricyclic Antidepress (Negative) Ur Phencyclidine Scrn (Negative) Ur Amphetamines Screen (Negative) U Methamphetamines Scrn (Negative) Ur MDMA Scrn (Ecstasy) (Negative) U Benzodiazepines Scrn (Negative) Urine Cocaine Screen (Negative) U Marijuana (THC) Screen (Negative) Urine Specific [place] (Normal) Ur Creatinine (Normal) Blood Type Antibody Screen ECG Data Interpretation: Atrial fibrillation with PVCs. Rate 69. Discharge Plan Departure Patient Disposition: Admitted as Observation Clinical Impression: Fall Qualifiers: Encounter type: initial encounter Qualified Code(s): W19.XXXA - Unspecified fall, initial encounter Admit Date/Time: 02/17/25 04:47 Admit Provider: Jamey Newton
--- NOTE | 2025-02-17 05:05 | ED.FALL ---
HPI - Fall General Chief Complaint: Fall Stated Complaint: Fall; Head Injury, No Thinners Time Seen by Provider: 02/16/25 20:52 Source: patient and family Mode of arrival: Wheelchair Related Data Home Medications ?Medication ?Instructions ?Recorded ?Confirmed alfuzosin 10 mg tablet,extended 10 mg PO QDAY ##0 05/22/17 02/17/25 release 24 hr (Uroxatral) atorvastatin 10 mg tablet 10 mg PO BEDTIME 07/31/19 02/17/25 cholecalciferol (vitamin D3) 25 1,000 unit PO DAILY 07/31/19 02/17/25 mcg (1,000 unit) capsule (Vitamin D3) cyanocobalamin (vitamin B-12) 100 100 mcg PO BID 07/31/19 02/17/25 mcg tablet (Vitamin B-12) ferrous sulfate 324 mg (65 mg 324 mg PO DAILY 07/31/19 02/17/25 iron) tablet,delayed release magnesium citrate 100 mg tablet 500 mg PO BID 07/31/19 02/17/25 metformin 1,000 mg tablet See Rx Instructions PO .COMPLEX 07/31/19 02/17/25 metoprolol succinate 25 mg 50 mg PO DAILY 07/31/19 02/17/25 tablet,extended release 24 hr blood sugar diagnostic (FreeStyle 02/17/25 02/17/25 Lite Strips) lancets 28 gauge (FreeStyle 02/17/25 02/17/25 Lancets) memantine 10 mg tablet 10 mg PO DAILY 02/17/25 02/17/25 Allergies Allergy/AdvReac Type Severity Reaction Status Date / Time amiodarone (AMIODARONE) Allergy Severe FACIAL Verified 02/16/25 20:27 SWELLING codeine (CODEINE) AdvReac Intermediate N/V Verified 02/16/25 20:27 hydromorphone (HYDROMORPHONE) AdvReac Intermediate N/V Verified 02/16/25 20:27 oxycodone (OXYCODONE) AdvReac Intermediate N/V Verified 02/16/25 20:27 latex (LATEX) AdvReac Mild RASH Verified 02/16/25 20:27 Patient History Medical History (Updated 02/17/25 @ 04:58 by Elijah Lucio MD) Migraines Hyperglycemia Hypertension Pacemaker Atrial fibrillation Social History household members: spouse Smoking Status: Never smoker Smoking Status: Never smoker alcohol intake frequency: 0-2 drinks per day Exam Initial Vital Signs Initial Vital Signs: Vital Signs Temperature 97.0 F L 02/16/25 20:28 Pulse Rate 72 02/16/25 20:28 Respiratory Rate 16 02/16/25 20:28 Blood Pressure 95/54 L 02/16/25 20:28 Pulse Oximetry 97 02/16/25 20:28 Oxygen Delivery Method Room Air 02/16/25 20:28 Course Orders Ordered: ED Orders 02/16/25 20:52 CT cervical spine wo con Stat CT chest abd pel wo con Stat CT head/brain wo con Stat 02/16/25 20:53 EKG-12 Lead Stat 02/16/25 21:47 Complete Blood Count AUTO DIFF Stat Comprehensive Metabolic Panel Stat PTT Partial Thromboplastin Chavez Stat Prothrombin Time INR Stat Type and Screen Stat Urinalysis and Microscopic Stat Urine Drug Screen, Rapid Stat 02/17/25 00:37 BNP [NT-proBNP (BNP-Adult 18+)] Stat Trop I [Troponin I] Stat 02/17/25 00:47 MAG [Magnesium] Stat TSH [Thyroid Stimulating Hormone] Stat 02/17/25 01:10 D Dimer Stat 02/17/25 02:13 CT angio chest PE protocol Stat 02/17/25 02:55 Trop I [Troponin I] Stat Discontinued Medications Sodium Chloride (Normal Saline 0.9%) 1,000 mls @ 1,000 mls/hr IV BOLUS ONE Stop: 02/17/25 01:35 Last Infusion: 02/17/25 03:15 Dose: Infused Documented By: Admin: 02/17/25 01:41 Dose: 1,000 mls/hr Documented By: VERONA Vital Signs Vital signs: Vital Signs - 8 hr 02/16/25 23:14 02/16/25 23:14 02/16/25 23:30 Pulse Rate 72 73 Blood Pressure 161/92 H Pulse Oximetry 98 100 Oxygen Delivery Method 02/16/25 23:31 02/16/25 23:31 02/17/25 00:28 Pulse Rate 69 73 Blood Pressure 165/87 H Pulse Oximetry 100 99 Oxygen Delivery Method Room Air Room Air 02/17/25 00:28 02/17/25 00:30 02/17/25 00:30 Pulse Rate 70 Blood Pressure 203/99 H 195/105 H Pulse Oximetry 99 Oxygen Delivery Method MDM - Fall Lab Data 02/16/25 21:47 02/16/25 21:47 Labs: Lab Results 02/16/25 02/16/25 02/16/25 Range/Units 21:47 21:47 21:58 WBC 7.6 (4.5-11.0) X10^3/uL RBC 4.27 L (4.5-5.9) X10^6/uL Hgb 13.5 (13.5-17.5) g/dL Hct 40.1 L (41-53) % MCV 94.1 (80-100) fL MCH 31.6 (26-34) PG MCHC 33.6 (30-36) % RDW 13.7 (11.6-14.8) % Plt Count 203 (150-400) X10^3/uL Neut % (Auto) 53.4 (50-75) % Lymph % (Auto) 22.1 L (25-40) % [place] % (Auto) 7.6 (3-14) % Eos % (Auto) 15.8 H (2-4) % Baso % (Auto) 1.1 (0-2) % Neut # (Auto) 4000 (0225-4056) /uL Lymph # (Auto) 1700 (5725-4184) /uL [place] # (Auto) 600 (0-900) /uL Eos # (Auto) 1200 H (0-450) /uL Baso # (Auto) 100 (0-100) /uL PT 10.7 (9.4-12.5) SECONDS INR 0.9 (0.9-1.3) APTT 27 (25.1-36.5) SECONDS D-Dimer (<500) ng/ml Sodium 136 L (137-145) mmol/L Potassium 5.2 H (3.4-5.1) mmol/L Chloride 101 (98-107) mmol/L Carbon Dioxide 23 (22-32) mmol/L BUN 40 H (9-20) mg/dL Creatinine 1.78 H (0.66-1.25) mg/dL Estimated GFR 36 L (>60) mL/min BUN/Creatinine Ratio 22.5 H (6-22) Glucose 180 H (70-99) mg/dL POC Whole Bld Glucose 160 H (70-99) mg/dL Calcium 9.3 (8.4-10.2) mg/dL Magnesium 1.9 (1.6-2.3) mg/dL Total Bilirubin 0.8 (0.2-1.3) mg/dL AST 23 (17-59) IU/L ALT 17 (<50) IU/L Alkaline Phosphatase 70 (38-126) U/L Troponin I 0.013 (0.01-0.034) ng/mL NT-Pro-B Natriuret Pep 2120 H (<450) pg/mL Total Protein 8.3 H (6.3-8.2) g/dL Albumin 4.8 (3.5-5.0) g/dL Globulin 3.5 (1.7-4.1) g/dL Albumin/Globulin Ratio 1.4 (1.0-2.8) TSH 1.46 (0.47-4.68) uIU/mL Urine Color Yellow Urine Appearance Clear Urine pH 5.5 Normal (4.5-8.0) Ur Specific [place] 1.025 (1.000-1.035) Urine Protein 1+ H (Negative) Urine Glucose (UA) Trace H (Negative) g/dL Urine Ketones Trace H (NEGATIVE) Urine Occult Blood Negative (Negative) Urine Nitrate Negative (Negative) Urine Bilirubin Negative (NEGATIVE) Urine Urobilinogen 0.2 (0.2) E.U./dL Ur Leukocyte Esterase Negative (NEGATIVE) Urine RBC None seen (0-5/HPF) Urine WBC None seen (0-5/HPF) Ur Squamous Epith Cells None seen (0-5/HPF) Ur Renal Epithelial Cell 0-1/hpf (0-1/HPF) Urine Bacteria None seen (None) Urine Mucus 1+ H (Negative) Ur Culture Indicated? Cult not indicated Vol Urine Centrifuged 10ml (spun) U Opiates 300ng/mL cut Negative (Negative) Ur Oxycodone Screen Negative (Negative) Urine Methadone Screen Negative (Negative) Ur Barbiturates Screen Negative (Negative) U Tricyclic Antidepress Negative (Negative) Ur Phencyclidine Scrn Negative (Negative) Ur Amphetamines Screen Negative (Negative) U Methamphetamines Scrn Negative (Negative) Ur MDMA Scrn (Ecstasy) Negative (Negative) U Benzodiazepines Scrn Negative (Negative) Urine Cocaine Screen Negative (Negative) U Marijuana (THC) Screen Negative (Negative) Urine Specific [place] Normal (Normal) Ur Creatinine Normal (Normal) Blood Type O Positive Antibody Screen Negative 02/17/25 02/17/25 Range/Units 01:10 02:55 WBC (4.5-11.0) X10^3/uL RBC (4.5-5.9) X10^6/uL Hgb (13.5-17.5) g/dL Hct (41-53) % MCV (80-100) fL MCH (26-34) PG MCHC (30-36) % RDW (11.6-14.8) % Plt Count (150-400) X10^3/uL Neut % (Auto) (50-75) % Lymph % (Auto) (25-40) % [place] % (Auto) (3-14) % Eos % (Auto) (2-4) % Baso % (Auto) (0-2) % Neut # (Auto) (3293-0522) /uL Lymph # (Auto) (5498-6856) /uL [place] # (Auto) (0-900) /uL Eos # (Auto) (0-450) /uL Baso # (Auto) (0-100) /uL PT (9.4-12.5) SECONDS INR (0.9-1.3) APTT (25.1-36.5) SECONDS D-Dimer 1201 H (<500) ng/ml Sodium (137-145) mmol/L Potassium (3.4-5.1) mmol/L Chloride (98-107) mmol/L Carbon Dioxide (22-32) mmol/L BUN (9-20) mg/dL Creatinine (0.66-1.25) mg/dL Estimated GFR (>60) mL/min BUN/Creatinine Ratio (6-22) Glucose (70-99) mg/dL POC Whole Bld Glucose (70-99) mg/dL Calcium (8.4-10.2) mg/dL Magnesium (1.6-2.3) mg/dL Total Bilirubin (0.2-1.3) mg/dL AST (17-59) IU/L ALT (<50) IU/L Alkaline Phosphatase (38-126) U/L Troponin I < 0.012 (0.01-0.034) ng/mL NT-Pro-B Natriuret Pep (<450) pg/mL Total Protein (6.3-8.2) g/dL Albumin (3.5-5.0) g/dL Globulin (1.7-4.1) g/dL Albumin/Globulin Ratio (1.0-2.8) TSH (0.47-4.68) uIU/mL Urine Color Urine Appearance Urine pH (4.5-8.0) Ur Specific [place] (1.000-1.035) Urine Protein (Negative) Urine Glucose (UA) (Negative) g/dL Urine Ketones (NEGATIVE) Urine Occult Blood (Negative) Urine Nitrate (Negative) Urine Bilirubin (NEGATIVE) Urine Urobilinogen (0.2) E.U./dL Ur Leukocyte Esterase (NEGATIVE) Urine RBC (0-5/HPF) Urine WBC (0-5/HPF) Ur Squamous Epith Cells (0-5/HPF) Ur Renal Epithelial Cell (0-1/HPF) Urine Bacteria (None) Urine Mucus (Negative) Ur Culture Indicated? Vol Urine Centrifuged U Opiates 300ng/mL cut (Negative) Ur Oxycodone Screen (Negative) Urine Methadone Screen (Negative) Ur Barbiturates Screen (Negative) U Tricyclic Antidepress (Negative) Ur Phencyclidine Scrn (Negative) Ur Amphetamines Screen (Negative) U Methamphetamines Scrn (Negative) Ur MDMA Scrn (Ecstasy) (Negative) U Benzodiazepines Scrn (Negative) Urine Cocaine Screen (Negative) U Marijuana (THC) Screen (Negative) Urine Specific [place] (Normal) Ur Creatinine (Normal) Blood Type Antibody Screen Discharge Plan Departure Patient Disposition: Admitted as Observation Clinical Impression: Fall Qualifiers: Encounter type: initial encounter Qualified Code(s): W19.XXXA - Unspecified fall, initial encounter
--- NOTE | 2025-02-17 05:09 | DI.ECHO.S_ITS ---
[facility] : : [address] : : [place], : : [place] [address] : : Phone: [phone] Echocardiogram Report + + :Name: ANNIE JOYCE Study Date: 02/17/2025 Height: 63 in : [facility] ReadingLocation: Weight: 130 lb : : Gender: Male BSA: 1.6 m2 : :: 1935 Age: 89 yrs BP: 192/97 mmHg: :Reason For Study: SYNCOPE : :Ordering Physician: AARTI, : :ARTHUR Performed By: Doyle Walker : :Referring: ARTHUR BROUSSARD : + + Interpretation Summary Normal LV size and normal size LV systolic function. LVEF is 55 to 60%. Left atrium is severely dilated in the setting of moderate to severe mitral regurgitation. Blood pressure at this time was 192/97 mmHg. At least, moderate pulmonary hypertension is noted. Moderate to severe tricuspid regurgitation is noted. Other findings as below. Procedure: A two-dimensional transthoracic echocardiogram with color flow and Doppler was performed. The study quality was technically adequate. Comparison is made with the echocardiogram of 02/27/2022. Left Ventricle: The left ventricle is normal in size. Left ventricular wall thickness is mildly increased. There is no ventricular septal defect visualized. The ejection fraction is estimated to be 55-60%. There are no focal wall motion abnormalities. Normal diastolic function. Right Ventricle: The right ventricle is mildly dilated. There is a pacemaker lead in the right ventricle. The right ventricular systolic function is normal. Atria: The left atrium is severely dilated. The right atrium is severely dilated. There is no Doppler evidence for an interatrial shunt. Mitral Valve: There is moderate mitral annular calcification. The mitral valve leaflets appear mildly thickened. There is moderate to severe mitral regurgitation. There is an eccentric jet of mitral regurgitation that is directed posteriorly. Aortic Valve: The aortic valve is trileaflet. There is moderate aortic valve sclerosis. There is moderately reduced leaflet mobility. There is no hemodynamically significant valvular aortic stenosis. No aortic regurgitation is present. Tricuspid Valve: The tricuspid valve leaflets are thin and pliable. There is moderate to severe tricuspid regurgitation. The right ventricular systolic pressure is estimated to be at least 48 mmHg based on an estimated right atrial pressure of 3 mm Hg. Pulmonic Valve: The pulmonic valve leaflets are thin and pliable; valve motion is normal. There is trace pulmonic regurgitation. Great Vessels: The aortic root is normal size. The ascending aorta is mildly enlarged. The pulmonary artery is normal size. The IVC is of normal diameter and collapses greater than 50% with a sniff. This suggests a low right atrial pressure of 3 mm Hg. Pericardium/ Pleura There is no pericardial effusion. There is no pleural effusion. MMode/2D Measurements & Calculations LVIDd: 3.9 cm AoV Openin.3 cm LVIDs: 2.8 cm LVOT diam: 2.0 cm IVSd: 1.1 cm Ao root diam: 3.3 cm LVPWd: 1.1 cm asc Aorta Diam: 3.7 cm LV fuller. diameter/BSA (cm/m^2): 2.4 LV sys. diameter/BSA (cm/m^2): 1.7 FS: 29.1 % EPSS: 0.56 cm LA A2 area: 23.2 cm2 RA long axis: 5.8 cm LA A4 area: 24.8 cm2 RA area: 26.2 cm2 LA length (vol): 5.8 cm RA vol: 100.7 ml LA vol: 85.2 ml RA : 62.5 ml/m2 LA vol index: 52.9 ml/m2 RVD1 (basal): 4.1 cm IVC diam: 1.7 cm RVD2 (mid): 2.5 cm TAPSE: 1.7 cm Doppler Measurements & Calculations Ao V2 max: 175.9 cm/sec LVOT Max Leo: 63.3 cm/sec Ao V2 mean: 115.6 cm/sec LV V1 max P.6 mmHg Ao V2 VTI: 30.4 cm LV V1 VTI: 12.1 cm Ao max P.4 mmHg Ao mean P.2 mmHg DANITA(I,D): 1.2 cm2 MV E max leo: 104.3 cm/sec DANITA(V,D): 1.1 cm2 MV A max leo: 23.6 cm/sec DANITA indexed to BSA (cm^2/m^2): 0.76 MV E/A: 4.4 sev ratio: 0.40 Med Peak E' Leo: 8.1 cm/sec E/E' med: 12.8 Lat Peak E' Leo: 11.9 cm/sec E/E' lat: 8.8 E/e' average: 10.8 MV dec time: 0.12 sec TR max leo: 336.5 cm/sec MR ERO: 0.10 cm2 TR max P.3 mmHg PA V2 max: 73.9 cm/sec MR PISA: 1.9 cm2 PA V2 mean: 45.8 cm/sec MR flow rate: 70.6 cm3/sec PA mean P.0 mmHg MR PISA radius: 0.55 cm PA pr(Accel): 58.4 mmHg SV(LVOT): 37.1 ml Reading Physician:12:33 PM
[2025-02-17 05:15] VITALS: BMI 23.0
[2025-02-17 05:28] VITALS: BP 141/82; PULSE 81; RESP 15; O2SAT 100
--- NOTE | 2025-02-17 05:43 | PM.HP.1 ---
History of Present Illness History of Present Illness Date Patient Seen: 02/17/25 Time Patient Seen: 05:43 Chief complaint: Fall; Head Injury, No Thinners Narrative: 89-year-old male with past medical history of advanced dementia, hyperlipidemia, hypertension, atrial fibrillation not on anticoagulation with pacemaker presents with a fall and possible syncope. Of note the patient has severe dementia and has direct history is difficult. Per report the patient fell at home that was unwitnessed. The patient's family report that he fell against a sliding door and likely hit his head after trying get out of the wheelchair by himself. The patient's family responded to the fall within seconds after hearing the patient hitting the ground. Of note the patient previously was on Eliquis but was taken off by his primary care doctor. The patient does not complain of any pain. In the emergency room, the patient was hemodynamically stable. CT of head neck abdomen chest shows no acute pathology. Labs were also benign except for slight elevation of potassium 5.2 and creatinine 1.7. Tropes were negative x 2. EKG shows no sign of acute ischemia. Patient was given IV fluid and a request for admission to observation overnight. [facility] Medical History (Updated 02/17/25 @ 04:58 by Elijah Lucio MD) Migraines Hyperglycemia Hypertension Pacemaker Atrial fibrillation Social History household members: spouse Smoking Status: Never smoker Meds Home Medications and Allergies Home Medications ?Medication ?Instructions ?Recorded ?Confirmed ?Type alfuzosin 10 mg tablet,extended 10 mg PO QDAY ##0 05/22/17 02/17/25 History release 24 hr (Uroxatral) atorvastatin 10 mg tablet 10 mg PO BEDTIME 07/31/19 02/17/25 History cholecalciferol (vitamin D3) 25 1,000 unit PO DAILY 07/31/19 02/17/25 History mcg (1,000 unit) capsule (Vitamin D3) cyanocobalamin (vitamin B-12) 100 100 mcg PO BID 07/31/19 02/17/25 History mcg tablet (Vitamin B-12) ferrous sulfate 324 mg (65 mg 324 mg PO DAILY 07/31/19 02/17/25 History iron) tablet,delayed release magnesium citrate 100 mg tablet 500 mg PO BID 07/31/19 02/17/25 History metformin 1,000 mg tablet See Rx Instructions PO .COMPLEX 07/31/19 02/17/25 History metoprolol succinate 25 mg 50 mg PO DAILY 07/31/19 02/17/25 History tablet,extended release 24 hr blood sugar diagnostic (FreeStyle 02/17/25 02/17/25 History Lite Strips) lancets 28 gauge (FreeStyle 02/17/25 02/17/25 History Lancets) memantine 10 mg tablet 10 mg PO DAILY 02/17/25 02/17/25 History Allergies Allergy/AdvReac Type Severity Reaction Status Date / Time amiodarone (AMIODARONE) Allergy Severe FACIAL Verified 02/16/25 20:27 SWELLING codeine (CODEINE) AdvReac Intermediate N/V Verified 02/16/25 20:27 hydromorphone (HYDROMORPHONE) AdvReac Intermediate N/V Verified 02/16/25 20:27 oxycodone (OXYCODONE) AdvReac Intermediate N/V Verified 02/16/25 20:27 latex (LATEX) AdvReac Mild RASH Verified 02/16/25 20:27 Review of Systems Review of Systems ROS: Yes unobtainable due to mental condition Exam Vital Signs (past 8 hours): - 02/16/25 23:14 02/16/25 23:14 02/16/25 23:30 Pulse Rate 72 73 Respiratory Rate Blood Pressure 161/92 H Pulse Oximetry 98 100 Oxygen Delivery Method 02/16/25 23:31 02/16/25 23:31 02/17/25 00:28 Pulse Rate 69 73 Respiratory Rate Blood Pressure 165/87 H Pulse Oximetry 100 99 Oxygen Delivery Method Room Air Room Air 02/17/25 00:28 02/17/25 00:30 02/17/25 00:30 Pulse Rate 70 Respiratory Rate Blood Pressure 203/99 H 195/105 H Pulse Oximetry 99 Oxygen Delivery Method 02/17/25 05:28 Pulse Rate 81 Respiratory Rate 15 Blood Pressure 141/82 H Pulse Oximetry 100 Oxygen Delivery Method Room Air Oxygen Delivery Method Room Air Narrative Exam Narrative: Physical Exam: GENERAL: The patient is not in any acute distressed. Awake HEENT: Nonicteric sclerae, PERRLA, EOMI. Oropharynx clear. Moist mucous membranes. Conjunctivae appear well perfused. HEART: Regular rate and rhythm without murmurs. No lower extremities edema. LUNGS: Clear to auscultation bilaterally. No wheezing, crackles or rhonchi ABDOMEN: Soft, positive bowel sounds, nontender. SKIN: No rash, no excessive bruising, petechiae, or purpura. NEUROLOGIC: AxO x self only. Cranial nerves II-XII intact without motor/sensory deficit. Objective Labs 02/16/25 21:47 02/16/25 21:47 Labs: Laboratory Results - last 24 hr 02/16/25 02/16/25 02/16/25 21:47 21:47 21:58 WBC 7.6 RBC 4.27 L Hgb 13.5 Hct 40.1 L MCV 94.1 MCH 31.6 MCHC 33.6 RDW 13.7 Plt Count 203 Neut % (Auto) 53.4 Lymph % (Auto) 22.1 L [place] % (Auto) 7.6 Eos % (Auto) 15.8 H Baso % (Auto) 1.1 Neut # (Auto) 4000 Lymph # (Auto) 1700 [place] # (Auto) 600 Eos # (Auto) 1200 H Baso # (Auto) 100 PT 10.7 INR 0.9 APTT 27 D-Dimer Sodium 136 L Potassium 5.2 H Chloride 101 Carbon Dioxide 23 BUN 40 H Creatinine 1.78 H Estimated GFR 36 L BUN/Creatinine Ratio 22.5 H Glucose 180 H POC Whole Bld Glucose 160 H Calcium 9.3 Magnesium 1.9 Total Bilirubin 0.8 AST 23 ALT 17 Alkaline Phosphatase 70 Troponin I 0.013 NT-Pro-B Natriuret Pep 2120 H Total Protein 8.3 H Albumin 4.8 Globulin 3.5 Albumin/Globulin Ratio 1.4 TSH 1.46 Urine Color Yellow Urine Appearance Clear Urine pH 5.5 Normal Ur Specific [place] 1.025 Urine Protein 1+ H Urine Glucose (UA) Trace H Urine Ketones Trace H Urine Occult Blood Negative Urine Nitrate Negative Urine Bilirubin Negative Urine Urobilinogen 0.2 Ur Leukocyte Esterase Negative Urine RBC None seen Urine WBC None seen Ur Squamous Epith Cells None seen Ur Renal Epithelial Cell 0-1/hpf Urine Bacteria None seen Urine Mucus 1+ H Ur Culture Indicated? Cult not indicated Vol Urine Centrifuged 10ml (spun) U Opiates 300ng/mL cut Negative Ur Oxycodone Screen Negative Urine Methadone Screen Negative Ur Barbiturates Screen Negative U Tricyclic Antidepress Negative Ur Phencyclidine Scrn Negative Ur Amphetamines Screen Negative U Methamphetamines Scrn Negative Ur MDMA Scrn (Ecstasy) Negative U Benzodiazepines Scrn Negative Urine Cocaine Screen Negative U Marijuana (THC) Screen Negative Urine Specific [place] Normal Ur Creatinine Normal Blood Type O Positive Antibody Screen Negative 02/17/25 02/17/25 01:10 02:55 WBC RBC Hgb Hct MCV MCH MCHC RDW Plt Count Neut % (Auto) Lymph % (Auto) [place] % (Auto) Eos % (Auto) Baso % (Auto) Neut # (Auto) Lymph # (Auto) [place] # (Auto) Eos # (Auto) Baso # (Auto) PT INR APTT D-Dimer 1201 H Sodium Potassium Chloride Carbon Dioxide BUN Creatinine Estimated GFR BUN/Creatinine Ratio Glucose POC Whole Bld Glucose Calcium Magnesium Total Bilirubin AST ALT Alkaline Phosphatase Troponin I < 0.012 NT-Pro-B Natriuret Pep Total Protein Albumin Globulin Albumin/Globulin Ratio TSH Urine Color Urine Appearance Urine pH Ur Specific [place] Urine Protein Urine Glucose (UA) Urine Ketones Urine Occult Blood Urine Nitrate Urine Bilirubin Urine Urobilinogen Ur Leukocyte Esterase Urine RBC Urine WBC Ur Squamous Epith Cells Ur Renal Epithelial Cell Urine Bacteria Urine Mucus Ur Culture Indicated? Vol Urine Centrifuged U Opiates 300ng/mL cut Ur Oxycodone Screen Urine Methadone Screen Ur Barbiturates Screen U Tricyclic Antidepress Ur Phencyclidine Scrn Ur Amphetamines Screen U Methamphetamines Scrn Ur MDMA Scrn (Ecstasy) U Benzodiazepines Scrn Urine Cocaine Screen U Marijuana (THC) Screen Urine Specific [place] Ur Creatinine Blood Type Antibody Screen Assessment & Plan Assessment & Plan narrative: Fall/possible syncope. Admit the patient to medical telemetry under observation. Of note all workup including images of CT head neck chest and abdomen are negative. Tropes were negative x 2. No signs of sepsis or infection. Continue to monitor patient hemodynamic and mental/neuro status. PT OT. Will obtain echocardiogram due to syncope without clear etiology. MICHELLE. Baseline creatinine is normal. Today creatinine is 1.7. Likely from dehydration. IV fluid and monitor renal function and urine output. Mild hyperkalemia. Potassium 5.2. IV fluid and recheck potassium in the morning. History of atrial fibrillation. Resume home metoprolol. Of note patient is not on anticoagulation. History of severe dementia. Resume home amantadine. Hyperlipidemia. Resume home statin. DVT prophylaxis SCDs due to observational status. CODE STATUS full code. Will need to confirm with patient's family in the morning as patient has severe dementia. Disposition likely home in 1 to 2 days. - As the provider of this telehealth evaluation, requested by the patient's evaluating physician, I attest that I introduced myself to the patient, provided my credentials and determined that telemedicine via a real-time, 2 way interactive audio and video platform is an appropriate and effective means of providing this service. - I reviewed the patient's chart and had a discussion with the member of the patient's treatment team. - The patient and I mutually agreed with continuation of this evaluation via telemedicine. The patient consented for the telemedicine evaluation. - This virtual encounter was taken place from [place] by Dr. Jamey Newton. The patient was evaluated at [facility]. The encounter was approximately 35 minutes. The nurse was present during the entire time of the encounter and was able to move the stethoscope in appropriate directions. Time-Based Coding :: [TOTAL MINUTES] spent with patient and on the chart (including review of chart, obtaining history, exam, reviewing outside data, placing orders, documenting exam and treatment plan, and counseling patient) on [DATE].
[2025-02-17] MEDS: SODIUM CHLORIDE 0.9% 1,000 ML 75 ML IV ×2 (06:37→19:00)
--- NOTE | 2025-02-17 08:11 | PC.NURSE ---
Addendum entered by Javier Yung R.N. 02/17/25 10:39: Patient confused, restless, and anxious throughout morning. Unable to reorient and patient is not following commands. Continually attempting to get out of bed and climb over side rails. and niece at bedside around roughly 0945, patient much calmer and less restless, following some commands. Restraints removed at that time. Echo was unable to be completed at 0730 due to patient mentation and behavior, Dr Caldera notified, echo was completed around roughly 1000 with family presence. Original Note: Admission assessment completed as best as possible given patient's mentation.
--- NOTE | 2025-02-17 08:40 | P.HP_ITS ---
History of Present Illness History of Present Illness Chief complaint: Fall; Head Injury, No Thinners Narrative: From night doctor: 89-year-old male with past medical history of advanced dementia, hyperlipidemia, hypertension, atrial fibrillation not on anticoagulation with pacemaker presents with a fall and possible syncope. Of note the patient has severe dementia and has direct history is difficult. Per report the patient fell at home that was unwitnessed. The patient's family report that he fell against a sliding door and likely hit his head after trying get out of the wheelchair by himself. The patient's family responded to the fall within seconds after hearing the patient hitting the ground. Of note the patient previously was on Eliquis but was taken off by his primary care doctor. The patient does not complain of any pain. In the emergency room, the patient was hemodynamically stable. CT of head neck abdomen chest shows no acute pathology. Labs were also benign except for slight elevation of potassium 5.2 and creatinine 1.7. Tropes were negative x 2. EKG shows no sign of acute ischemia. Patient was given IV fluid and a request for admission to observation overnight. S: He required restraints due to impulsive behavior and lurching out of bed. He was significant cognitive impairment and really can not provide additional details. Clinically he was doing well with stable vital signs. He was on IV fluids for MICHELLE and hypovolemia as well as hyperkalemia. [facility] Medical History Migraines Hyperglycemia Hypertension Pacemaker Atrial fibrillation Social History household members: spouse Smoking Status: Never smoker Meds Home Medications and Allergies Home Medications ?Medication ?Instructions ?Recorded ?Confirmed ?Type alfuzosin 10 mg tablet,extended 10 mg PO QDAY ##0 05/0402/17/25 History release 24 hr (Uroxatral) atorvastatin 10 mg tablet 10 mg PO BEDTIME 07/31/19 History cholecalciferol (vitamin D3) 25 1,000 unit PO DAILY 02/17/25 History mcg (1,000 unit) capsule (Vitamin D3) cyanocobalamin (vitamin B-12) 100 100 mcg PO BID 07/3102/17/25 History mcg tablet (Vitamin B-12) ferrous sulfate 324 mg (65 mg 324 mg PO DAILY 07/31/19 02/17/25 History iron) tablet,delayed release magnesium citrate 100 mg tablet 500 mg PO BID 07/31/19 02/17/25 History metformin 1,000 mg tablet See Rx Instructions PO .COMP ROLAND 07/31/19 02/17/25 History metoprolol succinate 25 mg 50 mg PO DAILY 07/31/19 History tablet,extended release 24 hr blood sugar diagnostic (FreeStyle 02/17/25 02/17/25 H istory Lite Strips) lancets 28 gauge (FreeStyle 02/17/25 02/17/25 History Lancets) memantine 10 mg tablet 10 mg PO DAILY 02/17/2502/01 History Allergies Allergy/AdvReac Type Severity Reaction Status Date / Time amiodarone (AMIODARONE) Allergy Severe FACIAL Verified 02/16/25 20:27 SWELLING codeine (CODEINE) AdvReac Intermediate N/V Verified 02/16/25 20:27 hydromorphone (HYDROMORPHONE) AdvReac Intermediate N/V Verified 02/16/25 20:27 oxycodone (OXYCODONE) AdvReac Intermediate N/V Verified 02/16/25 20:27 latex (LATEX) AdvReac Mild RASH Verified 02/16/25 20:27 Review of Systems Review of Systems Narrative: Not obtainable due to cognitive impairment. Exam Vital Signs (past 8 hours): - 02/17/25 05:28 Pulse Rate 81 Respiratory Rate 15 Blood Pressure 141/82 H Pulse Oximetry 100 Oxygen Delivery Method Room Air Oxygen Delivery Method Room Air Narrative Exam Narrative: NAD, alert and oriented, fluent speech, calm. Frail and cognitively impaired. Normocephalic skull, EOMI, anicteric sclera, symmetric pupils. Oropharynx unremarkable, no droop. Neck supple, midline trachea, no adenopathy. Lungs clear, normal rate and effort. Heart regular, no murmur gallop or rub. Abdomen is soft, non distended and non tender. Extremities are free of edema. Skin is free of rash or lesions. Joints are not swollen or deformed. Judgment appears to be abnormal. Objective ECG Impression: Intervals [place] Rate: 69 P: [place]: QRS: -8 QRSD: 76 T: -6 QT: 390 QTc: 417 Interpretive Statements Atrial fibrillation with frequent ventricular-paced complexes Imaging Multiple studies:: Radiologist's impression: Chest CTA: No pulmonary embolus. No acute pulmonary process. Moderate cardiomegaly, severe coronary artery calcifications, significant biatrial enlargement, presence of a degree of right heart failure. Head CT: 1. No acute intracranial process. 2. Moderate atrophy and chronic microvascular ischemic changes. Chest abdomen and pelvis CT: No visualized visceral or osseous injury. Soft tissue density within the posterior inferior bladder suspected to be related to hypertrophy prostate tissue. However, exam is limited without contrast and further urologic consultation is recommended as indicated. Cervical spine CT: No displaced fracture or traumatic subluxation. Labs 02/16/25 21:47 02/16/25 21:47 Labs: Laboratory Results - last 24 hr 02/16/25 02/16/25 02/16/25 21:47 21:47 21:58 WBC 7.6 RBC 4.27 L Hgb 13.5 Hct 40.1 L MCV 94.1 MCH 31.6 MCHC 33.6 RDW 13.7 Plt Count 203 Neut % (Auto) 53.4 Lymph % (Auto) 22.1 L [place] % (Auto) 7.6 Eos % (Auto) 15.8 H Baso % (Auto) 1.1 Neut # (Auto) 4000 Lymph # (Auto) 1700 [place] # (Auto) 600 Eos # (Auto) 1200 H Baso # (Auto) 100 PT 10.7 INR 0.9 APTT 27 D-Dimer Sodium 136 L Potassium 5.2 H Chloride 101 Carbon Dioxide 23 BUN 40 H Creatinine 1.78 H Estimated GFR 36 L BUN/Creatinine Ratio 22.5 H Glucose 180 H POC Whole Bld Glucose 160 H Calcium 9.3 Magnesium 1.9 Total Bilirubin 0.8 AST 23 ALT 17 Alkaline Phosphatase 70 Troponin I 0.013 NT-Pro-B Natriuret Pep 2120 H Total Protein 8.3 H Albumin 4.8 Globulin 3.5 Albumin/Globulin Ratio 1.4 TSH 1.46 Urine Color Yellow Urine Appearance Clear Urine pH 5.5 Normal Ur Specific [place] 1.025 Urine Protein 1+ H Urine Glucose (UA) Trace H Urine Ketones Trace H Urine Occult Blood Negative Urine Nitrate Negative Urine Bilirubin Negative Urine Urobilinogen 0.2 Ur Leukocyte Esterase Negative Urine RBC None seen Urine WBC None seen Ur Squamous Epith Cells None seen Ur Renal Epithelial Cell 0-1/hpf Urine Bacteria None seen Urine Mucus 1+ H Ur Culture Indicated? Cult not indicated Vol Urine Centrifuged 10ml (spun) U Opiates 300ng/mL cut Negative Ur Oxycodone Screen Negative Urine Methadone Screen Negative Ur Barbiturates Screen Negative U Tricyclic Antidepress Negative Ur Phencyclidine Scrn Negative Ur Amphetamines Screen Negative U Methamphetamines Scrn Negative Ur MDMA Scrn (Ecstasy) Negative U Benzodiazepines Scrn Negative Urine Cocaine Screen Negative U Marijuana (THC) Screen Negative Urine Specific [place] Normal Ur Creatinine Normal Blood Type O Positive Antibody Screen Negative 02/17/25 02/17/25 01:10 02:55 WBC RBC Hgb Hct MCV MCH MCHC RDW Plt Count Neut % (Auto) Lymph % (Auto) [place] % (Auto) Eos % (Auto) Baso % (Auto) Neut # (Auto) Lymph # (Auto) [place] # (Auto) Eos # (Auto) Baso # (Auto) PT INR APTT D-Dimer 1201 H Sodium Potassium Chloride Carbon Dioxide BUN Creatinine Estimated GFR BUN/Creatinine Ratio Glucose POC Whole Bld Glucose Calcium Magnesium Total Bilirubin AST ALT Alkaline Phosphatase Troponin I < 0.012 NT-Pro-B Natriuret Pep Total Protein Albumin Globulin Albumin/Globulin Ratio TSH Urine Color Urine Appearance Urine pH Ur Specific [place] Urine Protein Urine Glucose (UA) Urine Ketones Urine Occult Blood Urine Nitrate Urine Bilirubin Urine Urobilinogen Ur Leukocyte Esterase Urine RBC Urine WBC Ur Squamous Epith Cells Ur Renal Epithelial Cell Urine Bacteria Urine Mucus Ur Culture Indicated? Vol Urine Centrifuged U Opiates 300ng/mL cut Ur Oxycodone Screen Urine Methadone Screen Ur Barbiturates Screen U Tricyclic Antidepress Ur Phencyclidine Scrn Ur Amphetamines Screen U Methamphetamines Scrn Ur MDMA Scrn (Ecstasy) U Benzodiazepines Scrn Urine Cocaine Screen U Marijuana (THC) Screen Urine Specific [place] Ur Creatinine Blood Type Antibody Screen Assessment & Plan Assessment & Plan narrative: 1. Syncope, present on admission and active. 2. MICHELLE with volume depletion, present on admission and improving. 3. Hyperkalemia, present on admission and active. 4. Severe dementia, present on admission and active. 5. Atrial fibrillation, present on admission and stable. 6. HLD, stable. Plan: -continue IV fluids and monitor renal function and potassium. -discharge planning. Likely home with home health in 1 day. Required restraints earlier this morning for impulsive behavior and coming out of bed with a fall risk. He was doing better with family at the bedside restraints were discontinued. Time-Based Coding :: [TOTAL MINUTES] spent with patient and on the chart (including review of chart, obtaining history, exam, reviewing outside data, placing orders, documenting exam and treatment plan, and counseling patient) on [DATE].
[2025-02-17 10:00] VITALS: TEMP 36.4
--- NOTE | 2025-02-17 11:58 | PT.IIE ---
Medical History (Last Reviewed 02/17/25 @ 08:40 by Austin Caldera MD) Atrial fibrillation Hyperglycemia Hypertension Migraines Pacemaker Physical Therapy Inpatient Evaluation/Re-Eval M1 PT/OT-IP Prior Functional Status Start: 02/17/25 11:38 Freq: NEEDED Status: Active Protocol: Document 02/17/25 11:00 MB (Rec: 02/17/25 11:55 MB Desktop) Medical Review Prior Functional Status Medical History Yes Reviewed Communication Pt is hypoverbal and does occasionally answer questions in Upper Sorbian. speaks to pt in Tagalog and they decline [employer] official court interpreter despite PT's offer Mobility and Gait CGA with RW at baseline Activities of Daily Assistance from Living and IADL's Social History Household Members spouse Living Arrangements House Number of Stairs To 0 steps to enter or in family room where he is in Enter/Railing? hospital bed and has BSC, 4 steps with rail to get to BR Home Environment Standard Height Toilet,Walk in Shower Home Equipment Front Wheel Walker,Four Wheel Walker,Straight Cane, Bedside Commode,Shower Seat with Backrest,Hand Held Shower,Hospital Bed,Grab Bars Near Toilet,Grab Bars In Shower Employment Status Retired M2 PT-IP Current Condition Start: 02/17/25 11:38 Freq: NEEDED Status: Active Protocol: Document 02/17/25 11:00 MB (Rec: 02/17/25 11:55 MB Desktop) Physical Therapy Current Condition Current Condition Evaluation Date 02/17/25 Treatment Diagnosis Fall and syncope M3 PT-IP Subjective Start: 02/17/25 11:38 Freq: NEEDED Status: Active Protocol: Document 02/17/25 11:00 MB (Rec: 02/17/25 11:55 MB Desktop) Subjective Physical Therapy Visit Type Type Initial Evaluation Visit Start Time 11:00 Visit Stop Time 11:30 Number of INSTRUMENT SETTER Visits 0 Physical Therapy Visit Comments Patient Comments Pt is hypoverbal and does not answer questions often, niece and attend to answer. M4 PT-IP Mobility and Gait Start: 02/17/25 11:38 Freq: NEEDED Status: Active Protocol: Document 02/17/25 11:00 MB (Rec: 02/17/25 11:55 MB Desktop) PT-Bed Mobility Assessment Rolling Level of Assist Contact Guard Assistance Supine to Sit Supine to Sit Contact Guard Assistance Scooting Scooting to Edge of Contact Guard Assistance Bed Scooting Up and Down Contact Guard Assistance in Bed PT-Transfer Assessment Sit to and From Stand Sit to and from Contact Guard Assistance Stand Equipment Transfer Assistive Gait Belt,Front Wheeled Walker Device Transfers Transfer Destination Chair,Toilet Transfer Technique Ambulation Transfer Ability Level of Assist Contact Guard Assistance Comments Mobility Comments Pt requires encouragement from for bed mobility and to get up and she tends to speak to pt in Tagalog. Pt performs tasks with CGA. See OT note for toileting assist. Gait Assessment Gait Gait Assistance Contact Guard Assist Required: Distance (Feet) 20 Assistive Devices Assistive Device Gait Belt,Front Wheeled Walker Gait Deviations General Gait Pattern Decreased Stride Length,Decreased Feet Clearance,Flexed Trunk Factors Limiting Gait Function Factors Limiting Difficulty Following Directions,Poor Balance Gait Function Comments Gait Comments 10'x1, 20'x2 with RW and CGA and VCs where to go, FLAT SHEET MAKER without AD for a few steps around the step Stair Climbing Assessment Evaluation Level of Assist On Contact Guard Assistance Stairs Devices Stair Climbing Left Railing Assistive Devices Technique/Endurance Stair Climbing Ascend and Descend Direction Stair Climbing Step to Step Technique Number of Steps 1 Climbed Query Text: Stair Climbing Set # 1 Repetitions (reps) Comments Stair Climbing Cues to use rail in the room to step up step, step Comments across and then step down PT-Balance Assessment Sitting Balance and Reactions Static Sitting Good Balance Ability Dynamic Sitting Good Balance Ability Standing Balance and Reactions Static Standing Good Balance Ability Dynamic Standing Fair Balance Ability Device Used FLAT SHEET MAKER or RW M5 PT-IP Objective Assessments Start: 02/17/25 11:38 Freq: NEEDED Status: Active Protocol: Document 02/17/25 11:00 MB (Rec: 02/17/25 11:55 MB Desktop) Orientation Orientation/Cognition Level of Alertness Confusional State Safety Awareness Decreased Safety Awareness Memory Description Short Term Impaired,Student Driving Instructor Impaired Comments Hypoverbal and does not answer orientation questions Gross Range of Motion Upper Extremity ROM Impairments Defer to OT Lower Extremity ROM Assessment Within Functional Limits Impairments Does not follow formal commands and legs appear functional Strength Lower Extremity Strength Assessment Within Functional Limits Coordination Assessment Assessment Coordination NT Comments Sensation Assessment Comments Sensation Comments NT, pt cannot follow commands Muscle Tone Muscle Tone WNL Yes M6 PT-IP Treatment Start: 02/17/25 11:38 Freq: NEEDED Status: Active Protocol: Document 02/17/25 11:00 MB (Rec: 02/17/25 11:55 MB Desktop) Physical Therapy Treatment Other Treatments Other Treatment PT attempts to have and niece engage with PT and Performed pt in bed mobility, transfers and step and they tend to stay on the window seat and not assist M7 PT-IP Assessment and Plan Start: 02/17/25 11:38 Freq: NEEDED Status: Active Protocol: Document 02/17/25 11:00 MB (Rec: 02/17/25 11:55 MB Desktop) PT Summary Assessment and Plan Potential Rehabilitation Poor Potential Status of Condition Evolving at Evaluation Summary Impairments Balance,Cognition,Bed Mobility,Transfers,Gait Assessment Summary Pt is an 89 y/o male adm with questionable fall and syncope. Pt is unable to follow commands to check orthostatics today and moves slowly with encouragement to the EOB. Pt presents at his baseline mobility level and requires CGA for mobility including gait and step training in the room. and niece tend not to interact/assist as much when PT asks how they work with pt at home. There may be a language barrier and though PT encourages official court interpreter, they decline. Pt will require 24 hour superv and assistance at home, recommend increased assistance at d/c. Frequency of Treatment Frequency Of Discharge Treatment Treatment Plan Other PT attempts to provide education and encouragement Recommendations and about assistance to pt, and niece, step training Next Treatment Focus Recommendations To Nursing Amount of Assist 1 Person Assist Needed Discharge Recommendations PT Discharge Home with 24/7 Assist Available Recommendations Other Discharge Consider memory care/NEHEMIAS Recommendations Transportation Needs Private Vehicle at Discharge
--- NOTE | 2025-02-17 12:35 | OT.IP.EVAL ---
Past Medical History (Last Reviewed 02/17/25 @ 08:40 by Austin Caldera MD) Atrial fibrillation Hyperglycemia Hypertension Migraines Pacemaker Occupational Therapy Inpatient Evaluation/Re-Eval M1 PT/OT-IP Prior Functional Status Start: 02/17/25 11:38 Freq: NEEDED Status: Active Protocol: Document 02/17/25 12:19 [facility] (Rec: 02/17/25 12:35 [facility] Desktop) Medical Review Prior Functional Status Medical History Yes Reviewed Communication Pt is hypoverbal and does occasionally answer questions in Haitian. 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 hospital bed and has BSC, 5-7 steps with left rail to get to BR Home Environment Standard Height Toilet,Walk in Shower Home Equipment Front Wheel Walker,Four Wheel Walker,Straight Cane, Bedside Commode,Shower Seat with Backrest,Hand Held Shower,Hospital Bed,Grab Bars Near Toilet,Grab Bars In Shower Employment Status Retired Additional Social Pt understands Haitian but primary language is ReachLocal, History Comment pt's and niece present and able to translate. Pt and family not wanting to use egg buyer at this time. M2 OT-IP Current Condition Start: 02/17/25 12:19 Freq: Status: Active Protocol: Document 02/17/25 12:19 [facility] (Rec: 02/17/25 12:35 [facility] Desktop) Occupational Therapy Current Condition Current Condition Evaluation Date 02/17/25 Treatment Diagnosis Syncope Diagnosis Onset Date 02/17/25 M3 OT- IP Subjective and Pain Start: 02/17/25 12:19 Freq: Status: Active Protocol: Document 02/17/25 12:19 [facility] (Rec: 02/17/25 12:35 [facility] Desktop) OT- Subjective Occupational Therapy Visit Type Type Initial Evaluation Visit Start Time 11:00 Visit Stop Time 11:48 Occupational Therapy Visit Comments Patient Comments Pt, and niece present for eval. Patient/Caregiver TO go home. Goals OT Pain Assessment Pain When Pain Assessed At Rest Pain Present Pain Present Denied Pain M4 OT- IP ADL's Start: 02/17/25 12:19 Freq: Status: Active Protocol: Document 02/17/25 12:19 [facility] (Rec: 02/17/25 12:35 [facility] Desktop) OT OID-Fves-Yfwkaoi Comments OT Self-Feeding Pt's states usually spoon feeds him. Comments OT ADL-Grooming Comments OT Grooming Comments does for him. OT ADL-Oral Care Comments Oral Care Comments Pt's does for him. OT ADL-Dressing Comments OT Dressing Comments Pt's assist for all dressing needs. OT ADL-Toileting Comments OT Toileting Pt is dependent of his to assist to change out his Comments brief and hygiene needs. Pt states he wears, Pampers. OT ADL-Bathing Comments OT Bathing Comments Not performed. M5 OT- IP IADL's Start: 02/17/25 12:19 Freq: Status: Active Protocol: Document 02/17/25 12:19 [facility] (Rec: 02/17/25 12:35 [facility] Desktop) OT-Instrumental Activities of Daily Living Home Safety Awareness Awareness of Need Decreased Awareness for Assistance at Home Ability to Problem Unable to Problem Solve Solve Emergency Situations Medication Management Medication Caregiver Administers Management Money Management Money Management Caregiver Provides Assistance Meal Preparation Meal Preparation Caregiver Provides Assist Strip Catcher Strip Catcher Caregiver Provides Assist Driving Driving Caregiver Provides Assist M6 OT- IP Functional Cognition Start: 02/17/25 12:19 Freq: Status: Active Protocol: Document 02/17/25 12:19 [facility] (Rec: 02/17/25 12:35 [facility] Desktop) Cognitive Factors Limiting Selfcare Function Cognitive Ability Level of Alertness Alert Patient Orientation Name Attention Span Capable of Focused Attention,Unable to Sustain Ability Attention Ability to Follow Able to Follow One Step Commands with Increased Time, Commands Able to Follow One Step Commands with Repetition Cognitive Comments Cognitive Assessment Pt needing simple concrete cues to follow. At times Comments needing hand over hand assist and visual cues. OT- Vision and Hearing OT- Hearing Assessment OT- Hearing Hearing Impaired Assessment OT- Vision Assessment Visual Acuity Glasses All The Time Vision Assessment Pt able to scan and follow therapist in the room. Comments M7 OT- IP Mobility and Balance Start: 02/17/25 12:19 Freq: Status: Active Protocol: Document 02/17/25 12:19 [facility] (Rec: 02/17/25 12:35 [facility] Desktop) OT- Bed Mobility Assessment Supine to Sit Supine to Sit Assist Contact Guard Assistance OT-Transfer Assessment Sit to and From Stand Sit to and from Contact Guard Assistance Stand Transfers Transfer Ability Contact Guard Assistance Technique Transfer Destination Bed,Chair Devices Transfer Assistive Gait Belt,Front Wheeled Walker Devices Comments Mobility Comments CGA to get out of bed and walk with the FWW. Pt a little unsteady on his feet and needing CGA for balance and at times assist to help guide the FWW. OT- Balance Assessment Sitting Balance and Reactions Static Sitting Good Balance Ability Dynamic Sitting Good Balance Ability Standing Balance and Reactions Static Standing Good Balance Ability Dynamic Standing Fair Balance Ability M8 OT- IP Objective Assessments Start: 02/17/25 12:19 Freq: Status: Active Protocol: Document 02/17/25 12:19 [facility] (Rec: 02/17/25 12:35 [facility] Desktop) OT Strength Comments Strength Comments At least 3+/5 as per ability for mobility needs. M9 OT- IP Assessment and Plan Start: 02/17/25 12:19 Freq: Status: Active Protocol: Document 02/17/25 12:19 [facility] (Rec: 02/17/25 12:35 [facility] Desktop) OT Summary Assessment and Plan Potential Rehabilitation Poor Potential Analytic Complexity Moderate at Evaluation Summary OT Impairments Balance,Functional Mobility Assessment Summary Pt MOD complexity and needing CGA for mobility needs at this time which is him baseline per family. They states at times at home needs physical assist and other time just SBA. Due to his severe dementia, pt's assists for all ADL needs. Pt has no steps to enter and able to stay on the main level in a hospital bed and BSC close by. Pt's niece has been assisting due to visiting from out of town since September. Pt would benefit from 24/7 assist at home and ideally memory care. Able to go over safety equipment needs with pt's family regarding alarms, motion sensors, etc. Pt may benefit from home health to help improve overall safety on the environment. Frequency of Treatment Frequency Of Discharge Treatment Discharge Recommendations OT Discharge Home with 24/7 Assist Available,Home Health Recommendations Transportation Needs Private Vehicle at Discharge
--- NOTE | 2025-02-17 15:58 | CM.DANOTE ---
Initial DCP Assessment Note Pt is an 89 yo male, resident of [place], admitted OBS after a fall. PCP: Elvira Tijerina Payer: [facility]/[place] [employer] Met w/patient, spouse and niece at bedside today; patient does not participate in this conversation, spouse only minimally. According to patient's niece Susana who has been visiting from [facility] since Sep 2024 and caring for patient/sp; Patient and sp have one son, Garima, who manages their finances. This DEVOPS ARCHITECT requested Garima's contact information. Niece states she doesn't know if he wants this information shared and that he is a very private person. Niece reports that both patient and sp have dementia and she wonders what their son is going to do for patient/sp once she leaves in March to go home. 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 Patient served in the [employer]. Patient/sp have a large family back in the [facility], no one but their son here. Discussed home w/24/02 care vs facility care. Discussed approx pricing for both. Provided the senior resource guide and strongly recommended a family conversation about how patient/sp will be cared for when niece leaves. Niece in agreement. Discussed HH and niece agrees to this, no agency preference. HH order completed, F2F completed, referral sent to [facility] via email - to contact Javier Poole Patient Escort, [facility] . Plan: Discharge home w.family, [facility], family responsible for researching and securing longterm care for patient. 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 No History Provided By Family Member,Medical Record Prior Living House Arrangements Household Members spouse Comment Niece has been here since September from the [facility] and will return home in March. Type of Relies on Others transporation used prior to admit Independent with ADL No 's Is patient alert and No oriented? Needs Assistance Bathing,Eating,Grooming,Meal Prep,Toileting,Managing With Medications,Home Chores / Shopping Comment Due to advanced dementia
[2025-02-17] MEDS: CYANOCOBALAMIN (VITAMIN B-12) 100 MCG TABLET PO (20:27)
[2025-02-17] MEDS: QUETIAPINE 25 MG TABLET PO (20:27)
[2025-02-17] MEDS: ATORVASTATIN 20 MG TABLET 10 MG PO (20:27)
[2025-02-17] MEDS: SODIUM CHLORIDE 0.9% FLUSH 10 ML IV (23:10)
[2025-02-17] MEDS: HALOPERIDOL 5 MG/ML VIAL IV (23:10)
[2025-02-18 10:00] VITALS: BP 168/90; PULSE 78; RESP 13; TEMP 36.4; O2SAT 97
--- NOTE | 2025-02-18 12:08 | PC.NURSE ---
Day shift: At approx [address] Caldera informed that Pt had taken out his own IV overnight and removed his telemetry. Dr Caldera OK with no IV and no tele at this time..
[2025-02-18 12:15] LABS: Add Manual Diff / Slide Review NO; Hematocrit 40.7 % (41-53); Hemoglobin 13.7 g/dL (13.5-17.5); Lymphocytes Absolute Auto 1400 /uL (1100-4500); Mean Corpuscular HGB Conc 33.7 % (30-36); Mean Corpuscular Hemoglobin 31.6 PG (26-34); Mean Corpuscular Volume 93.8 fL (80-100); Platelet Count 192 X10^3/uL (150-400)
[2025-02-18 13:52] LABS: Blood Urea Nitrogen 21 mg/dL (9-20); Calcium 9.6 mg/dL (8.4-10.2); Carbon Dioxide 21 mmol/L (22-32); Chloride 103 mmol/L (98-107); Estimated Glomerular Filt Rate 59 mL/min (>60); Glucose 145 mg/dL (70-99); HEMOLYSIS 37 (0-50); Potassium 4.4 mmol/L (3.4-5.1); Sodium 137 mmol/L (137-145)
--- NOTE | 2025-02-18 14:37 | PM.DS.1 ---
History of Present Illness History of Present Illness Chief complaint: Fall; Head Injury, No Thinners Narrative: From night doctor: 89-year-old male with past medical history of advanced dementia, hyperlipidemia, hypertension, atrial fibrillation not on anticoagulation with pacemaker presents with a fall and possible syncope. Of note the patient has severe dementia and has direct history is difficult. Per report the patient fell at home that was unwitnessed. The patient's family report that he fell against a sliding door and likely hit his head after trying get out of the wheelchair by himself. The patient's family responded to the fall within seconds after hearing the patient hitting the ground. Of note the patient previously was on Eliquis but was taken off by his primary care doctor. The patient does not complain of any pain. In the emergency room, the patient was hemodynamically stable. CT of head neck abdomen chest shows no acute pathology. Labs were also benign except for slight elevation of potassium 5.2 and creatinine 1.7. Tropes were negative x 2. EKG shows no sign of acute ischemia. Patient was given IV fluid and a request for admission to observation overnight. S: He required restraints due to impulsive behavior and lurching out of bed. He was significant cognitive impairment and really can not provide additional details. Clinically he was doing well with stable vital signs. He was on IV fluids for MICHELLE and hypovolemia as well as hyperkalemia. Discharge Providers Provider Date of admission: 02/17/25 04:47 Discharge Date: 02/18/25 Primary care physician: Elvira Tijerina MD Consults: 02/17/25 05:07 Consult to Occupational Therapy Evaluate & Treat Comment: Physician Instructions: Evaluate and treat Consult to Physical Therapy Evaluate & Treat Comment: Physician Instructions: Evaluate and Treat 02/17/25 16:13 Consult to Home Health Routine Comment: Reason For Exam: Home health Discharge provider: Austin Caldera MD Summary Hospital Course Discharge Diagnosis: 1. Syncope, present on admission and improved. 2. MICHELLE with volume depletion, present on admission and improved. 3. Hyperkalemia, present on admission and resolved. 4. Severe dementia, present on admission and active. 5. Atrial fibrillation, present on admission and stable. 6. HLD, stable. Hospital Course: Patient was an 89-year-old male with severe dementia presented with presyncope, hypotension, and volume depletion. He would acute kidney injury with hyperkalemia. Lives with his in his daughter is visiting from the [facility]. He was fairly severe dementia and wanders a lot at night. He was given fluid resuscitation here and electrolytes improved with a normalization of renal function. The patient does have a light a lot of nighttime behavior including agitation was given Seroquel 25 HS with some improvement of symptoms. The patient's family did request medication home to continue to try to combat his nighttime behaviors including wandering and intermittent outbursts. He will be started on Seroquel 25 HS with close follow up with primary care. In addition he was at risk for ongoing poor oral intake and recurrent acute kidney injury or electrolyte disorders. He will see his doctor within the next week in his urged to consider hospice. Status at Discharge Cognitive/behavioral status at discharge: at baseline, confused Functional status at discharge: uses cane/walker Overall status at discharge: patient is progressing back to baseline Time Spent with Patient Time spent: Greater than 30 minutes Exam Vital Signs (past 8 hours): - 02/18/25 10:00 02/18/25 10:00 Temperature 97.5 F L Pulse Rate 78 Respiratory Rate 13 Blood Pressure 168/90 H Pulse Oximetry 97 Oxygen Flow Rate 0 Oxygen Delivery Method Room Air Oxygen Flow Rate 0 Narrative Exam Narrative: Cognitive impairment, occasional outbursts. Lungs are clear Heart is regular Abdomen is flat Extremities are free of edema. Objective Imaging Multiple studies:: Radiologist's impression: Chest CTA: No pulmonary embolus. No acute pulmonary process. Moderate cardiomegaly, severe coronary artery calcifications, significant biatrial enlargement, presence of a degree of right heart failure. Head CT: 1. No acute intracranial process. 2. Moderate atrophy and chronic microvascular ischemic changes. Chest abdomen and pelvis CT: No visualized visceral or osseous injury. Soft tissue density within the posterior inferior bladder suspected to be related to hypertrophy prostate tissue. However, exam is limited without contrast and further urologic consultation is recommended as indicated. Cervical spine CT: No displaced fracture or traumatic subluxation. Labs 02/18/25 11:54 02/18/25 11:54 Labs: Laboratory Results - last 24 hr 02/18/25 11:54 WBC 8.0 RBC 4.34 L Hgb 13.7 Hct 40.7 L MCV 93.8 MCH 31.6 MCHC 33.7 RDW 13.6 Plt Count 192 Neut % (Auto) 55.8 Lymph % (Auto) 17.2 L Caldwell % (Auto) 11.9 Eos % (Auto) 14.6 H Baso % (Auto) 0.5 Neut # (Auto) 4500 Lymph # (Auto) 1400 [place]dwell # (Auto) 1000 H Eos # (Auto) 1200 H Baso # (Auto) 0 Sodium 137 Potassium 4.4 Chloride 103 Carbon Dioxide 21 L BUN 21 H Creatinine 1.18 Estimated GFR 59 L BUN/Creatinine Ratio 17.8 Glucose 145 H Calcium 9.6 PFSH Medical History Migraines Hyperglycemia Hypertension Pacemaker Atrial fibrillation Social History household members: spouse Smoking Status: Never smoker Discharge Assessment & Plan Assessment and Plan Assessment: 1. Syncope, present on admission and improved. 2. MICHELLE with volume depletion, present on admission and improved. 3. Hyperkalemia, present on admission and resolved. Plan of Treatment: Discharge home, encourage hydration. Seroquel 25 HS, Rx sent. PCP within next week, consider hospice. Discharge Plan Discharge Plan Patient Disposition: Home Provider Discharge Comment: Stable for discharge home. Discharge orders & Medications Prescriptions: New quetiapine 25 mg Tablet 25 mg PO BEDTIME Qty: 30 0RF Continued alfuzosin [Uroxatral] 10 MG tablet extended release 24 hr 10 mg PO QDAY Qty: 0 (DME) FreeStyle Lite Strips Strip 1 strip MISCELLANEOUS BID memantine 10 mg tablet 10 mg PO DAILY (DME) lancets [FreeStyle Lancets] 28 gauge misc 1 ea MISCELLANEOUS BID cholecalciferol (vitamin D3) [Vitamin D3] 1,000 unit Capsule 1,000 unit PO DAILY cyanocobalamin (vitamin B-12) [Vitamin B-12] 100 mcg Tablet 100 mcg PO BID magnesium citrate 100 mg Tablet 500 mg PO BID metoprolol succinate 25 mg Tablet Extended Release 24 Hr 50 mg PO DAILY metformin 1,000 mg Tablet See Rx Instructions PO .COMPLEX Rx Instructions: Take 1 tablet in the morning, 2 tablets in the evening orally; atorvastatin 10 mg Tablet 10 mg PO BEDTIME ferrous sulfate 324 mg (65 mg iron) Tablet,Delayed Release (Dr/Ec) 324 mg PO DAILY Follow up/Referrals: Elvira Tijerina MD [Primary Care Provider, [facility]] Diet/Activity/Treatments Diet: Carb-consistent/Diabetic Visit Report/Discharge Packet Instructions: DI for Syncope in Adults (Fainting), DI for Dehydration -- Adult, How to Prevent Falls Stand Alone Forms: Patient Portal/API, Stroke Signs & Symptoms Discharge Data Primary Care Provider: Elvira Tijerina Attending Provider: Jamey Newton Admrommel Date/Time: 02/17/25 04:47
--- NOTE | 2025-02-18 14:55 | CM.DPNOTE ---
DC Note Discharge home with family. Updated Javier at [facility]. Send signed DC Summary when available. ELINOR
--- NOTE | 2025-02-18 16:29 | PC.NURSE ---
Day shift: Paperwork signed by spouse and all questions answered. Another family member in room for teachings. Pt has all personal belongings. New MD scripts sent to Pt's pharmacy electronic.Helped into WC by Dieter. THis food writer will go down with them and family to help Pt into car. Left unit at approx [id number]. Family said they will have some help at home to help Pt get into house.
== END 2025-02-18 16:40 | disposition home or self-care (01) ==
LOC: ED 20:52 → AC 02-17 04:48 → ICU 02-17 05:24
PROVIDERS: Admitting Provider Internal Medicine; Emergency Provider Emergency Medicine; Family Provider Family Medicine; PCP Family Medicine; Referring Provider Emergency Medicine; Visit Provider Internal Medicine
DX: R55 Syncope and collapse (principal); W05.0XXA Fall from non-moving wheelchair, initial encounter; F03.C18 Unspecified dementia, severe, with other behavioral disturbance; N17.9 Acute kidney failure, unspecified; E86.1 Hypovolemia; E87.5 Hyperkalemia; I48.91 Unspecified atrial fibrillation; E78.5 Hyperlipidemia, unspecified; I10 Essential (primary) hypertension; Z95.0 Presence of cardiac pacemaker
CPT/HCPCS: 36415; 70450; 71250; 71275; 72125; 74176; 80048; 80053; 80305; 81001; 82962; 83735; 83880; 84443; 84484; 85025; 85379; 85610; 85730; 86850; 86900; 86901; 93005; 93306; 96361; 96374; 97161; 97166; 97530; 97535; 99284; G0378; J1630; Q9967